=== PATIENT | male | born 1950 | race Caucasian/White ===

== ENCOUNTER → 2019-08-16 09:47 | Outpatient (BNVA) | payer BC, SELFPAY | PROVIDERS: Family Provider Registered Nurse; PCP Registered Nurse; Visit Provider Registered Nurse | DX: E11.9 Type 2 diabetes mellitus without complications (principal); I10 Essential (primary) hypertension | CPT/HCPCS: 83036 ==

== ENCOUNTER → 2019-11-11 09:56 | Outpatient (BNVA) | payer BC, SELFPAY | PROVIDERS: Family Provider Registered Nurse; PCP Registered Nurse | DX: E11.9 Type 2 diabetes mellitus without complications (principal) | CPT/HCPCS: 80053; 80061; 83036; 83721; 85025; G0103 ==

== ENCOUNTER 2019-12-30 08:44 | Emergency (ER) | payer BC, SELFPAY ==
[2019-12-30 08:49] VITALS: BP 138/77; PULSE 67; RESP 18; TEMP 36.7; O2SAT 97; BMI 39.6
--- NOTE | 2019-12-30 09:10 | ED_ITS ---
HPI - General Adult General: Chief complaint: General Medical Stated complaint: body aches Time Seen by Provider: 12/30/19 08:50 History of Present Illness: HPI narrative: Patient is a 69-year-old male who comes to the ED with body aches. Patient says symptoms started last Monday. He states that on Monday night he had body aches and felt like he developed a mild subjective fever. He has not had any fever, chills since Monday. Patient describes his body aches as all over his body and not in any particular area. He says when he sitting down and not moving he does not feel any other body aches. As soon as he gets up to move around he can feel the body aches throughout his body. Patient did say approximately 7-10 days ago he had a tick on his waist that he removed. Denies cough, chills, chest pain, shortness of breath, upper respiratory symptoms, nausea, vomiting, abdominal pain, bladder symptom or bowel symptoms. Associated symptoms: Deny chest pain, dyspnea, headache(s), nausea, rash, palpitations or vomiting Review of Systems Const: Reports: fever(s) and body aches; Denies: chills or fatigue Eyes: Denies: change in vision or eye discomfort ENMT: Denies: throat pain, odynophagia, nasal discharge or nasal congestion Card: Denies: chest pain, palpitations, edema, swelling of feet/ankles, dyspnea on exertion or orthopnea Resp: Denies: dyspnea, productive cough or non-productive cough GI: Denies: abdominal pain, nausea, vomiting, diarrhea, constipation or hematochezia : Denies: flank pain, difficulty urinating, dysuria or hematuria Musc: Denies: neck pain, back pain or extremity swelling Skin/Breast: Reports: other (Tick bite on waist); Denies: rash or new lesions Neuro: Denies: headache(s), numbness in extremities or weakness in extremities PFSH ED PFSH: Medical History Combined hyperlipidemia associated with type 2 diabetes mellitus Essential hypertension Obesity, unspecified Type 2 diabetes mellitus with unspecified complications Surgical History History of coronary angioplasty with insertion of stent History of hernia repair History of left knee replacement History of total right knee replacement Family History Other Diabetes Heart disease Denies family history of Anesthesia complication Bleeding disorder Social History Smoking and tobacco status: never smoked Alcohol intake: never Adopted: No Caregiver/support person: No Lives independently: Yes Marital status: service: No Current occupational status: employed Sexually active: Yes Current gender identity: Male Physical Exam Const: COMMON NORMALS: no acute distress, patient oriented x3 and alert GENERAL APPEARANCE: cooperative and comfortable NUTRITIONAL APPEARANCE: overweight HENMT: COMMON NORMALS: normocephalic and Normal external nose present HEAD & SCALP: normocephalic NOSE: Normal external nose present MOUTH: Normal oral and palatal mucosa present THROAT: posterior oropharynx normal and uvula midline Eye: COMMON NORMALS: Equal, round and reactive pupils present PUPIL: Yes Equal, round and reactive pupils present Neck/C-Spine: COMMON NORMALS: supple GENERAL: Yes normal visual inspection Resp: COMMON NORMALS: normal respiratory effort, No retractions, No use of accessory muscles and clear to auscultation bilaterally EFFORT & INSPECTION: Yes able to speak in complete sentences, No tachypneic and No Actively coughing AUSCULTATION: clear to auscultation bilaterally Cardio: COMMON NORMALS: regular rate, regular rhythm, S1 normal heart sound present, S2 normal heart sound present, No gallops present (Cardio), No clicks present (Cardio), No murmurs present (Cardio) and Peripheral pulses 2+ throughout RATE: regular rate RHYTHM: regular rhythm HEART SOUNDS: S1 normal heart sound present and S2 normal heart sound present PERIPHERAL PULSES: Peripheral pulses 2+ throughout GI: COMMON NORMALS: Normal to inspection, nondistended, normoactive bowel sounds present, Soft to palpation, non-tender and no masses PALPATION: Yes Soft to palpation : COMMON NORMALS: Yes no CVA tenderness BLADDER/KIDNEY EXAM: Yes no CVA tenderness Back/Pelvis: COMMON NORMALS: no CVA tenderness Extremity: COMMON NORMALS: normal to inspection and no pedal edema Neuro: COMMON NORMALS: patient oriented x3 and moves all extremities SENSORIUM/ORIENTATION: Yes alert Skin: GENERAL SKIN EXAM: dry skin OTHER: Patient had a tick bite on left side of waist. Patient removed tick. Now in region where tick was there is approximately a 5 mm in diameter circular erythema. Course Vital Signs: Vital signs: Vital Signs Temperature 98.1 F 12/30/19 08:49 Pulse Rate 58 L 12/30/19 10:41 Respiratory Rate 18 12/30/19 10:41 Blood Pressure 129/81 12/30/19 10:41 Pulse Oximetry 97 12/30/19 10:41 MDM - General Adult MDM Narrative: Medical decision making narrative: Patient is a 69-year-old male who comes into the ED with body aches starting about 5 days ago. Patient also had a tick bite and removed it approximately 7 to 10 days ago. Patient has no other symptoms besides body aches. Physical exam showed a 69-year-old male in no pain or distress. Tick bite on left side of waist had some erythema but no target lesion. White blood cells 3.5 and AST 49 and ALT 73. Influenza negative. A tick panel lab was also performed and is pending. Patient was given a dose of doxycycline while here in the ED. Patient was discharged and given a prescription for doxycycline to treat tick disease prophylactically. He was told to follow-up with his PCP in 5 to 7 days for reevaluation and to redraw labs. Patient understood and agreed with plan. Lab Data: Attestation: I reviewed the patient's lab results. Labs: Lab Results 12/30/19 12/30/19 12/30/19 Range/Units 09:27 09:27 09:46 WBC 3.5 L (4.0-10.0) 10^3/ uL RBC 4.94 (4.1-5.3) 10^6/u L Hgb 14.7 (11.7-16.6) g/dL Hct 45.3 (42.0-52.0) % MCV 91.7 (80-94) fL MCH 29.8 (28.0-34.0) pg MCHC 32.5 (30.0-36.0) g/dL RDW 13.3 (12.1-15.1) % Plt Count 172 (130-400) 10^3/c mm MPV 9.7 (7.4-10.4) fL Neut % (Auto) 59.4 % Lymph % (Auto) 18.3 % [place] % (Auto) 16.3 % Eos % (Auto) 5.4 % Baso % (Auto) 0.3 % Neut # (Auto) 2.1 (1.8-7.7) 10^3/u L Lymph # (Auto) 0.6 L (0.8-4.8) 10^3/u L [place] # (Auto) 0.6 (0.2-0.9) 10^3/u L Eos # (Auto) 0.2 (0.0-0.8) 10^3/u L Baso # (Auto) 0.0 (0.0-0.1) 10^3/u L Nucleated RBC % (a uto) 0 % Nucleated RBCs # 0.0 /100WBC Sodium (136-145) mmol/L Potassium (3.5-5.1) mmol/L Chloride (98-107) mmol/L Carbon Dioxide (22-29) mmol/L Anion Gap (5-19) BUN (8-23) mg/dL Creatinine (0.7-1.2) mg/dL GFR Calculation (90-130) mL/min Glucose (65-115) mg/dL Calculated Osmolal ity (285-295) mOsm/k g Calcium (8.5-10.5) mg/dL Total Bilirubin (0.15-1.2) mg/dL AST (0-40) U/L ALT (0-41) U/L Alkaline Phosphata se (40-130) IU/L Total Protein (6.6-8.7) g/dL Albumin (3.5-5.2) g/dL Globulin (1.3-4.6) g/dL Urine Color Straw (Yellow) Urine Appearance Clear (CLEAR) Urine pH 5 (5-7) Ur Specific Gravit y 1.010 (1.005-1.030) Urine Protein Neg (Negative) Urine Glucose (UA) 4+ H (Normal) Urine Ketones Negative (Negative) Urine Blood Neg (Negative) Urine Nitrate Negative (Negative) Urine Bilirubin Neg (NEGATIVE) Urine Urobilinogen Norm (Negative) mg/dL Ur Leukocyte [place] ase Negative (Negative) Urine RBC 0-4 H (0-2) /hpf Urine WBC None (0-5) /hpf Ur Squamous Epith Cells 0-4 H (0-5) Urine Bacteria Trace (NONE) Influenza Type A A g Negative (Negative) Influenza Type B A g Negative (Negative) 12/30/19 Range/Units 09:46 WBC (4.0-10.0) 10^3/ uL RBC (4.1-5.3) 10^6/u L Hgb (11.7-16.6) g/dL Hct (42.0-52.0) % MCV (80-94) fL MCH (28.0-34.0) pg MCHC (30.0-36.0) g/dL RDW (12.1-15.1) % Plt Count (130-400) 10^3/c mm MPV (7.4-10.4) fL Neut % (Auto) % Lymph % (Auto) % [place] % (Auto) % Eos % (Auto) % Baso % (Auto) % Neut # (Auto) (1.8-7.7) 10^3/u L Lymph # (Auto) (0.8-4.8) 10^3/u L [place] # (Auto) (0.2-0.9) 10^3/u L Eos # (Auto) (0.0-0.8) 10^3/u L Baso # (Auto) (0.0-0.1) 10^3/u L Nucleated RBC % (a uto) % Nucleated RBCs # /100WBC Sodium 134 L (136-145) mmol/L Potassium 4.2 (3.5-5.1) mmol/L Chloride 98 (98-107) mmol/L Carbon Dioxide 21 L (22-29) mmol/L Anion Gap 19.2 H (5-19) BUN 34 H (8-23) mg/dL Creatinine 1.7 H (0.7-1.2) mg/dL GFR Calculation 40.4 L (90-130) mL/min Glucose 310 H (65-115) mg/dL Calculated Osmolal ity 287 (285-295) mOsm/k g Calcium 9.6 (8.5-10.5) mg/dL Total Bilirubin 0.5 (0.15-1.2) mg/dL AST 49 H (0-40) U/L ALT 73 H (0-41) U/L Alkaline Phosphata se 53 (40-130) IU/L Total Protein 8.2 (6.6-8.7) g/dL Albumin 4.2 (3.5-5.2) g/dL Globulin 4.0 (1.3-4.6) g/dL Urine Color (Yellow) Urine Appearance (CLEAR) Urine pH (5-7) Ur Specific Gravit y (1.005-1.030) Urine Protein (Negative) Urine Glucose (UA) (Normal) Urine Ketones (Negative) Urine Blood (Negative) Urine Nitrate (Negative) Urine Bilirubin (NEGATIVE) Urine Urobilinogen (Negative) mg/dL Ur Leukocyte [place] ase (Negative) Urine RBC (0-2) /hpf Urine WBC (0-5) /hpf Ur Squamous Epith Cells (0-5) Urine Bacteria (NONE) Influenza Type A A g (Negative) Influenza Type B A g (Negative) Discharge Plan Discharge Patient Disposition: Home, Self-Care Clinical Impression: Generalized body aches Tick bite Qualifiers: Encounter type: initial encounter Qualified Code(s): W57.XXXA - Bitten or stung by nonvenomous insect and other nonvenomous arthropods, initial encounter Condition: Stable Prescriptions: New doxycycline hyclate 100 mg capsule 100 mg PO BID 14 Days Qty: 28 RF: 0 No Action tadalafil [Cialis] 20 mg tablet 20 mg PO PRN RF: 0 metformin 500 mg tablet 500 mg PO BID 90 Days Qty: 180 RF: 0 losartan 100 mg tablet 100 mg PO BID 90 Days Qty: 180 RF: 0 hydrochlorothiazide 25 mg tablet 25 mg PO BID 90 Days Qty: 180 RF: 0 Jardiance 10 mg tablet 10 mg PO DAILY 90 Days Qty: 90 RF: 0 rosuvastatin 5 mg tablet 5 mg PO DAILY Qty: 90 RF: 0 Mobic 15 mg Tablet 15 mg PO DAILY RF: 0 Aspir-81 81 mg Tablet,Delayed Release (Dr/Ec) 81 mg PO DAILY RF: 0 K2 Plus D3 1,000-100 unit-mcg Tablet 2 tab PO DAILY RF: 0 Fish Oil 2 cap PO DAILY RF: 0 glipizide 10 mg tablet 10 mg PO BID RF: 0 metoprolol succinate 25 mg tablet extended release 24 hr 25 mg PO DAILY RF: 0 Discharge Orders: Discharge Order (Routine); Ordered 12/30/19 Ordered By: Oliverio Wright Referrals: Kingsley,Laurica, SLITTER AND CUTTER OPERATOR [Primary Care Provider] - Discharge Diet: Regular Discharge Activity: Resume usual activity Patient Instructions: Tick Bite (ED) Activity Restrictions/Additional Instructions: Take full course of doxycycline as prescribed. Call your PCP and set up a follow-up appointment within the next 5-7 days. Discharge Date/Time: 12/30/19 10:41 Coding Level of Care Code ED Chemical Reclamation Equipment Operator for Zenaida Fwd Exam Comprehensive
[2019-12-30 09:28] VITALS: BP 140/84; PULSE 64; RESP 18; O2SAT 99
[2019-12-30 10:10] LABS: Basophils % 0.3 %; Eosinophils # 0.2 10^3/uL (0.0-0.8); Eosinophils % 5.4 %; Hematocrit 45.3 % (42.0-52.0); Hemoglobin 14.7 g/dL (11.7-16.6); Lymphocytes # 0.6 10^3/uL (0.8-4.8); Lymphocytes % 18.3 %; Mean Corpuscular HGB Conc 32.5 g/dL (30.0-36.0); Mean Corpuscular Hemoglobin 29.8 pg (28.0-34.0); Mean Corpuscular Volume 91.7 fL (80-94); Mean Platelet Volume 9.7 fL (7.4-10.4); Monocytes # 0.6 10^3/uL (0.2-0.9); Monocytes % 16.3 %; Neutrophils # 2.1 10^3/uL (1.8-7.7); Neutrophils % 59.4 %; Nucleated Red Blood Cells % 0 %; Platelet Count 172 10^3/cmm (130-400); Red Blood Count 4.94 10^6/uL (4.1-5.3); Red Cell Distribution Width 13.3 % (12.1-15.1); White Blood Count 3.5 10^3/uL (4.0-10.0)
[2019-12-30 10:17] LABS: Urine Appearance Clear (CLEAR); Urine Color Straw (Yellow); pH Urine 5 (5-7)
[2019-12-30 10:18] LABS: Bilirubin Urine Neg (NEGATIVE); Blood Urine Neg (Negative); Glucose Urine UA 4+ (Normal); Ketones Urine Negative (Negative); Leukocyte Esterase Urine Negative (Negative); Nitrate Urine Negative (Negative); Protein Urine Neg (Negative); Urobilinogen Urine Norm (Negative)
[2019-12-30 10:20] LABS: RBC Urine 0-4 /hpf (0-2)
[2019-12-30 10:21] LABS: Add Urine Culture? No; Bacteria Urine TRACE; Squamous Epithelial Cell Urine 0-4 (0-5)
[2019-12-30] MEDS: doxycycline 100 mg Tablet PO (10:21)
[2019-12-30 10:22] VITALS: BP 116/74; PULSE 72; RESP 16; O2SAT 94
[2019-12-30 10:27] LABS: Alanine Aminotransferase 73 U/L (0-41); Albumin Level 4.2 g/dL (3.5-5.2); Alkaline Phosphatase 53 IU/L (40-130); Anion Gap 19.2 (5-19); Aspartate Amino Transferase 49 U/L (0-40); Blood Urea Nitrogen 34 mg/dL (8-23); Calcium 9.6 mg/dL (8.5-10.5); Carbon Dioxide 21 mmol/L (22-29); Chloride 98 mmol/L (98-107); Glomerular Filtration Rate 40.4 mL/min (90-130); Glucose 310 mg/dL (65-115); Osmolality Calculated 287 mOsm/kg (285-295); Potassium 4.2 mmol/L (3.5-5.1); Sodium 134 mmol/L (136-145); Total Bilirubin 0.5 mg/dL (0.15-1.2); Total Protein 8.2 g/dL (6.6-8.7)
[2019-12-30 10:35] LABS: Influenza A by IFA Negative (Negative); Influenza B by IFA Negative (Negative)
[2019-12-30 10:41] VITALS: BP 129/81; PULSE 58; RESP 18; O2SAT 97
[2020-01-01 16:31] LABS: Lyme AB Screen <0.90 index
[2020-01-04 22:01] LABS: E. Chaffeensis AB IGG <1:64; E. Chaffeensis AB IGM <1:20
[2020-01-06 22:06] LABS: RMSF IGG NOT DETECTED; RMSF IGM NOT DETECTED
== END 2019-12-30 10:41 | disposition home or self-care (01) ==
PROVIDERS: Emergency Provider Physician Assistant; Family Provider Registered Nurse; PCP Registered Nurse
DX: R52 Pain, unspecified (principal); S30.861A Insect bite (nonvenomous) of abdominal wall, initial encounter; W57.XXXA Bitten or stung by nonvenomous insect and other nonvenomous arthropods, initial encounter; Z79.82 Long term (current) use of aspirin; E78.2 Mixed hyperlipidemia; E11.9 Type 2 diabetes mellitus without complications; I10 Essential (primary) hypertension; Z95.5 Presence of coronary angioplasty implant and graft
CPT/HCPCS: 12345; 36415; 80053; 81001; 85025; 87040; 87804; 99282; 99283; A9270

== ENCOUNTER → 2020-02-14 09:28 | Outpatient (BNVA) | payer BC, SELFPAY | PROVIDERS: Family Provider Registered Nurse; PCP Registered Nurse; Visit Provider Registered Nurse | DX: E11.8 Type 2 diabetes mellitus with unspecified complications (principal) | CPT/HCPCS: 83036 ==

== ENCOUNTER → 2020-06-18 10:23 | Outpatient (BNVA) | payer BC, SELFPAY | PROVIDERS: Family Provider Registered Nurse; PCP Registered Nurse; Visit Provider Registered Nurse | DX: E11.9 Type 2 diabetes mellitus without complications (principal); L20.9 Atopic dermatitis, unspecified | CPT/HCPCS: 80053; 83036 ==

== ENCOUNTER → 2020-10-30 13:14 | Outpatient (BNVA) | payer BC, SELFPAY | PROVIDERS: Family Provider Registered Nurse; PCP Registered Nurse; Visit Provider Registered Nurse | DX: E11.8 Type 2 diabetes mellitus with unspecified complications (principal) | CPT/HCPCS: 81000 ==

== ENCOUNTER 2020-11-16 06:43 | Observation (INO) | payer BC, SELFPAY ==
--- NOTE | 2020-11-16 06:48 | ECG_ITS ---
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 Measurements Intervals [place] Rate: 76 P: 69 [place]: 178 QRS: -15 QRSD: 116 T: 25 QT: 404 QTc: 454 Interpretive Statements SINUS RHYTHM Compared to ECG 07/27/2019 06:49:26 Intraventricular conduction delay no longer present T-wave abnormality no longer present Electronically Signed On 11-16-2020 20:10:58 CDT by Carlos Padilla M.D. [id number]
[2020-11-16 07:04] LABS: Glucose Point of Care 174 mg/dL (70-110)
[2020-11-16 07:06] VITALS: BP 204/112; PULSE 74; RESP 18; TEMP 37.1; O2SAT 95
[2020-11-16 07:13] VITALS: BP 165/99; PULSE 70; RESP 20; TEMP 36.6; O2SAT 94
--- NOTE | 2020-11-16 07:44 | USCV_ITS ---
Elieser Chavez Age: 70 Gender: M : 1950 Exam Date: 11/16/2020 08:52 Ordering Phys: Michele Alan MD Technologist: Werner Diaz Exam Location: [facility] Indication: CHEST PAIN BP: 156 / 86 HR: 80 Rhythm: Sinus Technical Quality: Adequate MEASUREMENTS (Male / Female) Normal Values 2D ECHO LV Diastolic Diameter PLAX 4.3 cm 4.2 - 5.9 / 3.9 - 5.3 cm LV Systolic Diameter PLAX 2.8 cm IVS Diastolic Thickness 1.2 cm 0.6 - 1.0 / 0.6 - 0.9 cm IVS Systolic Thickness 1.7 cm LVPW Diastolic Thickness 1.2 cm 0.6 - 1.0 / 0.6 - 0.9 cm LVPW Systolic Thickness 1.8 cm LVOT Diameter 2.1 cm LV Ejection Fraction 2D Teich 64.9 % LV Ejection Fraction MOD 2C 61.8 % LV Ejection Fraction 2C AL 63.2 % LA Diameter 4.9 cm LA Width 4.5 cm LA Height 6.0 cm RA Width 4.1 cm RA Height 4.9 cm M-MODE LV Diastolic Diameter MM 6.3 cm 4.2 - 5.9 / 3.9 - 5.3 cm LV Systolic Diameter MM 4.3 cm LV Ejection Fraction MM Teich 58.3 % IVS Diastolic Thickness MM 1.2 cm 0.6 - 1.0 / 0.6 - 0.9 cm IVS Systolic Thickness MM 1.7 cm LVPW Diastolic Thickness MM 1.8 cm 0.6 - 1.0 / 0.6 - 0.9 cm LVPW Systolic Thickness MM 2.2 cm RV Diastolic Diameter MM 1.7 cm Aortic Annulus Diameter 4.3 cm LA Ao Ratio MM 1.2 MV E Point Septal Separation 0.6 cm DOPPLER AV Peak Velocity 286.0 cm/s LVOT Peak Velocity 102.0 cm/s AV Area Cont Eq vti 0.9 cm squared AV Area Cont Eq pk 1.2 cm squared MV Area PHT 2.7 cm squared Mitral E to A Ratio 0.9 MV E' Velocity 46.0 cm/s Mitral E to MV E' Ratio 10.7 Mitral E to LV E' Lateral Ratio 9.6 Mitral E to LV E' Septal Ratio 12.3 TR Peak Velocity 159.7 cm/s TR Peak Gradient 10.2 mmHg TV Peak E Velocity 104.0 cm/s Right Atrial Pressure 3.0 mmHg Pulmonary Artery Systolic Pressu 13.2 mmHg PV Peak Velocity 119.0 cm/s FINDINGS Left Ventricle Normal left ventricular size and systolic function, EF 61 %. Mild left ventricular hypertrophy. Grade I/IV diastolic dysfunction (abnormal relaxation filling pattern), normal to mildly elevated filling pressures. Mild hypokinesia of the basal inferior wall segment Right Ventricle The right ventricle is normal in size and function. Right Atrium The right atrium is normal in size. Left Atrium Mildly increased left atrial size. Mitral Valve Thickened mitral valve. Mild mitral annular calcification. Aortic Valve Moderate aortic valve stenosis with a valve area of 1.1 cm squared. Peak velocity of 3.19 m/s with a peak gradient of 41 and a mean gradient of 17mmHg. Tricuspid Valve Trace tricuspid valve regurgitation. Pulmonic Valve Pulmonic valve not well visualized. Pericardium Normal pericardium without effusion. Aorta Normal ascending aorta dimension. CONCLUSIONS Normal left ventricular size and systolic function, EF 61 %. Mild left ventricular hypertrophy. Grade I/IV diastolic dysfunction (abnormal relaxation filling pattern), normal to mildly elevated filling pressures. Mild hypokinesia of the basal inferior wall segment. Thickened mitral valve. Mild mitral annular calcification. Mildly increased left atrial size. Moderate aortic valve stenosis with a valve area of 1.1 cm squared. (Peak velocity of 3.19 m/s with a peak gradient of 41 and a mean gradient of 17mmHg.) Trace tricuspid valve regurgitation. There is no pericardial effusion. There are no intracardiac masses. Compared to the study from 06/10/2015, the aortic valve seems to be getting more stenotic Dr Hesham Stout MD [facility] (Electronically Signed) Final Date: 16 November 2020 18:05 S
--- NOTE | 2020-11-16 07:46 | PM.HP ---
Providers/Chief Complaint Admitting Physician: Tracie Hernandez MD Primary Care Provider: LAZARA Badillo Chief Complaint: CP History of Present Illness Elieser Chavez is a 70 year old male who presented to [facility] [place] secondary to chest discomfort. He reports this occurred last night around 10 PM. It was a feeling of pressure radiating to his jaw lasting less than 10 seconds. 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 He denies any recurrent chest discomfort and is not in any chest discomfort currently. He denies any associated symptoms such as shortness of breath or nausea for me. He reports he has had an episode before about 2 months ago which she attributed to some anxiety. It was not exertional. He denies any recent illness. He does report he has occasional heartburn. He had caffeine around midnight. At the emergency department he received some sublingual nitroglycerin, nitroglycerin ointment, aspirin, and a dose of Lopressor. Review of Systems General: Reports: 10 or more systems reviewed and unremarkable except in HPI and below Const: Denies: fever(s) Eyes: Denies: change in vision ENMT: Denies: throat pain Card: Reports: chest pain; Denies: palpitations, edema or swelling of feet/ankles Resp: Denies: dyspnea GI: Reports: heartburn; Denies: abdominal pain : Denies: flank pain Musc: Denies: neck pain Skin/Breast: Denies: rash Neuro: Denies: headache(s) Psych: Reports: anxiety Endo: Denies: polyuria Cristofer/Lymph: Denies: easy bruising All/Imm: Denies: urticaria Medications/Allergies Home Medications Medication Instructions Recorded Confirmed Last Taken Type aspirin [Aspir-81] 81 mg PO DAILY 12/30/19 10/30/20 12/29/19 History tadalafil 20 mg tablet 20 mg PO PRN #14 tab 02/14/20 10/30/20 Unknown Rx meloxicam 15 mg tablet 15 mg PO DAILY #90 tab 03/18/20 10/30/20 Unknown Rx glipizide 10 mg tablet 10 mg PO BID 90 Days #180 tab 06/18/20 10/30/20 Unknown Rx metformin 500 mg tablet 500 mg PO BID 90 Days #180 tab 06/18/20 10/30/20 Unknown Rx collagen PO 09/11/20 10/30/20 Unknown History losartan 100 mg tablet 150 mg PO DIRECTED #135 tab 09/11/20 10/30/20 Unknown Rx resveratrol 50 mg capsule mg PO 09/11/20 10/30/20 Unknown History nystatin 100,000 unit/gram topical 1 applic TOPICAL BID #30 g 10/30/20 10/30/20 Unknown Rx cream sitagliptin 50 mg tablet 50 mg PO DAILY #90 tab 10/30/20 10/30/20 Unknown Rx metoprolol succinate 25 mg 25 mg PO DAILY #30 tab 11/02/20 Unknown Rx tablet,extended release 24 hr Allergies Allergy/AdvReac Type Severity Reaction Status Date / Time hydrocodone Allergy Hives Verified 10/30/20 13:09 oxycodone Allergy hives Verified 10/30/20 13:09 PFSH Acute PFSH: Medical History (Updated 11/16/20 @ 07:52 by Michele Alan MD) CAD (coronary artery disease) RCA stent times 10/2014, subtotal occlusion of circumflex noted at that time Chronic joint pain Combined hyperlipidemia associated with type 2 diabetes mellitus Essential hypertension Obesity, unspecified Type 2 diabetes mellitus with unspecified complications Surgical History History of coronary angioplasty with insertion of stent History of hernia repair History of left knee replacement History of total right knee replacement Family History Other Diabetes Heart disease Denies family history of Anesthesia complication Bleeding disorder Social History Smoking and tobacco status: never smoked Alcohol intake: never Adopted: No Caregiver/support person: No Lives independently: Yes Marital status: service: No Current occupational status: employed Sexually active: Yes Current gender identity: Male Vitals/I&O/Wt Last Vital Signs Temp 97.8 F 11/16/20 07:13 Pulse 70 11/16/20 07:13 Resp 20 H 11/16/20 07:13 BP 165/99 11/16/20 07:13 Pulse Ox 94 11/16/20 07:13 Physical Exam Narrative: EXAM NARRATIVE: General exam is a white male, in no apparent distress denying any chest discomfort. He wonders if he can go home. HEENT: He was equally round. Oropharynx clear. Neck is supple no lymphadenopathy or thyromegaly Cardiovascular regular rate and rhythm without murmur, no S3 or S4 Lungs clear no wheezing or crackles Abdomen is soft with positive bowel sounds. Obese. No obvious organomegaly was deferred Extremities no cyanosis clubbing or edema, cap refill brisk Skin no rash Data : 11/16/20 07:15 Other data: Laboratory at [facility] demonstrated an EKG with Q waves inferiorly. Normal sinus rhythm, normal axis and no acute changes. Chest x-ray negative CTA demonstrates fatty liver, no pulmonary embolism Sodium 132 potassium 4.0 chloride 97 bicarb 21 BUN 31 creatinine 1.4 glucose 238 LFTs normal. CBC demonstrated a white count of 7.6 hemoglobin 16.4 platelet count of 195,000. Troponin XX 6 with repeat of 13 A&P Assessment and plan (1) Chest pain: He had caffeine today. He is not a candidate for a nuclear stress test. Cardiology accepted him in transfer for evaluation so we will consult cardiology. Check echocardiogram Repeat troponin here pending. Check TSH He had a very short-lived episode of chest discomfort less than 10 seconds, and troponin has negative delta. Will discuss with cardiology if outpatient stress testing is appropriate as patient wants this considered as an option. Status: Acute (2) CAD (coronary artery disease): Continue aspirin. Continue beta-albina No caffeine in case nuclear stress test is done tomorrow I will need to clarify why he is not on a statin. Status: Acute Qualifiers: Coronary Disease-Associated Artery/Lesion type: [place] artery [place] vs. transplanted heart: [place] heart Associated angina: without angina Qualified Code(s): I25.10 - Atherosclerotic heart disease of [place] coronary artery without angina pectoris (3) Type 2 diabetes mellitus with unspecified complications: Sliding scale insulin. Hold home medicines currently. Consistent carb diet. Status: Chronic (4) Essential hypertension: Continue losartan, metoprolol Status: Chronic (5) GERD (gastroesophageal reflux disease): Add Protonix. He is taking Pepcid at home fairly frequently. Status: Acute Additional A&P Information Full code Heparin for DVT prophylaxis Attestations Medical Necessity Statement*: Will need less than 2 midnight stay for evaluation and treatment of chest discomfort. Time Spent in Patient Care: Greater than 35 minutes Coding Level of Care Code Acute Chain Sales Representative for Chg Fwd Diagnoses Chest pain R07.9 CAD (coronary artery disease) I25.10 Coronary Disease-Associated Artery/Lesion type: [place] artery [place] vs. transplanted heart: [place] heart Associated angina: without angina Type 2 diabetes mellitus with unspecified complications E11.8 Essential hypertension I10 GERD (gastroesophageal reflux disease) K21.9
[2020-11-16] MEDS: hyDRALAzine 20 mg/mL INJ 1 mL 10 MG IVP (07:49)
[2020-11-16 07:59] LABS: Blood Urea Nitrogen 23 mg/dL (8-23); Calcium 8.6 mg/dL (8.5-10.5); Carbon Dioxide 22 mmol/L (22-29); Chloride 103 mmol/L (98-107); Glomerular Filtration Rate 83.9 mL/min (90-130); Glucose 171 mg/dL (65-115); Osmolality Calculated 290 mOsm/kg (285-295); Sodium 136 mmol/L (136-145)
[2020-11-16 08:02] LABS: Troponin T (5th) Once 28 ng/L (0-15)
[2020-11-16] MEDS: pantoprazole DR 40 mg Tablet PO (08:07)
[2020-11-16] MEDS: aspirin 81 mg EC Tablet PO (08:07)
[2020-11-16] MEDS: heparin 5,000 unit/mL INJ 1 mL 5000 UNIT SUBCUT ×3 (08:07→22:13)
[2020-11-16] MEDS: metoprolol succinate ER (24 HR) 25 mg Tablet PO (08:07)
[2020-11-16 08:08] VITALS: BP 165/99
[2020-11-16] MEDS: losartan 50 mg Tablet 100 MG PO (08:08)
[2020-11-16 08:15] VITALS: BMI 41.0
[2020-11-16 08:41] LABS: Thyroid Stimulating Hormone 3.48 uIU/mL (0.27-4.20)
--- NOTE | 2020-11-16 08:48 | PM.CONSULT ---
Providers/Reason For Consult Consulting Physican/Specialty*: JATINDER Stout MD/cardiology Reason for Consult*: Patient is a chest pain and previous myocardial infarction, status post PCI, presented with complaints of chest pain Attending Physician: Michele Alan MD Primary Care Provider: LAZARA Badillo History of Present Illness History of Present Illness Elieser Chavez is a 70 year old male with a history of coronary artery disease, high blood pressure, dyslipidemia and type 2 diabetes, is presenting with complaints of chest pain. Cardiology consult is requested for further cardiac evaluation recommendations. This patient, apparently has been in his baseline state of health up until around 10:30 PM yesterday when he received a distressing phone call. According the patient, in order to get cooled off he got into his car and drove for a while. As he came back, he started having pain in the upper substernal region. It was a pressure-like pain which was moderate intensity lasted for 15 seconds or so. He had a 3 episodes of such pains within it. Of 15 minutes. He had some pressure-like feeling in between these episodes. Following the episode, he had some heavy feeling persisting. For this reason, he was seen at the [facility] in [place], [place].. Myocardial infarction was ruled out by serial enzymes. Patient gives a history of some heaviness/tightness in his upper substernal region with activities for the last 1 year or so. He attributes the symptoms to the possible Covid 19 that he could have gotten in the July of 2019. According to the patient, he was in the ER couple of times in July 2019 for flulike symptoms. Since there was no testing for COVID-19 at that time, he was sent home without any definite diagnosis. Ever since this episode, he been experiencing a tight feeling in the upper part of the chest with moderate activities also with episodes of stress. Because of this history and also the ongoing feeling of heaviness in the chest, he was transferred to our facility for further evaluation and management. At the time of my examination, patient is symptom-free. Patient has a history of high blood pressure, type 2 diabetes and dyslipidemia for the last many years. In 2014, he presented with acute myocardial infarction. Subsequently he underwent cardiac catheterization followed by PCI of the right coronary artery. He had 3 stents placed in the RCA. The distal circumflex was subtotally occluded. Because it was a small caliber vessel, it was found to be not amenable for intervention. For this reason, it was left alone. According the patient, he has been doing okay without any chest pain up until July 2019 as mentioned above. He has not had any stress testing or any functional evaluation since the coronary intervention. 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 Denies any smoking abuse or alcohol abuse. No other substance abuse. He has not been taking medication for the cholesterol because of the muscle pains and joint pains. According to the patient, he was tried on 4 different statins and all of them caused the same symptoms. His father started having heart problems in his 50s and of myocardial infarction at age of 68. One of his sisters also may have heart problems. But the details are not available. He had a CTA at the [facility] and is reported as negative for PE. His EKG did not show any definite acute ischemic changes. His chest x-ray also was unremarkable?. Review of Systems Narrative: CONSTITUTIONAL: No fever or chills. EYES: No blurring of vision or other visual disturbances lately. ENT: No hoarseness of voice, auditory disturbances or sore throat. CARDIOVASCULAR: Exertional tightness in the upper substernal region as mentioned above RESPIRATORY: No significant cough. GASTROINTESTINAL: No hematemesis or melena. GENITOURINARY: No dysuria or hematuria. INTEGUMENTARY: No skin rashes or history of skin cancer. NEURO: No transient ischemic attacks or amaurosis. PSYCHIATRIC: No history of psychosis or major depression. HEMATOLOGIC: No bleeding disorders or significant anemia. ENDOCRINE: No history of polyuria or polydipsia. MUSCULOSKELETAL: No recent joint pain or swelling. ALLERGY/IMMUNOLOGY: As mentioned above. Meds/Allergies Home Medications and Allergies Home Medications Medication Instructions Recorded Confirmed Last Taken Type aspirin [Aspir-81] 81 mg PO DAILY 12/30/19 11/16/20 11/15/20 09:00 History tadalafil 20 mg tablet 20 mg PO PRN #14 tab 02/14/20 11/16/20 Unknown Rx meloxicam 15 mg tablet 15 mg PO DAILY #90 tab 03/18/20 11/16/20 11/15/20 09:00 Rx glipizide 10 mg tablet 10 mg PO BID 90 Days #180 tab 06/18/20 11/16/20 11/15/20 20:30 Rx metformin 500 mg tablet 500 mg PO BID 90 Days #180 tab 06/18/20 11/16/20 11/15/20 20:30 Rx losartan 100 mg tablet 150 mg PO DIRECTED #135 tab 09/11/20 11/16/20 11/15/20 09:00 Rx sitagliptin 50 mg tablet 50 mg PO DAILY #90 tab 10/30/20 11/16/20 11/15/20 09:00 Rx metoprolol succinate 25 mg 25 mg PO DAILY #30 tab 11/02/20 11/16/20 11/15/20 09:00 Rx tablet,extended release 24 hr Allergies Allergy/AdvReac Type Severity Reaction Status Date / Time hydrocodone Allergy Hives Verified 10/30/20 13:09 oxycodone Allergy hives Verified 10/30/20 13:09 Current Medications Current Medications Generic Name Dose Route Start Last Admin Trade Name Freq PRN Reason Stop Dose Admin Aspirin 81 mg 11/16/20 09:00 11/16/20 08:07 Aspirin 81 Mg Ec Tablet PO 81 mg DAILY CHANO Administration Heparin Sodium (Beef Lung) 5,000 unit 11/16/20 07:00 11/16/20 08:07 Heparin 5,000 Unit/Ml Inj 1 Ml SUBCUT 5,000 unit Q8H CHANO Administration Insulin Aspart 0 unit 11/16/20 08:00 11/16/20 08:07 Insulin Aspart 100 Unit/1 Ml SUBCUT 2 unit WM&BEDTIME CHANO Administration Protocol Losartan Potassium 100 mg 11/16/20 09:00 11/16/20 08:08 Losartan 50 Mg Tablet PO 100 mg DAILY@0900 CHANO Administration Metoprolol Succinate 25 mg 11/16/20 09:00 11/16/20 08:07 Metoprolol Succinate Er (24 Hr) 25 Mg Tablet PO 25 mg DAILY CHANO Administration Pantoprazole Sodium 40 mg 11/16/20 09:00 11/16/20 08:[address] 40 Mg Tablet PO 40 mg DAILY CHANO Administration PFSH Acute PFSH: Medical History (Updated 11/16/20 @ 09:49 by Hesham Stout MD) CAD (coronary artery disease) RCA stent times 10/2014, subtotal occlusion of circumflex noted at that time Chronic joint pain Combined hyperlipidemia associated with type 2 diabetes mellitus Essential hypertension Obesity, unspecified Type 2 diabetes mellitus with unspecified complications Surgical History History of coronary angioplasty with insertion of stent History of hernia repair History of left knee replacement History of total right knee replacement Family History Other Diabetes Heart disease Denies family history of Anesthesia complication Bleeding disorder Social History Smoking and tobacco status: never smoked Alcohol intake: never Adopted: No Caregiver/support person: No Lives independently: Yes Marital status: service: No Current occupational status: employed Sexually active: Yes Current gender identity: Male Vitals/I&O/Wt Last Vital Signs Temp 97.8 F 11/16/20 07:13 Pulse 70 11/16/20 07:13 Resp 20 H 11/16/20 07:13 BP 165/99 11/16/20 08:08 Pulse Ox 94 11/16/20 07:13 Weight last 48 hrs Weight 294 lb Physical Exam Narrative: EXAM NARRATIVE: GENERAL: The patient is alert and oriented times three. Not in any acute distress. HEENT: No significant pallor, icterus or lymphadenopathy. The pupils are reactant to light. Oral cavity: There are no mucous membrane lesions. Funduscopic examination: Fundus is not visualized NECK: Trachea appears to be central. No masses noted. No JVD or thyromegaly appreciated. No carotid bruit. RESPIRATORY: Chest is symmetrical. No intercostals muscle retraction or any accessory muscle activation. There is no chest wall tenderness. Breath sounds are heard bilaterally. No rales or rhonchi heard. No evidence of any consolidation. BREASTS: Deferred. HEART: The PMI could not be palpated. No palpable precordial events. S1 and S2 are normal. No S3 or S4 heard. No pericardial rub or any click heard. Ejection systolic murmur grade 3/6 in the aortic area. No diastolic murmurs. ABDOMEN: No vessel pulsations or distention. No tenderness. No organomegaly appreciated. No abdominal bruit. Bowel sounds are normally heard. : Deferred. RECTAL: Deferred. LYMPHATIC: No lymphadenopathy noted in the neck or groin. EXTREMITIES: No edema or cyanosis. No clubbing. The pulses are symmetrical bilaterally. The radial, femoral, dorsalis pedis and the posterior tibial pulses are palpated and found to be in good volume and amplitude. MUSCULOSKELETAL: No acute joint deformities or swelling. SKIN: There are no significant scars or skin rash noted. NEUROPSYCHIATRIC: The patient is alert and oriented x3. Appears to be in a good mood. The higher functions are grossly within normal limits. No tremors or rigidity noted. Data Labs: Other Labs: Laboratory Last Values Sodium 136 mmol/L (136-1 45) 11/16/20 07:15 Potassium 4.0 mmol/L (3.5-5 .1) 11/16/20 07:15 Chloride 103 mmol/L (98-10 7) 11/16/20 07:15 Carbon Dioxide 22 mmol/L (22-29) 11/16/20 07:15 Anion Gap 15.0 (5-19) 11/16/20 07:15 BUN 23 mg/dL (8-23) 11/16/20 07:15 Creatinine 0.9 mg/dL (0.7-1. 2) 11/16/20 07:15 GFR Calculation 83.9 mL/min (90-1 30) L 11/16/20 07:15 Glucose 171 mg/dL (65-115 ) H 11/16/20 07:15 POC Glucose 174 mg/dL (70-110 ) H 11/16/20 07:03 Calculated Osmolal ity 290 mOsm/kg (285- 295) 11/16/20 07:15 Calcium 8.6 mg/dL (8.5-10 .5) 11/16/20 07:15 Troponin T Gen 5 n g/L 28 ng/L (0-15) H 11/16/20 07:15 TSH 3.48 uIU/mL (0.27 -4.20) 11/16/20 07:15 EKG^: EKG 1: My Interpretation: Normal sinus rhythm with a heart rate of 76 bpm. Features of old inferior wall myocardial infarction. Some nonspecific IVCD. Some nonspecific T wave changes. A&P Assessment and plan (1) Accelerating angina: His chest pain is suggesting of accelerated angina. His EKG changes are very nonspecific. No evidence of any acute myocardial injury. It may be appropriate to start him on subcu Lovenox, beta-albina, aspirin and other current medications. In view of the patient's history and the current symptoms, for further evaluation of his coronary status, a myocardial perfusion imaging would be appropriate. This was discussed with the patient in detail which he understood well and consented to proceed. Status: Acute (2) Atherosclerotic heart disease of [place] coronary artery with other forms of angina pectoris: Patient with a previous history of ST relation [place] and PCI. He has been having exertional stable angina for the last 1 year. The current symptoms are suggesting an accelerated angina. Status: Acute (3) Accelerated hypertension: Antihypertensive medications need to be optimized. Status: Acute (4) Combined hyperlipidemia associated with type 2 diabetes mellitus: Patient may benefit from Repatha or Praluent, for further management of his condition. This was discussed. His diabetes also need to be optimized. Status: Chronic (5) Aortic valve stenosis: He has a clinical features of aortic valve stenosis, possibly moderate. This needs to be further evaluated. An echocardiogram would be appropriate to further evaluate the LV function and also the heart murmur. Status: Acute Qualifiers: Cardiac valve disease etiology: nonrheumatic Qualified Code(s): I35.0 - Nonrheumatic aortic (valve) stenosis Additional A&P Information Patient on the patient's clinical progress on the results of the above, further recommendations will be made. Thank you for the opportunity to evaluate this patient and make these recommendations. Consult Attestations Medical Necessity Statement: Patient requires at least an overnight stay, for further evaluation management of his condition. Coding Level of Care Code Acute Emergency Medical Services Coordinator for Zenaida Fwd Diagnoses Accelerating angina I20.0 Atherosclerotic heart disease of [place] coronary artery with other forms of angina pectoris I25.118 Accelerated hypertension I10 Combined hyperlipidemia associated with type 2 diabetes mellitus E11.69; E78.2 Aortic valve stenosis I35.0 Cardiac valve disease etiology: nonrheumatic
[2020-11-16 09:27] VITALS: BP 160/90
[2020-11-16 10:38] LABS: Glucose Point of Care 211 mg/dL (70-110)
[2020-11-16 11:26] VITALS: BP 158/90
--- NOTE | 2020-11-16 12:25 | PC.CHAP ---
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 [] Patient/Family/Request visit [] Outpatient visit [x] Follow-up visit [] Physician referral [] Code/Alert [] Routine visit [] Staff referral [] Actively dying [] Patient sleeping [] Family support [] [] Out of room [] Palliative care [] [] Receiving care in room [] Pre-surgical visit [] Trauma [] Long length of stay [] ICU visit [] Other: Relational/Emotional Strength [] Patient feels connected with others/family/visitors/staff [] Distress [] Loneliness/isolation [] Abandonment Spirituality of Patient [] Person of Joy [] Attends Christianity of their Joy [] Believes in Prayer [] Reads Bible or Uatsdin materials [] There are Spiritual issues to be addressed Study Assistant Interventions [] Prayer [] Active listening [] Non-anxious presence [] Spiritual/emotional support [] Crisis/trauma care [] Spiritual counseling [] Bereavement support [] Provided bereavement packet [] Provided Bible/devotional materials [] Provided toy/stuffed animal, coloring book to patient or family member [] Provided Communion [] Anointing/[place] [] Salvation [] Completed spiritual assessment [] Other: Impact on Illness or Injury [] Angry [] Fearful [] Anxious [] Often cries [] Exhaustion [] Unable to work [] Unable to attend presybeterian [] Unable to walk/stand [] Unable to read [] Unable to drive [] Unable to eat/drink [] Unable to sleep [] Unable to be with family [] Patient intubated [] Other: Summary Time spent with patient
--- NOTE | 2020-11-16 12:35 | PC.NUTR ---
NUTRITION WEIGHT ASSESSMENT: Ht.71 inches. Wt. 294 pounds. BMI of 41 kg/m2 indicates Morbid Obesity.
[2020-11-16 12:57] LABS: Estmated Average Glucose 174; Hemoglobin A1C 7.7 % (4.0-6.0)
[2020-11-16 16:50] LABS: Glucose Point of Care 164 mg/dL (70-110)
[2020-11-16 20:50] VITALS: BP 166/98; PULSE 70; RESP 18; TEMP 36.3; O2SAT 94
[2020-11-16] MEDS: acetaminophen 325 mg Tablet PO (20:58)
[2020-11-16 20:59] LABS: Glucose Point of Care 203 mg/dL (70-110)
[2020-11-17] VITALS (7 sets, daily range): BP systolic 154–160; BP diastolic 84–98; PULSE 63–85; RESP 18–20; TEMP 36.2–37.4; O2SAT 93–95
[2020-11-17] MEDS: heparin 5,000 unit/mL INJ 1 mL 5000 UNIT SUBCUT (06:09)
[2020-11-17 06:37] LABS: Glucose Point of Care 227 mg/dL (70-110)
--- NOTE | 2020-11-17 07:18 | NMCV_ITS ---
NM turner perf SPECT r/s* [id number] Elieser Chavez Age: 70 Gender: M : 1950 Exam Date: 11/17/2020 10:39 Ordering Phys: Hesham Stout MD ([email or web address]) Technologist: EMMETT Mcqueen Exam Location: [facility] Indications: CP STRESS TEST Please see separate stress test report in [facility] for full findings IMAGE PROTOCOL Rest/Stress 1 Lexiscan Day Radiopharmaceutical Dose (mCi) Administration Site Administered by Rest: Tc-99m 11.0 IV EMMETT Mcqueen Sestamibi Stress:Tc-99m 32.9 IV EMMETT Mcqueen Sestamiashu Rest: 17-Nov-2020 60 Discovery 630 Stress: 17-Nov-2020 45 Discovery 630 0.4mg Lexiscan. Images obtained in supine and prone position. SPECT RESULTS Technical Quality: Good Raw Data Analysis: Normal Image Corrections: No attenuation or motion correction applied Summed Stress Score: 8 Summed Rest Score: 8 Summed Difference Score: 1 PERFUSION FINDINGS Moderate area of moderate to severely decreases uptake in the basal, mid and apical inferior wall regions with no significant reversibility. A small area of moderately decreased tracer uptake in the apical lateral region, with some reversibility FUNCTIONAL RESULTS (calculated via Gated SPECT) Stress Image LV EF (%): 42 Stress EDV (mL):148 TID: 1.06 Stress ESV (mL):86 FUNCTIONAL FINDINGS: Segmental wall motion analysis revealed moderate hypokinesia of the LV apex. IMPRESSIONS 1. Myocardial perfusion imaging revealing moderate area of persistent decreased tracer uptake in the inferior wall region, suggestive of myocardial scarring in the distribution of the right coronary artery. A very small area of reversibility in the apical lateral region, suggestive of myocardial scarring with ischemia in the distribution of the right coronary artery/circumflex artery. 2. Diminished LV ejection fraction of 42%. 3. Wall motion abnormality as mentioned above. 4. Moderately dilated LV cavity with an end-systolic volume of 86 mL. No similar previous studies are available for comparison Dr Hesham Stout MD FACC (Electronically Signed) Final Date: 17 November 2020 13:41 S
--- NOTE | 2020-11-17 07:18 | ECG_ITS ---
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 Interpretive Statements NAME OF STUDY: LEXISCAN SESTAMIBI STRESS TEST INDICATION: Chest Pain PROCEDURE: At the baseline, the EKG revealed normal sinus rhythm with a possible old inferior wall myocardial infarction. Nonspecific T wave changes. The baseline blood pressure was 152/96 mm Hg with a heart rate of 67 beats/min. Lexiscan was infused over a period of 20 seconds. A total of 0.4 milligrams of Lexiscan was infused. The stress phase was continued for a total of 5 minutes. Heart rate at the end of the stress phase was 82 with a blood pressure 173/94. The EKG at the peak infusion revealed no significant changes. Sestamibi was injected 20 seconds after the Lexiscan infusion. Blood pressure at the end of the recovery phase was 160/93 with a heart rate of 79 per minute. CONCLUSION: 1. No significant EKG changes with the LexiScan infusion 2. No LexiScan induced chest pain or cardiac arrhythmia 3. Normal blood pressure and heart rate response 4. Sestamibi/sestamibi perfusion scan pending; see separate report. Electronically Signed On 11-26-2020 22:03:14 CDT by Hesham Stout M.D. [id number]
[2020-11-17] MEDS: losartan 50 mg Tablet 100 MG PO (08:24)
[2020-11-17] MEDS: metoprolol succinate ER (24 HR) 25 mg Tablet PO (08:25)
[2020-11-17] MEDS: aspirin 81 mg EC Tablet PO (08:25)
[2020-11-17] MEDS: pantoprazole DR 40 mg Tablet PO (08:25)
--- NOTE | 2020-11-17 10:08 | PM.PN ---
Subjective Subjective: Interval history: Patient is scheduled for myocardial perfusion in today. Denies any chest pain at this time. Medications: Reviewed: Yes Medication Review Details: Current Medications Acetaminophen (Acetaminophen 325 Mg Tablet) 325 - 650 mg PO Q4H PRN PRN Reason: MILD PAIN OR INCREASE TEMP Last Admin: 11/16/20 20:58 Dose: 650 mg Documented by: Aminophylline (Aminophylline 25 Mg/Ml Sdv 10 Ml) 25 mg IVP Q2M PRN PRN Reason: see dose instructions Stop: 11/18/20 07:17 Aspirin (Aspirin 81 Mg Ec Tablet) 81 mg PO DAILY [facility] Last Admin: 11/17/20 08:25 Dose: 81 mg Documented by: Dextrose (Dextrose 50% Syringe 50 Ml) 25 ml IVP ONCE PRN; Protocol PRN Reason: hypoglycemia protocol Dextrose (Dextrose 50% Syringe 50 Ml) 50 ml IVP PRN PRN; Protocol PRN Reason: hypoglycemia protocol Glucagon (Glucagon 1 Mg/Ml Inj 1 Ml) 1 mg IM ONCE PRN; Protocol PRN Reason: Adult Acute Hypoglycemia Prot. Heparin Sodium (Beef Lung) (Heparin 5,000 Unit/Ml Inj 1 Ml) 5,000 unit SUBCUT Q8H [facility] Last Admin: 11/17/20 06:09 Dose: 5,000 unit Documented by: Dextrose (D5w) 500 mls @ 100 mls/hr IV ONCE PRN; Protocol PRN Reason: Adult Acute Hypoglycemia Prot Insulin Aspart (Insulin Aspart 100 Unit/1 Ml) 0 unit SUBCUT WM&BEDTIME [facility]; Protocol Last Admin: 11/17/20 08:25 Dose: 6 unit Documented by: Losartan Potassium (Losartan 50 Mg Tablet) 100 mg PO DAILY@0900 [facility] Last Admin: 11/17/20 08:24 Dose: 100 mg Documented by: Metoprolol Succinate (Metoprolol Succinate Er (24 Hr) 25 Mg Tablet) 25 mg PO DAILY [facility] Last Admin: 11/17/20 08:25 Dose: 25 mg Documented by: Nitroglycerin (Nitroglycerin 0.4 Mg Sublingual Tablet) 0.4 mg SUBLINGUAL Q5M PRN PRN Reason: CHEST PAIN Nitroglycerin (Nitroglycerin 0.4 Mg Sublingual Tablet) 0.4 mg SUBLINGUAL Q5M PRN PRN Reason: CHEST PAIN Stop: 11/18/20 07:17 Ondansetron HCl (Ondansetron 2 Mg/Ml Sdv 2 Ml) 4 mg IVP Q2M PRN PRN Reason: NAUSEA Pantoprazole Sodium (Pantoprazole Dr 40 Mg Tablet) 40 mg PO DAILY [facility] Last Admin: 11/17/20 08:25 Dose: 40 mg Documented by: Regadenoson (Regadenoson 0.4 Mg/5 Ml Syringe) 0.4 mg IVP ONCE PRN PRN Reason: Lexiscan Stress Test Vitals/I&O/Wt Last Vital Signs Temp 98.6 F 11/17/20 07:09 Pulse 85 11/17/20 07:09 Resp 20 H 11/17/20 07:09 BP 156/90 11/17/20 08:24 Pulse Ox 95 11/17/20 07:09 11/16/20 11/17/20 11/17/20 22:59 06:59 14:59 Intake Total 740 / 1460 Output Total 600 / 600 650 / 1250 Balance 140 / 860 -650 / 210 Weight last 48 hrs Weight 294 lb Physical Exam Narrative: EXAM NARRATIVE: GENERAL: The patient is alert and oriented times three. Not in any acute distress. HEENT: No significant pallor, icterus or lymphadenopathy. NECK: Trachea appears to be central. No masses noted. No JVD or thyromegaly appreciated. No carotid bruit. RESPIRATORY: Chest is symmetrical. No intercostals muscle retraction or any accessory muscle activation. There is no chest wall tenderness. Breath sounds are heard bilaterally. No rales or rhonchi heard. No evidence of any consolidation. BREASTS: Deferred. HEART: The PMI could not be palpated. No palpable precordial events. S1 and S2 are normal. No S3 or S4 heard. No pericardial rub or any click heard. Ejection systolic murmur grade 3/6 in the aortic area. No diastolic murmurs. ABDOMEN: No vessel pulsations or distention. No tenderness. No organomegaly appreciated. No abdominal bruit. Bowel sounds are normally heard. : Deferred. RECTAL: Deferred. LYMPHATIC: No lymphadenopathy noted in the neck or groin. EXTREMITIES: No edema or signs MUSCULOSKELETAL: No acute joint deformities or swelling. SKIN: There are no significant scars or skin rash noted. NEUROPSYCHIATRIC: The patient is alert and oriented x3. Appears to be in a good mood. The higher functions are grossly within normal limits. No tremors or rigidity noted. Data : 11/16/20 07:15 Other Labs: Myocardial perfusion imaging 1. Myocardial perfusion imaging revealing moderate area of persistent decreased tracer uptake in the inferior wall region, suggestive of myocardial scarring in the distribution of the right coronary artery. A very small area of reversibility in the apical lateral region, suggestive of myocardial scarring with ischemia in the distribution of the right coronary artery/circumflex artery. 2. Diminished LV ejection fraction of 42%. 3. Wall motion abnormality as mentioned above. 4. Moderately dilated LV cavity with an end-systolic volume of 86 mL. Echocardiogram Normal left ventricular size and systolic function, EF 61 %. Mild left ventricular hypertrophy. Grade I/IV diastolic dysfunction (abnormal relaxation filling pattern), normal to mildly elevated filling pressures. Mild hypokinesia of the basal inferior wall segment. Thickened mitral valve. Mild mitral annular calcification. Mildly increased left atrial size. Moderate aortic valve stenosis with a valve area of 1.1 cm squared. (Peak velocity of 3.19 m/s with a peak gradient of 41 and a mean gradient of 17mmHg.) Trace tricuspid valve regurgitation. There is no pericardial effusion. There are no intracardiac masses. A&P Assessment and plan (1) Accelerating angina: The myocardial perfusion imaging revealed evidence of myocardial scarring with possible neida-infarction ischemia in the distribution of the right coronary artery. Since the area of ischemia small and also since the patient's remaining stable, it was thought to be appropriate to discharge him home on medical treatment. Consider repeat cardiac catheterization, if he has recurrence of chest pain. Status: Resolved (2) Atherosclerotic heart disease of [place] coronary artery with other forms of angina pectoris: As mentioned above Status: Acute (3) Accelerated hypertension: Blood pressure is getting under control Status: Resolved (4) Combined hyperlipidemia associated with type 2 diabetes mellitus: Patient may benefit from Repatha or Praluent, for further management of his condition. This was discussed. His diabetes also need to be optimized. Status: Chronic (5) Aortic valve stenosis: The aortic Valve stenosis appears to be moderate. At this point, he may not require any specific intervention. Status: Acute Qualifiers: Cardiac valve disease etiology: nonrheumatic Qualified Code(s): I35.0 - Nonrheumatic aortic (valve) stenosis Additional A&P Information The patient continues remain stable, may be discharged home today. Appointment at the heart care services in 1 week with the nurse practitioner. 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
[2020-11-17 10:35] LABS: Glucose Point of Care 169 mg/dL (70-110)
--- NOTE | 2020-11-17 10:59 | PC.CHAP ---
Pastoral Care Encounter/Spiritual Assessment Type of Contact [] Declined clearance coordinator visit [] Patient/Family/Request visit [] Outpatient visit [] Follow-up visit [] Physician referral [] Code/Alert [x] Routine visit [] Staff referral [] Actively dying [] Patient sleeping [] Family support [] [] Out of room [] Palliative care [] [] Receiving care in room [] Pre-surgical visit [] Trauma [] Long length of stay [] ICU visit [] Other: Relational/Emotional Strength [x] Patient feels connected with others/family/visitors/staff [] Distress [] Loneliness/isolation [] Abandonment Spirituality of Patient [x] Person of Joy [x] Attends [employer] of their Joy [x] Believes in Prayer [x] Reads Bible or Latter Day materials [] There are Spiritual issues to be addressed 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 Interventions [x] Prayer [x] Active listening [x] Non-anxious presence [] Spiritual/emotional support [] Crisis/trauma care [] Spiritual counseling [] Bereavement support [] Provided bereavement packet [] Provided Bible/devotional materials [] Provided toy/stuffed animal, coloring book to patient or family member [] Provided Communion [] Anointing/Parmelee [] Salvation [] Completed spiritual assessment [] Other: Impact on Illness or Injury [] Angry [] Fearful [] Anxious [] Often cries [] Exhaustion [] Unable to work [] Unable to attend episcopal [] Unable to walk/stand [] Unable to read [] Unable to drive [] Unable to eat/drink [] Unable to sleep [] Unable to be with family [] Patient intubated [] Other: Summary Here is a happy man, connected, confident, alert, and informed. He is a classmate of [employer] from 1970. Time spent with patient 40 minutes. Could have spent the whole day with him easily reminiscing.
[2020-11-17] MEDS: regadenoson 0.4 Mg/5 ml Syringe IVP (11:34)
--- NOTE | 2020-11-17 14:08 | P.DS_ITS ---
Discharge Providers Date of Admission: 11/16/20 06:43 Date of Discharge: November 17, 2020 Attending Provider at Admission: Tracie Hernandez MD Attending Provider at Discharge: Michele Alan MD Primary Care Provider: LAZARA Badillo Diagnoses at Discharge Discharge Diagnosis (1) Accelerating angina: Status: Acute (2) Atherosclerotic heart disease of [place] coronary artery with other forms of angina pectoris: Status: Acute (3) Accelerated hypertension: Status: Acute (4) Combined hyperlipidemia associated with type 2 diabetes mellitus: Status: Chronic (5) Aortic valve stenosis: Status: Acute Qualifiers: Cardiac valve disease etiology: nonrheumatic Qualified Code(s): I35.0 - Nonrheumatic aortic (valve) stenosis Reason for Visit Reason for Visit: CP Hospital Course Hospital Course Elieser is a 70-year-old white male with past history of coronary disease who was transferred from [place] emergency department after an episode of chest discomfort. Troponin was found to be slightly elevated but no significant delta was noted. No significant EKG changes were noted. Chest discomfort had been generated during a stressful situation. An echocardiogram was performed demonstrating moderate aortic stenosis and 1/4 diastolic dysfunction and preserved EF. Cardiology was consulted secondary to discomfort and he underwent nuclear stress testing on November 17. A mild amount of reversibility in a small area was noted in the apical lateral area. Cardiology visited with the patient and it was thought that this should be treated medically currently. Therefore, Toprol was increased. Aspirin was increased. Imdur was added. Patient was taken off Cialis, losartan dose was adjusted. Nitroglycerin as needed prescription was given with instructions. He was told to return for any concerning chest discomfort. He will follow-up closely with his primary and cardiology as an outpatient. Because of some GI symptomatology such as burping, stomach upset while in the hospital Protonix was added. No statin was added as he had tried multiple statins in the past with symptomatology. Consideration in cardiology clinic will be given for biological medications. Physical Exam Narrative: EXAM NARRATIVE: General exam no apparent distress Cardiovascular regular rate and rhythm with a 2/6 systolic murmur Lungs clear no wheezing or crackles Extremities no cyanosis clubbing or edema. Discharge Data Data Completed and Pending: Completed Studies During Hospitalization Category Date Time Status Cardiac Stress Te st MIBI [Sestamibi Stress Test Reque st Exams 11/17/20 07:18 Draft ] Routine NM turner perf SPECT r/s* [id number] Routin e Nuc Med 11/17/20 07:18 Completed CV echo complete* [id number] Routine Ultrasound 11/16/20 07:44 Completed Labs from last 24 hours 11/17/20 11/17/20 11/16/20 10:31 06:23 20:46 POC Glucose 169 H 227 H 203 H 11/16/20 16:32 POC Glucose 164 H Vitals: Last Vital Signs Temp 98.6 F 11/17/20 07:09 Pulse 78 11/17/20 11:38 Resp 20 H 11/17/20 07:09 BP 160/93 11/17/20 11:38 Pulse Ox 95 11/17/20 07:09 Discharge Plan Discharge Patient Disposition: Home Condition: Stable Prescriptions: New losartan 50 mg Tablet 100 mg PO DAILY@0900 Qty: 30 RF: 0 metoprolol succinate [Toprol XL] 50 mg tablet extended release 24 hr 50 mg PO DAILY Qty: 30 RF: 0 isosorbide mononitrate 30 mg tablet extended release 24 hr 30 mg PO DAILY Qty: 30 RF: 0 aspirin 81 mg tablet,delayed release (DR/EC) 162 mg PO DAILY Qty: 60 RF: 0 pantoprazole 40 mg Tablet,Delayed Release (Dr/Ec) 40 mg PO DAILY Qty: 30 RF: 0 nitroglycerin 0.4 mg Tablet, Sublingual 0.4 mg sublingual Q5M PRN (Reason: Chest Pain) Qty: 20 RF: 0 Continued metformin 500 mg tablet 500 mg PO BID 90 Days Qty: 180 RF: 1 glipizide 10 mg tablet 10 mg PO BID 90 Days Qty: 180 RF: 1 Januvia 50 mg tablet 50 mg PO DAILY Qty: 90 RF: 0 Discontinued tadalafil [Cialis] 20 mg tablet 20 mg PO PRN Qty: 14 RF: 6 losartan 100 mg tablet 150 mg PO DIRECTED Qty: 135 RF: 3 Mobic 15 mg tablet 15 mg PO DAILY Qty: 90 RF: 1 metoprolol succinate 25 mg tablet extended release 24 hr 25 mg PO DAILY Qty: 30 RF: 6 aspirin [Aspir-81] 81 mg Tablet,Delayed Release (Dr/Ec) 81 mg PO DAILY RF: 0 Discharge Orders: Discharge Order (Routine); Ordered 11/17/20 Ordered By: Michele Alan Referrals: Tracie Shaikh MD [Physician] - 1 month Polo Wynn FNP [Primary Care Provider] - 4-7 days Rebecca Moore FNP [Nurse Practitioner] - 1 week Patient Instructions: Opioid Safety Activity Restrictions/Additional Instructions: Take all medicine as prescribed. Return for any recurrent chest pain. Discharge Attestations Time Spent in Discharge Care*: greater than 30 min Quality Metrics Clinical Quality Measures During this hospital stay, did patient experience: None Coding Level of Care Code Acute [facility] note Diagnoses Accelerating angina I20.0 Atherosclerotic heart disease of [place] coronary artery with other forms of angina pectoris I25.118 Accelerated hypertension I10 Combined hyperlipidemia associated with type 2 diabetes mellitus E11.69; E78.2 Aortic valve stenosis I35.0 Cardiac valve disease etiology: nonrheumatic
--- NOTE | 2020-11-17 16:43 | PC.NURSE ---
Patient being discharged home with brother. IV removed. Applied 2x2 and wrapped with coban. Tip of catheter intact. Patient tolerated well. Patient ambulated out after discharge instruction were discussed with him as well as follow up visits. Patient stated understanding. Prescriptions sent to [facility] in [place].
== END 2020-11-17 16:30 | disposition home or self-care (01) ==
PROVIDERS: Admitting Provider Internal Medicine; Family Provider Registered Nurse; PCP Registered Nurse; Visit Provider Internal Medicine
DX: I25.118 Atherosclerotic heart disease of native coronary artery with other forms of angina pectoris (principal); I11.0 Hypertensive heart disease with heart failure; E11.69 Type 2 diabetes mellitus with other specified complication; E78.2 Mixed hyperlipidemia; I35.0 Nonrheumatic aortic (valve) stenosis; Z79.82 Long term (current) use of aspirin; Z79.4 Long term (current) use of insulin; E66.9 Obesity, unspecified; Z68.41 Body mass index [BMI] 40.0-44.9, adult
CPT/HCPCS: 36415; 36416; 78452; 80048; 82962; 83036; 84443; 84484; 93005; 93017; 93306; 96372; A9500; G0378; G0379; J0360; J1644; J1815; J2785

== ENCOUNTER → 2020-12-07 11:14 | Outpatient (BNVA) | payer BC, MEDICARE, SELFPAY | PROVIDERS: Family Provider Registered Nurse; PCP Registered Nurse; Visit Provider Nurse Practitioner Family | DX: M79.641 Pain in right hand (principal); L03.011 Cellulitis of right finger; M10.9 Gout, unspecified | CPT/HCPCS: 73130 ==

== ENCOUNTER → 2020-12-09 11:00 | Outpatient (BNVA) | payer MEDICARE, BC, SELFPAY | PROVIDERS: Family Provider Registered Nurse; PCP Registered Nurse; Visit Provider Registered Nurse | DX: M19.041 Primary osteoarthritis, right hand (principal); I10 Essential (primary) hypertension | CPT/HCPCS: 84550; 85025; 85651; 86140; 86431 ==

== ENCOUNTER → 2020-12-10 14:22 | Outpatient (BNVA) | payer MEDICARE, BC, SELFPAY | PROVIDERS: Family Provider Registered Nurse; PCP Registered Nurse; Visit Provider Registered Nurse | DX: M19.041 Primary osteoarthritis, right hand (principal); I10 Essential (primary) hypertension | CPT/HCPCS: 86038 ==

== ENCOUNTER 2020-12-28 19:45 | Emergency (ER) | payer MEDICARE, SELFPAY ==
[2020-12-28 19:56] VITALS: BP 171/98; PULSE 79; RESP 18; TEMP 36.6; O2SAT 96; BMI 40.3
--- NOTE | 2020-12-28 20:05 | XRR_ITS ---
PROCEDURE INFORMATION: Exam: XR Chest Exam date and time: 12/28/2020 8:09 PM Age: 70 years old Clinical indication: Shortness of breath; Additional info: Reduced breath sounds TECHNIQUE: Imaging protocol: XR of the chest. Views: 1 view. COMPARISON: CR Chest 1 [place] [id number] 07/26/2019 2:24 PM FINDINGS: Limitations: The study is made with less than full inspiration. Study is made with lordotic positioning. Lungs: Visualized portions of the lungs are clear. Pleural spaces: Unremarkable. No pleural effusion. No pneumothorax. Heart/Mediastinum: Heart is within normal limits of size. Bones/joints: Unremarkable. XR/XR chest 1V portable [id number] IMPRESSION: No acute infiltrate.
--- NOTE | 2020-12-28 20:05 | CTR_ITS ---
PROCEDURE INFORMATION: Exam: CT Angiography Head With Contrast, Arteriography Exam date and time: 12/28/2020 8:43 PM Age: 70 years old Clinical indication: Headache and numbness and speech disturbance; Slurred speech; Additional info: Slurred speech, left sided face numbness, headache x roughly 4 hours. Difficulty finding words; Left face tingling TECHNIQUE: Imaging protocol: Computed tomography angiography of the head with contrast. Exam focused on the arteries. 3D rendering (Not supervised by radiologist): MIP and/or 3D reconstructed images were created by the technologist. Radiation optimization: All CT scans at this facility use at least one of these dose optimization techniques: automated exposure control; mA and/or kV adjustment per patient size (includes targeted exams where dose is matched to clinical indication); or iterative reconstruction. Contrast material: OMNI 350; Contrast volume: 95 ml; Contrast route: INTRAVENOUS (IV); COMPARISON: CTA Head/Neck [id number] 07/27/2019 6:11 AM RADIATION DOSE METRICS: Total DLP (mGy-cm): 2799.35 FINDINGS: ANTERIOR CIRCULATION: Right internal carotid artery: There is mild atherosclerotic calcification in the right internal carotid artery without significant stenosis. Right middle cerebral artery: Unremarkable. No occlusion or significant stenosis. No aneurysm. Right anterior cerebral artery: Unremarkable. No occlusion or significant stenosis. No aneurysm. Left internal carotid artery: There is mild atherosclerotic calcification in the left internal carotid artery without significant stenosis. Left middle cerebral artery: Unremarkable. No occlusion or significant stenosis. No aneurysm. Left anterior cerebral artery: Unremarkable. No occlusion or significant stenosis. No aneurysm. POSTERIOR CIRCULATION: Right vertebral artery: There is mild atherosclerotic calcification in the distal right vertebral artery without significant stenosis. Left vertebral artery: There is mild atherosclerotic calcification in the distal left vertebral artery without significant stenosis. Basilar artery: Unremarkable. No occlusion or significant stenosis. No aneurysm. Right posterior cerebral artery: There is origin of the right posterior cerebral artery. 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 Left posterior cerebral artery: Unremarkable. No occlusion or significant stenosis. No aneurysm. Brain: No definite mass, mass effect, or midline shift. Cerebral ventricles: No ventriculomegaly. Dental: There has been dental extraction 1 of the upper left molars. Bones/joints: Unremarkable. No acute fracture. Soft tissues: Unremarkable. IMPRESSION: No evidence of major vascular occlusion or intracranial aneurysm. No significant change from previous. PROCEDURE INFORMATION: Exam: CT Angiography Neck With Contrast Exam date and time: 12/28/2020 8:43 PM Age: 70 years old Clinical indication: Headache and numbness and speech disturbance; Slurred speech; Additional info: Slurred speech, left sided face numbness, headache x roughly 4 hours. Difficulty finding words; Left face tingling TECHNIQUE: Imaging protocol: Computed tomography angiography of the neck with contrast. 3D rendering (Not supervised by radiologist): MIP and/or 3D reconstructed images were created by the technologist. Radiation optimization: All CT scans at this facility use at least one of these dose optimization techniques: automated exposure control; mA and/or kV adjustment per patient size (includes targeted exams where dose is matched to clinical indication); or iterative reconstruction. Contrast material: OMNI 350; Contrast volume: 95 ml; Contrast route: INTRAVENOUS (IV); COMPARISON: CTA Head/Neck [id number] 07/27/2019 6:11 AM RADIATION DOSE METRICS: Total DLP (mGy-cm): 2799.35 FINDINGS: Right common carotid artery: No stenosis. No dissection or occlusion. Right internal carotid artery: There is some mild calcified atherosclerotic plaque in the right carotid artery bifurcation without stenosis as measured according to the NASCET criteria. Right external carotid artery: No occlusion or stenosis of the origin. Right vertebral artery: No stenosis. No dissection or occlusion. Left common carotid artery: No stenosis. No dissection or occlusion. Left internal carotid artery: There is some atherosclerotic calcification and plaque in the proximal left internal carotid artery without stenosis as measured according to the NASCET criteria. Left external carotid artery: No occlusion or stenosis of the origin. Left vertebral artery: No stenosis. No dissection or occlusion. Bones/joints: No acute fracture. Soft tissues: Normal. No significant soft tissue swelling. Lymph nodes: There are small prevascular and paratracheal lymph nodes. CT/CT angio headneck* [id number] IMPRESSION: There is no evidence of hemodynamically significant stenosis in the common or internal carotid artery on either side of the neck and no significant change from 07/27/2019. REFERENCES: NASCET CRITERIA. The degree of internal carotid artery stenosis is based on NASCET criteria. Normal is no stenosis. Mild is less than 50% stenosis. Moderate is 50-69% stenosis. Severe is 70% to 99% stenosis. Total occlusion is no detectable patent lumen. Radiation Dose CTDIVOL = (mGy): DLP = 2799.35~2799.35 (mGy-cm)
--- NOTE | 2020-12-28 20:06 | ECG_ITS ---
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 Measurements Intervals [place] Rate: 68 P: 9 CO: 168 QRS: -16 QRSD: 130 T: 31 QT: 409 QTc: 437 Interpretive Statements SINUS RHYTHM MODERATE INTRAVENTRICULAR CONDUCTION DELAY [110+ ms QRS DURATION] Compared to ECG 11/16/2020 08:46:05 Intraventricular conduction delay now present Electronically Signed On 12-29-2020 9:25:11 CDT by Carlos Padilla M.D. [id number]
--- NOTE | 2020-12-28 20:06 | CTR_ITS ---
PROCEDURE INFORMATION: Exam: CT Head Without Contrast Exam date and time: 12/28/2020 8:25 PM Age: 70 years old Clinical indication: Speech disturbance and weakness, facial; Slurred speech; Additional info: Symptoms of acute stroke TECHNIQUE: Imaging protocol: Computed tomography of the head without contrast. Radiation optimization: All CT scans at this facility use at least one of these dose optimization techniques: automated exposure control; mA and/or kV adjustment per patient size (includes targeted exams where dose is matched to clinical indication); or iterative reconstruction. Other technique: STROKE PROTOCOL was implemented. COMPARISON: CT head wo con* [id number] 07/26/2019 2:37 PM RADIATION DOSE METRICS: Total DLP (mGy-cm): 1006.94 FINDINGS: Brain: There is mild cortical atrophy. Low-density changes in the white matter are consistent with nonspecific small vessel chronic ischemic change. There is no intracranial mass, hemorrhage or edema. Cerebral ventricles: No ventriculomegaly. Bones/joints: Unremarkable. No acute fracture. Paranasal sinuses: Visualized sinuses are unremarkable. No fluid levels. Mastoid air cells: Visualized mastoid air cells are well aerated. Soft tissues: Unremarkable. CT/CT head wo con* [id number] IMPRESSION: No acute intracranial finding ASSESSMENT: ASPECTS ([place] Stroke Program Early CT Score) is 10. Radiation Dose CTDIVOL = (mGy): DLP = 1006.94 (mGy-cm)
[2020-12-28 20:11] VITALS: PULSE 72; RESP 18; O2SAT 96
[2020-12-28 20:17] LABS: Basophils % 0.5 %; Eosinophils # 0.2 10^3/uL (0.0-0.8); Eosinophils % 3.7 %; Hematocrit 41.7 % (42.0-52.0); Hemoglobin 14.6 g/dL (11.7-16.6); Lymphocytes # 1.5 10^3/uL (0.8-4.8); Lymphocytes % 24.6 %; Mean Corpuscular Hemoglobin 31.1 pg (28.0-34.0); Mean Corpuscular Volume 88.7 fL (80-94); Mean Platelet Volume 9.8 fL (7.4-10.4); Monocytes # 0.8 10^3/uL (0.2-0.9); Monocytes % 13.3 %; Neutrophils # 3.57 10^3/uL (1.8-7.7); Neutrophils % 57.3 %; Nucleated Red Blood Cells % 0 %; Platelet Count 156 10^3/cmm (130-400); Red Cell Distribution Width 12.7 % (12.1-15.1); White Blood Count 6.2 10^3/uL (4.0-10.0)
[2020-12-28 20:32] LABS: INR 0.93 (0.8-1.2)
[2020-12-28 20:35] LABS: Alkaline Phosphatase 90 IU/L (40-130); Blood Urea Nitrogen 25 mg/dL (8-23); Calcium 9.1 mg/dL (8.5-10.5); Carbon Dioxide 19 mmol/L (22-29); Chloride 96 mmol/L (98-107); Globulin 3.1 g/dL (1.3-4.6); Glomerular Filtration Rate 66.6 mL/min (90-130); Glucose 238 mg/dL (65-115); Osmolality Calculated 284 mOsm/kg (285-295); Sodium 131 mmol/L (136-145); Total Bilirubin 0.2 mg/dL (0.15-1.2); Total Protein 7.1 g/dL (6.6-8.7)
[2020-12-28 20:36] VITALS: BP 167/95; PULSE 68; RESP 15; O2SAT 97
[2020-12-28 20:38] LABS: Alanine Aminotransferase 34 U/L (0-41)
[2020-12-28 20:44] LABS: Aspartate Amino Transferase 5 U/L (0-40)
[2020-12-28] MEDS: iohexol 350 mg/mL 100 mL Btl IV (20:53)
[2020-12-28 21:22] VITALS: BP 165/87; PULSE 65; RESP 22; O2SAT 95
[2020-12-28 21:27] LABS: Amphetamines Screen Urine Negative (Negative); Barbiturates Screen Urine Negative (Negative); Benzodiazepines Screen Urine Negative (Negative); Cocaine Screen Urine Negative (Negative); Glucose Urine UA 4+ (Normal); Opiate Screen Urine Negative (Negative); PCP Screen Urine Negative (Negative); Protein Urine 1+ (Negative); THC Screen Urine Negative (Negative); Urine Appearance Clear (CLEAR); Urine Color Yellow (Yellow); pH Urine 5 (5-7)
[2020-12-28 21:28] LABS: Add Urine Microscopic? YES; Bilirubin Urine Neg (Negative); Blood Urine Neg (Negative); Ketones Urine Negative (Negative); Leukocyte Esterase Urine Negative (Negative); Nitrate Urine Negative (Negative); RBC Urine 0-4 /hpf (0-2); Urobilinogen Urine Norm (Negative); WBC Urine 0-4 /hpf (0-5)
[2020-12-28 21:29] LABS: Add Urine Culture? No; Squamous Epithelial Cell Urine 0-4 /hpf (0-5)
--- NOTE | 2020-12-28 22:11 | ED_ITS ---
HPI - Neuro Symptoms/Deficit General: Chief Complaint: Neuro Symptoms/Deficit Stated Complaint: stroke like symptoms/left side facial numbness Time Seen by Provider: 12/28/20 19:55 History of Present Illness: HPI Narrative: The patient is a 70-year-old male with past medical history aortic stenosis, coronary artery disease with stenting, diabetes, occasional migraine headaches who comes to the ER complaining difficulty finding words and numbness to his left face. He has sensation intact but says he feels a tingling sensation there. He also reports mild blurry vision in the right eye and that his left eye seems to have dominant vision when usually it is his right eye that has dominant vision. He is not on a statin because of severe myalgias. He has been told by multiple physicians to be on a statin and refuses to do so. NIH stroke scale on arrival 0. He has had a couple milder episodes of this with a headache which comes with numbness and tingling but they resolve spontaneously so this evening it lasted slightly longer and he decided to come to the ER for evaluation. Onset (ago): hour(s) (4) History of same: Yes Quality: tingling Relieving factors: none Exacerbating factors: none Associated symptoms: Reports no associated symptoms and headache(s); Deny chest pain Review of Systems General: Reports: 10 or more systems reviewed and unremarkable except in HPI and below Const: Denies: fatigue Eyes: Denies: change in vision, blurry vision or eye redness ENMT: Denies: throat pain, swelling of lips/tongue, ear or mastoid pain or nasal congestion Card: Denies: chest pain, palpitations, irregular heart rhythm, edema, dyspnea on exertion or orthopnea Resp: Denies: dyspnea, productive cough or non-productive cough GI: Denies: abdominal pain, diarrhea or GI cramping : Denies: flank pain, urinary frequency or urinary urgency Musc: Denies: neck pain, back pain, extremity pain, joint pain, joint redness, limited range of motion or muscle weakness Skin/Breast: Denies: rash, pruritus, erythema, skin pain or skin tenderness Neuro: Reports: headache(s) and other (face tingling on left); Denies: numbness in extremities, weakness in extremities, sensory changes, difficulty walking, dizziness, confusion or Slurred speech present Psych: Denies: anxiety or depression Endo: Denies: polyuria All/Imm: Denies: urticaria, throat swelling or tongue swelling PFSH ED PFSH: Medical History CAD (coronary artery disease) RCA stent times 10/2014, subtotal occlusion of circumflex noted at that time Chronic joint pain Combined hyperlipidemia associated with type 2 diabetes mellitus Essential hypertension Obesity, unspecified Type 2 diabetes mellitus with unspecified complications Surgical History History of coronary angioplasty with insertion of stent History of hernia repair History of left knee replacement History of total right knee replacement Family History Other Diabetes Heart disease Denies family history of Anesthesia complication Bleeding disorder Social History Smoking and tobacco status: never smoked Alcohol intake: never Adopted: No Caregiver/support person: No Lives independently: Yes Marital status: service: No Current occupational status: employed Sexually active: Yes Current gender identity: Male Physical Exam Const: COMMON NORMALS: no acute distress, average body habitus, patient oriented x3, no limitations, healthy appearing, alert and well nourished GENERAL APPEARANCE: cooperative, comfortable, well kempt and well developed ORIENTATION/CONSCIOUSNESS: Yes awake, Yes oriented to person, Yes oriented to place and Yes oriented to time HENMT: COMMON NORMALS: normocephalic, external ears normal and Normal external nose present HEAD & SCALP: normal to inspection and normocephalic NOSE: Normal external nose present EXTERNAL EAR: Yes external ears normal MOUTH: Normal oral and palatal mucosa present THROAT: posterior oropharynx normal Eye: COMMON NORMALS: Equal, round and reactive pupils present and EOMs intact bilaterally GENERAL EYE: appearance normal, both eyes and all related structures PUPIL: Yes Equal, round and reactive pupils present Neck/C-Spine: COMMON NORMALS: full ROM, no lymphadenopathy, no meningeal signs and no JVD GENERAL: Yes normal visual inspection Lymph: LYMPHATIC: no lymphadenopathy noted Chest: COMMONS NORMALS: normal inspection of the chest and normal palpation of entire chest wall Resp: COMMON NORMALS: normal respiratory effort, No retractions, No use of accessory muscles, clear to auscultation bilaterally and percussion normal EFFORT & INSPECTION: Yes able to speak in complete sentences AUSCULTATION: clear to auscultation bilaterally PERCUSSION: percussion normal Cardio: COMMON NORMALS: no JVD, regular rate, regular rhythm, S1 normal heart sound present, S2 normal heart sound present and Peripheral pulses 2+ throughout RATE: regular rate RHYTHM: regular rhythm HEART SOUNDS: S1 normal heart sound present and S2 normal heart sound present PERIPHERAL PULSES: Peripheral pulses 2+ throughout GI: COMMON NORMALS: Normal to inspection, nondistended, normoactive bowel sounds present, Soft to palpation, non-tender and no masses INSPECTION: Yes normal to inspection PALPATION: Yes Soft to palpation : COMMON NORMALS: Yes no CVA tenderness BLADDER/KIDNEY EXAM: Yes no CVA tenderness Back/Pelvis: COMMON NORMALS: no CVA tenderness, thoracic and lumbar spine normal to inspection, no thoracic nor lumbar tenderness and thoraco-lumbar ROM normal Extremity: COMMON NORMALS: normal to inspection, full ROM, capillary refill normal, no joint enlargement and no pedal edema GENERAL: Yes normal exam except as noted Neuro: COMMON NORMALS: patient oriented x3, CN's II-XII intact bilaterally, moves all extremities, no focal motor deficits, no sensory deficits noted and gait normal SENSORIUM/ORIENTATION: Yes alert, Yes oriented to person, Yes or iented to place and Yes oriented to time MENINGEAL SIGNS: Yes no meningeal signs Psych: COMMON NORMALS: mental status grossly normal, Normal thought process present, cooperative, normal affect and speech normal APPEARANCE: Yes well kempt ATTITUDE: Yes calm SPEECH: Yes normal speech THOUGHT PROCESS: Normal thought process present Skin: COMMON NORMALS: no rashes or lesions noted GENERAL SKIN EXAM: no rashes or lesions noted Course Vital Signs: Vital signs: Vital Signs Temperature 97.9 F 12/28/20 19:56 Pulse Rate 65 12/28/20 21:22 Respiratory Rate 22 H 12/28/20 21:22 Blood Pressure 161/99 12/28/20 22:26 Pulse Oximetry 95 12/28/20 22:26 MDM - Neuro Symptoms/Deficit MDM Narrative: Medical decision making narrative: She came to the ER with po ssible TIA symptoms. Within 20 minutes of arrival he had no symptoms at all. On arrival his NIH was 0 and he was complaining of a migraine and tingling on the left side of his face, blurry vision in the right eye, and difficulty finding words. He says his symptoms had been improving prior to arrival for an hour however this episode lasted longer than the previous episodes and he decided to get it checked out. Discussed with Dr. Crisostomo who recommended Plavix. He is not taking a statin and refuses one here today. He has been told multiple times by multiple doctors to take 1 however he says they cause him leg cramps and he refuses to take them. Recommended he follow-up with primary care physician in a couple days for a checkup. ER with worsening symptoms at any time and follow-up with neurology. I placed a case management consult to help him get an appointment with neuro outpatient. Lab Data: Labs: Lab Results 12/28/20 12/28/20 12/28/20 Range/Units 20:05 20:05 20:05 WBC 6.2 (4.0-10.0) 10^3/ uL RBC 4.70 (4.1-5.3) 10^6/u L Hgb 14.6 (11.7-16.6) g/dL Hct 41.7 L (42.0-52.0) % MCV 88.7 (80-94) fL MCH 31.1 (28.0-34.0) pg MCHC 35.0 (30.0-36.0) g/dL RDW 12.7 (12.1-15.1) % Plt Count 156 (130-400) 10^3/c mm MPV 9.8 (7.4-10.4) fL Neut % (Auto) 57.3 % Lymph % (Auto) 24.6 % Josephine % (Auto) 13.3 % Eos % (Auto) 3.7 % Baso % (Auto) 0.5 % Neut # (Auto) 3.57 (1.8-7.7) 10^3/u L Lymph # (Auto) 1.5 (0.8-4.8) 10^3/u L Josephine # (Auto) 0.8 (0.2-0.9) 10^3/u L Eos # (Auto) 0.2 (0.0-0.8) 10^3/u L Baso # (Auto) 0.0 (0.0-0.1) 10^3/u L Nucleated RBC % (a uto) 0 % Nucleated RBCs # 0.0 /100WBC PT 12.80 (12.1-14.9) SECO NDS INR 0.93 (0.8-1.2) APTT 23.0 L (23.9-36.7) SECO NDS Sodium 131 L (136-145) mmol/L Potassium 4.0 (3.5-5.1) mmol/L Chloride 96 L (98-107) mmol/L Carbon Dioxide 19 L (22-29) mmol/L Anion Gap 20.0 H (5-19) BUN 25 H (8-23) mg/dL Creatinine 1.1 (0.7-1.2) mg/dL GFR Calculation 66.6 L (90-130) mL/min Glucose 238 H (65-115) mg/dL Calculated Osmolal ity 284 L (285-295) mOsm/k g Calcium 9.1 (8.5-10.5) mg/dL Total Bilirubin 0.2 (0.15-1.2) mg/dL AST 5 (0-40) U/L ALT 34 (0-41) U/L Alkaline Phosphata se 90 (40-130) IU/L Total Protein 7.1 (6.6-8.7) g/dL Albumin 4.0 (3.5-5.2) g/dL Globulin 3.1 (1.3-4.6) g/dL Urine Color (Yellow) Urine Appearance (CLEAR) Urine pH (5-7) Ur Specific Gravit y (1.005-1.030) Urine Protein (Negative) Urine Glucose (UA) (Normal) Urine Ketones (Negative) Urine Blood (Negative) Urine Nitrate (Negative) Urine Bilirubin (Negative) Urine Urobilinogen (Negative) mg/dL Ur Leukocyte [place] ase (Negative) Urine RBC (0-2) /hpf Urine WBC (0-5) /hpf Ur Squamous Epith Cells (0-5) /hpf Amorphous Sediment Urine Bacteria (NONE) /hpf Hyaline Casts /lpf Urine Opiates Scre en (Negative) ng/mL Ur Barbiturates Sc reen (Negative) ng/mL Ur Phencyclidine S crn (Negative) ng/mL Ur Amphetamines Sc reen (Negative) ng/mL U Benzodiazepines Scrn (Negative) ng/mL Urine Cocaine Scre en (Negative) ng/mL U Marijuana (THC) Screen (Negative) ng/mL 12/28/20 12/28/20 Range/Units 21:12 21:12 WBC (4.0-10.0) 10^3/ uL RBC (4.1-5.3) 10^6/u L Hgb (11.7-16.6) g/dL Hct (42.0-52.0) % MCV (80-94) fL MCH (28.0-34.0) pg MCHC (30.0-36.0) g/dL RDW (12.1-15.1) % Plt Count (130-400) 10^3/c mm MPV (7.4-10.4) fL Neut % (Auto) % Lymph % (Auto) % Josephine % (Auto) % Eos % (Auto) % Baso % (Auto) % Neut # (Auto) (1.8-7.7) 10^3/u L Lymph # (Auto) (0.8-4.8) 10^3/u L Josephine # (Auto) (0.2-0.9) 10^3/u L Eos # (Auto) (0.0-0.8) 10^3/u L Baso # (Auto) (0.0-0.1) 10^3/u L Nucleated RBC % (a uto) % Nucleated RBCs # /100WBC PT (12.1-14.9) SECO NDS INR (0.8-1.2) APTT (23.9-36.7) SECO NDS Sodium (136-145) mmol/L Potassium (3.5-5.1) mmol/L Chloride (98-107) mmol/L Carbon Dioxide (22-29) mmol/L Anion Gap (5-19) BUN (8-23) mg/dL Creatinine (0.7-1.2) mg/dL GFR Calculation (90-130) mL/min Glucose (65-115) mg/dL Calculated Osmolal ity (285-295) mOsm/k g Calcium (8.5-10.5) mg/dL Total Bilirubin (0.15-1.2) mg/dL AST (0-40) U/L ALT (0-41) U/L Alkaline Phosphata se (40-130) IU/L Total Protein (6.6-8.7) g/dL Albumin (3.5-5.2) g/dL Globulin (1.3-4.6) g/dL Urine Color Yellow (Yellow) Urine Appearance Clear (CLEAR) Urine pH 5 (5-7) Ur Specific Gravit y 1.020 (1.005-1.030) Urine Protein 1+ H (Negative) Urine Glucose (UA) 4+ H (Normal) Urine Ketones Negative (Negative) Urine Blood Neg (Negative) Urine Nitrate Negative (Negative) Urine Bilirubin Neg (Negative) Urine Urobilinogen Norm (Negative) mg/dL Ur Leukocyte [place] ase Negative (Negative) Urine RBC 0-4 H (0-2) /hpf Urine WBC 0-4 H (0-5) /hpf Ur Squamous Epith Cells 0-4 H (0-5) /hpf Amorphous Sediment Not Reportable Urine Bacteria None (NONE) /hpf Hyaline Casts 10-15 H /lpf Urine Opiates Scre en Negative (Negative) ng/mL Ur Barbiturates Sc reen Negative (Negative) ng/mL Ur Phencyclidine S crn Negative (Negative) ng/mL Ur Amphetamines Sc reen Negative (Negative) ng/mL U Benzodiazepines Scrn Negative (Negative) ng/mL Urine Cocaine Scre en Negative (Negative) ng/mL U Marijuana (THC) Screen Negative (Negative) ng/mL Discharge Plan Discharge Patient Disposition: Home Clinical Impression: TIA (transient ischemic attack) Condition: Stable Prescriptions: New Plavix 75 mg tablet 75 mg PO DAILY Qty: 30 RF: 0 No Action glipizide 10 mg tablet 10 mg PO BID RF: 0 nitroglycerin 0.4 mg tablet, sublingual 0.4 mg sublingual Q5M PRN (Reason: Chest Pain) Qty: 25 RF: 3 metformin 500 mg tablet 500 mg PO BID 90 Days Qty: 180 RF: 1 Mobic 15 mg Tablet 15 mg PO QAM RF: 0 isosorbide mononitrate 30 mg tablet extended release 24 hr 30 mg PO QAM RF: 0 Toprol XL 100 mg tablet extended release 24 hr 100 mg PO QAM RF: 0 aspirin 81 mg tablet,delayed release (DR/EC) 81 mg PO QAM RF: 0 losartan 100 mg tablet 100 mg PO QAM RF: 0 Januvia 50 mg tablet 50 mg PO QAM RF: 0 Discharge Orders: Discharge ED (Routine); Ordered 12/28/20 Ordered By: Kennedy Douglas Referrals: Polo Wynn FNP [Primary Care Provider] - Discharge Diet: Advance as tolerated Discharge Activity: Resume usual activity Patient Instructions: Opioid Safety, TIA Activity Restrictions/Additional Instructions: It is possible you have had a transient ischemic attack AKA mini stroke. Your symptoms have improved spontaneously. CT of your head does not show that you have had a stroke and the arteries in your head and neck are not significantly narrowed. Please follow-up with neurology. I have discussed with Dr. Crisostomo who will see you in the clinic. She recommended starting Plavix once a day and discussing with your primary care doctor later this week the recommended care plan. I have placed a case management referral to help you get an appointment with Dr. Crisostomo. They should be calling you tomorrow to help get this appointment. Return to the ER at anytime with worsening symptoms otherwise follow-up with your primary care doctor this week and neurology JEFE. Coding Level of Care Code ED [employer] Program Director for Zenaida Cartagena Exam Comprehensive
[2020-12-28] MEDS: clopidogrel 75 mg Tablet PO (22:21)
[2020-12-28 22:26] VITALS: BP 161/99; O2SAT 95
--- NOTE | 2020-12-29 09:46 | DCPLANNER ---
management accounts manager had message to schedule a follow up appointment for patient with Dr. Crisostomo. management accounts manager emailed patients information to Leah at Dr. Whiting office. Patients information will be printed and reviewed. Clinic will call patient with appointment information.
[2020-12-29 16:10] LABS: Glucose Point of Care 260 mg/dL (70-110)
--- NOTE | 2021-01-07 15:05 | DCPLANNER ---
Patient has a follow up appointment scheduled for Friday, January 22, 2021 at 2:[address] Crissotomo. Clinic will call patient with appointment information.
--- NOTE | 2021-03-02 11:55 | DCPLANNER ---
Patient had a follow up appointment scheduled for 01.22.[address] Crisostomo - appointment was rescheduled.
== END 2020-12-28 22:28 | disposition home or self-care (01) ==
PROVIDERS: Emergency Provider Family Medicine; PCP Registered Nurse
DX: G45.9 Transient cerebral ischemic attack, unspecified (principal); I25.10 Atherosclerotic heart disease of native coronary artery without angina pectoris; E78.5 Hyperlipidemia, unspecified; I10 Essential (primary) hypertension; E66.9 Obesity, unspecified; Z68.41 Body mass index [BMI] 40.0-44.9, adult; E11.9 Type 2 diabetes mellitus without complications; Z79.84 Long term (current) use of oral hypoglycemic drugs; Z79.82 Long term (current) use of aspirin; Z91.14 Patient's other noncompliance with medication regimen
CPT/HCPCS: 36416; 70450; 70496; 70498; 71045; 80053; 80306; 81001; 82962; 85025; 85610; 85730; 93005; 99284; Q9967

== ENCOUNTER → 2021-02-24 10:28 | Outpatient (BNVA) | payer MEDICARE, SELFPAY | PROVIDERS: PCP Registered Nurse; Visit Provider Registered Nurse | DX: I10 Essential (primary) hypertension (principal); E11.9 Type 2 diabetes mellitus without complications | CPT/HCPCS: 80053; 80061; 83036; 83721; 85025 ==

== ENCOUNTER → 2021-04-06 11:09 | Outpatient (BNVA) | payer MEDICARE, MEDICAID, SELFPAY | PROVIDERS: PCP Registered Nurse; Visit Provider Nurse Practitioner | DX: M54.9 Dorsalgia, unspecified (principal) | CPT/HCPCS: 81000 ==

== ENCOUNTER → 2021-07-26 07:19 | Outpatient (BNVA) | payer MEDICARE, MEDICAID, SELFPAY | PROVIDERS: PCP Family Medicine Adult Medicine; Visit Provider Family Medicine Adult Medicine | DX: M10.9 Gout, unspecified (principal); N40.0 Benign prostatic hyperplasia without lower urinary tract symptoms; E66.01 Morbid (severe) obesity due to excess calories; Z68.41 Body mass index [BMI] 40.0-44.9, adult; N18.30 Chronic kidney disease, stage 3 unspecified; E78.2 Mixed hyperlipidemia; E11.69 Type 2 diabetes mellitus with other specified complication; E11.8 Type 2 diabetes mellitus with unspecified complications | CPT/HCPCS: 80053; 80061; 83036; 84443; 85025; G0103 ==

== ENCOUNTER 2021-08-03 08:50 | Outpatient (CLI) | payer MEDICARE, MEDICAID, SELFPAY ==
--- NOTE | 2021-08-03 09:30 | USCV_ITS ---
Elieser Chavez Age: 70 Gender: M : 1950 Exam Date: 08/03/2021 09:04 Ordering Phys: Rebecca Moore Technologist: SUKHJINDER [place] [facility] [place]: [place]/U [place] here 11/16/2020 = . Hx cardiac stenting 2015. BP: / HR: 68 Rhythm: Sinus Technical Quality: Adequate MEASUREMENTS (Male / Female) Normal Values 2D ECHO LV Diastolic Diameter PLAX 4.5 cm 4.2 - 5.9 / 3.9 - 5.3 cm LV Systolic Diameter PLAX 3.2 cm IVS Diastolic Thickness 1.5 cm 0.6 - 1.0 / 0.6 - 0.9 cm IVS Systolic Thickness 2.2 cm LVPW Diastolic Thickness 1.6 cm 0.6 - 1.0 / 0.6 - 0.9 cm LVPW Systolic Thickness 1.6 cm LVOT Diameter 2.6 cm LV Ejection Fraction 2D Teich 52.9 % LV Ejection Fraction MOD 2C 75.1 % LV Ejection Fraction 2C AL 76.6 % LA Diameter 4.7 cm LA Width 4.0 cm LA Height 5.7 cm RA Width 3.3 cm RA Height 4.2 cm Aorta at Sinotubular Diameter 3.7 cm M-MODE Aortic Annulus Diameter 4.3 cm LA Ao Ratio MM 1.2 MV E Point Septal Separation 0.5 cm DOPPLER AV Peak Velocity 231.0 cm/s LVOT Peak Velocity 81.7 cm/s AV Area Cont Eq vti 1.9 cm squared AV Area Cont Eq pk 1.9 cm squared MV Peak Velocity 63.0 cm/s MV Area PHT 3.3 cm squared Mitral E to A Ratio 1.1 MV E' Velocity 42.0 cm/s Mitral E to MV E' Ratio 14.9 Mitral E to LV E' Lateral Ratio 14.4 Mitral E to LV E' Septal Ratio 15.5 TR Peak Velocity 182.0 cm/s TR Peak Gradient 13.2 mmHg TV Peak E Velocity 38.0 cm/s Right Atrial Pressure 5.0 mmHg Pulmonary Artery Systolic Pressu 18.2 mmHg PV Peak Velocity 90.0 cm/s RV Acceleration Time 0.1 s RV Ejection Time 0.3 s RV AcT/ET 0.4 FINDINGS Left Ventricle Normal left ventricular size and systolic function, EF 69 %. No regional wall motion abnormalities. Mild left ventricular hypertrophy. Grade I/IV diastolic dysfunction (abnormal relaxation filling pattern), normal to mildly elevated filling pressures. Right Ventricle The right ventricle is normal in size and function. Right Atrium The right atrium is normal in size. Left Atrium The left atrium is normal in size. Mitral Valve No gross abnormalities noted Aortic Valve Features of aortic valve sclerosis Tricuspid Valve Trace tricuspid valve regurgitation. Pulmonic Valve Pulmonic valve not well visualized. Pericardium Normal pericardium without effusion. Aorta Normal ascending aorta dimension. CONCLUSIONS Normal left ventricular size and systolic function, EF 69 %. No regional wall motion abnormalities. Mild left ventricular hypertrophy. Grade I/IV diastolic dysfunction (abnormal relaxation filling pattern), normal to mildly elevated filling pressures. Aortic valve sclerosis. Trace tricuspid valve regurgitation. There is no pericardial effusion. There are no intracardiac masses. Dr Hesham Stout MD FACC (Electronically Signed) Final Date: 03 August 2021 19:10 S
== END 2021-08-03 08:51 | disposition home or self-care (01) ==
PROVIDERS: PCP Family Medicine Adult Medicine; Visit Provider Nurse Practitioner Family
DX: I08.2 Rheumatic disorders of both aortic and tricuspid valves (principal)
CPT/HCPCS: 93306

== ENCOUNTER → 2021-08-26 09:15 | Outpatient (BNVA) | payer MEDICARE, MEDICAID, SELFPAY | PROVIDERS: PCP Family Medicine Adult Medicine; Visit Provider Urology | DX: R97.20 Elevated prostate specific antigen [PSA] (principal); N18.30 Chronic kidney disease, stage 3 unspecified; I10 Essential (primary) hypertension; E11.8 Type 2 diabetes mellitus with unspecified complications; I35.0 Nonrheumatic aortic (valve) stenosis; E66.01 Morbid (severe) obesity due to excess calories; Z68.41 Body mass index [BMI] 40.0-44.9, adult; I25.10 Atherosclerotic heart disease of native coronary artery without angina pectoris | CPT/HCPCS: 81003; 84153 ==

== ENCOUNTER → 2021-10-19 10:25 | Outpatient (BNVA) | payer MEDICARE, MEDICAID, SELFPAY | PROVIDERS: PCP Family Medicine Adult Medicine; Visit Provider Nurse Practitioner | DX: J11.1 Influenza due to unidentified influenza virus with other respiratory manifestations (principal) | CPT/HCPCS: 87400 ==

== ENCOUNTER → 2022-01-06 10:06 | Outpatient (BNVA) | payer MEDICARE, MEDICAID, SELFPAY | PROVIDERS: PCP Family Medicine Adult Medicine; Referring Provider Family Medicine Adult Medicine; Visit Provider Nurse Practitioner Family | DX: S89.92XA Unspecified injury of left lower leg, initial encounter (principal); W13.3XXA Fall through floor, initial encounter; M25.562 Pain in left knee | CPT/HCPCS: 73560; 73565; 99214 ==

== ENCOUNTER 2022-01-18 09:08 | Outpatient (CLI) | payer MEDICARE, MEDICAID, SELFPAY ==
--- NOTE | 2022-01-18 09:30 | CT_ITS ---
WS: [id number] CT LEFT KNEE, NONCONTRAST. HISTORY: Posterior left knee pain Technique: All CT scans at [facility] use at least one of these dose optimization techniques: automated exposure control; mA and/or kV adjustment per patient size (includes targeted exams where dose is matched to clinical indication); or iterative reconstruction. DLP: 316.01 mGy.cm COMPARISON: Radiographs 01/06/2022 Status post complete LEFT total knee replacement. The hardware does cause artifact through the soft t issue and bone. No acute fractures are identified taking into consideration the amount of artifact. T here is mild lucency between the cement and the tibial plateau involving the medial tibial plateau. T hese findings were noted on the radiograph also. There is a small suprapatellar joint effusion. Scatt ered atherosclerotic plaque within the popliteal artery and the proximal tibial peroneal trunk. CT/CT knee LT wo con* [id number] IMPRESSION: 1. Status post LEFT knee arthroplasty. 2. No acute fracture. 3. Very mild lucency between the cement in the medial tibial plateau may indic ate early loosening. 4. Very small suprapatellar effusion.
== END 2022-01-18 09:09 | disposition home or self-care (01) ==
LOC: RAD 09:11
PROVIDERS: PCP Family Medicine Adult Medicine; Visit Provider Nurse Practitioner Family
DX: M25.562 Pain in left knee (principal); Z96.652 Presence of left artificial knee joint
CPT/HCPCS: 73700

== ENCOUNTER → 2022-01-21 10:10 | Outpatient (BNVA) | payer MEDICARE, MEDICAID, SELFPAY | PROVIDERS: PCP Family Medicine Adult Medicine; Visit Provider Nurse Practitioner Family | DX: S89.92XA Unspecified injury of left lower leg, initial encounter (principal); W13.3XXA Fall through floor, initial encounter | CPT/HCPCS: 99213 ==

== ENCOUNTER → 2022-01-26 11:19 | Outpatient (BNVA) | payer MEDICARE, MEDICAID, SELFPAY | PROVIDERS: PCP Family Medicine Adult Medicine; Visit Provider Family Medicine Adult Medicine | DX: E11.69 Type 2 diabetes mellitus with other specified complication (principal); E78.2 Mixed hyperlipidemia; I10 Essential (primary) hypertension; I25.10 Atherosclerotic heart disease of native coronary artery without angina pectoris; N40.0 Benign prostatic hyperplasia without lower urinary tract symptoms; M25.562 Pain in left knee; K59.00 Constipation, unspecified; E11.8 Type 2 diabetes mellitus with unspecified complications | CPT/HCPCS: 80053; 80061; 83036; 84153 ==

== ENCOUNTER → 2022-02-25 07:53 | Outpatient (BNVA) | payer MEDICARE, MEDICAID, SELFPAY | PROVIDERS: PCP Family Medicine Adult Medicine; Visit Provider Nurse Practitioner Family | DX: S89.92XA Unspecified injury of left lower leg, initial encounter (principal); W13.3XXA Fall through floor, initial encounter | CPT/HCPCS: 99213 ==

== ENCOUNTER → 2022-02-28 15:23 | Outpatient (BNVA) | payer MEDICARE, MEDICAID, SELFPAY | PROVIDERS: PCP Family Medicine Adult Medicine; Visit Provider Specialist | DX: Z96.651 Presence of right artificial knee joint (principal); Z96.652 Presence of left artificial knee joint; E66.9 Obesity, unspecified; M25.562 Pain in left knee | CPT/HCPCS: 99204; 99205 ==

== ENCOUNTER → 2022-03-07 13:40 | Outpatient (BNVA) | payer MEDICARE, MEDICAID, SELFPAY | PROVIDERS: PCP Family Medicine Adult Medicine; Visit Provider Internal Medicine Cardiovascular Disease | DX: I12.9 Hypertensive chronic kidney disease with stage 1 through stage 4 chronic kidney disease, or unspecified chronic kidney disease (principal); E11.22 Type 2 diabetes mellitus with diabetic chronic kidney disease; N18.30 Chronic kidney disease, stage 3 unspecified; N17.9 Acute kidney failure, unspecified; Z79.84 Long term (current) use of oral hypoglycemic drugs; I25.10 Atherosclerotic heart disease of native coronary artery without angina pectoris; N52.9 Male erectile dysfunction, unspecified; E66.9 Obesity, unspecified; Z68.41 Body mass index [BMI] 40.0-44.9, adult | CPT/HCPCS: 99213; 99214 ==

== ENCOUNTER 2022-04-05 09:10 | Outpatient (CLI) | payer MEDICARE, MEDICAID, SELFPAY ==
[2022-04-05 10:01] LABS: Prostate Specific AG Urology 4.72 ng/mL (0-4)
== END 2022-04-05 09:11 | disposition home or self-care (01) ==
PROVIDERS: PCP Family Medicine Adult Medicine; Visit Provider Urology
DX: R97.20 Elevated prostate specific antigen [PSA] (principal)
CPT/HCPCS: 36415; 81003; 84153; 99214

== ENCOUNTER 2022-04-07 08:39 | Outpatient (CLI) | payer MEDICARE, MEDICAID, SELFPAY ==
--- NOTE | 2022-04-07 11:30 | NM_ITS ---
WS: [id number] THREE-PHASE BONE SCAN HISTORY: M25.562 - Pain in left knee COMPARISON: LEFT knee CT 01/18/2022 Patient is is injected with 24.8 mCi Tc99m HDP intravenously. Immediate angiographic phase imaging is performed over the area of concern. Static blood pool imaging also performed. Two-hour whole-body sc intigrams performed in anterior and posterior projections. Additional large field of view imaging sub mitted as necessary. 3 phase bone scan imaging is centered over the knees. LEFT knee pain. Bilateral knee prostheses are noted. On the arterial and blood pool phase imaging there are no focal areas of increased uptake. Photopenic defects are noted in the region of the bilateral knee prosthese s. Also on the two-hour delayed imaging there is no focal area of intense uptake to suggest a fractur e or neoplastic lesion. Very small amount of symmetric increased uptake around the prosthesis which i s within normal limits. Mild AC and SC joint and glenohumeral joint arthritis. 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 Normal soft tissue and renal uptake. NM/NM bone 3 phase [id number] IMPRESSION: 1. No evidence for osteomyelitis or cellulitis involving the knees. 2. Normal radiographic tracer uptake at the bilateral knee prostheses.
== END 2022-04-07 08:40 | disposition home or self-care (01) ==
LOC: RAD 08:41
PROVIDERS: PCP Family Medicine Adult Medicine; Visit Provider Specialist
DX: M25.562 Pain in left knee (principal)
CPT/HCPCS: 78315; A9561

== ENCOUNTER → 2022-04-22 09:29 | Outpatient (BNVA) | payer MEDICARE, MEDICAID, SELFPAY | PROVIDERS: PCP Family Medicine Adult Medicine; Visit Provider Family Medicine Adult Medicine | DX: E11.69 Type 2 diabetes mellitus with other specified complication (principal); E78.2 Mixed hyperlipidemia | CPT/HCPCS: 83036 ==

== ENCOUNTER → 2022-05-04 10:31 | Outpatient (BNVA) | payer MEDICARE, MEDICAID, SELFPAY | PROVIDERS: PCP Family Medicine Adult Medicine; Visit Provider Specialist | DX: M25.562 Pain in left knee (principal); Z96.653 Presence of artificial knee joint, bilateral | CPT/HCPCS: 73560; 73565; 99214 ==

== ENCOUNTER 2022-06-08 01:47 | Observation (INO) | payer MEDICARE, MEDICAID, SELFPAY ==
[2022-06-08] VITALS (12 sets, daily range): BP systolic 142–162; BP diastolic 72–97; PULSE 57–65; RESP 16–20; TEMP 36.4–36.8; O2SAT 94–95; BMI 39.7
--- NOTE | 2022-06-08 05:41 | P.HP_ITS ---
Providers/Chief Complaint Admitting Physician: Carrie Pritchett MD Primary Care Provider: John Moncada MD Chief Complaint: Possible ALINE History of Present Illness Elieser Chavez is a 71 year old male hypertension, aortic stenosis, CAD last stents 2014, he presented initially at an outside hospital [facility] with right-sided arm heaviness which he noticed when he was driving. He stated that around 2 PM he felt his arm become very heavy and then floppy with dropping to the side. Symptoms persisted for about 2 hours. He presented at ER at [facility], but by that time his symptoms had all resolved. He denies weakness in any other extremity. Denies any loss of consciousness. Denies any facial asymmetry or dysarthria at the time of these events. A CT of his head was performed at the outside hospital and was negative for any acute intracranial events. He was referred to us in view of TIA and subsequent work-up. Review of systems negative for any chest pain dyspnea palpitations prior to onset of events. Patient has a past history of coronary artery disease, he currently takes aspirin 81 mg every day. He states that he is intolerant of statins, has previously tried at least simvastatin and atorvastatin but has not tolerated it. He is currently on niacin per his home medication list. Upon arrival here, his symptoms remain resolved. Review of Systems General: Reports: 10 or more systems reviewed and unremarkable except in HPI and below Const: Denies: fever(s), chills or body aches Eyes: Denies: change in vision, blurry vision or photophobia ENMT: Reports: hoarseness; Denies: throat pain, enlarged tonsils, odynophagia or nasal congestion Card: Denies: chest pain, palpitations, irregular heart rhythm, edema, swelling of feet/ankles, lightheadedness, pre-syncope, dyspnea on exertion or orthopnea Resp: Denies: dyspnea, productive cough, non-productive cough, wheezing, stridor, pain on inspiration, change in phlegm color, hemoptysis or chest congestion GI: Denies: abdominal pain, nausea, vomiting, hematemesis, coffee ground emesis, dysphagia, heartburn, diarrhea, constipation, GI cramping, change in stool character, hematochezia or melena : Denies: flank pain, dysuria, urinary frequency, urinary urgency, urinary hesitancy or hematuria Musc: Denies: neck pain, back pain, extremity pain, joint swelling, joint warmth or deformity Neuro: Denies: headache(s), numbness in extremities, weakness in extremities, sensory changes, difficulty walking, frequent falls, dizziness, vertigo, behavioral changes, Slurred speech present or seizure-like activity Psych: Denies: anxiety, depression, suicidal ideation or homicidal ideation Endo: Denies: polyuria, polydipsia, tired all the time, cold intolerance or hot flashes Cristofer/Lymph: Denies: easy bruising or easy bleeding Medications/Allergies Home Medications Medication Instructions Recorded Confirmed Last Taken Type nitroglycerin 0.4 mg sublingual 0.4 mg sublingual Q5M PRN Chest 12/16/20 05/04/22 Unknown Rx tablet Pain #25 tabs aspirin 81 mg tablet,delayed 81 mg PO QAM circulation #90 tabs 04/13/21 05/04/22 Unknown Rx release celecoxib 200 mg capsule See Rx Instructions .Route 07/15/21 05/04/22 Unknown History .COMPLEX PRN pain isosorbide mononitrate 20 mg tablet 20 mg PO DAILY #90 tabs 01/13/22 05/04/22 Unknown Rx metformin 1,000 mg tablet 1,000 mg PO BID 03/07/22 06/08/22 06/07/22 History niacin 1,000 mg tablet,extended 2,000 mg PO BID hyperlipidemia 03/07/22 05/04/22 Unknown History release 24 hr losartan 100 mg tablet See Rx Instructions .Route 04/07/22 05/04/22 Unknown Rx .COMPLEX #90 tabs tadalafil 5 mg tablet See Rx Instructions .Route 04/07/22 05/04/22 Unknown Rx .COMPLEX #90 tabs metoprolol succinate 100 mg 100 mg PO QAM #90 tabs 04/08/22 05/04/22 Unknown Rx tablet,extended release 24 hr empagliflozin 25 mg tablet 25 mg PO QAM #90 tabs 04/22/22 05/04/22 Unknown Rx (Jardiance) sitagliptin 100 mg tablet (Januvia) See Rx Instructions .Route 04/27/22 05/04/22 Unknown Rx .COMPLEX #90 tabs glipizide 10 mg tablet 10 mg PO BID 90 days #180 tabs 05/20/22 Unknown Rx Allergies Allergy/AdvReac Type Severity Reaction Status Date / Time hydrocodone Allergy Hives Verified 05/04/22 09:59 oxycodone Allergy hives Verified 05/04/22 09:59 PFSH Acute PFSH: Medical History BPH (benign prostatic hyperplasia) BRBPR (bright red blood per rectum) CAD (coronary artery disease) RCA stent times 10/2014, subtotal occlusion of circumflex noted at that time Chronic joint pain CKD (chronic kidney disease), stage III Combined hyperlipidemia associated with type 2 diabetes mellitus Constipation Elevated PSA Erectile dysfunction Essential hypertension Gouty arthritis Migraine Onychocryptosis 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 Type 2 diabetes mellitus with unspecified complications Surgical History History of bilateral knee replacement History of coronary angioplasty with insertion of stent History of inguinal hernia repair 1955 Family History Father , at age 67 CAD (coronary artery disease) Heart disease Diabetes Hypertension Mother , at age 81 Dementia Aneurysm Social History Smoking and tobacco status: never smoked Alcohol intake: never Caregiver/support person: No Lives independently: Yes Marital status: Current occupational status: employed History of recent travel: No Vitals/I&O/Wt Last Vital Signs Temp 97.6 F 06/08/22 04:00 Pulse 60 06/08/22 04:00 Resp 18 06/08/22 04:00 BP 142/72 06/08/22 04:00 Pulse Ox 94 06/08/22 04:00 O2 Del Method 06/08/22 04:00 06/07/22 06/07/22 06/08/22 14:59 22:59 06:59 Output Total 100 / 100 Balance -100 / -100 Weight last 48 hrs Weight 129.274 kg Physical Exam Narrative: General: No acute distress, AO x3 HEENT: PERRLA, pupils bilaterally equal and reactive, pallors not present Chest: Normal vesicular breath sounds, no added sounds, equal good air entry bilaterally CVS: S1-S2 regular, no murmurs, no tachycardia, no gallops, no rubs Abdomen: Soft, nontender, no organomegaly, bowel sounds present Neuro: No focal deficits, no facial deformity, AO x3, power 5/5 in all limbs Data Other Labs: Labs from [facility], collected June 07, 2022 at 7:45 PM WBC 5.6, hemoglobin 14.7, platelets 190 Sodium 133, potassium 4.0, bicarb 20, BUN 24, creatinine 1.7, normal LFTs. Baseline troponin 24, 2-hour at 23 CT head without contrast: No signs of intracranial hemorrhage midline shift or mass-effect. Periventricular white matter hypoattenuation noted, nonspecific but likely to represent sequelae of chronic small vessel ischemic disease, mild. Chest x-ray mild central vascular congestion. He received aspirin 324 mg and Plavix 300 mg A&P Assessment and plan (1) TIA (transient ischemic attack): Patient presenting today with transient RUE weakness with resolution of symptoms within [address] head without acute events today He has received ASA 325 and Plavix 300mg Continue Asa 81 mg, add plavix 75 mg po daily Check Echocardiogram, has a past h/o moderate , was supposed to get a repeat echo, but has not happened yet. 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 He was considered for repatha , however it is unclear what happened with this plan For now will continue niacin and consider repatha once discharged check carotid artery doppler serial neuro monitoring Attestations Medical Necessity Statement*: less than 2 midnight admission anticipated for evaluation of TIA Coding Level of Care Code Acute Statistical Machine Servicer for Zenaida Cartagena Diagnoses TIA (transient ischemic attack) G45.9
--- NOTE | 2022-06-08 06:11 | USCV_ITS ---
Elieser Chavez Age: 71 Gender: M : 1950 Exam Date: 06/08/2022 09:00 Ordering Phys: Carrie Pritchett MD Technologist: Wellington Bland Exam Location: [facility] [place] Indication: TIA Risk Factors: Previous Vascular Surgery: Right Brachial BP: / Left Brachial BP: / Right Left Velocity (cm/s) Spectral Plaque Velocity (cm/s) Spectral Plaque Syst/Diast Broadening Syst/Diast Broadening 88.30/ 14.10 Prox CCA 92.00 / 14.60 93.70/ 14.30 Mid CCA 91.50 / 17.60 59.00/ 14.00 Distal CCA 71.00 / 13.80 62.10/ 20.20 Prox ICA 50.50 / 13.20 37.40/ 11.30 Mid ICA 77.70 / 18.60 68.40/ 27.20 Distal ICA 60.60 / 13.20 63.80 ECA 146.60 0.40 ICA/CCA 0.85 Antegrade Vertebral Antegrade 29.10/ 10.30 cm/s 24.80/ 9.00 cm/s Tri Subclavian Tri 83.50 97.40 CONCLUSIONS Right ICA stenosis <50%. Mild atheromatous plaque right carotid bulb/ICA. Left ICA stenosis <50%. Mild atheromatous plaque left carotid bulb/ICA. Normal antegrade Doppler flow noted in the right vertebral artery. Normal antegrade Doppler flow noted in the left vertebral artery. Pradip Escoto MD (Electronically Signed) Final Date: 08 June 2022 16:36 S
--- NOTE | 2022-06-08 06:11 | USCV_ITS ---
Elieser Chavez Age: 71 Gender: M : 1950 Exam Date: 06/08/2022 07:59 Ordering Phys: Carrie Pritchett MD Technologist: Wellington Bland Exam Location: [facility] [place] Indication: TIA, moderate BP: 142 / 72 HR: 59 Rhythm: Sinus Technical Quality: Suboptimal MEASUREMENTS (Male / Female) Normal Values 2D ECHO LV Diastolic Diameter PLAX 5.4 cm 4.2 - 5.9 / 3.9 - 5.3 cm LV Systolic Diameter PLAX 3.5 cm IVS Diastolic Thickness 0.9 cm 0.6 - 1.0 / 0.6 - 0.9 cm IVS Systolic Thickness 1.4 cm LVPW Diastolic Thickness 1.3 cm 0.6 - 1.0 / 0.6 - 0.9 cm LVPW Systolic Thickness 1.7 cm LVOT Diameter 2.0 cm LV Ejection Fraction 2D Teich 65.5 % LV Ejection Fraction MOD 2C 58.6 % LV Ejection Fraction 2C AL 58.4 % LA Diameter 4.2 cm LA Width 3.6 cm LA Height 5.5 cm RA Width 3.5 cm RA Height 3.9 cm Aorta at Sinotubular Diameter 2.3 cm IVC Diameter 1.6 cm M-MODE Aortic Annulus Diameter 3.8 cm LA Ao Ratio MM 1.2 MV E Point Septal Separation 0.7 cm DOPPLER AV Peak Velocity 333.5 cm/s LVOT Peak Velocity 110.0 cm/s AV Area Cont Eq vti 1.2 cm squared AV Area Cont Eq pk 1.1 cm squared MV Peak Velocity 87.0 cm/s MV Area PHT 3.9 cm squared Mitral E to A Ratio 0.6 MV E' Velocity 30.5 cm/s Mitral E to MV E' Ratio 7.0 Mitral E to LV E' Lateral Ratio 6.1 Mitral E to LV E' Septal Ratio 8.4 TR Peak Velocity 130.0 cm/s TR Peak Gradient 6.8 mmHg TR Mean Velocity 84.9 cm/s TR Mean Gradient 3.5 mmHg TR Velocity Time Integral 27.6 cm Right Atrial Pressure 3.0 mmHg Pulmonary Artery Systolic Pressu 9.8 mmHg PV Peak Velocity 93.0 cm/s RV Acceleration Time 0.1 s RV Ejection Time 0.3 s RV AcT/ET 0.4 FINDINGS Left Ventricle Poor quality without ECHO contrast. With contrast, the LVsize and function appear normal. Left ventricular ejection fraction is estimated at 55-60 %. No regional wall motion abnormalities. Grade I/IV diastolic dysfunction (abnormal relaxation filling pattern), normal to mildly elevated filling pressures. Right Ventricle Normal right ventricular size and systolic function. Normal right ventricular systolic pressure. Right Atrium The right atrium is normal in size. Left Atrium The left atrium is normal in size. Mitral Valve Mitral valve not well visualized. Mild mitral valve regurgitation. Aortic Valve Structurally normal trileaflet aortic valve. Moderate aortic valve calcification. Mild to moderate aortic valve stenosis, mean gradient 24.2 mmHg, ANASTACIA 1.2 cm squared. Tricuspid Valve Structurally normal tricuspid valve. Pulmonic Valve Pulmonic valve not well visualized. Pericardium Normal pericardium without effusion. Aorta Normal ascending aorta dimension. IVC Inferior vena cava not visualized. CONCLUSIONS Poor quality without ECHO contrast. With contrast, the LVsize and function appear normal. Left ventricular ejection fraction is estimated at 55-60 %. No regional wall motion abnormalities. Grade I/IV diastolic dysfunction (abnormal relaxation filling pattern), normal to mildly elevated filling pressures. Mitral valve not well visualized. Mild mitral valve regurgitation. Structurally normal trileaflet aortic valve. Moderate aortic valve calcification. Mild to moderate aortic valve stenosis, mean gradient 24.2 mmHg, ANASTACIA 1.2 cm squared. Compared to the ECHO done , aortic stenosis is now present. Dr. Henrry Germain MD (Electronically Signed) Final Date: 08 June 2022 09:46 S
[2022-06-08 06:57] LABS: Glucose Point of Care 130 mg/dL (70-110)
--- NOTE | 2022-06-08 07:35 | PC.NURSE ---
report given to SHANT Renee
[2022-06-08 08:34] LABS: Estmated Average Glucose 163; Hemoglobin A1C 7.3 % (4.0-6.0)
[2022-06-08] MEDS: perflutren protein-a microsphr 0.22 mg/mL SDV 3 mL IV (08:47)
[2022-06-08] MEDS: enoxaparin 40 mg/0.4 mL Syringe SUBCUT (09:18)
[2022-06-08] MEDS: clopidogrel 75 mg Tablet PO (09:19)
[2022-06-08] MEDS: niacin ER (24 hr) 500 mg Capsule 1000 MG PO (09:19)
[2022-06-08] MEDS: pantoprazole DR 40 mg Tablet PO (09:19)
[2022-06-08] MEDS: losartan 50 mg Tablet 100 MG PO (09:21)
--- NOTE | 2022-06-08 10:30 | CT_ITS ---
WS: [id number] CTA HEAD AND NECK TECHNIQUE: Contrast enhanced CTA of the head and neck with coronal and sagittal reformatted images an d maximum intensity projection (MIP) images. NASCET criteria utilized. CLINICAL INFORMATION: tia COMPARISON: CTA 2020 DLP: 1186.[address] scans at [facility] use at least one of these dose optimization techniques: automated e xposure control; mA and/or kV adjustment per patient size (includes targeted exams where dose is matc hed to clinical indication); or iterative reconstruction. FINDINGS: RIGHT: RIGHT common carotid artery is patent. Mild calcified atheromatous plaque RIGHT carotid bulb e xtending into the ICA. No significant RIGHT ICA stenosis. RIGHT ICA is patent to the skull base. LEFT: LEFT common carotid artery is patent. Moderate atheromatous plaque LEFT carotid bulb extending into the ICA. No significant LEFT ICA stenosis. Mild LEFT ECA stenosis. LEFT ICA is patent to the sku ll base. Antegrade flow both vertebral arteries. Vertebral arteries are patent to the basilar junction. INTRACRANIAL CTA: Basilar artery is patent. Mild stenosis in the mid basilar artery which remains patent. Persistent RI GHT SENIOR TECHNOLOGIST. Normal vascularity to the SENIOR TECHNOLOGIST territory bilaterally. Both ICAs are patent at the skull base. Patent anterior communicating artery. Normal vascularity to t he JUAN and MCA territories bilaterally. No evidence of flow-limiting stenosis or aneurysm. Calcificat ion supraclinoid ICAs. Mastoid air cells are well aerated. Nasal sinuses are well aerated. Mild mucosal thickening in the et hmoid air cells. Moderate small vessel changes. Mild to moderate parenchymal volume loss. Lung apices are well aerated. Normal posterior nasopharynx. Normal parapharyngeal fat. No cervical lymphadenopat hy. CT/CT angio headneck* [id number] IMPRESSION: 1. No significant ICA stenosis bilaterally. Both ICAs are patent to the skull base. 2. Mild calcified atheromatous plaque both carotid bulbs extending into the IC A LEFT greater than RIGHT. 3. No evidence of flow-limiting intracranial stenosis. 4. Mild tapered stenosis in the mid basilar artery which remains patent. This is unchanged from previous. 5. Persistent RIGHT SENIOR TECHNOLOGIST. 6. No other remarkable findings.
[2022-06-08] MEDS: iohexol 350 mg/mL 500 mL Btl (per mL) IV (11:11)
[2022-06-08 12:37] LABS: Glucose Point of Care 171 mg/dL (70-110)
[2022-06-08 12:40] LABS: Glucose Point of Care 184 mg/dL (70-110)
--- NOTE | 2022-06-08 13:18 | ECG_ITS ---
[facility] Test Date: 2022-06-08 Pat Name: Elieser Chavez Department: Room: 254 Gender: Male Epic Trainer: : 1950 Requested By: Jude Pryor Order Number: [id number] Didi MD: Aaliyah Roach M.D. Measurements Intervals [place] Rate: 63 P: 69 MN: 180 QRS: -23 QRSD: 116 T: 1 QT: 424 QTc: 436 Interpretive Statements SINUS RHYTHM Compared to ECG 12/28/2020 20:17:08 Intraventricular conduction delay no longer present Electronically Signed On 06-08-2022 16:27:00 CDT by Aaliyah Roach M.D. [email or web address]
--- NOTE | 2022-06-08 14:07 | P.DS_ITS ---
Discharge Providers Date of Admission: 06/08/22 01:47 Date of Discharge: June 08, 2022 Attending Provider at Admission: Carrie Pritchett MD Attending Provider at Discharge: Jude Pryor MD Primary Care Provider: John Moncada MD Diagnoses at Discharge Discharge Diagnosis (1) TIA (transient ischemic attack): Status: Acute Reason for Visit Reason for Visit: Possible ALINE Hospital Course Hospital Course Elieser Chavez is a 71 year old male?hypertension, aortic stenosis, CAD last stents 2014, he presented initially at an outside hospital [facility] with right-sided arm heaviness which he noticed when he was driving.? He stated that around 2 PM he felt his arm become very heavy and then floppy with dropping to the side.? Symptoms persisted for about 2 hours.? He presented at ER at [facility], but by that time his symptoms had all resolved.? He denies weakness in any other extremity.? Denies any loss of consciousness.? Denies any facial asymmetry or dysarthria at the time of these events.? A CT of his head was performed at the outside hospital and was negative for any acute intracranial events.? He was referred to us in view of TIA and subsequent work-up.? Review of systems negative for any chest pain dyspnea palpitations prior to onset of events. Patient has a past history of coronary artery disease, he currently takes aspirin 81 mg every day.? He states that he is intolerant of statins, has previously tried at least simvastatin and atorvastatin but has not tolerated it.? He is currently on niacin per his home medication list. Upon arrival here, his symptoms remain resolved. Patient was admitted for further evaluation and management. During hospitalization he did not have any further complaints. Worked well with physical therapy. Was able to tolerate diet well. Echocardiogram and CTA head and neck were done with results as below. Patient refused to take statins because of nontargets in the past. 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 He has been discharged in medically stable condition advised to follow-up with primary care provider within next 1 week with a blood sugar and a blood pressure diary for further adjustment of medications accordingly. He is also advised to follow-up with neurology within the next 2 weeks. Physical Exam Narrative: General: No acute distress, AO x3 HEENT: PERRLA, pupils bilaterally equal and reactive, pallors not present Chest: Normal vesicular breath sounds, no added sounds, equal good air entry bilaterally CVS: S1-S2 regular, no murmurs, no tachycardia, no gallops, no rubs Abdomen: Soft, nontender, no organomegaly, bowel sounds present Neuro: No focal deficits, no facial deformity, AO x3, power 5/5 in all limbs Discharge Data Studies Completed and Pending Completed Studies During Hospitalization Category Date Time Status CTA head neck [CT angio headneck* [id number]] Routine Cat Scan 06/08/22 10:30 Completed CV. echo wo/w contrast [id number] Routine Ultrasound 06/08/22 06:11 Completed Pending at discharge Category Date Time Status Complete Blood Count w/Auto AM LABS Lab 06/09/22 04:00 Ordered Comprehensive Metabolic Panel AM LABS Lab 06/09/22 04:00 Ordered CV carotid duplex BI* [id number] Routine Ultrasound 06/08/22 06:11 Taken Radiology Impressions Head/Neck CTA 06/08/22 10:30 IMPRESSION: 1. No significant ICA stenosis bilaterally. Both ICAs are patent to the skull base. 2. Mild calcified atheromatous plaque both carotid bulbs extending into the ICA LEFT greater than RIGHT. 3. No evidence of flow-limiting intracranial stenosis. 4. Mild tapered stenosis in the mid basilar artery which remains patent. This is unchanged from previous. 5. Persistent RIGHT PORCELAIN TURNER. 6. No other remarkable findings. Echocardiogram: CONCLUSIONS ?Poor quality without ECHO contrast.? With contrast, the LVsize ?and function appear normal.? Left ventricular ejection fraction ?is estimated at 55-60 %. No regional wall motion abnormalities. ?Grade I/IV diastolic dysfunction (abnormal relaxation filling ?pattern), normal to mildly elevated filling pressures. ?Mitral valve not well visualized. Mild mitral valve ?regurgitation. ?Structurally normal trileaflet aortic valve. Moderate aortic ?valve calcification. Mild to moderate aortic valve stenosis, ?mean gradient 24.2 mmHg, ANASTACIA 1.2 cm squared. ?Compared to the ECHO done , aortic stenosis is now ?present. Laboratory Results POC Glucose 171 mg/dL (70-110) H 06/08/22 12:33 Estimat Average Glucose 163 06/08/22 07:28 Hemoglobin A1c 7.3 % (4.0-6.0) H 06/08/22 07:28 Vitals Last Vital Signs Temp 98.3 F 06/08/22 13:25 Pulse 60 06/08/22 13:25 Resp 20 H 06/08/22 11:16 BP 162/79 06/08/22 13:25 Pulse Ox 94 06/08/22 13:25 O2 Del Method 06/08/22 13:25 Discharge Plan Discharge Patient Disposition: Home Prescriptions: New clopidogrel 75 mg Tablet 75 mg PO DAILY Qty: 30 0RF Continued nitroglycerin 0.4 mg tablet, sublingual 0.4 mg sublingual Q5M PRN (Reason: Chest Pain) Qty: 25 3RF aspirin 81 mg tablet,delayed release (DR/EC) 81 mg PO QAM Qty: 90 3RF Rx Instructions: 340 B medications metformin 1,000 mg tablet 1,000 mg PO BID Rx Instructions: 500 mg orally daily; niacin 1,000 mg tablet extended release 24 hr 2,000 mg PO BID Rx Instructions: 340 B medication celecoxib 200 mg capsule See Rx Instructions .ROUTE .COMPLEX PRN (Reason: pain) Dose Instruction: TAKE 1 CAPSULE BY MOUTH ONCE OR TWICE DAILY NEEDED FOR ARTHRITIS PAIN NOT CONTROLLED BY TYLENOL. Rx Instructions: TAKE 1 CAPSULE BY MOUTH ONCE OR TWICE DAILY NEEDED FOR ARTHRITIS PAIN NOT CONTROLLED BY TYLENOL. PRN; Jardiance 25 mg tablet 25 mg PO QAM Qty: 90 1RF isosorbide mononitrate 20 mg tablet 20 mg PO DAILY Qty: 90 3RF Rx Instructions: give doses 7 hrs apart tadalafil 5 mg tablet See Rx Instructions .ROUTE .COMPLEX Qty: 90 1RF Dose Instruction: TAKE 1 TABLET BY MOUTH DAILY FOR PROSTATE AND ERECTILE FUNCTION Rx Instructions: TAKE 1 TABLET BY MOUTH DAILY FOR PROSTATE AND ERECTILE FUNCTION losartan 100 mg tablet See Rx Instructions .ROUTE .COMPLEX Qty: 90 1RF Dose Instruction: TAKE 1 TABLET BY MOUTH EVERY MORNING FOR BLOOD PRESSURE CONTROL Rx Instructions: TAKE 1 TABLET BY MOUTH EVERY MORNING FOR BLOOD PRESSURE CONTROL metoprolol succinate 100 mg tablet extended release 24 hr 100 mg PO QAM Qty: 90 3RF Januvia 100 mg tablet See Rx Instructions .ROUTE .COMPLEX Qty: 90 0RF Dose Instruction: TAKE 1 TABLET BY MOUTH DAILY FOR DIABETES Rx Instructions: TAKE 1 TABLET BY MOUTH DAILY FOR DIABETES glipizide 10 mg tablet 10 mg PO BID 90 Days Qty: 180 3RF Rx Instructions: 340 B medications Discharge Orders: Discharge Order (Routine); Ordered 06/08/22 Ordered By: Jude Pryor Referrals: Pooja Crisostomo MD [Physician] - 2 weeks Discharge Diet: Regular, Cardiac and Diabetic Discharge Activity: Resume usual activity and Increase activity as tolerated Patient Instructions: Opioid Safety Activity Restrictions/Additional Instructions: Please continue aspirin as before. Plavix has been added to your medication list. Please check your blood pressure and blood sugar daily and maintain a blood pressure diary and follow-up with a primary care provider within next 1 week for further adjustment of antihypertensive and antidiabetic medications. Please follow-up with your primary care provider within next [address] Crisostomo/neurology within next 2 weeks. Discharge Attestations Time Spent in Discharge Care*: greater than 30 min Specific Discharge Activities: educating patient, discussing with pcp/other providers, discussing with home health care case manager/social workers/dc planners, documenting/other paperwork and evaluating patient/reviewing data Status at Discharge: Cognitive status at discharge: cognitively intact , Behavioral status at discharge: cooperative , Functional status at discharge: independent ambulation , Overall status at discharge: patient is back to [facility] Quality Metrics Clinical Quality Measures [ No reported AMI, CVA or VTE this stay] Coding Level of Care Code Acute Chg FW DC note Diagnoses TIA (transient ischemic attack) G45.9
--- NOTE | 2022-06-08 14:07 | PC.NURSE ---
Notified Dr. Bocanegra Glipizide and Jardirut is Not in our pharmacy and patient does not have them here.
--- NOTE | 2022-06-08 16:30 | PC.NURSE ---
Discussed discharge paperwork, follow up appointments and new medications. All questions answered. Verbalized understanding
== END 2022-06-08 16:30 | disposition home or self-care (01) ==
PROVIDERS: Admitting Provider Student in an Organized Health Care Education/Training Program; PCP Family Medicine Adult Medicine; Visit Provider Student in an Organized Health Care Education/Training Program
DX: G45.9 Transient cerebral ischemic attack, unspecified (principal); I25.10 Atherosclerotic heart disease of native coronary artery without angina pectoris; Z95.5 Presence of coronary angioplasty implant and graft; Z79.82 Long term (current) use of aspirin; N40.0 Benign prostatic hyperplasia without lower urinary tract symptoms; E11.22 Type 2 diabetes mellitus with diabetic chronic kidney disease; I12.9 Hypertensive chronic kidney disease with stage 1 through stage 4 chronic kidney disease, or unspecified chronic kidney disease; N18.30 Chronic kidney disease, stage 3 unspecified; Z79.84 Long term (current) use of oral hypoglycemic drugs; Z82.49 Family history of ischemic heart disease and other diseases of the circulatory system; Z83.3 Family history of diabetes mellitus
CPT/HCPCS: 36415; 36416; 70496; 70498; 82962; 83036; 93005; 93880; 96372; C8929; G0378; G0379; J1650; Q9956; Q9967

== ENCOUNTER → 2022-06-10 08:57 | Outpatient (BNVA) | payer MEDICARE, MEDICAID, SELFPAY | PROVIDERS: PCP Family Medicine Adult Medicine; Referring Provider Student in an Organized Health Care Education/Training Program; Visit Provider Nurse Practitioner | DX: I69.851 Hemiplegia and hemiparesis following other cerebrovascular disease affecting right dominant side (principal); I69.898 Other sequelae of other cerebrovascular disease; R26.89 Other abnormalities of gait and mobility | CPT/HCPCS: 99204 ==

== ENCOUNTER → 2022-07-22 09:14 | Outpatient (BNVA) | payer MEDICARE, MEDICAID, SELFPAY | PROVIDERS: PCP Family Medicine Adult Medicine; Visit Provider Family Medicine Adult Medicine | DX: E11.69 Type 2 diabetes mellitus with other specified complication (principal); E78.2 Mixed hyperlipidemia; I10 Essential (primary) hypertension; E11.8 Type 2 diabetes mellitus with unspecified complications | CPT/HCPCS: 80061; 83036 ==

== ENCOUNTER → 2022-08-04 14:13 | Outpatient (BNVA) | payer MEDICARE, MEDICAID, SELFPAY | PROVIDERS: PCP Family Medicine Adult Medicine; Visit Provider Emergency Medicine | DX: J06.9 Acute upper respiratory infection, unspecified (principal); B34.9 Viral infection, unspecified | CPT/HCPCS: 87400; 87426 ==

== ENCOUNTER → 2022-08-19 10:43 | Outpatient (BNVA) | payer MEDICARE, MEDICAID, SELFPAY | PROVIDERS: PCP Family Medicine Adult Medicine; Visit Provider Internal Medicine Cardiovascular Disease | DX: I12.9 Hypertensive chronic kidney disease with stage 1 through stage 4 chronic kidney disease, or unspecified chronic kidney disease (principal); E11.22 Type 2 diabetes mellitus with diabetic chronic kidney disease; N18.30 Chronic kidney disease, stage 3 unspecified; Z79.84 Long term (current) use of oral hypoglycemic drugs; Z86.73 Personal history of transient ischemic attack (TIA), and cerebral infarction without residual deficits; E11.69 Type 2 diabetes mellitus with other specified complication; E78.2 Mixed hyperlipidemia; I25.10 Atherosclerotic heart disease of native coronary artery without angina pectoris; I35.0 Nonrheumatic aortic (valve) stenosis; E66.9 Obesity, unspecified; Z68.35 Body mass index [BMI] 35.0-35.9, adult | CPT/HCPCS: 99214 ==

== ENCOUNTER → 2022-08-22 12:50 | Outpatient (BNVA) | payer MEDICARE, MEDICAID, SELFPAY | PROVIDERS: PCP Family Medicine Adult Medicine; Visit Provider Specialist | DX: M19.011 Primary osteoarthritis, right shoulder (principal) | CPT/HCPCS: 73030 ==

== ENCOUNTER 2022-09-09 11:18 | Outpatient (CLI) | payer MEDICARE, MEDICAID, SELFPAY ==
--- NOTE | 2022-09-09 12:22 | MR_ITS ---
WS: [id number] MRI LUMBAR SPINE NONCONTRAST HISTORY: Low back pain. COMPARISON: None available. TECHNIQUE: Sagittal and axial multisequence imaging is submitted. L5 anterolisthesis by 3.8 mm. No marrow edema or fracture. Mild disc desiccation throughout the lumbar spine. Conus terminates normally at L1-2 disc level. L1-L2: Mild annular disc bulging with mild encroachment in the LEFT subarticular recess. No high-grad e stenosis. L2-L3: Moderate annular disc bulging. Mild subarticular recess and bilateral foraminal stenosis. L3-L4: Moderate annular disc bulging with encroachment into the lateral recesses and foramina. There is also mild osteophytic ridging. Mild ligamentum flavum and facet arthritis. Moderate central with b ilateral subarticular recess encroachment and [id number] bilateral foraminal stenosis. Small fo julia LEFT foraminal disc protrusion contributing to the stenosis. Most significant encroachment upon t he traversing L4 nerve roots. L4-L5: Diffuse annular disc bulging. Moderate ligamentum flavum and facet arthritis. Mild LEFT forami nal stenosis. L5-S1: Diffuse annular disc bulging and osteophytes. Bilateral facet joint arthritis. Asymmetric and greater on the LEFT and ligamentum flavum hypertrophy is greatest on the LEFT. Mild central and bilat eral subarticular recess stenosis. Moderate bilateral foraminal stenosis, LEFT greater than RIGHT. Paravertebral soft tissues negative. MR/MR lumbar spine wo con* [id number] IMPRESSION: 1. Mild subarticular recess and foraminal stenosis at L2-3. 2. Moderate central, bilateral subarticular recess and mild to moderate bilate ral foraminal stenosis at L3-4. Small LEFT foraminal disc protrusion contributi ng to the stenosis. Most significant encroachment upon the traversing L4 nerve roots. 3. Mild LEFT foraminal stenosis at L4-5. 4. Mild central, bilateral subarticular recess and moderate foraminal stenosis at L5-S1, LEFT greater than RIGHT. 5. L5 anterolisthesis 3.8 mm.
== END 2022-09-09 11:19 | disposition home or self-care (01) ==
PROVIDERS: PCP Family Medicine Adult Medicine; Visit Provider Specialist
DX: M48.061 Spinal stenosis, lumbar region without neurogenic claudication; M48.07 Spinal stenosis, lumbosacral region
CPT/HCPCS: 72148; 81000; 99214

== ENCOUNTER 2022-10-04 09:52 | Outpatient (CLI) | payer MEDICARE, MEDICAID, SELFPAY ==
[2022-10-04 11:15] LABS: PSA Screen - Urology 5.02 ng/mL (0-4)
== END 2022-10-04 09:53 | disposition home or self-care (01) ==
LOC: LAB 09:57
PROVIDERS: PCP Family Medicine Adult Medicine; Visit Provider Urology
DX: Z12.5 Encounter for screening for malignant neoplasm of prostate (principal)
CPT/HCPCS: G0103

== ENCOUNTER → 2022-10-06 10:37 | Outpatient (BNVA) | payer MEDICARE, MEDICAID, SELFPAY | PROVIDERS: PCP Family Medicine Adult Medicine; Visit Provider Urology | DX: R97.20 Elevated prostate specific antigen [PSA] (principal); N40.0 Benign prostatic hyperplasia without lower urinary tract symptoms; N52.9 Male erectile dysfunction, unspecified | CPT/HCPCS: 81003; 99213 ==

== ENCOUNTER 2022-10-07 08:36 | Emergency (ER) | payer MEDICARE, MEDICAID, SELFPAY ==
[2022-10-07] VITALS (7 sets, daily range): BP systolic 154–213; BP diastolic 87–114; PULSE 46–60; RESP 7–18; TEMP 36.7; O2SAT 94–97
--- NOTE | 2022-10-07 08:37 | XRR_ITS ---
PROCEDURE INFORMATION: Exam: XR Chest Exam date and time: 10/07/2022 8:56 AM Age: 72 years old Clinical indication: Pain; Patient HX: Prior mi with pci, ckd presenting to the emergency department for chest pressure. He reports onset of symptoms this morning with a fullness or pressure in his chest. Associated with nausea and exertional worsening. He reports that this feels more pressure than previous mi. Intensity symptoms is moderate however becomes severe with exertion. ; Additional info: Cp TECHNIQUE: Imaging protocol: Radiologic exam of the chest. Views: 1 view. COMPARISON: CR XR chest 1V portable [id number] 12/28/2020 8:07 PM FINDINGS: Lungs: Low lung volumes. There is increased interstitial markings and haziness of the lower lungs, which in the setting of cardiomegaly is suggestive of pulmonary congestion. Pneumonia should be excluded clinically. Pleural spaces: Unremarkable. No pleural effusion. No pneumothorax. Heart/Mediastinum: Stable cardiomediastinal silhouette. Bones/joints: Degenerative changes of the spine seen. XR/XR chest 1V portable [id number] IMPRESSION: Imaging findings suggestive of pulmonary congestion. Pneumonia should be excluded clinically.
--- NOTE | 2022-10-07 08:40 | ED_ITS ---
HPI - Chest Pain General: Chief Complaint: Chest Pain Stated Complaint: chest pain Time Seen by Provider: 10/07/22 08:39 History of Present Illness: Mr. Chavez is a 72-year-old gentleman with history of hypertension, hyperlipidemia, diabetes, prior [place] with PCI, CKD presenting to the emergency department for chest pressure. He reports onset of symptoms this morning with a fullness or pressure in his chest. Associated with nausea and exertional worsening. He reports that this feels more pressure than previous [place]. Intensity symptoms is moderate however becomes severe with exertion. He has been taking his medications and blood pressure was noted to be higher with unclear etiology from his baseline. No other specific changes in health, exacerbating, or alleviating factors identified. Onset (ago): hour(s) Timing of current episode: constant Prior episodes: Yes Onset: during rest Pain location: substernal and right chest Pain radiation: right arm Severity: moderate Quality: tightness and heaviness Relieving factors: nothing Exacerbating factors: exertion Associated symptoms: Reports nausea Review of Systems General: Reports: 10 or more systems reviewed and unremarkable except in HPI and below GI: Reports: nausea PFSH ED PFSH: Medical History BPH (benign prostatic hyperplasia) CAD (coronary artery disease) RCA stent times 10/2014, subtotal occlusion of circumflex noted at that time Chronic joint pain Chronic midline low back pain without sciatica CKD (chronic kidney disease), stage III Combined hyperlipidemia associated with type 2 diabetes mellitus Constipation Elevated PSA Erectile dysfunction Essential hypertension Gouty arthritis Lumbar canal stenosis Migraine Moderate aortic stenosis by prior echocardiogram Onychocryptosis 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 Type 2 diabetes mellitus with unspecified complications Surgical History History of bilateral knee replacement History of coronary angioplasty with insertion of stent History of inguinal hernia repair 1955 Family History Father , at age 67 CAD (coronary artery disease) Heart disease Diabetes Hypertension Mother , at age 81 Dementia Aneurysm Social History Smoking and tobacco status: never smoked Alcohol intake: never Desire information about alcohol rehabilitation?: No Desire information about substance/drug rehabilitation?: No Caregiver/support person: No Lives independently: Yes Marital status: Current occupational status: employed Physical Exam Const: COMMON NORMALS: alert GENERAL APPEARANCE: cooperative and well developed HENMT: COMMON NORMALS: normocephalic and atraumatic HEAD & SCALP: normocephalic and atraumatic Eye: COMMON NORMALS: conjunctivae normal CONJUNCTIVA: Yes conjunctivae normal SCLERA: sclerae normal Neck/C-Spine: COMMON NORMALS: supple GENERAL: Yes trachea midline Resp: COMMON NORMALS: clear to auscultation bilaterally EFFORT & INS PECTION: Yes able to speak in complete sentences AUSCULTATION: clear to auscultation bilaterally Cardio: COMMON NORMALS: regular rate and regular rhythm RATE: regular rate RHYTHM: regular rhythm GI: COMMON NORMALS: Soft to palpation PALPATION: Yes Soft to palpation and No Tenderness to palpation present (GI) Extremity: GENERAL: Yes normal exam except as noted and No edema Neuro: COMMON NORMALS: moves all extremities SENSORIUM/ORIENTATION: Yes alert and No Orientation impaired Psych: COMMON NORMALS: mental status grossly normal and Normal thought process present THOUGHT PROCESS: Normal thought process present Course Vital Signs: Vital signs: Vital Signs Temperature 98.1 F 10/07/22 08:43 Pulse Rate 60 10/07/22 12:09 Respiratory Rate 12 10/07/22 12:09 Blood Pressure 154/87 10/07/22 12:09 Pulse Oximetry 96 10/07/22 12:09 Oxygen Delivery Me thod 10/07/22 08:43 MDM - Chest Pain Medical Decision Making 72-year-old gentleman presenting with chest pain in the context of known cardiac history. Exam as above. EKG notable for sinus bradycardia with left axis deviation and nonspecific ST segment abnormalities, no STEMI. Chest pain resolved with nitro. Labs with mild leukocytosis, normal hemoglobin. Metabolic panel with mild evidence of dehydration. Patient has negative range 2-hour delta troponin. Chest x-ray with mild pulmonary vascular congestion. During ED course patient had resolution of pain without recurrence and was treated with aspirin as well as nitroglycerin. I recommended admission which the patient declined. Most likely etiology of patient's symptoms is unspecified chest pain. Strict return precautions discussed. The results of ED evaluation were discussed with the patient including possible disposition options. I discussed risk stratification by heart score and estimated risk of major adverse cardiac events. The patient wishes to proceed with outpatient management. I discussed prescriptions and/or symptomatic cares (if applicable) including appropriate and responsible use, followup plan, and return precautions. The patient verbalized understanding and felt safe for discharge. Medical Records I reviewed the patient's medical records. Lab Data I reviewed the patient's lab results. 10/07/22 09:10 10/07/22 09:10 Radiology Impressions Chest X-Ray 10/07/22 08:37 IMPRESSION: Imaging findings suggestive of pulmonary congestion. Pneumonia should be excluded clinically. Laboratory Results WBC 6.4 10^3/uL (4.0-10.0) 10/07/22 09:10 RBC 5.28 10^6/uL (4.1-5.3) 10/07/22 09:10 Hgb 16.0 g/dL (11.7-16.6) 10/07/22 09:10 Hct 47.4 % (42.0-52.0) 10/07/22 09:10 MCV 89.8 fl (80-94) 10/07/22 09:10 MCH 30.3 pg (28.0-34.0) 10/07/22 09:10 MCHC 33.8 g/dL (30.0-36.0) 10/07/22 09:10 RDW 13.7 % (12.1-15.1) 10/07/22 09:10 Plt Count 194 10^3/cmm (130-400) 10/07/22 09:10 MPV 9.1 fL (7.4-10.4) 10/07/22 09:10 Neut % (Auto) 64.9 % 10/07/22 09:10 Lymph % (Auto) 17.5 % 10/07/22 09:10 [place] % (Auto) 12.6 % 10/07/22 09:10 Eos % (Auto) 3.7 % 10/07/22 09:10 Baso % (Auto) 0.5 % 10/07/22 09:10 Neut # (Auto) 4.18 10^3/uL (1.8-7.7) 10/07/22 09:10 Lymph # (Auto) 1.1 10^3/uL (0.8-4.8) 10/07/22 09:10 [place] # (Auto) 0.8 10^3/uL (0.2-0.9) 10/07/22 09:10 Eos # (Auto) 0.2 10^3/uL (0.0-0.8) 10/07/22 09:10 Baso # (Auto) 0.0 10^3/uL (0.0-0.1) 10/07/22 09:10 Nucleated RBC % (auto) 0 % 10/07/22 09:10 Nucleated RBCs # 0.0 /100WBC 10/07/22 09:10 Sodium 135 mmol/L (136-145) L 10/07/22 09:10 Potassium 3.9 mmol/L (3.5-5.1) 10/07/22 09:10 Chloride 99 mmol/L (98-107) 10/07/22 09:10 Carbon Dioxide 20 mmol/L (22-29) L 10/07/22 09:10 Anion Gap 19.9 (5-19) H 10/07/22 09:10 BUN 13 mg/dL (8-23) 10/07/22 09:10 Creatinine 1.1 mg/dL (0.7-1.2) 10/07/22 09:10 GFR Calculation 66.2 mL/min (90-130) L 10/07/22 09:10 Glucose 168 mg/dL (65-115) H 10/07/22 09:10 Calculated Osmolality 284 mOsm/kg (285-295) L 10/07/22 09:10 Calcium 9.4 mg/dL (8.5-10.5) 10/07/22 09:10 Total Bilirubin 0.5 mg/dL (0.15-1.2) 10/07/22 09:10 AST 18 U/L (0-40) 10/07/22 09:10 ALT 22 U/L (0-41) 10/07/22 09:10 Alkaline Phosphatase 73 U/L (40-130) 10/07/22 09:10 Troponin T Baseline 31 ng/L (0-15) H 10/07/22 09:10 Troponin T 120 Minute 31.35 ng/L (0-15) H 10/07/22 11:05 Delta Troponin T 0.35 ABS# (0-10) 10/07/22 11:05 NT-Pro-B Natriuret Pep 434 pg/mL (0-125) H 10/07/22 09:10 Total Protein 8.1 g/dL (6.6-8.7) 10/07/22 09:10 Albumin 4.1 g/dL (3.5-5.2) 10/07/22 09:10 Globulin 4.0 g/dL (1.3-4.6) 10/07/22 09:10 Discharge Plan Discharge Patient Disposition: Home Clinical Impression: Chest pain Condition: Stable Prescriptions: No Action nitroglycerin 0.4 mg tablet, sublingual 0.4 mg sublingual Q5M PRN (Reason: Chest Pain) Qty: 25 3RF niacin 1,000 mg tablet extended release 24 hr 2,000 mg PO BID Rx Instructions: 340 B medication metformin 1,000 mg tablet 1,000 mg PO DAILY Jardiance 25 mg tablet 25 mg PO QAM Qty: 90 1RF isosorbide mononitrate 20 mg tablet 20 mg PO DAILY Qty: 90 3RF Rx Instructions: give doses 7 hrs apart metoprolol succinate 100 mg tablet extended release 24 hr 100 mg PO QAM Qty: 90 3RF glipizide 10 mg tablet 10 mg PO BID 90 Days Qty: 180 3RF Rx Instructions: 340 B medications atorvastatin 40 mg Tablet 80 mg PO BEDTIME 30 Days Qty: 60 0RF clopidogrel 75 mg Tablet 75 mg PO DAILY 30 Days Qty: 30 0RF nitroglycerin 0.4 mg Tablet, Sublingual 0.4 mg sublingual Q5M PRN (Reason: Chest Pain) 30 Days Qty: 30 0RF Rx Instructions: DONOT USE WITH TADALAFIL aspirin 81 mg tablet,delayed release (DR/EC) 81 mg PO QAM 30 Days Qty: 30 0RF Rx Instructions: 340 B medications losartan 100 mg tablet 100 mg PO DAILY Januvia 100 mg tablet 100 mg PO DAILY Discharge Orders: Discharge ED (Routine); Ordered 10/18/22 Ordered By: Kalpesh Lara Referrals: John oMncada MD [Primary Care Provider] - Discharge Diet: Usual diet Discharge Activity: Resume usual activity Patient Instructions: Chest Pain (ED) Activity Restrictions/Additional Instructions: Thank you for visiting the emergency department. You were seen and evaluated for chest pain. The exact cause your symptoms is unclear. As discussed you are not low risk for adverse cardiac events. I will message case management for follow-up and further outpatient testing. Please continue your medications. Return to the emergency department for worsening symptoms or anything else that you are concerned about and feel needs emergency department evaluation. Coding Level of Care Code ED Certified Financial Planner for Zenaida Cartagena
--- NOTE | 2022-10-07 08:41 | ECG_ITS ---
[facility] Test Date: 2022-10-07 Pat Name: Elieser Chavez Department: Room: Gender: Male Clinical Nurse Reviewer: : 1950 Requested By: Oliverio Wright Order Number: [id number] Didi MD: Hesham Stout M.D. Measurements Intervals [place] Rate: 55 P: 75 FL: 174 QRS: -24 QRSD: 125 T: 85 QT: 437 QTc: 420 Interpretive Statements SINUS BRADYCARDIA BORDERLINE LEFT AXIS DEVIATION [QRS AXIS < -20] MODERATE INTRAVENTRICULAR CONDUCTION DELAY [110+ ms QRS DURATION] NONSPECIFIC ST & T-WAVE ABNORMALITY INTERPRETATION BASED ON A DEFAULT AGE OF 40 YEARS Compared to ECG 06/08/2022 13:18:10 Intraventricular conduction delay now present T-wave abnormality now present Sinus rhythm no longer present Electronically Signed On 10-07-2022 21:43:03 PROMOTIONS FIRM ACCOUNTS MANAGER by Hesham Stout M.D. [email or web address].[employer]/store/[id number] f
[2022-10-07] MEDS: aspirin 81 mg Chew Tablet 324 MG PO (09:15)
[2022-10-07] MEDS: nitroglycerin 0.4 mg sublingual Tablet SUBLINGUAL (09:17)
[2022-10-07 09:34] LABS: Basophils % 0.5 %; Eosinophils # 0.2 10^3/uL (0.0-0.8); Eosinophils % 3.7 %; Hematocrit 47.4 % (42.0-52.0); Lymphocytes # 1.1 10^3/uL (0.8-4.8); Lymphocytes % 17.5 %; Mean Corpuscular HGB Conc 33.8 g/dL (30.0-36.0); Mean Corpuscular Hemoglobin 30.3 pg (28.0-34.0); Mean Corpuscular Volume 89.8 fl (80-94); Mean Platelet Volume 9.1 fL (7.4-10.4); Monocytes # 0.8 10^3/uL (0.2-0.9); Monocytes % 12.6 %; Neutrophils # 4.18 10^3/uL (1.8-7.7); Neutrophils % 64.9 %; Nucleated Red Blood Cells % 0 %; Platelet Count 194 10^3/cmm (130-400); Red Blood Count 5.28 10^6/uL (4.1-5.3); Red Cell Distribution Width 13.7 % (12.1-15.1); White Blood Count 6.4 10^3/uL (4.0-10.0)
[2022-10-07 09:53] LABS: Troponin(5th) Baseline 31 ng/L (0-15)
[2022-10-07 10:02] LABS: Alanine Aminotransferase 22 U/L (0-41); Albumin Level 4.1 g/dL (3.5-5.2); Alkaline Phosphatase 73 U/L (40-130); Anion Gap 19.9 (5-19); Aspartate Amino Transferase 18 U/L (0-40); Blood Urea Nitrogen 13 mg/dL (8-23); Calcium 9.4 mg/dL (8.5-10.5); Carbon Dioxide 20 mmol/L (22-29); Chloride 99 mmol/L (98-107); Glomerular Filtration Rate 66.2 mL/min (90-130); Glucose 168 mg/dL (65-115); NT Pro B Type Natriuretic Pept 434 pg/mL (0-125); Osmolality Calculated 284 mOsm/kg (285-295); Potassium 3.9 mmol/L (3.5-5.1); Sodium 135 mmol/L (136-145); Total Bilirubin 0.5 mg/dL (0.15-1.2); Total Protein 8.1 g/dL (6.6-8.7)
--- NOTE | 2022-10-07 10:38 | ECG_ITS ---
[facility] Test Date: 2022-10-07 Pat Name: Elieser Chavez Department: Room: Gender: Male Airborne Operations: : 1950 Requested By: Oliverio Wright Order Number: [id number] Tolbert MD: Hesham Stout M.D. Measurements Intervals [place] Rate: 56 P: 89 ND: 172 QRS: -17 QRSD: 136 T: 89 QT: 447 QTc: 433 Interpretive Statements SINUS BRADYCARDIA WITH SINUS ARRHYTHMIA INTRAVENTRICULAR CONDUCTION DELAY [130+ ms QRS DURATION] Compared to ECG 10/07/2022 08:41:16 T-wave abnormality no longer present Electronically Signed On 10-07-2022 21:55:39 FOOD SERVICE by Hesham Stout M.D. [email or web address].[employer]/store/[id number]
[2022-10-07 11:29] LABS: Troponin 5 2HR 31.35 ng/L (0-15)
[2022-10-07 11:31] LABS: Troponin 5 2HR Delta 0.35 ABS# (0-10)
--- NOTE | 2022-10-12 07:26 | DCPLANNER ---
Addendum entered by Lori Ham 10/25/22 10:06: Patient had a follow up appointment scheduled with [facility] - patient did attend appointment lean manager received notification from centralized scheduling that patient does not believe that he needs to stress test at this time. Addendum entered by Lori Ham 10/12/22 07:26: Patient has a follow up appointment scheduled for Monday, October 24, 2022 at 8:30 with SHAJI Moore at [facility]. Clinic will call patient with appointment information. Original Note: lean manager had message to schedule an outpatient stress test and echo cardiogram for patient. Patient came back to the ER to be seen, was admitted to hospital. Patient had an echo cardiogram completed when he was admitted to hospital. lean manager faxed signed order for a stress test to centralized scheduling, who will call patient with appointment information. case finisher also had message to schedule a followup appointment for patient with cardiology. lean manager sent patients information to the front office staff at [facility]. Patients information will be printed and reviewed. Clinic will call patient with appointment information.
== END 2022-10-07 12:11 | disposition home or self-care (01) ==
PROVIDERS: Physician Assistant; Emergency Provider Emergency Medicine; PCP Family Medicine Adult Medicine
DX: R07.9 Chest pain, unspecified (principal); Z79.84 Long term (current) use of oral hypoglycemic drugs; Z79.02 Long term (current) use of antithrombotics/antiplatelets; Z79.82 Long term (current) use of aspirin; I25.10 Atherosclerotic heart disease of native coronary artery without angina pectoris; E78.5 Hyperlipidemia, unspecified; E11.22 Type 2 diabetes mellitus with diabetic chronic kidney disease; I12.9 Hypertensive chronic kidney disease with stage 1 through stage 4 chronic kidney disease, or unspecified chronic kidney disease; N18.30 Chronic kidney disease, stage 3 unspecified; Z95.5 Presence of coronary angioplasty implant and graft
CPT/HCPCS: 71045; 80053; 83880; 84484; 85025; 93005; 99285

== ENCOUNTER 2022-10-07 18:00 | Inpatient (IN) | payer MEDICARE, MEDICAID, SELFPAY ==
[2022-10-07] VITALS (28 sets, daily range): BP systolic 123–205; BP diastolic 68–105; PULSE 56–72; RESP 9–24; TEMP 36.8; O2SAT 90–97
--- NOTE | 2022-10-07 18:12 | ECG_ITS ---
[facility] Test Date: 2022-10-07 Pat Name: Elieser Chavez Department: Room: Gender: Male Sole Rounding Machine Operator: : 1950 Requested By: Kalpesh Lara Order Number: [id number] Tolbert MD: Hesham Stout M.D. Measurements Intervals [place] Rate: 57 P: 1 GA: 161 QRS: -37 QRSD: 134 T: -20 QT: 457 QTc: 446 Interpretive Statements SINUS BRADYCARDIA LEFT AXIS DEVIATION [QRS AXIS < -30] INTRAVENTRICULAR CONDUCTION DELAY [130+ ms QRS DURATION] Compared to ECG 10/07/2022 11:35:28 Left-axis deviation now present Sinus arrhythmia no longer present Electronically Signed On 10-07-2022 21:47:25 PRE PLANNING ADVISOR by Hesham Stout M.D. [email or web address] [email or web address].[employer]/store/[id number]
--- NOTE | 2022-10-07 19:27 | ED_ITS ---
HPI - Chest Pain General: Chief Complaint: Chest Pain Stated Complaint: Chest Pain Time Seen by Provider: 10/07/22 19:14 Source: patient Mode of arrival: ambulatory History of Present Illness: 72-year-old male with a history of hypertension, diabetes, hyperlipidemia, coronary artery disease who presents with recurrent chest pain. The patient was seen here earlier today with chest pain. Pain was relieved with nitro. His EKGs and serial troponins were negative this morning. He went home and around 3 PM, his pain came back. Describes it as a full sensation in his mid chest area, now radiating into the epigastric area and into his right arm. He does have associated shortness of breath, nausea and diaphoresis. He states the pain is currently 4 out of 10. He does have a family history of cardiac disease as well. He has had stents in the past. Last stress test was 2 years ago. When the patient was seen earlier today, he was hypertensive. Risk Factors: Coronary artery disease risk factors: diabetes, hyperlipidemia, hypertension and family history of CAD before age 50 Review of Systems Narrative: See HPI PFSH ED PFSH: Medical History BPH (benign prostatic hyperplasia) CAD (coronary artery disease) RCA stent times 10/2014, subtotal occlusion of circumflex noted at that time Chronic joint pain Chronic midline low back pain without sciatica CKD (chronic kidney disease), stage III Combined hyperlipidemia associated with type 2 diabetes mellitus Constipation Elevated PSA Erectile dysfunction Essential hypertension Gouty arthritis Lumbar canal stenosis Migraine Onychocryptosis 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 Type 2 diabetes mellitus with unspecified complications Surgical History History of bilateral knee replacement History of coronary angioplasty with insertion of stent History of inguinal hernia repair 1955 Family History Father , at age 67 CAD (coronary artery disease) Heart disease Diabetes Hypertension Mother , at age 81 Dementia Aneurysm Social History Smoking and tobacco status: never smoked Alcohol intake: never Desire information about alcohol rehabilitation?: No Desire information about substance/drug rehabilitation?: No Caregiver/support person: No Lives independently: Yes Marital status: Current occupational status: employed Physical Exam Const: COMMON NORMALS: alert GENERAL APPEARANCE: cooperative and well developed HENMT: COMMON NORMALS: normocephalic and atraumatic HEAD & SCALP: normocephalic and atraumatic Eye: COMMON NORMALS: conjunctivae normal CONJUNCTIVA: Yes conjunctivae normal SCLERA: sclerae normal Neck/C-Spine: COMMON NORMALS: supple GENERAL: Yes trachea midline Resp: COMMON NORMALS: clear to auscultation bilaterally EFFORT & INSPECTION: Yes able to speak in complete sentences AUSCULTATION: clear to auscultation bilaterally Cardio: COMMON NORMALS: regular rate and regular rhythm RATE: regular rate RHYTHM: regular rhythm GI: COMMON NORMALS: Soft to palpation PALPATION: Yes Soft to palpation and No Tenderness to palpation present (GI) Extremity: GENERAL: Yes normal exam except as noted and No edema Neuro: COMMON NORMALS: moves all extremities SENSORIUM/ORIENTATION: Yes alert and No Orientation impaired Psych: COMMON NORMALS: mental status grossly normal and Normal thought process present THOUGHT PROCESS: Normal thought process present Course ED course: Patient's been evaluated in the emergency department. He presents with recurrent chest pain after being seen this morning. Earlier today, he did have troponins ranging in the 30s but no significant change with his delta's. The patient opted to go home. He returns because he had recurrent chest pain starting around 3 PM. Upon arrival here, he is hypertensive. He was given aspirin earlier today. He was given 1 sublingual nitroglycerin and 20 mg of labetalol IV. His pain is not completely resolved. On EKG, he has no ST segment elevation or ischemic changes. He has had Nitropaste applied to his ch est 1 and half inches. He has been bolused with heparin and has been started on a heparin drip. The patient's troponin this evening is 112. We will plan for admission as an non-ST segment elevation NV. Reevaluation(s): Reevaluation #1: Blood pressure is much improved, now 155/85. Pain is completely resolved. Time: 20:50 Consultations: Consultation #1: Discussed with the hospitalist, Dr. Espitia, who is in agreement with admission. Time: 20:50 Consultation #2: Discussed with Dr. Alonso, cardiology, who recommends the NSTEMI protocol for admission, keep the patient n.p.o. for anticipated cath in the morning. Time: 20:51 Vital Signs: Vital signs: Vital Signs Temperature 98.2 F 10/07/22 18:04 Pulse Rate 56 L 10/07/22 18:04 Respiratory Rate 16 10/07/22 18:04 Blood Pressure 205/105 10/07/22 18:04 Pulse Oximetry 96 10/07/22 18:04 Oxygen Delivery Me thod 10/07/22 18:04 MDM - Chest Pain Medical Decision Making 72-year-old male who presents with recurrent chest pain and epigastric pain with associated nausea, diaphoresis and shortness of breath. He does have multiple cardiac risk factors including hypertension, hyperlipidemia and diabetes. He is hypertensive here, blood pressure 205/105. He took aspirin this morning when he was seen in the ER. We will give him sublingual nitroglycerin to see if that helps with his pain. We will repeat his serial troponins. EKG shows no acute ischemic changes. We will get a right upper quadrant ultrasound to evaluate the gallbladder as well as lipase to rule out pancreatitis. Lab Data 10/07/22 19:05 10/07/22 19:05 Laboratory Results WBC 11.2 10^3/uL (4.0-10.0) H 10/07/22 19:05 RBC 5.38 10^6/uL (4.1-5.3) H 10/07/22 19:05 Hgb 16.5 g/dL (11.7-16.6) 10/07/22 19:05 Hct 49.3 % (42.0-52.0) 10/07/22 19:05 MCV 91.6 fl (80-94) 10/07/22 19:05 MCH 30.7 pg (28.0-34.0) 10/07/22 19:05 MCHC 33.5 g/dL (30.0-36.0) 10/07/22 19:05 RDW 13.8 % (12.1-15.1) 10/07/22 19:05 Plt Count 212 10^3/cmm (130-400) 10/07/22 19:05 MPV 9.3 fL (7.4-10.4) 10/07/22 19:05 Neut % (Auto) 78.7 % 10/07/22 19:05 Lymph % (Auto) 9.5 % 10/07/22 19:05 [place] % (Auto) 9.5 % 10/07/22 19:05 Eos % (Auto) 1.5 % 10/07/22 19:05 Baso % (Auto) 0.3 % 10/07/22 19:05 Neut # (Auto) 8.79 10^3/uL (1.8-7.7) H 10/07/22 19:05 Lymph # (Auto) 1.1 10^3/uL (0.8-4.8) 10/07/22 19:05 [place] # (Auto) 1.1 10^3/uL (0.2-0.9) H 10/07/22 19:05 Eos # (Auto) 0.2 10^3/uL (0.0-0.8) 10/07/22 19:05 Baso # (Auto) 0.0 10^3/uL (0.0-0.1) 10/07/22 19:05 Nucleated RBC % (auto) 0 % 10/07/22 19:05 Nucleated RBCs # 0.0 /100WBC 10/07/22 19:05 Sodium 132 mmol/L (136-145) L 10/07/22 19:05 Potassium 4.1 mmol/L (3.5-5.1) 10/07/22 19:05 Chloride 95 mmol/L (98-107) L 10/07/22 19:05 Carbon Dioxide 22 mmol/L (22-29) 10/07/22 19:05 Anion Gap 19.1 (5-19) H 10/07/22 19:05 BUN 20 mg/dL (8-23) 10/07/22 19:05 Creatinine 1.2 mg/dL (0.7-1.2) 10/07/22 19:05 GFR Calculation 59.9 mL/min (90-130) L 10/07/22 19:05 Glucose 173 mg/dL (65-115) H 10/07/22 19:05 Calculated Osmolality 281 mOsm/kg (285-295) L 10/07/22 19:05 Calcium 9.7 mg/dL (8.5-10.5) 10/07/22 19:05 Total Bilirubin 0.4 mg/dL (0.15-1.2) 10/07/22 19:05 AST 36 U/L (0-40) 10/07/22 19:05 ALT 20 U/L (0-41) 10/07/22 19:05 Alkaline Phosphatase 75 U/L (40-130) 10/07/22 19:05 Troponin T Baseline 112 ng/L (0-15) H* 10/07/22 19:05 NT-Pro-B Natriuret Pep 900 pg/mL (0-125) H 10/07/22 19:05 Total Protein 8.0 g/dL (6.6-8.7) 10/07/22 19:05 Albumin 4.6 g/dL (3.5-5.2) 10/07/22 19:05 Globulin 3.4 g/dL (1.3-4.6) 10/07/22 19:05 Lipase 23 U/L (13-60) 10/07/22 19:05 Discharge Plan Discharge Patient Disposition: Admitted As Inpatient Clinical Impression: Non-ST elevated myocardial infarction (non-STEMI), Hypertension, uncontrolled Prescriptions: No Action nitroglycerin 0.4 mg tablet, sublingual 0.4 mg sublingual Q5M PRN (Reason: Chest Pain) Qty: 25 3RF aspirin 81 mg tablet,delayed release (DR/EC) 81 mg PO QAM Qty: 90 3RF Rx Instructions: 340 B medications niacin 1,000 mg tablet extended release 24 hr 2,000 mg PO BID Rx Instructions: 340 B medication metformin 1,000 mg tablet 1,000 mg PO DAILY Jardiance 25 mg tablet 25 mg PO QAM Qty: 90 1RF isosorbide mononitrate 20 mg tablet 20 mg PO DAILY Qty: 90 3RF Rx Instructions: give doses 7 hrs apart tadalafil 5 mg tablet See Rx Instructions .ROUTE .COMPLEX Qty: 90 1RF Dose Instruction: TAKE 1 TABLET BY MOUTH DAILY FOR PROSTATE AND ERECTILE FUNCTION Rx Instructions: TAKE 1 TABLET BY MOUTH DAILY FOR PROSTATE AND ERECTILE FUNCTION metoprolol succinate 100 mg tablet extended release 24 hr 100 mg PO QAM Qty: 90 3RF glipizide 10 mg tablet 10 mg PO BID 90 Days Qty: 180 3RF Rx Instructions: 340 B medications losartan 100 mg tablet 100 mg PO DAILY Januvia 100 mg tablet 100 mg PO DAILY Referrals: John Moncada MD [Primary Care Provider] - Coding Level of Care Code ED Registration Representative for Zenaida Cartagena
[2022-10-07 19:33] LABS: Basophils % 0.3 %; Eosinophils # 0.2 10^3/uL (0.0-0.8); Eosinophils % 1.5 %; Hematocrit 49.3 % (42.0-52.0); Hemoglobin 16.5 g/dL (11.7-16.6); Lymphocytes # 1.1 10^3/uL (0.8-4.8); Lymphocytes % 9.5 %; Mean Corpuscular HGB Conc 33.5 g/dL (30.0-36.0); Mean Corpuscular Hemoglobin 30.7 pg (28.0-34.0); Mean Corpuscular Volume 91.6 fl (80-94); Mean Platelet Volume 9.3 fL (7.4-10.4); Monocytes # 1.1 10^3/uL (0.2-0.9); Monocytes % 9.5 %; Neutrophils # 8.79 10^3/uL (1.8-7.7); Neutrophils % 78.7 %; Nucleated Red Blood Cells % 0 %; Platelet Count 212 10^3/cmm (130-400); Red Blood Count 5.38 10^6/uL (4.1-5.3); Red Cell Distribution Width 13.8 % (12.1-15.1); White Blood Count 11.2 10^3/uL (4.0-10.0)
[2022-10-07] MEDS: labetalol 5 mg/mL SDV 20mL 20 MG IVP (19:53)
[2022-10-07 19:58] LABS: Troponin(5th) Baseline 112 ng/L (0-15)
[2022-10-07 20:04] LABS: Alanine Aminotransferase 20 U/L (0-41); Albumin Level 4.6 g/dL (3.5-5.2); Alkaline Phosphatase 75 U/L (40-130); Anion Gap 19.1 (5-19); Aspartate Amino Transferase 36 U/L (0-40); Blood Urea Nitrogen 20 mg/dL (8-23); Calcium 9.7 mg/dL (8.5-10.5); Carbon Dioxide 22 mmol/L (22-29); Chloride 95 mmol/L (98-107); Globulin 3.4 g/dL (1.3-4.6); Glomerular Filtration Rate 59.9 mL/min (90-130); Glucose 173 mg/dL (65-115); Lipase 23 U/L (13-60); NT Pro B Type Natriuretic Pept 900 pg/mL (0-125); Osmolality Calculated 281 mOsm/kg (285-295); Potassium 4.1 mmol/L (3.5-5.1); Sodium 132 mmol/L (136-145); Total Bilirubin 0.4 mg/dL (0.15-1.2)
--- NOTE | 2022-10-07 20:13 | ECG_ITS ---
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 Measurements Intervals [place] Rate: 58 P: 79 GA: 169 QRS: -30 QRSD: 148 T: 59 QT: 463 QTc: 457 Interpretive Statements SINUS BRADYCARDIA WITH OCCASIONAL SUPRAVENTRICULAR PREMATURE COMPLEXES INTRAVENTRICULAR CONDUCTION DELAY [130+ ms QRS DURATION] Compared to ECG 10/07/2022 18:12:50 Left-axis deviation no longer present Electronically Signed On 10-07-2022 22:01:33 EDUCATIONAL TECHNOLOGY SPECIALIST by Hesham Stout M.D. [id number]
[2022-10-07] MEDS: heparin 5,000 unit/mL INJ 1 mL IV (20:41)
[2022-10-07] MEDS: heparin drip 25,000 UNIT/500 ML PREMIX 35 UNIT IV (20:52)
--- NOTE | 2022-10-07 20:54 | P.HP_ITS ---
Providers/Chief Complaint Primary Care Provider: John Moncada MD Chief Complaint: Chest Pain History of Present Illness Elieser Chavez is a 72 year old male with past medical history of CAD, post PCI to RCA with subtotal occlusion circumflex, hyperlipidemia, type 2 diabetes mellitus, hypertension, CKD, morbid obesity with recent history of TIA who presented to the ER 2 times today with complaints of chest pain that started today morning at around 7:30 AM. On his first visit chest pain was more left- sided radiating to left shoulder which was relieved by pain medications and nitrates. Patient was advised to get admitted but he decided against it and was discharged. On that visit his troponin cycled was 31 with a delta of 0.3. He presented again in the afternoon complaining of epigastric pain getting exacerbated with exertion and was found to be hypotensive but this time his baseline troponin was found to be 112 with delta of 32 in 2 hours. On examination patient lying comfortably in bed without any active chest pain. Denying any nausea or vomiting. At baseline patient does complain of occasional episodes of chest heaviness and pain on exertion for last few months but never as persistent as today. In the ER patient was found to be hypertensive and hence was given labetalol 1 dose. Review of Systems General: Reports: 10 or more systems reviewed and unremarkable except in HPI and below Const: Denies: fever(s), chills, body aches, change in appetite, change in weight, malaise, night sweats, diaphoresis, change in sleep pattern, daytime sleepiness or snoring Eyes: Denies: change in vision, blurry vision, photophobia, eye discomfort or eye discharge ENMT: Denies: throat pain, enlarged tonsils, hoarseness, mouth pain, oral sores, dry mouth, tinnitus, nasal congestion or post nasal drip Card: Denies: chest pain, palpitations, irregular heart rhythm, edema, swelling of feet/ankles, lightheadedness, syncope, pre-syncope, dyspnea on exertion, orthopnea, leg pain with exertion or acrocyanosis Resp: Denies: dyspnea, productive cough, non-productive cough, wheezing, stridor, pain on inspiration, change in phlegm color, hemoptysis or chest congestion GI: Denies: abdominal pain, nausea, vomiting, hematemesis, coffee ground emesis, dysphagia, heartburn, diarrhea, constipation, bloating, GI cramping, change in bowel habits, pain on defecation, hematochezia or melena : Denies: flank pain, difficulty urinating, dysuria, urinary frequency, urinary urgency, urinary hesitancy, urinary dribbling, difficulty starting [place], change in urine stream, nocturia or hematuria Musc: Denies: neck pain, back pain, extremity pain, joint pain, joint swelling, joint redness, joint stiffness or limited range of motion Neuro: Denies: headache(s), numbness in extremities, weakness in extremities, sensory changes, lack of coordination, difficulty walking, frequent falls, dizziness, vertigo, confusion, Slurred speech present, difficulty communicating thoughts or seizure-like activity Psych: Denies: anxiety, depression, mood swings, panic attacks, hopelessness or irritability Endo: Denies: polyuria, polydipsia, tired all the time, cold intolerance, excessive sweating, flushing or heat intolerance Cristofer/Lymph: Denies: easy bruising or easy bleeding All/Imm: Denies: tongue swelling, facial swelling or acute wheezing Medications/Allergies Home Medications Medication Instructions Recorded Confirmed Last Taken Type nitroglycerin 0.4 mg sublingual 0.4 mg sublingual Q5M PRN Chest 12/16/20 10/07/22 Unknown Rx tablet Pain #25 tabs aspirin 81 mg tablet,delayed 81 mg PO QAM circulation #90 tabs 04/13/21 10/07/22 10/07/22 Rx release isosorbide mononitrate 20 mg tablet 20 mg PO DAILY #90 tabs 01/13/22 10/07/22 10/07/22 Rx niacin 1,000 mg tablet,extended 2,000 mg PO BID hyperlipidemia 03/07/22 10/07/22 10/07/22 History release 24 hr tadalafil 5 mg tablet See Rx Instructions .Route 04/07/22 10/07/22 06/07/22 Rx .COMPLEX #90 tabs metoprolol succinate 100 mg 100 mg PO QAM #90 tabs 04/08/22 10/07/22 10/07/22 Rx tablet,extended release 24 hr empagliflozin 25 mg tablet 25 mg PO QAM #90 tabs 04/22/22 10/07/22 10/07/22 Rx (Jardiance) glipizide 10 mg tablet 10 mg PO BID 90 days #180 tabs 10/14/22 03/03/23 03/03/23 Rx metformin 1,000 mg tablet 1,000 mg PO DAILY 06/16/22 10/07/22 10/07/22 History losartan 100 mg tablet 100 mg PO DAILY 10/07/22 10/07/22 10/07/22 History sitagliptin phosphate 100 mg 100 mg PO DAILY 10/07/22 10/07/22 10/07/22 History tablet (Januvia) Allergies Allergy/AdvReac Type Severity Reaction Status Date / Time hydrocodone Allergy Hives Verified 10/06/22 10:47 oxycodone Allergy hives Verified 10/06/22 10:47 PFSH Acute PFSH: Medical History (Updated 10/08/22 @ 00:04 by Jude Pryor MD) BPH (benign prostatic hyperplasia) CAD (coronary artery disease) RCA stent times 10/2014, subtotal occlusion of circumflex noted at that time Chronic joint pain Chronic midline low back pain without sciatica CKD (chronic kidney disease), stage III Combined hyperlipidemia associated with type 2 diabetes mellitus Constipation Elevated PSA Erectile dysfunction Essential hypertension Gouty arthritis Lumbar canal stenosis Migraine Moderate aortic stenosis by prior echocardiogram Onychocryptosis 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 Type 2 diabetes mellitus with unspecified complications Surgical History History of bilateral knee replacement History of coronary angioplasty with insertion of stent History of inguinal hernia repair 1955 Family History Father , at age 67 CAD (coronary artery disease) Heart disease Diabetes Hypertension Mother , at age 81 Dementia Aneurysm Social History Smoking and tobacco status: never smoked Alcohol intake: never Desire information about alcohol rehabilitation?: No Desire information about substance/drug rehabilitation?: No Caregiver/support person: No Lives independently: Yes Marital status: Current occupational status: employed Vitals/I&O/Wt Last Vital Signs Temp 98.2 F 10/07/22 18:04 Pulse 56 L 10/07/22 18:04 Resp 16 10/07/22 18:04 BP 205/105 10/07/22 18:04 Pulse Ox 96 10/07/22 18:04 O2 Del Method 10/07/22 18:04 Weight last 48 hrs Weight 124.738 kg Physical Exam Narrative: General: No acute distress, AO x3 HEENT: PERRLA, pupils bilaterally equal and reactive Chest: Normal vesicular breath sounds, no added sounds, equal good air entry bilaterally CVS: S1-S2 regular, soft ejection systolic murmur at aortic region radiating to carotids, no tachycardia, no gallops, no rubs Abdomen: Soft, nontender, no organomegaly, bowel sounds present Neuro: No focal deficits, no facial deformity, AO x3, power 5/5 in all limbs Data 10/07/22 19:05 10/07/22 19:05 A&P Assessment and plan (1) Chest pain: (2) Non-ST elevated myocardial infarction (non-STEMI): (3) Hypertension, uncontrolled: (4) Type 2 diabetes mellitus with unspecified complications: (5) Combined hyperlipidemia associated with type 2 diabetes mellitus: (6) CAD (coronary artery disease): Qualifiers: Coronary Disease-Associated Artery/Lesion type: [place] artery [place] vs. transplanted heart: [place] heart Associated angina: without angina Qualified Code(s): I25.10 - Atherosclerotic heart disease of [place] coronary artery without angina pectoris (7) Moderate aortic stenosis by prior echocardiogram: (8) Positive cardiac stress test: Plan 72-year-old gentleman with past medical for CAD, post PCI to RCA with total occlusion of circumflex, diabetic, moderate aortic stenosis, uncontrolled hypertensive admitted for chest pain and found to have non-ST elevation MO. Check limited echocardiogram for regional wall motion abnormality and EF. Aspirin 325 mg one-time, 81 mg daily, continue home dose of niacin, atorvastatin 40 mg daily. Continue home dose of metoprolol and Imdur. Full dose Lovenox 1 mg/kg body weight every 12 hourly. Appreciate recently checked A1c and lipid panel. Lexiscan done and November 2020 showed a small area of reversibility in the apical lateral region suggestive of myocardial scarring with ischemia in distribution of RCA/circumflex. Cardiology already consulted from the ER. We will await their recommendation for further evaluation with possibility of cardiac angiogram. N.p.o. after midnight. Goal blood pressure 140/90 mmHg. For now continue with home dose of Imdur, losartan, metoprolol. Will uptitrate as per blood pressure goal. Insulin sliding scale at moderate dose protocol every 6 hourly given n.p.o. status post midnight. CKD: Baseline creatinine of 1-1.2. Currently creatinine at baseline. Monitor BMP daily. Full code. Cardiac carb consistent diet, n.p.o. after midnight. Full dose Lovenox will suffice as DVT prophylaxis. Protonix for PUD prophylaxis Attestations Medical Necessity Statement*: Admission for more than 2 midnights for management of non-ST elevation MO in a patient with history of CAD, post PCI and a positive cardiac stress test and Moderate Time (Discussion on possible cardiac angiogram, positive stress test in the past and further etiology of chest pain) for a total of 65 minutes, includes reviewing past or interval history, examining/interviewing patient, placing orders, counseling patient/family/other support, updating patient/family/other support, discussing plan of care with staff, communicating with other healthcare providers, documenting encounter and coordinating care Diagnoses Chest pain R07.9 Non-ST elevated myocardial infarction (non-STEMI) I21.4 Hypertension, uncontrolled I10 Type 2 diabetes mellitus with unspecified complications E11.8 Combined hyperlipidemia associated with type 2 diabetes mellitus E11.69; E78.2 CAD (coronary artery disease) I25.10 Coronary Disease-Associated Artery/Lesion type: [place] artery [place] vs. transplanted heart: [place] heart Associated angina: without angina Moderate aortic stenosis by prior echocardiogram I35.0 Positive cardiac stress test R94.39
[2022-10-07] MEDS: nitroglycerin 1 gm/inch oint Pkt 1.5 INCH TOPICAL (20:57)
[2022-10-07 21:49] LABS: Troponin 5 2HR 144.4 ng/L (0-15); Troponin 5 2HR Delta 32.4 ABS# (0-10)
[2022-10-07 22:41] LABS: Iron 55 ug/dL (59-158); Percent Saturation 18.1 % (20-50); Total Iron Binding Capacity 303 mcg/dl; Unsaturated Iron Binding 248 ug/dL (112-347)
[2022-10-07 22:48] LABS: Procalcitonin 0.05 ng/mL (0-0.5)
[2022-10-07 22:59] LABS: D Dimer 0.48 ug/mIFEU (0-0.59)
[2022-10-07 23:24] LABS: Vitamin B12 655 pg/mL (232-1245)
[2022-10-07 23:25] LABS: Folate Level 9.5 ng/mL (4.5-32.2)
[2022-10-07] MEDS: enoxaparin 120 mg/0.8 mL Syringe SUBCUT (23:30)
[2022-10-07] MEDS: atorvastatin 40 mg Tablet 80 MG PO (23:30)
[2022-10-08] VITALS (206 sets, daily range): BP systolic 83–166; BP diastolic 41–102; PULSE 45–89; RESP 0–24; TEMP 36.1–37.1; O2SAT 88–99
--- NOTE | 2022-10-08 00:13 | ECG_ITS ---
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 Measurements Intervals [place] Rate: 57 P: 10 NV: 173 QRS: -42 QRSD: 118 T: -53 QT: 456 QTc: 446 Interpretive Statements SINUS BRADYCARDIA MINIMAL VOLTAGE CRITERIA FOR LVH, CONSIDER NORMAL VARIANT [MEETS CRITERIA IN ONE OF: R(aVL), S(V1), R(V5), R(V5/V6)+S(V1)] Compared to ECG 10/07/2022 20:17:53 Intraventricular conduction delay no longer present Electronically Signed On 10-08-2022 16:09:52 DEBT COLLECTOR by Carlos Padilla M.D. [id number]
[2022-10-08 00:17] LABS: Thyroid Stimulating Hormone 2.03 uIU/mL (0.27-4.20)
[2022-10-08 01:50] LABS: Troponin 5 6HR 217.7 ng/L (0-15); Troponin 5 6HR Delta 105.7 ng/L (0-12)
[2022-10-08] MEDS: aspirin 81 mg EC Tablet PO (05:20)
[2022-10-08] MEDS: metoprolol succinate ER (24 HR) 100 mg Tablet PO (05:20)
[2022-10-08 05:23] LABS: Basophils % 0.2 %; Eosinophils # 0.1 10^3/uL (0.0-0.8); Eosinophils % 1.5 %; Hemoglobin 15.7 g/dL (11.7-16.6); Lymphocytes # 1.1 10^3/uL (0.8-4.8); Lymphocytes % 11.3 %; Mean Corpuscular HGB Conc 33.4 g/dL (30.0-36.0); Mean Corpuscular Hemoglobin 30.3 pg (28.0-34.0); Mean Corpuscular Volume 90.7 fl (80-94); Mean Platelet Volume 9.2 fL (7.4-10.4); Monocytes % 10.3 %; Neutrophils # 7.31 10^3/uL (1.8-7.7); Neutrophils % 76.1 %; Nucleated Red Blood Cells % 0 %; Platelet Count 190 10^3/cmm (130-400); Red Blood Count 5.18 10^6/uL (4.1-5.3); Red Cell Distribution Width 13.6 % (12.1-15.1); White Blood Count 9.6 10^3/uL (4.0-10.0)
[2022-10-08 05:46] LABS: Alanine Aminotransferase 19 U/L (0-41); Alkaline Phosphatase 67 U/L (40-130); Anion Gap 20.8 (5-19); Aspartate Amino Transferase 59 U/L (0-40); Blood Urea Nitrogen 16 mg/dL (8-23); Calcium 9.4 mg/dL (8.5-10.5); Carbon Dioxide 18 mmol/L (22-29); Chloride 100 mmol/L (98-107); Globulin 3.7 g/dL (1.3-4.6); Glomerular Filtration Rate 83.4 mL/min (90-130); Glucose 166 mg/dL (65-115); Osmolality Calculated 285 mOsm/kg (285-295); Potassium 3.8 mmol/L (3.5-5.1); Sodium 135 mmol/L (136-145); Total Bilirubin 0.4 mg/dL (0.15-1.2); Total Protein 7.7 g/dL (6.6-8.7)
--- NOTE | 2022-10-08 06:31 | PM.CONSULT ---
Providers/Reason For Consult Consulting Physician/Specialty*: Carlos Padilla MD/ Cardiology Reason for Consult*: NSTEMI Requesting Physician: Dr Davila Attending Physician: Jude Pryor MD Primary Care Provider: John Moncada MD History of Present Illness History of Present Illness Elieser Chavez is a 72 year old male with past medical history of CAD, prior RCA stents, hyperlipidemia, diabetes, hypertension, CKD and recent TIA who presented to ER yesterday in the morning with chest pain. It was typical. He was recommended to be admitted to the hospital however he left. He came back last night with chest pain again and her troponin had significantly increased. EKG shows sinus bradycardia with nonspecific ST-T wave changes. Patient has been having on and off chest pain symptoms for the last several months. However it got worse yesterday. It was substernal with radiation to the left side. Review of Systems General: Reports: 10 or more systems reviewed and unremarkable except in HPI and below Const: Denies: fever(s), chills, body aches, change in appetite, change in weight, malaise, night sweats, diaphoresis, change in sleep pattern, daytime sleepiness or snoring Eyes: Denies: change in vision, blurry vision, photophobia, eye discomfort or eye discharge ENMT: Denies: throat pain, enlarged tonsils, hoarseness, mouth pain, oral sores, dry mouth, tinnitus, nasal congestion or post nasal drip Card: Reports: chest pain; Denies: palpitations, irregular heart rhythm, edema, swelling of feet/ankles, lightheadedness, syncope, pre-syncope, dyspnea on exertion, orthopnea, leg pain with exertion or acrocyanosis Resp: Denies: dyspnea, productive cough, non-productive cough, wheezing, stridor, pain on inspiration, change in phlegm color, hemoptysis or chest congestion GI: Denies: abdominal pain, nausea, vomiting, hematemesis, coffee ground emesis, dysphagia, heartburn, diarrhea, constipation, bloating, GI cramping, change in bowel habits, pain on defecation, hematochezia or melena : Denies: flank pain, difficulty urinating, dysuria, urinary frequency, urinary urgency, urinary hesitancy, urinary dribbling, difficulty starting urination, change in urine stream, nocturia or hematuria Musc: Denies: neck pain, back pain, extremity pain, joint pain, joint swelling, joint redness, joint stiffness or limited range of motion Neuro: Denies: headache(s), numbness in extremities, weakness in extremities, sensory changes, lack of coordination, difficulty walking, frequent falls, dizziness, vertigo, confusion, Slurred speech present, difficulty communicating thoughts or seizure-like activity Psych: Denies: anxiety, depression, mood swings, panic attacks, hopelessness or irritability Endo: Denies: polyuria, polydipsia, tired all the time, cold intolerance, excessive sweating, flushing or heat intolerance Cristofer/Lymph: Denies: easy bruising or easy bleeding All/Imm: Denies: tongue swelling, facial swelling or acute wheezing Medications/Allergies Home Medications Medication Instructions Recorded Confirmed Last Taken Type nitroglycerin 0.4 mg sublingual 0.4 mg sublingual Q5M PRN Chest 12/16/20 10/08/22 Unknown Rx tablet Pain #25 tabs aspirin 81 mg tablet,delayed 81 mg PO QAM circulation #90 tabs 04/13/21 10/08/22 10/07/22 Rx release isosorbide mononitrate 20 mg tablet 20 mg PO DAILY #90 tabs 01/13/22 10/08/22 10/07/22 Rx niacin 1,000 mg tablet,extended 2,000 mg PO BID hyperlipidemia 03/07/22 10/08/22 10/07/22 History release 24 hr tadalafil 5 mg tablet See Rx Instructions .Route 04/07/22 10/08/22 06/07/22 Rx .COMPLEX #90 tabs metoprolol succinate 100 mg 100 mg PO QAM #90 tabs 04/08/22 10/08/22 10/07/22 Rx tablet,extended release 24 hr empagliflozin 25 mg tablet 25 mg PO QAM #90 tabs 04/22/22 10/08/22 10/07/22 Rx (Jardiance) glipizide 10 mg tablet 10 mg PO BID 90 days #180 tabs 05/20/22 10/08/22 10/07/22 Rx metformin 1,000 mg tablet 1,000 mg PO DAILY 06/16/22 10/08/22 10/07/22 History losartan 100 mg tablet 100 mg PO DAILY 10/07/22 10/08/22 10/07/22 History sitagliptin phosphate 100 mg 100 mg PO DAILY 10/07/22 10/08/22 10/07/22 History tablet (Januvia) Allergies Allergy/AdvReac Type Severity Reaction Status Date / Time hydrocodone Allergy Hives Verified 10/06/22 10:47 oxycodone Allergy hives Verified 10/06/22 10:47 Current Medications Generic Name Dose Route Start Last Admin Trade Name Freq PRN Reason Stop Dose Admin Aspirin 81 mg 10/08/22 06:00 10/08/22 05:20 Aspirin 81 Mg Ec Tablet PO 81 mg QAM CHANO Administration Atorvastatin Calcium 80 mg 10/07/22 22:35 10/07/22 23:30 Atorvastatin 40 Mg Tablet PO 80 mg BEDTIME CHANO Administration Enoxaparin Sodium 120 mg 10/07/22 22:45 10/07/22 23:30 Enoxaparin 120 Mg/0.8 Ml Syringe SUBCUT 120 mg Q12H CHANO Administration Metoprolol Succinate 100 mg 10/08/22 06:00 10/08/22 05:20 Metoprolol Succinate Er (24 Hr) 100 Mg Tablet PO 100 mg QAM CHANO Administration PFSH Acute PFSH: Medical History BPH (benign prostatic hyperplasia) CAD (coronary artery disease) RCA stent times 10/2014, subtotal occlusion of circumflex noted at that time Chronic joint pain Chronic midline low back pain without sciatica CKD (chronic kidney disease), stage III Combined hyperlipidemia associated with type 2 diabetes mellitus Constipation Elevated PSA Erectile dysfunction Essential hypertension Gouty arthritis Lumbar canal stenosis Migraine Moderate aortic stenosis by prior echocardiogram Onychocryptosis 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 Type 2 diabetes mellitus with unspecified complications Surgical History History of bilateral knee replacement History of coronary angioplasty with insertion of stent History of inguinal hernia repair 1955 Family History Father , at age 67 CAD (coronary artery disease) Heart disease Diabetes Hypertension Mother , at age 81 Dementia Aneurysm Social History Smoking and tobacco status: never smoked Alcohol intake: never Desire information about alcohol rehabilitation?: No Desire information about substance/drug rehabilitation?: No Caregiver/support person: No Lives independently: Yes Marital status: Current occupational status: employed Vitals/I&O/Wt Last Vital Signs Temp 98.3 F 10/07/22 22:20 Pulse 59 L 10/08/22 05:34 Resp 20 H 10/08/22 04:25 BP 155/88 10/08/22 04:25 Pulse Ox 95 10/08/22 04:25 O2 Del Method 10/07/22 22:19 10/07/22 10/07/22 10/08/22 14:59 22:59 06:59 Intake Total 74.667 / 74.667 Output Total 1100 / 1100 Balance -1025.333 / -1025.333 Weight last 48 hrs Weight 275 lb Physical Exam Narrative: GENERAL: Patient is alert, awake and oriented x3. [] NECK: No jugular vein distension. [] HEENT: No cyanosis. No icterus. No pallor. [] HEART: Regular S1 and S2. No murmur, rub or gallop. [] LUNGS: Clear to auscultate bilaterally. [] CENTRAL NERVOUS SYSTEM: Grossly nonfocal. [] EXTREMITIES: Lower extremities with 1+ edema bilaterally. Pulses palpable in the lower extremities, both dorsalis pedis and posterior tibial. [] Data 10/08/22 04:45 10/08/22 04:45 A&P Assessment and plan (1) NSTEMI (non-ST elevated myocardial infarction): (2) Moderate aortic stenosis by prior echocardiogram: (3) Essential hypertension: (4) CAD (coronary artery disease): Qualifiers: Coronary Disease-Associated Artery/Lesion type: [place] artery [place] vs. transplanted heart: [place] heart Associated angina: without angina Qualified Code(s): I25.10 - Atherosclerotic heart disease of [place] coronary artery without angina pectoris Plan Patient has presented with typical chest pain symptoms and significant troponin elevation. We will perform coronary angiogram with possible percutaneous coronary intervention. NPO Continue aspirin. We will load plavix 600mg Daily ECHO ordered Thank you for involving us with care of this patient. We will continue to follow. Please call with questions. Consult Attestations Medical Necessity Statement: Care expected to cross 2 midnights. Coding Level of Care Code Acute Code for Chg Fwd Diagnoses NSTEMI (non-ST elevated myocardial infarction) I21.4 Moderate aortic stenosis by prior echocardiogram I35.0 Essential hypertension I10 CAD (coronary artery disease) I25.10 Coronary Disease-Associated Artery/Lesion type: [place] artery [place] vs. transplanted heart: [place] heart Associated angina: without angina
--- NOTE | 2022-10-08 08:44 | W.PM.OPSUD ---
Surgery/Procedure H&P Update DATE OF PROCEDURE: October 08, 2022 DATE H&P PERFORMED: 10/08/22 H&P UPDATE INFORMATION: I have reviewed H&P completed within last 30 days, I have examined patient prior to procedure and No changes to prior documentation PREOP DIAGNOSIS: NSTEMI PRIMARY INDICATION FOR PROCEDURE: NSTEMI PLANNED PROCEDURE: Left heart cath with possible percutaneous coronary intervention PATIENT REASSESSED PRIOR TO SEDATION, WITH NO CHANGE NOTED: Yes PHYSICAL EXAM: alert, oriented x 3, clear to auscultation bilaterally and regular rate & rhythm AIRWAY EVAL/ANESTHESIA PLAN: normal airway, ASA III, Local Anesthesia, Risks, benefits & alternatives of sedation and/or procedure discussed and Patient agrees to continue as planned ADDITIONAL INFORMATION: Moderate sedation
[2022-10-08 08:50] LABS: Glucose Point of Care 173 mg/dL (70-110)
--- NOTE | 2022-10-08 09:00 | XACV_ITS ---
Exam Room: 2 Ht: 180 cm Wt: 125 kg BSA: 2.55 m2 Gender: Male : 1950 Any Known Allergies: Other Exam Priority: Routine Procedure(s): Procedure Description: Diagnostic procedure Procedure Description: PCI procedure Procedure Description: Left Heart Catheterization Procedure Description: Drug Eluting Coronary Stent Procedure Description: PTCA Procedure Description: Miscellaneous Procedure Description: ACT Procedure Description: Coronary Angiography Diagnostic Cath Status: Urgent Diagnostic Findings * INDICATION: NSTEMI. * Mid to Distal Left Anterior Descending: severe diffuse 90% stenosis. No revascularization target. * Left Main has mild 20-30% stenosis. * Mid Right Coronary Artery to Distal Right Coronary Artery: total occlusion of prior stents, BRITTNEY: 0 flow. * Distal Circumflex: severe 90% stenosis, BRITTNEY: 3 flow. OM 2 is subtotally occluded. * Proximal Circumflex: significant 80% stenosis, BRITTNEY: 3 flow. * Mid Circumflex: significant 80% stenosis, BRITTNEY: 3 flow. * Coronary angiography shows right dominance. PCI Status: Urgent PCI Indication: NSTE - ACS Interventional Findings * Procedure Detail: We engaged left main artery with XB 3.5 guide catheter. IV heparin was administered to maintain ACT above 250 S. 0.014 run-through guidewire was used to cross into left circumflex artery and was put in distal vessel. We predilated with a proximal and mid circumflex artery stenosis with 3.0 x 15 mm semicompliant balloon. This was followed by placement of 3.0 x 38 mm resolute [place] drug-eluting stent and mid circumflex artery with the help of guide liner for support. This was followed by predilation of proximal circumflex artery stenosis with 3.5 x 20 mm NC balloon. We then placed a 3.5 x 22 mm resolute Gideon drug-eluting stent in proximal circumflex artery. This was postdilated with a 4.0 x 8 mm NC balloon. Distal circumflex artery stenosis was dilated with 2.0 x 15 mm balloon. At this time final angiogram was performed that showed excellent stent expansion, there was residual disease in the distal circumflex artery however it was diffuse. Guidewire and guide catheter were removed. Patient left the Marker Machine Attendant in a stable condition.. * Proximal Circumflex: 80% stenosis treated with a AB TREK 3.00X15 RX BALLOON, MDT NC EUPHORA RX [id number] BALLOON, MDT R GIDEON 3.5X22 JOY, AB MINI TREK 2.00X15 RX BALLOON, and MDT NC EUPHORA RX [id number] BALLOON. 0% residual stenosis, BRITTNEY: 3 flow. * Mid Circumflex: 80% stenosis treated with a AB TREK 3.00X15 RX BALLOON, and MDT R GIDEON 3.0X38 JOY. 0% residual stenosis, BRITTNEY: 3 flow. Conclusions 1. Severe multivessel 2. coronary artery disease 3. . 4. 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 LAD has mid to apical severe diffuse disease with no targets of revascularization. Not a candidate for CABG given no surgical targets either. Left circumflex artery has severe proximal, mid and distal stenosis. S/p successful revascularization of proximal and mid stenosis with JOY x2. Distal circumflex artery underwent balloon angioplasty given small size of the vessel.. 5. Proximal Circumflex was treated with a Balloon, Balloon, Drug Eluting Stent, Balloon, and Balloon. 6. Mid Circumflex was treated with a Balloon, and Drug Eluting Stent. Recommendations * Aspirin and Plavix for atleast 1 year. * High intensity statin therapy. * Outpatient cardiology follow up in 4 weeks. Pressures Phase:Rest AO : 129 / 86 ( 107 ) @ 9:06:00 AM 124 / 91 ( 108 ) @ 9:11:00 AM 148 / 75 ( 102 ) @ 9:21:00 AM 149 / 74 ( 105 ) @ 9:21:00 AM 117 / 72 ( 97 ) @ 9:27:00 AM 127 / 78 ( 94 ) @ 9:31:00 AM 119 / 87 ( 103 ) @ 9:46:00 AM 176 / 109 ( 139 ) @ 9:52:00 AM 186 / 121 ( 150 ) @ 10:06:00 AM 162 / 105 ( 131 ) @ 10:15:00 AM LV : 145 / 0 / 16 @ 9:21:00 AM 189 / -3 / 13 @ 9:21:00 AM Valves Phase:DefaultPhase AV : 15.0 @ 10:25:55 AM 15.0 @ 10:25:55 AM AV Mean Gradient: 12.0 @ 10:25:55 AM Clinical Evaluation EBL: 5mL-10mL Procedural Details Pre-Procedure Time Out. Identified patient by full name and date of as verbalized by the patient/guarantor. Does the consent match the physician's order: Yes. Accurate & Complete Informed Consent: Yes. Inpatient/Outpatient History & Physical on Chart: Yes. If H&P is completed, is and addenduem needed: No; If yes, is the addendum complete: N/A. Visualize and Verify Site with Patient/Guarantor: N/A. Relevant Radiology Images available: Yes. Pre-op teaching completed and patient verbalized understanding. Pre-op teaching completed and patient verbalized understanding. The risks, benefits, and alternatives of sedation and/or procedure were discussed by physician. The patient agrees to continue. Procedure started. [facility] Clinical Fraility Score: 3: Managing Well. Marker Machine Attendant Indications: ACS > 24 hours. Chest Pain Symptom Assessment: Typical Angina Symptoms. Cardiovascular Instability: No, if yes, Cardiogenic Shock. Correct patient, site and procedure confirmed by cath team. Current diagnosis: NSTEMI. PERRLA. Strong, equal hand sales consultant residential manager bilaterally. Lungs clear x 5 lobes. IV Site on Arrival: 20 gauge in the right anticubital. IV Site on Arrival: 20 gauge in the right forearm. IV Fluids: 0.9% NaCl at KVO. 0 mL infused prior to microbiology lab technician. Pre Procedural Pulses: bilateral radial was 3+. Oxygen started at 2liters/min via nasal canula. right groin was prepped with chloroprep then draped in the usual sterile fashion. right radial was prepped with chloroprep then draped in the usual sterile fashion. Physician notified. Baseline sample Acquired. HR: 57 BPM. Patient's family unavailable. Equipment: 6F - Radial. Cardiac Cath Pack. ACIST Manifold Kit Model BT 2000. Heparinized Saline (2 units/mL), 1000 mL bag. Physician arrived. Physician scrubbed in. Immediate Pre-Procedure Time Out. Correct Patient: Yes; Correct Procedure: Yes; Correct Site: Yes; Correct Patient Position: Yes; Correct Supplies: Yes; Dried Flammable Prep: Yes; Blood Products Available: N/A. Lidocaine 1% infiltrated to the right radial. Arterial access obtained with micropuncture set. Unable to advance the micropuncture needle. Needle and wire out. Manual pressure held by Dr. Padilla. Arterial access obtained with micropuncture set. A 5 mosotho TIG catheter in over the exchange J wire. Current Diagnosis : NSTEMI. Multiple views taken of left coronary artery. Catheter removed over the exchange J wire. A 5 mosotho JR4 catheter in over the exchange J wire & unable to cannulate, removed over the exchange J wire. A 5 mosotho AL1 catheter in over wire the exhange J wire & unable to cannulate, removed over the exchange J wire. A 5 mosotho JR5 catheter in over the exchange J wire. Cineography of the right coronary artery. EDP Sample taken: LV 145/-1,16; HR: 59 BPM; SpO2: 95%. Pullback taken: LV 189/-4,13; AO 148/75(102); Mean: 12mmHg, Peak to Peak: 15mmHg, SEP: 6sec/min; HR: 57 BPM; SpO2: 94%. Catheter removed over the exchange J wire. ACT drawn. Results 159 seconds. Therapeutic limits - pre-heparin administration 90-150 seconds and monitoring heparin during a vascular procedure >250 seconds. 6 mosotho XB 3.5 guide catheter was inserted over the wire. Add inventory: endoflator, co-highway patrol pilot. Runthrough guidewire was advanced through the guide catheter to lesion in the Circ. Unable to advance the Runthrough wire down the CX due to poor guide support. Will move to Femoral access. Runthrough wire and guide catheter out. A TR Band was successful obtaining hemostatsis at the Right Radial artery insertion site. Lidocaine 1% infiltrated to the right groin. Arterial access obtained with micropuncture set. 6 mosotho XB 3.5 guide catheter was inserted over the exchange J wire. Runthrough guidewire was advanced through the guide catheter to lesion in the Circ. Inflation number : 1 A AB TREK 3.00X15 RX BALLOON was prepped and advanced across the Mid CX , then inflated to 8 LALY for 0:17 seconds. Inflation number: 2 The AB TREK 3.00X15 RX BALLOON was reinflated across the Mid CX, to 8 LALY for 0:20 seconds. Inflation number: 1 The AB TREK 3.00X15 RX BALLOON was reinflated across the Prox CX, to 8 LALY for 0:12 seconds. Inflation number: 2 The AB TREK 3.00X15 RX BALLOON was reinflated across the Prox CX, to 10 LALY for 0:14 seconds. Balloon out. Results checked. Inflation number: 3 The AB TREK 3.00X15 RX BALLOON was reinflated across the Mid CX, to 0 LALY for 0:00 seconds. Balloon out. Gideon 3.0 x 38 JOY in, unable to cross, removed intact. Inflation number : 3 A MDT NC EUPHORA RX 3.56P75LP BALLOON was prepped and advanced across the Prox CX , then inflated to 12 LALY for 0:16 seconds. Balloon out. Gideon 3.5 x 22 JOY in, unable to cross, removed intact. Guideliner in over the Runthrough guidwwire. Inflation Number : 4 A MDT R GIDEON 3.0X38 JOY -Lot Number# [id number] prepped and advanced across the Mid CX. The stent was deployed at 12 LALY for 0:18 seconds. Exp.2024-12-13. Stent balloon out over wire. Inflation Number : 4 A MDT R GIDEON 3.5X22 JOY -Lot Number# [id number] prepped and advanced across the Prox CX. The stent was deployed at 12 LALY for 0:19 seconds. Exp 2024-11-25. Stent balloon out over wire. Results checked. Guideliner out. ACT drawn. Results 323 seconds. Therapeutic limits - pre-heparin administration 90-150 seconds and monitoring heparin during a vascular procedure >250 seconds. Inflation number : 5 A AB MINI TREK 2.00X15 RX BALLOON was prepped and advanced across the Prox CX , then inflated to 8 LALY for 0:16 seconds. Inflation number: 6 The AB MINI TREK 2.00X15 RX BALLOON was reinflated across the Prox CX, to 8 LALY for 0:10 seconds. Balloon out. Results checked. Inflation number : 7 A MDT NC EUPHORA RX 4.26C75BD BALLOON was prepped and advanced across the Prox CX , then inflated to 12 LALY for 0:19 seconds. Balloon out. Results checked. Wire out. Results checked. ACT drawn. Results 298 seconds. Therapeutic limits - pre-heparin administration 90-150 seconds and monitoring heparin during a vascular procedure >250 seconds. Guide catheter out over the exchange J wire. Physician scrubbed out. A Suture was successful obtaining hemostatsis at the Right Femoral artery insertion site. Sheath(s) sutured into position with 2-0 silk and sterile 4x4's and Op-site applied over the site. No oozing or signs and symptoms of hematoma noted. Arterial sheath flushed and connected to tranducer and pressure bag with heparinized saline. Post Procedure: Pulses reassessed and unchanged. No VTE prophylaxis required. PCI Indication: NSTE. Post-op diagnosis: MANUFACTURING QUALITY TECHNICIAN of the RCA/Diffuse distal LAD disese/PCI of the Mid & Prox C. Complications: none. Estimated blood loss: 5mL-10mL. Responsiveness - Normal response to verbal stimuli; alert and oriented, PERRLA. Airway - Unaffected, no intervention required; spontaneous ventilation. Circulation: W/N/L, pulses unchanged. Nausea/Vomiting: No. PERRLA. Strong, equal hand sales consultant residential manager bilaterally. Post Procedure: right radial pulse 3+. Post Procedure: bilateral dorsalis pedis pulse 2+. Post Procedure: bilateral posterior tibial pulse 2+. Medication's Wasted: Heparin = 1000 units. Medication's Wasted: Other = Hydralizine 10 mg. Medication's Wasted: Nitro = 49.5 mg. Total IV fluids: 124 mL. Procedure completed. Patient transferred by bed to ICU. Vital chart was stopped. Access Site Site: Right Radial artery Sheath Size: 5 Fr Hemostasis Method: TR Band Hemostasis Success: Successful Site: Right Femoral artery Sheath Size: 6 Fr Hemostasis Method: Suture Hemostasis Success: Successful Procedure Medications Start: 8:56 AM Stop: 8:56 AM Medication: Versed Amount: 1 mg Route: I.V. Start: 8:56 AM Stop: 8:56 AM Medication: Fentanyl Amount: 50 mcg Route: I.V. Start: 8:58 AM Stop: 8:58 AM Medication: Nitrogylcerin Amount: 200 mcg Route: I.A. Start: 9:03 AM Stop: 9:03 AM Medication: Nitrogylcerin Amount: 200 mcg Route: I.A. Start: 9:07 AM Stop: 9:07 AM Medication: Heparin Amount: 5000 units Route: I.V. Start: 9:19 AM Stop: 9:19 AM Medication: Versed Amount: 1 mg Route: I.V. Start: 9:26 AM Stop: 9:26 AM Medication: Heparin Amount: 5000 units Route: I.V. Start: 9:41 AM Stop: 9:41 AM Medication: Heparin Amount: 2000 units Route: I.V. Start: 9:48 AM Stop: 9:48 AM Medication: Versed Amount: 1 mg Route: I.V. Start: 9:48 AM Stop: 9:48 AM Medication: Fentanyl Amount: 25 mcg Route: I.V. Start: 9:53 AM Stop: 9:53 AM Medication: Fentanyl Amount: 25 mcg Route: I.V. Start: 9:56 AM Stop: 9:56 AM Medication: Heparin Amount: 1000 units Route: I.V. Start: 9:59 AM Stop: 9:59 AM Medication: Versed Amount: 1 mg Route: I.V. Start: 10:08 AM Stop: 10:08 AM Medication: Nitrogylcerin Amount: 200 mcg Route: I.C. Start: 10:08 AM Stop: 10:08 AM Medication: Hydralazine Amount: 10 mg Route: I.V. Start: 10:13 AM Stop: 10:13 AM Medication: Nitrogylcerin Amount: 200 mcg Route: I.C. Start: 10:18 AM Stop: 10:18 AM Medication: Aggrastat 12.5 mg/250 mL Amount: 62.5 ml Route: I.V. bolus Start: 10:18 AM Stop: 10:18 AM Medication: Aggrastat 12.5 mg/250 mL Amount: 22.5 ml/hr Route: I.V. drip Start: 10:18 AM Stop: 10:18 AM Medication: Plavix Amount: 600 mg Route: P.O. I, the attending physician, have reviewed and verified all procedure medications. Yes, all medications given per verbal order History/Risk Factors Hypertension: Yes Dyslipidemia: Yes Peripheral Arterial Disease (PAD): No Myocardial Infarction (NV): No Obesity: Yes Renal Disease: No Tobacco Use: Never Prior Interventions PCI: Yes CABG: No Valve Surgery: No Date of PCI: 06/19/2015 Report Signatures Finalized by Carlos Padilla MD on 10/10/2022 02:22 PM
[2022-10-08] MEDS: morphine 4 mg/mL SDV 1 mL 2 MG IVP (10:46)
--- NOTE | 2022-10-08 10:46 | ECG_ITS ---
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 Measurements Intervals [place] Rate: 66 P: 40 NV: 199 QRS: -11 QRSD: 139 T: 6 QT: 451 QTc: 475 Interpretive Statements SINUS RHYTHM WITH OCCASIONAL SUPRAVENTRICULAR PREMATURE COMPLEXES INTRAVENTRICULAR CONDUCTION DELAY [130+ ms QRS DURATION] ACUTE NC Compared to ECG 10/08/2022 00:07:23 Intraventricular conduction delay now present Sinus bradycardia no longer present Electronically Signed On 10-08-2022 16:07:57 RECRUITMENT AND OUTREACH ASSISTANT by Carlos Padilla M.D. [email or web address] [email or web address] [email or web address] [facility]ist[facility].[email or web address]/[id number] f
[2022-10-08] MEDS: nitroglycerin 0.4 mg sublingual Tablet SUBLINGUAL (10:55)
[2022-10-08] MEDS: acetaminophen 325 mg Tablet 650 MG PO (10:57)
[2022-10-08] MEDS: losartan 50 mg Tablet 100 MG PO (10:57)
[2022-10-08] MEDS: famotidine 20 mg Tablet PO ×2 (11:00→17:21)
[2022-10-08] MEDS: enoxaparin 120 mg/0.8 mL Syringe SUBCUT ×2 (11:00→23:32)
[2022-10-08] MEDS: ferrous gluconate 324 mg Tablet PO ×2 (11:00→17:21)
[2022-10-08] MEDS: docusate sodium 100 mg Capsule PO ×2 (11:00→17:21)
[2022-10-08] MEDS: ondansetron 2 mg/ML SDV 2 mL 4 MG IVP (11:06)
[2022-10-08] MEDS: nitroglycerin drip 50 MG/250 ML PREMIX IV (11:10)
--- NOTE | 2022-10-08 11:23 | PC.NURSE ---
ICU nurse received patient bck form slab polisher staff at 1046. Patient was hooked up to the bedside telemetry and it shows ST elevation. THis was not present before going to slab polisher. Patient also reports chest pain to the right chest radiating to the right arm. Nurse attempted to call Dr fisher with no answer, Nurse then gave sublingual nitro and morphine for chest pain. Obtained EKG. Dr fisher called back, received additional orders for a nitro drip. About 5 minutes after administering the nitro and giving morphone, patient reports no pain to chest. Nurse will continue to monitor. Leaving Sheath in place in the right groin in case catheterization is needed again. Will wait on Dr fisher orders for sheath removal.
[2022-10-08 11:38] LABS: Glucose Point of Care 187 mg/dL (70-110)
[2022-10-08] MEDS: insulin lispro 100 unit/1 mL SUBCUT ×3 (11:46→21:01)
[2022-10-08] MEDS: isosorbide mononitrate 20 mg Tablet PO (12:14)
[2022-10-08] MEDS: niacin ER (24 hr) 500 mg Capsule 2000 MG PO ×2 (12:15→17:21)
[2022-10-08 13:14] LABS: Partial Thromboplastin Time 120.8 SECONDS (23.9-36.7)
--- NOTE | 2022-10-08 13:37 | PM.PN ---
Subjective Subjective: This morning he reports he is doing all right. Feels better than yesterday. No chest pain at the time. Awaiting angiogram. Vitals/I&O/Wt Last Vital Signs Temp 97.0 F L 10/08/22 12:55 Pulse 64 10/08/22 12:55 Resp 17 10/08/22 12:55 BP 133/77 10/08/22 12:55 Pulse Ox 98 10/08/22 12:55 O2 Del Method 10/08/22 12:55 O2 Flow Rate 3 10/08/22 12:55 10/07/22 10/08/22 10/08/22 22:59 06:59 14:59 Intake Total 74.667 / 74.667 1.9 / 1.9 Output Total 1100 / 1100 1050 / 1050 Balance -1025.333 / -1025.333 -1048.1 / -1048.1 Weight last 48 hrs Weight 124.738 kg Physical Exam Const: COMMON NORMALS: patient oriented x3 and alert GENERAL APPEARANCE: cooperative NUTRITIONAL APPEARANCE: overweight ORIENTATION/CONSCIOUSNESS: Yes awake HENMT: COMMON NORMALS: oropharynx normal Neck/C-Spine: COMMON NORMALS: no JVD Resp: COMMON NORMALS: normal respiratory effort and clear to auscultation bilaterally AUSCULTATION: clear to auscultation bilaterally Cardio: COMMON NORMALS: no JVD, regular rhythm, S1 normal heart sound present, S2 normal heart sound present and No murmurs present (Cardio) RHYTHM: regular rhythm HEART SOUNDS: S1 normal heart sound present and S2 normal heart sound present GI: COMMON NORMALS: Normal to inspection, nondistended, normoactive bowel sounds present, Soft to palpation and non-tender PALPATION: Yes Soft to palpation Extremity: COMMON NORMALS: no joint enlargement and no pedal edema Neuro: COMMON NORMALS: patient oriented x3 and moves all extremities SENSORIUM/ORIENTATION: Yes alert Skin: COMMON NORMALS: no rashes or lesions noted GENERAL SKIN EXAM: no rashes or lesions noted Data 10/08/22 04:45 10/08/22 04:45 A&P Assessment and plan (1) Chest pain: (2) Non-ST elevated myocardial infarction (non-STEMI): (3) Hypertension, uncontrolled: (4) Type 2 diabetes mellitus with unspecified complications: (5) Combined hyperlipidemia associated with type 2 diabetes mellitus: (6) CAD (coronary artery disease): Qualifiers: Coronary Disease-Associated Artery/Lesion type: hughes artery [place] vs. transplanted heart: hughes heart Associated angina: without angina Qualified Code(s): I25.10 - Atherosclerotic heart disease of hughes coronary artery without angina pectoris (7) Moderate aortic stenosis by prior echocardiogram: (8) Positive cardiac stress test: Plan 72-year-old gentleman with past medical for CAD, post PCI to RCA with total occlusion of circumflex, diabetic, moderate aortic stenosis, uncontrolled hypertensive admitted for chest pain and found to have non-ST elevation SD. NSTEMI: Noted requiring IV morphine, but pain-free during my visit. Continue for now. Noted EKG and troponin series with severe elevation. Noted NT proBNP 900. Noted renal function, creatinine 0.9, 16. Reviewed CBC. Underwent coronary angiography. Discussed with cardiology. Noted extensive CAD, occlusion of prior stents. 2 stents in left circumflex artery. TTE ordered. Subsequently additionally managed by cardiology for acute EKG changes, started nitroglycerin drip. Continue anticoagulation. Continue other cardiac medications. For now continue with home dose of Imdur, losartan, metoprolol. Insulin sliding scale at moderate dose protocol every 6 hourly. Change diet to cardiac consistent carbohydrate. CKD: Baseline creatinine of 1-1.2. Currently creatinine at baseline. Monitor BMP daily. Full code. Cardiac carb consistent diet, n.p.o. after midnight. Full dose Lovenox will suffice as DVT prophylaxis. Protonix for PUD prophylaxis Attestations Medical Necessity Statement*: Continue admission for assessment management of NSTEMI. Diagnoses Chest pain R07.9 Non-ST elevated myocardial infarction (non-STEMI) I21.4 Hypertension, uncontrolled I10 Type 2 diabetes mellitus with unspecified complications E11.8 Combined hyperlipidemia associated with type 2 diabetes mellitus E11.69; E78.2 CAD (coronary artery disease) I25.10 Coronary Disease-Associated Artery/Lesion type: hughes artery [place] vs. transplanted heart: hughes heart Associated angina: without angina Moderate aortic stenosis by prior echocardiogram I35.0 Positive cardiac stress test R94.39
--- NOTE | 2022-10-08 14:45 | PC.NURSE ---
Patient is on 40 MCG of nitro and reports no chest pain, ST elevation continues. Nurse alerted Dr fisher. No new orders received at this time. No additional interventions planned, can remove sheath when indicated by PTT under 45/per protocol.
[2022-10-08 17:13] LABS: Partial Thromboplastin Time 36.2 SECONDS (23.9-36.7)
[2022-10-08 17:30] LABS: Glucose Point of Care 247 mg/dL (70-110)
--- NOTE | 2022-10-08 19:46 | PC.NURSE ---
PTT came back less than 45. Nurse removed sheath. Pressure held for 20 minutes. Dressed with transparent dressing and gauze. No hematoma formation. External blood loss estimated to be less than 20 mL. Patient educated to report swelling to the groin, bleeding, urge to urinate not relived by voiding, and flank pain.
--- NOTE | 2022-10-08 19:48 | PC.NURSE ---
SHift summary: uneventful shift. patient has rested in bed throughout shift, required to lay flat due to sheath. Patient will have sheath out for 6 hours as of midnight tonight. No hematoma formation with sheath removal. Patient has had ST elevation since getting back form [address] and initially had chest pain which was relived with morphine and nitroglycerin.. Dr fisher is aware, nitro drip was started, keep on overnight, will reassess in the morning.
[2022-10-08] MEDS: atorvastatin 40 mg Tablet 80 MG PO (20:55)
[2022-10-08 21:01] LABS: Glucose Point of Care 227 mg/dL (70-110)
--- NOTE | 2022-10-08 22:36 | USCV_ITS ---
Elieser Chavez Age: 72 Gender: M : 1950 Exam Date: 10/08/2022 12:15 Ordering Phys: Jude Pryor MD Technologist: PUSHPA [place] [facility] [place]: [place]stemi BP: / HR: 60 Rhythm: Sinus Technical Quality: Adequate MEASUREMENTS (Male / Female) Normal Values 2D ECHO LV Ejection Fraction MOD 2C 23.0 % LV Ejection Fraction 2C AL 18.9 % FINDINGS Left Ventricle Right Ventricle Right Atrium Left Atrium Mitral Valve Aortic Valve Tricuspid Valve Pulmonic Valve Pericardium Aorta IVC CONCLUSIONS This is a limited echocardiogram performed to assess LV systolic function. Technically limited quality echocardiogram because of poor ultrasonic windows. LV systolic function is mildly reduced with EF of 45-50%. Mild global hypokinesis. Mitral valve is grossly normal. Aortic valve is thickened and calcified. Compared to prior echocardiogram from 06/2022, LV systolic has decreased slightly. Carlos Padilla MD (Electronically Signed) Final Date: 08 October 2022 15:28 S
[2022-10-09] VITALS (15 sets, daily range): BP systolic 95–132; BP diastolic 48–80; PULSE 59–84; RESP 12–22; TEMP 36.4–37.9; O2SAT 88–96
[2022-10-09 05:02] LABS: Basophils % 0.2 %; Eosinophils # 0.1 10^3/uL (0.0-0.8); Eosinophils % 0.8 %; Hematocrit 46.1 % (42.0-52.0); Hemoglobin 15.2 g/dL (11.7-16.6); Lymphocytes # 1.1 10^3/uL (0.8-4.8); Mean Corpuscular Hemoglobin 30.5 pg (28.0-34.0); Mean Corpuscular Volume 92.4 fl (80-94); Mean Platelet Volume 9.2 fL (7.4-10.4); Monocytes # 1.4 10^3/uL (0.2-0.9); Monocytes % 11.6 %; Neutrophils # 9.31 10^3/uL (1.8-7.7); Neutrophils % 77.9 %; Nucleated Red Blood Cells % 0 %; Platelet Count 194 10^3/cmm (130-400); Red Blood Count 4.99 10^6/uL (4.1-5.3); Red Cell Distribution Width 14.2 % (12.1-15.1)
[2022-10-09 05:33] LABS: Anion Gap 21.9 (5-19); Blood Urea Nitrogen 16 mg/dL (8-23); Calcium 9.3 mg/dL (8.5-10.5); Carbon Dioxide 18 mmol/L (22-29); Chloride 100 mmol/L (98-107); Glomerular Filtration Rate 54.6 mL/min (90-130); Glucose 177 mg/dL (65-115); Osmolality Calculated 288 mOsm/kg (285-295); Potassium 3.9 mmol/L (3.5-5.1); Sodium 136 mmol/L (136-145)
[2022-10-09] MEDS: aspirin 81 mg EC Tablet PO (06:04)
[2022-10-09] MEDS: metoprolol succinate ER (24 HR) 100 mg Tablet PO (06:05)
[2022-10-09 07:42] LABS: Glucose Point of Care 156 mg/dL (70-110)
[2022-10-09] MEDS: isosorbide mononitrate 20 mg Tablet PO (08:24)
[2022-10-09] MEDS: losartan 50 mg Tablet 100 MG PO (08:24)
[2022-10-09] MEDS: niacin ER (24 hr) 500 mg Capsule 2000 MG PO ×2 (08:24→17:27)
[2022-10-09] MEDS: docusate sodium 100 mg Capsule PO ×2 (08:24→17:27)
[2022-10-09] MEDS: clopidogrel 75 mg Tablet PO (08:25)
[2022-10-09] MEDS: famotidine 20 mg Tablet PO ×2 (08:25→17:27)
[2022-10-09] MEDS: ferrous gluconate 324 mg Tablet PO ×2 (08:25→17:26)
[2022-10-09] MEDS: insulin lispro 100 unit/1 mL SUBCUT ×4 (08:28→21:27)
[2022-10-09] MEDS: enoxaparin 120 mg/0.8 mL Syringe SUBCUT ×2 (10:37→22:40)
[2022-10-09 10:57] LABS: Glucose Point of Care 288 mg/dL (70-110)
--- NOTE | 2022-10-09 12:04 | PM.PN ---
Subjective Subjective: Patient is doing well. Denies chest pain. Patient had coronary angiogram yesterday that showed severe multivessel CAD however has diffuse disease. RCA is [employer]PER with occluded stents and collateral blood flow from LCx. LCx has severe serial lesions, underwent successful revascularization with DESX 2. LAD has severe diffuse disease from mid to apical vessel. During the procedure he developed chest pain and transient ST elevations, however flow in the vessels was normal. He was put on nitro gtt that resolved chest pain. Vitals/I&O/Wt Last Vital Signs Temp 97.5 F L 10/09/22 08:00 Pulse 75 10/09/22 10:20 Resp 17 10/09/22 06:00 BP 114/67 10/09/22 08:24 Pulse Ox 94 10/09/22 10:20 O2 Del Method 10/09/22 10:20 O2 Flow Rate 2 10/08/22 18:00 10/08/22 10/09/22 10/09/22 22:59 06:59 14:59 Intake Total 750.5 / 755.85 354 / 354 Output Total 400 / 1450 850 / 2300 500 / 500 Balance 350.5 / -694.15 -850 / -1544.15 -146 / -146 Weight last 48 hrs Weight 275 lb Physical Exam Narrative: GENERAL: Patient is alert, awake and oriented x3. [] NECK: No jugular vein distension. [] HEENT: No cyanosis. No icterus. No pallor. [] HEART: Regular S1 and S2. No murmur, rub or gallop. [] LUNGS: Clear to auscultate bilaterally. [] CENTRAL NERVOUS SYSTEM: Grossly nonfocal. [] EXTREMITIES: Lower extremities with 1+ edema bilaterally. Pulses palpable in the lower extremities, both dorsalis pedis and posterior tibial. [] Data 10/09/22 04:30 10/09/22 04:30 A&P Assessment and plan (1) NSTEMI (non-ST elevated myocardial infarction): (2) Moderate aortic stenosis by prior echocardiogram: (3) Essential hypertension: (4) CAD (coronary artery disease): Qualifiers: Coronary Disease-Associated Artery/Lesion type: [place] artery [place] vs. transplanted heart: [place] heart Associated angina: without angina Qualified Code(s): I25.10 - Atherosclerotic heart disease of [place] coronary artery without angina pectoris Plan Patient has severe, diffuse multivessel CAD. No targets for cabg. We have treated LCx with DESX2. He will need aggressive risk factor modification and medication compliance. Continue aspirin and plavix for atleast 1 year ECHO showed mildly reduced LV systolic function Patient had NICK today. Gentle IV fluids. Thank you for involving us with care of this patient. We will continue to follow. Please call with questions. Attestations Medical Necessity Statement*: Care expected to cross 2 midnights. Coding Level of Care Code Acute Code for [facility] Fwd Diagnoses NSTEMI (non-ST elevated myocardial infarction) I21.4 Moderate aortic stenosis by prior echocardiogram I35.0 Essential hypertension I10 CAD (coronary artery disease) I25.10 Coronary Disease-Associated Artery/Lesion type: [place] artery [place] vs. transplanted heart: [place] heart Associated angina: without angina
[2022-10-09 16:50] LABS: Glucose Point of Care 255 mg/dL (70-110)
--- NOTE | 2022-10-09 18:07 | P.PN_ITS ---
Subjective Subjective: He reports he is doing well currently. Denies chest pain. He has discussed findings of angiogram with cardiology. States understands was told not to overexert himself when cautiously returning to work. States his work is not demanding. They also discussed regarding NICK and he is agreeable to stay for further management and reassessment. He has been having back pain, previously had NICK when he was taking Mobic which was discontinued due to this reason. Discussed with him to avoid NSAIDs. He is working with his primary provider with regards to back pain and they are considering referral to orthopedics after recent MRI. He denies any trouble urinating. Vitals/I&O/Wt Last Vital Signs Temp 98.5 F 10/09/22 14:00 Pulse 73 10/09/22 16:00 Resp 16 10/09/22 16:00 BP 127/65 10/09/22 16:00 Pulse Ox 94 10/09/22 16:00 O2 Del Method 10/09/22 16:00 O2 Flow Rate 2 10/08/22 18:00 10/09/22 10/09/22 10/09/22 06:59 14:59 22:59 Intake Total 354 / 354 236 / 590 Output Total 850 / 2300 915 / 915 415 / 1330 Balance -850 / -1544.15 -561 / -561 -179 / -740 Physical Exam Const: COMMON NORMALS: patient oriented x3 and alert GENERAL APPEARANCE: cooperative NUTRITIONAL APPEARANCE: overweight ORIENTATION/CONSCIOUSNESS: Yes awake HENMT: COMMON NORMALS: oropharynx normal Neck/C-Spine: COMMON NORMALS: no JVD Resp: COMMON NORMALS: normal respiratory effort and clear to auscultation bilaterally AUSCULTATION: clear to auscultation bilaterally Cardio: COMMON NORMALS: no JVD, regular rhythm, S1 normal heart sound present, S2 normal heart sound present and No murmurs present (Cardio) RHYTHM: regular rhythm HEART SOUNDS: S1 normal heart sound present and S2 normal heart sound present GI: COMMON NORMALS: Normal to inspection, nondistended, normoactive bowel sounds present, Soft to palpation and non-tender PALPATION: Yes Soft to palpation Extremity: COMMON NORMALS: no joint enlargement and no pedal edema Neuro: COMMON NORMALS: patient oriented x3 and moves all extremities SENSORIUM/ORIENTATION: Yes alert Skin: COMMON NORMALS: no rashes or lesions noted GENERAL SKIN EXAM: no rashes or lesions noted Data 10/09/22 04:30 10/09/22 04:30 A&P Assessment and plan (1) Chest pain: (2) Non-ST elevated myocardial infarction (non-STEMI): (3) Hypertension, uncontrolled: (4) Type 2 diabetes mellitus with unspecified complications: (5) Combined hyperlipidemia associated with type 2 diabetes mellitus: (6) CAD (coronary artery disease): Qualifiers: Coronary Disease-Associated Artery/Lesion type: [place] artery [place] vs. transplanted heart: [place] heart Associated angina: without angina Qualified Code(s): I25.10 - Atherosclerotic heart disease of [place] coronary ar [place] without angina pectoris (7) Moderate aortic stenosis by prior echocardiogram: (8) Positive cardiac stress test: (9) NICK (acute kidney injury): Plan 72-year-old gentleman with past medical for CAD, post PCI to RCA with total occlusion of circumflex, diabetic, moderate aortic stenosis, uncontrolled hypertensive admitted for chest pain and found to have non-ST elevation RI. NICK: Creatinine noted 1.3. Gentle IV fluid challenge started by cardiology. R eassessment chemistry requested. NSTEMI: Discussed with cardiology, chest pain has resolved. Severe CAD. No target for CABG. Not a transplant candidate. Echo reviewed, EF 45-50%. Per discussion with cardiology currently no indication of ICD. 2 stents in left circumflex artery. Full anticoagulation for now. Continue cardiac medications. Stop nitro drip. He is overflow from [employer]. For now continue with home dose of Imdur, losartan, metoprolol. Insulin sliding scale at moderate dose protocol every 6 hourly. Cardiac consistent carbohydrate diet. CKD: Baseline creatinine of 1-1.2. Monitor BMP daily. Full code. Cardiac carb consistent diet, n.p.o. after midnight. Full dose Lovenox will suffice as DVT prophylaxis. Protonix for PUD prophylaxis Attestations Medical Necessity Statement*: Continue admission for assessment management following NSTEMI with advanced CAD, NICK Diagnoses Chest pain R07.9 Non-ST elevated myocardial infarction (non-STEMI) I21.4 Hypertension, uncontrolled I10 Type 2 diabetes mellitus with unspecified complications E11.8 Combined hyperlipidemia associated with type 2 diabetes mellitus E11.69; E78.2 CAD (coronary artery disease) I25.10 Coronary Disease-Associated Artery/Lesion type: [place] artery [place] vs. transplanted heart: [place] heart Associated angina: without angina Moderate aortic stenosis by prior echocardiogram I35.0 Positive cardiac stress test R94.39 NICK (acute kidney injury) N17.9
--- NOTE | 2022-10-09 18:35 | PC.NURSE ---
report given to Gulshan RN and pt transferred to [facility] via wheelchair.
[2022-10-09 21:05] LABS: Glucose Point of Care 295 mg/dL (70-110)
[2022-10-09] MEDS: atorvastatin 40 mg Tablet 80 MG PO (21:14)
[2022-10-10] VITALS (7 sets, daily range): BP systolic 123–127; BP diastolic 64–70; PULSE 62–72; RESP 12–21; TEMP 36.6–37.6; O2SAT 91–96
[2022-10-10 05:12] LABS: Basophils % 0.3 %; Eosinophils # 0.2 10^3/uL (0.0-0.8); Eosinophils % 2.6 %; Hematocrit 44.3 % (42.0-52.0); Hemoglobin 14.5 g/dL (11.7-16.6); Lymphocytes # 1.2 10^3/uL (0.8-4.8); Lymphocytes % 13.9 %; Mean Corpuscular HGB Conc 32.7 g/dL (30.0-36.0); Mean Corpuscular Hemoglobin 30.3 pg (28.0-34.0); Mean Corpuscular Volume 92.7 fl (80-94); Mean Platelet Volume 9.2 fL (7.4-10.4); Monocytes # 1.3 10^3/uL (0.2-0.9); Monocytes % 15.1 %; Neutrophils # 5.93 10^3/uL (1.8-7.7); Neutrophils % 67.6 %; Nucleated Red Blood Cells % 0 %; Platelet Count 174 10^3/cmm (130-400); Red Blood Count 4.78 10^6/uL (4.1-5.3); Red Cell Distribution Width 13.9 % (12.1-15.1); White Blood Count 8.8 10^3/uL (4.0-10.0)
[2022-10-10 05:28] LABS: Anion Gap 17.6 (5-19); Blood Urea Nitrogen 19 mg/dL (8-23); Carbon Dioxide 20 mmol/L (22-29); Chloride 100 mmol/L (98-107); Glomerular Filtration Rate 59.9 mL/min (90-130); Glucose 183 mg/dL (65-115); Osmolality Calculated 285 mOsm/kg (285-295); Potassium 3.6 mmol/L (3.5-5.1); Sodium 134 mmol/L (136-145)
[2022-10-10] MEDS: aspirin 81 mg EC Tablet PO (05:44)
[2022-10-10] MEDS: metoprolol succinate ER (24 HR) 100 mg Tablet PO (05:44)
[2022-10-10 06:05] LABS: Glucose Point of Care 183 mg/dL (70-110)
--- NOTE | 2022-10-10 07:29 | PM.PN ---
Subjective Subjective: Patient is chest pain free asking for work release. Vitals/I&O/Wt Last Vital Signs Temp 99.6 F 10/10/22 04:00 Pulse 62 10/10/22 04:38 Resp 18 10/10/22 04:00 BP 127/69 10/10/22 04:00 Pulse Ox 95 10/10/22 04:00 O2 Del Method 10/10/22 06:00 O2 Flow Rate 2 10/08/22 18:00 10/09/22 10/10/22 10/10/22 22:59 06:59 14:59 Intake Total 636 / 990 1000 / 1989 Output Total 815 / 1730 550 / 2280 Balance -179 / -740 450 / -290 Weight last 48 hrs Weight 268 lb 12.8 oz Physical Exam Narrative: GENERAL: Patient is alert, awake and oriented x3. [] NECK: No jugular vein distension. [] HEENT: No cyanosis. No icterus. No pallor. [] HEART: Regular S1 and S2. No murmur, rub or gallop. [] LUNGS: Clear to auscultate bilaterally. [] CENTRAL NERVOUS SYSTEM: Grossly nonfocal. [] EXTREMITIES: Lower extremities with 1+ edema bilaterally. Pulses palpable in the lower extremities, both dorsalis pedis and posterior tibial. [] Data 10/10/22 04:34 10/10/22 04:34 A&P Assessment and plan (1) NSTEMI (non-ST elevated myocardial infarction): (2) Moderate aortic stenosis by prior echocardiogram: (3) Essential hypertension: (4) CAD (coronary artery disease): Qualifiers: Coronary Disease-Associated Artery/Lesion type: [place] artery [place] vs. transplanted heart: [place] heart Associated angina: without angina Qualified Code(s): I25.10 - Atherosclerotic heart disease of [place] coronary artery without angina pectoris Plan Patient has severe, diffuse multivessel CAD. No targets for cabg. We have treated LCx with DESX2. Patient is stable and can be discharged home today. Patient asking for work release. 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 He is mainly dependent on blood flow from LCx artery as rest of the vessels have severe multivessel diffuse disease and Left circumflex artery was also diseased requiring stents and balloon angioplasty in the distal segment. Patient is upset because of it. However I have discussed the rationale of decision in detail. Continue aspirin and plavix for atleast 1 year ECHO showed mildly reduced LV systolic function Renal function is stable Thank you for involving us with care of this patient. Please call with questions. Attestations Medical Necessity Statement*: Care expected to cross 2 midnights. Coding Level of Care Code Acute Code for [facility] Fwd Diagnoses NSTEMI (non-ST elevated myocardial infarction) I21.4 Moderate aortic stenosis by prior echocardiogram I35.0 Essential hypertension I10 CAD (coronary artery disease) I25.10 Coronary Disease-Associated Artery/Lesion type: [place] artery [place] vs. transplanted heart: [place] heart Associated angina: without angina
--- NOTE | 2022-10-10 07:44 | PC.SOCIAL ---
IMM Update Pg. 2 of IMM updated and reviewed with patient, who verbalized understanding. Copy provided.
[2022-10-10] MEDS: docusate sodium 100 mg Capsule PO (08:31)
[2022-10-10] MEDS: losartan 50 mg Tablet 100 MG PO (08:31)
[2022-10-10] MEDS: ferrous gluconate 324 mg Tablet PO (08:31)
[2022-10-10] MEDS: clopidogrel 75 mg Tablet PO (08:32)
[2022-10-10] MEDS: isosorbide mononitrate 20 mg Tablet PO (08:32)
[2022-10-10] MEDS: famotidine 20 mg Tablet PO (08:32)
[2022-10-10] MEDS: enoxaparin 120 mg/0.8 mL Syringe SUBCUT (08:32)
[2022-10-10] MEDS: insulin lispro 100 unit/1 mL SUBCUT (08:32)
--- NOTE | 2022-10-10 10:24 | DCPLANNER ---
field service manager had message to schedule an outpatient stress test and echo cardiogram for patient. Patient came back to the ER to be seen, was admitted to hospital. Patient had an echo cardiogram completed when he was admitted to hospital. field service manager faxed signed order for a stress test to centralized scheduling, who will call patient with appointment information. family independence case manager also had message to schedule a followup appointment for patient with cardiology. field service manager sent patients information to the front office staff at [facility]. Patients information will be printed and reviewed. Clinic will call patient with appointment information.
--- NOTE | 2022-10-10 11:37 | P.DS_ITS ---
Discharge Providers Date of Admission: 10/07/22 20:42 Date of Discharge: October 10, 2022 Attending Provider at Admission: Jude Pryor MD Attending Provider at Discharge: Darron Ontiveros MD Primary Care Provider: John Moncada MD Diagnoses at Discharge Discharge Diagnosis (1) Chest pain: Status: Acute (2) Non-ST elevated myocardial infarction (non-STEMI): Status: Acute (3) Hypertension, uncontrolled: Status: Acute (4) Type 2 diabetes mellitus with unspecified complications: Status: Chronic (5) Combined hyperlipidemia associated with type 2 diabetes mellitus: Status: Chronic (6) CAD (coronary artery disease): Status: Acute Qualifiers: Coronary Disease-Associated Artery/Lesion type: [place] artery [place] vs. transplanted heart: [place] heart Associated angina: without angina Qualified Code(s): I25.10 - Atherosclerotic heart disease of [place] coronary artery without angina pectoris Permanent problem details: RCA stent times 10/2014, subtotal occlusion of circumflex noted at that time (7) Moderate aortic stenosis by prior echocardiogram: Status: Acute (8) Positive cardiac stress test: Status: Acute (9) NICK (acute kidney injury): Status: Acute Reason for Visit Reason for Visit: Chest Pain Hospital Course Hospital Course Elieser Chavez is a 72 year old male with past medical history of CAD, post PCI to RCA with subtotal occlusion circumflex, hyperlipidemia, type 2 diabetes mellitus, hypertension, CKD, morbid obesity with recent history of TIA who presented to the ER 2 times today with complaints of chest pain that started today morning at around 7:30 AM.? On his first visit chest pain was more left- sided radiating to left shoulder which was relieved by pain medications and nitrates.? Patient was advised to get admitted but he decided against it and was discharged.? On that visit his troponin cycled was 31 with a delta of 0.3. He presented again in the afternoon complaining of epigastric pain getting exacerbated with exertion and was found to be hypotensive but this time his baseline troponin was found to be 112 with delta of 32 in 2 hours. On examination patient lying comfortably in bed without any active chest pain.? Denying any nausea or vomiting.? At baseline patient does complain of occasional episodes of chest heaviness and pain on exertion for last few months but never as persistent as today. Patient was admitted to [facility] for NSTEMI, underwent coronary angiography. Severe diffuse multivessel CAD, left circumflex was treated with drug-eluting eluding stent x2, monitored as inpatient, advised of medication compliance, risk factor modification, aspirin and Plavix for at least a year, echocardiogram showed a EF of 45 to 50%. 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 Physical Exam Const: COMMON NORMALS: no acute distress and patient oriented x3 Resp: COMMON NORMALS: normal respiratory effort, No retractions, No use of accessory muscles and clear to auscultation bilaterally AUSCULTATION: clear to auscultation bilaterally Cardio: COMMON NORMALS: regular rate, regular rhythm, S1 normal heart sound present and S2 normal heart sound present RATE: regular rate RHYTHM: regular rhythm HEART SOUNDS: S1 normal heart sound present and S2 normal heart sound present GI: COMMON NORMALS: Normal to inspection, nondistended, normoactive bowel sounds present and non-tender Extremity: COMMON NORMALS: no pedal edema Neuro: COMMON NORMALS: patient oriented x3 Psych: COMMON NORMALS: mental status grossly normal Discharge Data Studies Completed and Pending Completed Studies During Hospitalization Category Date Time Status CV. echo limited [id number] Routine Ultrasound 10/08/22 22:36 Completed Pending at discharge Category Date Time Status SASH FINISHER request for service Routine Exams 10/08/22 09:00 Taken Basic Metabolic Panel AM LABS Lab 10/11/22 04:00 Ordered Complete Blood Count w/Auto AM LABS Lab 10/11/22 04:00 Ordered Laboratory Results WBC 8.8 10^3/uL (4.0-10.0) 10/10/22 04:34 RBC 4.78 10^6/uL (4.1-5.3) 10/10/22 04:34 Hgb 14.5 g/dL (11.7-16.6) 10/10/22 04:34 Hct 44.3 % (42.0-52.0) 10/10/22 04:34 MCV 92.7 fl (80-94) 10/10/22 04:34 MCH 30.3 pg (28.0-34.0) 10/10/22 04:34 MCHC 32.7 g/dL (30.0-36.0) 10/10/22 04:34 RDW 13.9 % (12.1-15.1) 10/10/22 04:34 Plt Count 174 10^3/cmm (130-400) 10/10/22 04:34 MPV 9.2 fL (7.4-10.4) 10/10/22 04:34 Neut % (Auto) 67.6 % 10/10/22 04:34 Lymph % (Auto) 13.9 % 10/10/22 04:34 [place] % (Auto) 15.1 % 10/10/22 04:34 Eos % (Auto) 2.6 % 10/10/22 04:34 Baso % (Auto) 0.3 % 10/10/22 04:34 Neut # (Auto) 5.93 10^3/uL (1.8-7.7) 10/10/22 04:34 Lymph # (Auto) 1.2 10^3/uL (0.8-4.8) 10/10/22 04:34 [place] # (Auto) 1.3 10^3/uL (0.2-0.9) H 10/10/22 04:34 Eos # (Auto) 0.2 10^3/uL (0.0-0.8) 10/10/22 04:34 Baso # (Auto) 0.0 10^3/uL (0.0-0.1) 10/10/22 04:34 Nucleated RBC % (auto) 0 % 10/10/22 04:34 Nucleated RBCs # 0.0 /100WBC 10/10/22 04:34 APTT 36.2 SECONDS (23.9-36.7) D 10/08/22 16:33 D-Dimer 0.48 ug/mIFEU (0-0.59) 10/07/22 20:59 Sodium 134 mmol/L (136-145) L 10/10/22 04:34 Potassium 3.6 mmol/L (3.5-5.1) 10/10/22 04:34 Chloride 100 mmol/L (98-107) 10/10/22 04:34 Carbon Dioxide 20 mmol/L (22-29) L 10/10/22 04:34 Anion Gap 17.6 (5-19) 10/10/22 04:34 BUN 19 mg/dL (8-23) 10/10/22 04:34 Creatinine 1.2 mg/dL (0.7-1.2) 10/10/22 04:34 GFR Calculation 59.9 mL/min (90-130) L 10/10/22 04:34 Glucose 183 mg/dL (65-115) H 10/10/22 04:34 POC Glucose 183 mg/dL (70-110) H 10/10/22 05:59 Calculated Osmolality 285 mOsm/kg (285-295) 10/10/22 04:34 Calcium 9.0 mg/dL (8.5-10.5) 10/10/22 04:34 Iron 55 ug/dL (59-158) L 10/07/22 20:59 TIBC 303 mcg/dl 10/07/22 20:59 % Saturation 18.1 % (20-50) L 10/07/22 20:59 Unsat Iron Binding 248 ug/dL (112-347) 10/07/22 20:59 Total Bilirubin 0.4 mg/dL (0.15-1.2) 10/08/22 04:45 AST 59 U/L (0-40) H 10/08/22 04:45 ALT 19 U/L (0-41) 10/08/22 04:45 Alkaline Phosphatase 67 U/L (40-130) 10/08/22 04:45 Troponin T Baseline 112 ng/L (0-15) H* 10/07/22 19:05 Troponin T 120 Minute 144.4 ng/L (0-15) H 10/07/22 20:59 Delta Troponin T 32.4 ABS# (0-10) H* 10/07/22 20:59 Troponin T Hi Sens 6Hr 217.7 ng/L (0-15) H 10/08/22 00:55 Troponin T Hi Sens 6Hr Delta 105.7 ng/L (0-12) H* 10/08/22 00:55 NT-Pro-B Natriuret Pep 900 pg/mL (0-125) H 10/07/22 19:05 Total Protein 7.7 g/dL (6.6-8.7) 10/08/22 04:45 Albumin 4.0 g/dL (3.5-5.2) 10/08/22 04:45 Globulin 3.7 g/dL (1.3-4.6) 10/08/22 04:45 Lipase 23 U/L (13-60) 10/07/22 19:05 Vitamin B12 655 pg/mL (232-1245) 10/07/22 20:59 Folate 9.5 ng/mL (4.5-32.2) 10/07/22 19:05 Procalcitonin 0.05 ng/mL (0-0.5) 10/07/22 20:59 TSH 2.03 uIU/mL (0.27-4.20) 10/07/22 19:05 Vitals Last Vital Signs Temp 97.8 F 10/10/22 07:41 Pulse 64 10/10/22 10:00 Resp 12 10/10/22 10:00 BP 123/70 10/10/22 10:00 Pulse Ox 94 10/10/22 10:00 O2 Del Method 10/10/22 10:00 O2 Flow Rate 2 10/10/22 10:00 Discharge Plan Discharge Patient Disposition: Home Condition: Stable Prescriptions: New atorvastatin 40 mg Tablet 80 mg PO BEDTIME 30 Days Qty: 60 0RF clopidogrel 75 mg Tablet 75 mg PO DAILY 30 Days Qty: 30 0RF nitroglycerin 0.4 mg Tablet, Sublingual 0.4 mg sublingual Q5M PRN (Reason: Chest Pain) 30 Days Qty: 30 0RF Rx Instructions: DONOT USE WITH TADALAFIL Continued nitroglycerin 0.4 mg tablet, sublingual 0.4 mg sublingual Q5M PRN (Reason: Chest Pain) Qty: 25 3RF niacin 1,000 mg tablet extended release 24 hr 2,000 mg PO BID Rx Instructions: 340 B medication metformin 1,000 mg tablet 1,000 mg PO DAILY Jardiance 25 mg tablet 25 mg PO QAM Qty: 90 1RF isosorbide mononitrate 20 mg tablet 20 mg PO DAILY Qty: 90 3RF Rx Instructions: give doses 7 hrs apart metoprolol succinate 100 mg tablet extended release 24 hr 100 mg PO QAM Qty: 90 3RF glipizide 10 mg tablet 10 mg PO BID 90 Days Qty: 180 3RF Rx Instructions: 340 B medications aspirin 81 mg tablet,delayed release (DR/EC) 81 mg PO QAM 30 Days Qty: 30 0RF Rx Instructions: 340 B medications losartan 100 mg tablet 100 mg PO DAILY Januvia 100 mg tablet 100 mg PO DAILY Discontinued tadalafil 5 mg tablet See Rx Instructions .ROUTE .COMPLEX Qty: 90 1RF Dose Instruction: TAKE 1 TABLET BY MOUTH DAILY FOR PROSTATE AND ERECTILE FUNCTION Rx Instructions: TAKE 1 TABLET BY MOUTH DAILY FOR PROSTATE AND ERECTILE FUNCTION Discharge Orders: Discharge Order (Routine); Ordered 10/10/22 Ordered By: Darron Ontiveros Referrals: John Moncada MD [Primary Care Provider] - 1-3 days Carlos Padilla M.D [Physician] - 10/24/22 8:15 am (Your follow up appointment will be with Rebecca Moore. ) Discharge Diet: Diabetic Discharge Activity: Resume usual activity Patient Instructions: Nitroglycerin (By mouth) (Nitro-Time), Atorvastatin (By mouth) (Lipitor), Clopidogrel (By mouth) (Plavix), Opioid Safety Discharge Attestations Time Spent in Discharge Care*: greater than 30 min Status at Discharge: Cognitive status at discharge: cognitively intact , Behavioral status at discharge: cooperative , Quality Metrics Clinical Quality Measures [ Acute Myocardial Infaction { Clinical Trial Participant: No; Contraindication to aspirin: None; Aspirin prescribed; Contraindication to statin: None; Statin prescribed; Contraindication to PCI: None; PCI performed;}] Coding Level of Care Code 23811 Total time (in minutes) for Discharge: 40 Diagnoses Chest pain R07.9 Non-ST elevated myocardial infarction (non-STEMI) I21.4 Hypertension, uncontrolled I10 Type 2 diabetes mellitus with unspecified complications E11.8 Combined hyperlipidemia associated with type 2 diabetes mellitus E11.69; E78.2 CAD (coronary artery disease) I25.10 Coronary Disease-Associated Artery/Lesion type: [place] artery [place] vs. transplanted heart: [place] heart Associated angina: without angina Moderate aortic stenosis by prior echocardiogram I35.0 Positive cardiac stress test R94.39 NICK (acute kidney injury) N17.9
--- NOTE | 2022-10-10 11:48 | PC.NURSE ---
Discharged home with son. Belongings in hand. Voiced understanding of d/c instructions.
== END 2022-10-10 10:30 | disposition home or self-care (01) | DRG 247 ==
LOC: ER 20:51 → ICU 10-08 01:23 → CSU 10-09 18:34
PROVIDERS: Internal Medicine; Nurse Practitioner Family; Admitting Provider Student in an Organized Health Care Education/Training Program; Emergency Provider Emergency Medicine; PCP Family Medicine Adult Medicine; Visit Provider Family Medicine
PROC: 027035Z Dilation of Coronary Artery, One Artery with Two Drug-eluting Intraluminal Devices, Percutaneous Approach (ICD-10-PCS; principal; 2022-10-08 08:30)
PROC: 027035Z Dilation of Coronary Artery, One Artery with Two Drug-eluting Intraluminal Devices, Percutaneous Approach (ICD-10-PCS; 2022-10-08 08:30)
DX: I21.4 Non-ST elevation (NSTEMI) myocardial infarction (principal); N17.9 Acute kidney failure, unspecified; I25.10 Atherosclerotic heart disease of native coronary artery without angina pectoris; Z95.5 Presence of coronary angioplasty implant and graft; E78.5 Hyperlipidemia, unspecified; E11.22 Type 2 diabetes mellitus with diabetic chronic kidney disease; I12.9 Hypertensive chronic kidney disease with stage 1 through stage 4 chronic kidney disease, or unspecified chronic kidney disease; N18.30 Chronic kidney disease, stage 3 unspecified; E66.01 Morbid (severe) obesity due to excess calories; Z68.37 Body mass index [BMI] 37.0-37.9, adult; Z86.73 Personal history of transient ischemic attack (TIA), and cerebral infarction without residual deficits; Z79.84 Long term (current) use of oral hypoglycemic drugs; Z79.82 Long term (current) use of aspirin; N40.0 Benign prostatic hyperplasia without lower urinary tract symptoms; G89.29 Other chronic pain; M54.50 Low back pain, unspecified; Z96.653 Presence of artificial knee joint, bilateral; I35.0 Nonrheumatic aortic (valve) stenosis; M10.9 Gout, unspecified
CPT/HCPCS: 36415; 36416; 71045; 80048; 80053; 81003; 82607; 82746; 82962; 83540; 83550; 83690; 83880; 84145; 84443; 84484; 85025; 85347; 85378; 85730; 93005; 93308; 93458; 96365; 96367; 96372; 96375; 99152; 99153; 99213; 99285; C1725; C1769; C1874; C1887; C1894; C9600; G0103; J0360; J1200; J1644; J1650; J1815; J2250; J2270; J2405; J3010; J3490; J7030; Q9967

== ENCOUNTER → 2022-10-24 08:16 | Outpatient (BNVA) | payer MEDICARE, MEDICAID, SELFPAY | PROVIDERS: PCP Family Medicine Adult Medicine; Visit Provider Nurse Practitioner Family | DX: I25.10 Atherosclerotic heart disease of native coronary artery without angina pectoris (principal); I12.9 Hypertensive chronic kidney disease with stage 1 through stage 4 chronic kidney disease, or unspecified chronic kidney disease; E11.22 Type 2 diabetes mellitus with diabetic chronic kidney disease; N18.30 Chronic kidney disease, stage 3 unspecified; Z79.84 Long term (current) use of oral hypoglycemic drugs; Z79.82 Long term (current) use of aspirin | CPT/HCPCS: 36415; 80048; 99214 ==

== ENCOUNTER → 2022-11-08 09:42 | Outpatient (BNVA) | payer MEDICARE, MEDICAID, SELFPAY | PROVIDERS: PCP Family Medicine Adult Medicine; Visit Provider Physician Assistant | DX: G89.29 Other chronic pain (principal); M54.50 Low back pain, unspecified | CPT/HCPCS: 72110; 99203 ==

== ENCOUNTER → 2022-12-16 10:31 | Outpatient (BNVA) | payer MEDICARE, MEDICAID, SELFPAY | PROVIDERS: PCP Family Medicine Adult Medicine; Visit Provider Internal Medicine Cardiovascular Disease | DX: I35.0 Nonrheumatic aortic (valve) stenosis (principal); E11.69 Type 2 diabetes mellitus with other specified complication; E78.2 Mixed hyperlipidemia; I12.9 Hypertensive chronic kidney disease with stage 1 through stage 4 chronic kidney disease, or unspecified chronic kidney disease; E11.22 Type 2 diabetes mellitus with diabetic chronic kidney disease; N18.30 Chronic kidney disease, stage 3 unspecified; I25.10 Atherosclerotic heart disease of native coronary artery without angina pectoris; K21.9 Gastro-esophageal reflux disease without esophagitis; E66.9 Obesity, unspecified; Z68.38 Body mass index [BMI] 38.0-38.9, adult; Z79.84 Long term (current) use of oral hypoglycemic drugs | CPT/HCPCS: 99214 ==

== ENCOUNTER 2023-01-01 13:12 | Emergency (ER) | payer MEDICARE, MEDICAID, SELFPAY ==
--- NOTE | 2023-01-01 13:17 | XRR_ITS ---
PROCEDURE INFORMATION: Exam: XR Chest Exam date and time: 01/01/2023 2:00 PM Age: 72 years old Clinical indication: Pain; Chest pressure; Additional info: Cp TECHNIQUE: Imaging protocol: Radiologic exam of the chest. Views: 1 view. COMPARISON: CR XR chest 1V portable [id number] 10/07/2022 8:56 AM FINDINGS: Tubes, catheters and devices: Overlying monitor leads. Lungs: No focal infiltrate or consolidation. No significant pulmonary vascular congestion. Pleural spaces: Unremarkable. No pleural effusion. No pneumothorax. Heart/Mediastinum: Cardiac silhouette is mildly prominent. Diaphragm: Mild chronic scalloping of the right hemidiaphragm. Bones/joints: Visualized osseous structures show no acute abnormality. XR/XR chest 1V portable [id number] IMPRESSION: Mild cardiac prominence and without acute findings.
[2023-01-01 13:23] VITALS: BP 145/83; PULSE 64; RESP 16; TEMP 36.4; O2SAT 98; BMI 37.6
--- NOTE | 2023-01-01 13:38 | ECG_ITS ---
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 Measurements Intervals [place] Rate: 64 P: -15 AR: 168 QRS: -35 QRSD: 129 T: -34 QT: 426 QTc: 441 Interpretive Statements SINUS RHYTHM WITH OCCASIONAL SUPRAVENTRICULAR PREMATURE COMPLEXES Compared to ECG 10/08/2022 10:48:58 Intraventricular conduction delay no longer present Electronically Signed On 01-02-2023 23:33:08 CDT by Carlos Padilla M.D. [email or web address].Att[email or web address]/store/[id number]
[2023-01-01 14:01] LABS: Basophils % 0.6 %; Eosinophils # 0.2 10^3/uL (0.0-0.8); Eosinophils % 3.2 %; Hematocrit 48.8 % (42.0-52.0); Lymphocytes # 1.1 10^3/uL (0.8-4.8); Lymphocytes % 16.9 %; Mean Corpuscular HGB Conc 32.8 g/dL (30.0-36.0); Mean Corpuscular Hemoglobin 30.4 pg (28.0-34.0); Mean Corpuscular Volume 92.6 fl (80-94); Mean Platelet Volume 9.1 fL (7.4-10.4); Monocytes # 0.8 10^3/uL (0.2-0.9); Monocytes % 12.3 %; Neutrophils # 4.36 10^3/uL (1.8-7.7); Neutrophils % 66.5 %; Nucleated Red Blood Cells % 0 %; Platelet Count 187 10^3/cmm (130-400); Red Blood Count 5.27 10^6/uL (4.1-5.3); Red Cell Distribution Width 14.2 % (12.1-15.1); White Blood Count 6.6 10^3/uL (4.0-10.0)
[2023-01-01 14:13] LABS: INR 1.01 (0.8-1.2)
--- NOTE | 2023-01-01 14:16 | W.ED.ARRPALP ---
HPI - Arrhythmia/Palpitations General: Chief Complaint: Arrhythmia/Palpitations Stated Complaint: irregular hr Time Seen by Provider: 01/01/23 13:58 History of Present Illness: Elieser Chavez is a 72-year-old male that presents to the emergency department today with complaints of tachycardia and palpitations. Patient reports he has had these episodes for approximately 2-year; however, in the last 2 weeks the episodes have been more frequent. He reports that when they come on they last approximately a minute or 2. The episodes resolve on their own but he feels that he is drained the following day. Patient reports he had an episode last time and this morning he is felt very weak and tired. Patient denies any actual chest pain, shortness of breath, dizziness or near syncope, cough or congestion, fever or chills, or numbness and tingling. Patient has a history of recent angioplasty with 2 stents placed back in October. He has been taking his prescribed medication that includes Plavix aspirin metoprolol, losartan, and antidiabetic medications Associated symptoms: Deny diaphoresis, nausea or vomiting Review of Systems General: Reports: 10 or more systems reviewed and unremarkable except in HPI and below Const: Reports: fatigue and malaise; Denies: fever(s), chills, change in appetite, change in weight or diaphoresis Eyes: Denies: change in vision, eye discomfort, eye discharge or eye redness ENMT: Denies: throat pain, enlarged tonsils, odynophagia, hoarseness, ear or mastoid pain, ear discharge, change in hearing, tinnitus, nasal discharge, nasal congestion, post nasal drip or sinus pain Card: Reports: palpitations; Denies: chest pain, irregular heart rhythm, edema, dyspnea on exertion, orthopnea or leg pain with exertion Resp: Denies: dyspnea, productive cough, non-productive cough, wheezing, stridor or chest congestion GI: Denies: abdominal pain, nausea, vomiting, dysphagia, diarrhea, constipation, bloating, GI cramping or hematochezia : Denies: flank pain, dysuria, urinary frequency, urinary urgency, urinary hesitancy, oliguria or hematuria Musc: Denies: neck pain, back pain, extremity pain, joint pain, joint swelling, joint redness, joint warmth or muscle weakness Skin/Breast: Denies: rash, pruritus, erythema, photosensitivity or new lesions Neuro: Denies: headache(s), numbness in extremities, weakness in extremities, sensory changes, lack of coordination, difficulty walking, frequent falls, dizziness, confusion, Slurred speech present, difficulty communicating thoughts, seizure-like activity or involuntary movements Endo: Denies: polyuria, polydipsia or tired all the time Cristofer/Lymph: Denies: easy bruising or easy bleeding PFSH ED PFSH: Medical History BPH (benign prostatic hyperplasia) CAD (coronary artery disease) Stent 10/2014, stent x2 10/08/2022 Chronic joint pain Chronic midline low back pain without sciatica CKD (chronic kidney disease), stage III Combined hyperlipidemia associated with type 2 diabetes mellitus Constipation Elevated PSA Erectile dysfunction Essential hypertension Gouty arthritis Lumbar canal stenosis Migraine Moderate aortic stenosis by prior echocardiogram Onychocryptosis 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 Type 2 diabetes mellitus with unspecified complications Surgical History History of bilateral knee replacement History of coronary angioplasty with insertion of stent History of inguinal hernia repair 1955 Family History Father , at age 67 CAD (coronary artery disease) Heart disease Diabetes Hypertension Mother , at age 81 Dementia Aneurysm Social History Smoking and tobacco status: never smoked Alcohol intake: never Desire information about alcohol rehabilitation?: No Substance/Drug Use: never Desire information about substance/drug rehabilitation?: No Caregiver/support person: No Lives independently: Yes Marital status: Current occupational status: employed Do you think of yourself as: Straight/Heterosexual Physical Exam Const: COMMON NORMALS: no acute distress, patient oriented x3 and alert GENERAL APPEARANCE: cooperative ORIENTATION/CONSCIOUSNESS: Yes awake, Yes oriented to person, Yes oriented to place and Yes oriented to time HENMT: COMMON NORMALS: normocephalic and atraumatic HEAD & SCALP: normocephalic and atraumatic FACE & SINUS: normal facial exam MOUTH: Normal oral and palatal mucosa present THROAT: posterior oropharynx normal Eye: COMMON NORMALS: Equal, round and reactive pupils present, EOMs intact bilaterally, conjunctivae normal and no scleral icterus GENERAL EYE: appearance normal, both eyes and all related structures ALIGNMENT: Yes alignment normal PERIORBITAL: periorbital findings normal CONJUNCTIVA: Yes conjunctivae normal PUPIL: Yes Equal, round and reactive pupils present Neck/C-Spine: COMMON NORMALS: full ROM GENERAL: Yes normal visual inspection Lymph: LYMPHATIC: no lymphadenopathy noted Chest: COMMONS NORMALS: normal inspection of the chest Breast/axilla inspection: Yes no chest deformity, asymmetry, normal contours, no nodules, masses, tenderness Resp: COMMON NORMALS: normal respiratory effort, No retractions, No use of accessory muscles and clear to auscultation bilaterally EFFORT & INSPECTION: Yes able to speak in complete sentences and Yes symmetric chest movement AUSCULTATION: clear to auscultation bilaterally Cardio: COMMON NORMALS: regular rate, regular rhythm, S1 normal heart sound present, S2 normal heart sound present and Peripheral pulses 2+ throughout RATE: regular rate RHYTHM: regular rhythm HEART SOUNDS: S1 normal heart sound present, S2 normal heart sound present and Murmur heart sound present continuous PERIPHERAL PULSES: Peripheral pulses 2+ throughout GI: COMMON NORMALS: Normal to inspection, nondistended, normoactive bowel sounds present, Soft to palpation, non-tender and No hepatosplenomegaly present INSPECTION: Yes normal to inspection AUSCULTATION: Yes normoactive bowel sounds PALPATION: Yes Soft to palpation and Yes No hepatosplenomegaly present RECTAL EXAM: Yes deferred Extremity: COMMON NORMALS: normal to inspection GENERAL: Yes normal exam except as noted Neuro: COMMON NORMALS: patient oriented x3 SENSORIUM/ORIENTATION: Yes alert, Yes oriented to person, Yes oriented to place and Yes oriented to time CRANIAL NERVES: Yes CN normal except as noted Psych: COMMON NORMALS: mental status grossly normal, Normal thought process present, cooperative, activity/motor behavior normal, denies homicidal ideation and denies suicidal ideation THOUGHT PROCESS: Normal thought process present Skin: COMMON NORMALS: no rashes or lesions noted, no wounds and turgor normal GENERAL SKIN EXAM: no rashes or lesions noted and turgor normal Course Vital Signs: Vital signs: Vital Signs Temperature 97.5 F L 01/01/23 13:23 Pulse Rate 60 01/01/23 15:11 Respiratory Rate 16 01/01/23 15:11 Blood Pressure 139/76 01/01/23 15:11 Pulse Oximetry 99 01/01/23 15:11 Oxygen Delivery Me thod Room Air 01/01/23 15:11 MDM - Arrhythmia/Palpitations Medical Decision Making Patient presents to the emergency department with fatigue, malaise, episodes of tachycardia. Patient reports he has been having these episodes for the last 2 weeks. He was last seen by his recruitment advertising manager 2 weeks ago but discussion about these episodes did not occur. Patient is quite vague at his symptoms In recent months patient has had angioplasty and an echo. Echo shows a 40 to 45% EF EKG completed today at 1338 reveals sinus rhythm with PVCs. There is slight ST depression in lead V5. His initial troponin was 100. I did speak with the recruitment advertising manager as well as the hospitalist. Delay on his EKG there was a question of ST depression in lead V5 but on repeat exam this has resolved.His creatinine is 1.4 which is worse than baseline as is his GFR. His 2-hour troponin was 150. I did meet Dr. Ontiveros the patient's bedside. Due to the likely tachyarrhythmia and diagnostic findings hospitalist will be admitting to [facility]SU and starting him on a heparin drip. Patient verbalizes understanding Lab Data 01/01/23 13:52 01/01/23 13:52 Radiology Impressions Chest X-Ray 01/01/23 13:17 IMPRESSION: Mild cardiac prominence and without acute findings. Laboratory Results WBC 6.6 10^3/uL (4.0-10.0) 01/01/23 13:52 RBC 5.27 10^6/uL (4.1-5.3) 01/01/23 13:52 Hgb 16.0 g/dL (11.7-16.6) 01/01/23 13:52 Hct 48.8 % (42.0-52.0) 01/01/23 13:52 MCV 92.6 fl (80-94) 01/01/23 13:52 MCH 30.4 pg (28.0-34.0) 01/01/23 13:52 MCHC 32.8 g/dL (30.0-36.0) 01/01/23 13:52 RDW 14.2 % (12.1-15.1) 01/01/23 13:52 Plt Count 187 10^3/cmm (130-400) 01/01/23 13:52 MPV 9.1 fL (7.4-10.4) 01/01/23 13:52 Neut % (Auto) 66.5 % 01/01/23 13:52 Lymph % (Auto) 16.9 % 01/01/23 13:52 Cam[place] % (Auto) 12.3 % 01/01/23 13:52 Eos % (Auto) 3.2 % 01/01/23 13:52 Baso % (Auto) 0.6 % 01/01/23 13:52 Neut # (Auto) 4.36 10^3/uL (1.8-7.7) 01/01/23 13:52 Lymph # (Auto) 1.1 10^3/uL (0.8-4.8) 01/01/23 13:52 [place] # (Auto) 0.8 10^3/uL (0.2-0.9) 01/01/23 13:52 Eos # (Auto) 0.2 10^3/uL (0.0-0.8) 01/01/23 13:52 Baso # (Auto) 0.0 10^3/uL (0.0-0.1) 01/01/23 13:52 Nucleated RBC % (auto) 0 % 01/01/23 13:52 Nucleated RBCs # 0.0 /100WBC 01/01/23 13:52 PT 13.60 SECONDS (12.1-14.9) 01/01/23 13:52 INR 1.01 (0.8-1.2) 01/01/23 13:52 Sodium 133 mmol/L (136-145) L 01/01/23 13:52 Potassium 4.0 mmol/L (3.5-5.1) 01/01/23 13:52 Chloride 100 mmol/L (98-107) 01/01/23 13:52 Carbon Dioxide 22 mmol/L (22-29) 01/01/23 13:52 Anion Gap 15.0 (5-19) 01/01/23 13:52 BUN 25 mg/dL (8-23) H 01/01/23 13:52 Creatinine 1.4 mg/dL (0.7-1.2) H 01/01/23 13:52 GFR Calculation 50.1 mL/min (90-130) L 01/01/23 13:52 Glucose 218 mg/dL (65-115) H 01/01/23 13:52 Calculated Osmolality 287 mOsm/kg (285-295) 01/01/23 13:52 Calcium 9.5 mg/dL (8.5-10.5) 01/01/23 13:52 Total Bilirubin 0.4 mg/dL (0.15-1.2) 01/01/23 13:52 AST 25 U/L (0-40) 01/01/23 13:52 ALT 23 U/L (0-41) 01/01/23 13:52 Alkaline Phosphatase 77 U/L (40-130) 01/01/23 13:52 Troponin T Baseline 100 ng/L (0-15) H 01/01/23 13:52 Troponin T 120 Minute 150.0 ng/L (0-15) H 01/01/23 16:00 Delta Troponin T 50.0 ABS# (0-10) H* 01/01/23 16:00 Total Protein 7.6 g/dL (6.6-8.7) 01/01/23 13:52 Albumin 4.1 g/dL (3.5-5.2) 01/01/23 13:52 Globulin 3.5 g/dL (1.3-4.6) 01/01/23 13:52 Discharge Plan Discharge Patient Disposition: Admitted As Inpatient Clinical Impression: CAD (coronary artery disease), CKD (chronic kidney disease), stage III, Elevated troponin Condition: Stable Prescriptions: No Action clopidogrel [Plavix] 75 mg tablet 75 mg PO DAILY Qty: 90 3RF Jardiance 25 mg tablet 25 mg PO QAM Qty: 90 1RF losartan 100 mg tablet 100 mg PO DAILY Qty: 90 3RF niacin 1,000 mg tablet extended release 24 hr 2,000 mg PO BID Qty: 180 3RF Rx Instructions: 340 B medication glipizide 10 mg tablet 10 mg PO BID 90 Days Qty: 180 3RF Rx Instructions: 340 B medications isosorbide mononitrate 20 mg tablet 20 mg PO DAILY Qty: 90 3RF Rx Instructions: give doses 7 hrs apart metformin 1,000 mg tablet 1,000 mg PO DAILY Qty: 90 3RF metoprolol succinate 100 mg tablet extended release 24 hr 100 mg PO QAM Qty: 90 3RF nitroglycerin 0.4 mg tablet, sublingual 0.4 mg sublingual Q5M PRN (Reason: Chest Pain) Qty: 25 3RF Januvia 100 mg tablet 100 mg PO DAILY Qty: 90 3RF aspirin 81 mg tablet,delayed release (DR/EC) 81 mg PO QAM 30 Days Qty: 30 0RF Rx Instructions: 340 B medications Referrals: John Moncada MD [Primary Care Provider] - Coding Level of Care Code ED Industrial Controller for Zenaida Cartagena
[2023-01-01 14:17] LABS: Troponin(5th) Baseline 100 ng/L (0-15)
[2023-01-01 14:37] LABS: Alanine Aminotransferase 23 U/L (0-41); Albumin Level 4.1 g/dL (3.5-5.2); Alkaline Phosphatase 77 U/L (40-130); Aspartate Amino Transferase 25 U/L (0-40); Blood Urea Nitrogen 25 mg/dL (8-23); Calcium 9.5 mg/dL (8.5-10.5); Carbon Dioxide 22 mmol/L (22-29); Chloride 100 mmol/L (98-107); Globulin 3.5 g/dL (1.3-4.6); Glomerular Filtration Rate 50.1 mL/min (90-130); Glucose 218 mg/dL (65-115); Osmolality Calculated 287 mOsm/kg (285-295); Sodium 133 mmol/L (136-145); Total Bilirubin 0.4 mg/dL (0.15-1.2); Total Protein 7.6 g/dL (6.6-8.7)
[2023-01-01 15:11] VITALS: BP 139/76; PULSE 60; RESP 16; O2SAT 99
--- NOTE | 2023-01-01 15:17 | ECG_ITS ---
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 Measurements Intervals [place] Rate: 59 P: 71 CA: 174 QRS: -42 QRSD: 133 T: -72 QT: 444 QTc: 441 Interpretive Statements SINUS BRADYCARDIA WITH SINUS ARRHYTHMIA INTRAVENTRICULAR CONDUCTION DELAY [130+ ms QRS DURATION] Compared to ECG 01/01/2023 13:38:13 Intraventricular conduction delay now present Sinus rhythm no longer present Electronically Signed On 01-03-2023 8:34:52 CDT by Carlos Padilla M.D. [id number]
--- NOTE | 2023-01-01 16:40 | USCV_ITS ---
Elieser Chavez Age: 72 Gender: M : 1950 Exam Date: 01/01/2023 17:06 Ordering Phys: Darron Ontiveros MD Technologist: Werner Diaz Exam Location: [facility] [place] Indication: NSTEMI BP: 123 / 85 HR: 60 Rhythm: Sinus Technical Quality: Adequate MEASUREMENTS (Male / Female) Normal Values 2D ECHO LV Diastolic Diameter PLAX 5.1 cm 4.2 - 5.9 / 3.9 - 5.3 cm LV Systolic Diameter PLAX 3.6 cm IVS Diastolic Thickness 1.2 cm 0.6 - 1.0 / 0.6 - 0.9 cm IVS Systolic Thickness 1.6 cm LVPW Diastolic Thickness 1.3 cm 0.6 - 1.0 / 0.6 - 0.9 cm LVPW Systolic Thickness 1.8 cm LVOT Diameter 2.1 cm LV Ejection Fraction 2D Teich 55.1 % LA Diameter 4.9 cm M-MODE Aortic Annulus Diameter 4.3 cm LA Ao Ratio MM 1.4 MV E Point Septal Separation 1.7 cm FINDINGS Left Ventricle Normal left ventricular size, systolic function and wall thickness, with no regional wall motion abnormalities. Normal left ventricular wall thickness. Normal diastolic filling pattern. EF 50% Right Ventricle The right ventricle is normal in size and function. Right Atrium The right atrium is normal in size. Left Atrium The left atrium is normal in size. Mitral Valve Structurally normal mitral valve without significant stenosis or prolapse. There is no mitral regurgitation. Aortic Valve Structurally normal aortic valve without significant sclerosis or stenosis. There is no aortic regurgitation. Tricuspid Valve Structurally normal tricuspid valve without significant stenosis or regurgitation. Pulmonary artery systolic pressure is normal. Pulmonic Valve Structurally normal pulmonic valve without significant stenosis. There is no pulmonic regurgitation. Pericardium Normal pericardium without effusion. Aorta Normal ascending aorta dimension. IVC The inferior vena cava appears normal. CONCLUSIONS Normal left ventricular size, systolic function and wall thickness, with no regional wall motion abnormalities. Normal left ventricular wall thickness. Normal diastolic filling pattern. EF 50% . Wall motion abnormalitie are noted , apical. No significant chamber abnormalities. No significant valve abnormalities. Ángela Shaikh MD (Electronically Signed) Final Date: 01 Jan 2023 21:45 Amended: 01 Jan 2023 21:49 C
--- NOTE | 2023-01-01 16:42 | PM.HP ---
Providers/Chief Complaint Primary Care Provider: John Moncada MD Chief Complaint: irregular hr History of Present Illness Elieser Chavez is a 72 year old male with a past medical CAD, recent history of stent placement, history of chronic kidney disease, noninsulin-dependent type 2 diabetes mellitus, obesity, dyslipidemia aortic stenosis hypertension, ischemic cardiomyopathy currently on aspirin, Plavix who presents to [facility] due to episodes of chest palpitations, associate with fatigue, malaise, shortness of breath. Patient tells me for the last week, has been having these episodes of chest palpitations, they are very intense he tells me lasting a few seconds to a few minutes, followed by significant fatigue, malaise and he also feels short of breath. Denies any presyncopal episodes, no nausea, vomiting, no diaphoresis. Denies any chest pain per se, no recent illness, no fevers, chills no history of atrial fibrillation, he is taking all his medications as prescribed Review of Systems Const: Denies: fever(s) Eyes: Denies: change in vision Card: Reports: palpitations Resp: Reports: dyspnea GI: Denies: abdominal pain : Denies: flank pain or difficulty urinating Musc: Denies: back pain Neuro: Denies: headache(s) or weakness in extremities Medications/Allergies Home Medications Medication Instructions Recorded Confirmed Last Taken Type aspirin 81 mg tablet,delayed 81 mg PO QAM circulation 30 days 10/10/22 01/01/23 01/01/23 Rx release #30 tabs empagliflozin 25 mg tablet 25 mg PO QAM #90 tabs 10/25/22 01/01/23 01/01/23 Rx (Jardiance) glipizide 10 mg tablet 10 mg PO BID 90 days #180 tabs 11/21/22 01/01/23 01/01/23 Rx isosorbide mononitrate 20 mg tablet 20 mg PO DAILY #90 tabs 11/21/22 01/01/23 01/01/23 Rx losartan 100 mg tablet 100 mg PO DAILY blood pressure #90 11/21/22 01/01/23 01/01/23 Rx tabs metformin 1,000 mg tablet 1,000 mg PO DAILY #90 tabs 11/21/22 01/01/23 01/01/23 Rx metoprolol succinate 100 mg 100 mg PO QAM #90 tabs 11/21/22 01/01/23 01/01/23 Rx tablet,extended release 24 hr niacin 1,000 mg tablet,extended 2,000 mg PO BID hyperlipidemia 11/21/22 01/01/23 01/01/23 Rx release 24 hr #180 tabs nitroglycerin 0.4 mg sublingual 0.4 mg sublingual Q5M PRN Chest 11/21/22 01/01/23 Unknown Rx tablet Pain #25 tabs sitagliptin phosphate 100 mg 100 mg PO DAILY #90 tabs 11/21/22 01/01/23 01/01/23 Rx tablet (Januvia) clopidogrel 75 mg tablet (Plavix) 75 mg PO DAILY circulation #90 tabs 12/16/22 01/01/23 01/01/23 Rx Allergies Allergy/AdvReac Type Severity Reaction Status Date / Time hydrocodone Allergy Hives Verified 01/01/23 13:23 oxycodone Allergy hives Verified 01/01/23 13:23 PFSH Acute PFSH: Medical History BPH (benign prostatic hyperplasia) CAD (coronary artery disease) Stent 10/2014, stent x2 10/08/2022 Chronic joint pain Chronic midline low back pain without sciatica CKD (chronic kidney disease), stage III Combined hyperlipidemia associated with type 2 diabetes mellitus Constipation Elevated PSA Erectile dysfunction Essential hypertension Gouty arthritis Lumbar canal stenosis Migraine Moderate aortic stenosis by prior echocardiogram Onychocryptosis 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 Type 2 diabetes mellitus with unspecified complications Surgical History History of bilateral knee replacement History of coronary angioplasty with insertion of stent History of inguinal hernia repair 1955 Family History Father , at age 67 CAD (coronary artery disease) Heart disease Diabetes Hypertension Mother , at age 81 Dementia Aneurysm Social History Smoking and tobacco status: never smoked Alcohol intake: never Desire information about alcohol rehabilitation?: No Substance/Drug Use: never Desire information about substance/drug rehabilitation?: No Caregiver/support person: No Lives independently: Yes Marital status: Current occupational status: employed Do you think of yourself as: Straight/Heterosexual Vitals/I&O/Wt Last Vital Signs Temp 97.5 F L 01/01/23 13:23 Pulse 60 01/01/23 15:11 Resp 16 01/01/23 15:11 BP 139/76 01/01/23 15:11 Pulse Ox 99 01/01/23 15:11 O2 Del Method Room Air 01/01/23 15:11 Weight last 48 hrs Weight 122.47 kg Physical Exam Const: COMMON NORMALS: no acute distress and patient oriented x3 GENERAL APPEARANCE: cooperative, well kempt and well developed HENMT: COMMON NORMALS: normocephalic, Normal external nose present and oropharynx normal HEAD & SCALP: normocephalic NOSE: Normal external nose present THROAT: posterior oropharynx normal Eye: COMMON NORMALS: Equal, round and reactive pupils present, EOMs intact bilaterally, conjunctivae normal and no scleral icterus CONJUNCTIVA: Yes conjunctivae normal PUPIL: Yes Equal, round and reactive pupils present Neck/C-Spine: COMMON NORMALS: full ROM, no lymphadenopathy, no JVD and Thyroid normal Lymph: LYMPHATIC: no lymphadenopathy noted Chest: COMMONS NORMALS: normal inspection of the chest Resp: COMMON NORMALS: normal respiratory effort, No retractions, No use of accessory muscles and clear to auscultation bilaterally AUSCULTATION: clear to auscultation bilaterally Cardio: COMMON NORMALS: regular rate, regular rhythm, S1 normal heart sound present, S2 normal heart sound present, No murmurs present (Cardio) and Peripheral pulses 2+ throughout RATE: regular rate RHYTHM: regular rhythm HEART SOUNDS: S1 normal heart sound present and S2 normal heart sound present PERIPHERAL PULSES: Peripheral pulses 2+ throughout GI: COMMON NORMALS: Normal to inspection, nondistended, normoactive bowel sounds present, Soft to palpation, non-tender and No hepatosplenomegaly present PALPATION: Yes Soft to palpation and Yes No hepatosplenomegaly present : COMMON NORMALS: Yes no CVA tenderness Back/Pelvis: COMMON NORMALS: no CVA tenderness Extremity: COMMON NORMALS: full ROM and no pedal edema Neuro: COMMON NORMALS: patient oriented x3, CN's II-XII intact bilaterally, moves all extremities, no focal motor deficits and no sensory deficits noted MENINGEAL SIGNS: Yes no meningeal signs Psych: COMMON NORMALS: mental status grossly normal, Normal thought process present, cooperative and speech normal APPEARANCE: Yes well kempt SPEECH: Yes normal speech THOUGHT PROCESS: Normal thought process present Skin: COMMON NORMALS: turgor normal and no jaundice GENERAL SKIN EXAM: turgor normal Data 01/01/23 13:52 01/01/23 13:52 CXR: My impression: Mild pulmonary vascular congestion EKG 1: My Interpretation: Sinus rhythm, no acute ST-T wave changes A&P Assessment and plan (1) NSTEMI (non-ST elevated myocardial infarction): (2) Palpitations: (3) Obesity, unspecified: Qualifiers: Obesity type: due to excess calories Obesity classification: adult class 3 (BMI >= 40) Serious obesity comorbidity presence: with serious comorbidity Body mass index: BMI 40.0-44.9 Qualified Code(s): E66.01 - Morbid (severe) obesity due to excess calories; Z68.41 - Body mass index (BMI) 40.0-44.9, adult (4) NICK (acute kidney injury): (5) Morbid obesity with BMI of 40.0-44.9, adult: (6) Combined hyperlipidemia associated with type 2 diabetes mellitus: (7) Type 2 diabetes mellitus with unspecified complications: (8) Essential hypertension: (9) CAD (coronary artery disease): (10) BPH (benign prostatic hyperplasia): (11) CKD (chronic kidney disease), stage III: (12) Goals of care, counseling/discussion: Plan NSTEMI, with chest palpitations -Based on his history it sounds a lot like arrhythmia events that he is experiencing either atrial fibrillation or ventricular arrhythmia On his last coronary angiogram 10/2022 -1. Severe multivessel ? 2. coronary artery disease ? 4. PLUMBER PIPE FITTING of RCA.? LAD has mid to apical severe diffuse disease with no targets of revascularization. Not a candidate for CABG given no surgical targets either.? Left circumflex artery has severe proximal, mid and distal stenosis. S/p successful revascularization of proximal and mid stenosis with JOY x2. Distal circumflex artery underwent balloon angioplasty given small size of the vessel.. ? 5. Proximal Circumflex was treated with a Balloon, Balloon, Drug Eluting Stent, Balloon, and Balloon. ? 6. Mid Circumflex was treated with a Balloon, and Drug Eluting Stent. -First troponin 100, second troponin 150, with a delta of 50, first EKG no acute ST-T wave changes -But he does have significant shortness of breath, fatigue, malaise after these palpitation events Plan -Admit to cardiac stepdown unit -Check magnesium, TSH levels -Continue aspirin, Plavix, beta-albina -Start heparin drip -Serial EKGs, serial troponins, telemetry monitoring -Monitor for arrhythmia events -Cardiology has been consulted by ER provider -Stat cardiac echo -We will keep n.p.o. just in case they need to have an angiogram in the morning or a procedure -Type 2 diabetes mellitus low-dose sliding scale -Obesity -Hypertension resume home medications -Had extensive goals of care discussion, patient wants to be a full code, however does not want to be kept on life-sustaining measures, if if the likelihood of him having immediate recovery is not likely he wants everything to be stopped Spoke to patient, spoke to family member bedside, spoke to ER provider, Attestations Medical Necessity Statement*: Patient requires hospitalization, outpatient with observation, for chest palpitations, NSTEMI Diagnoses NSTEMI (non-ST elevated myocardial infarction) I21.4 Palpitations R00.2 Obesity, unspecified E66.01; Z68.41 Obesity type: due to excess calories Obesity classification: adult class 3 (BMI >= 40) Serious obesity comorbidity presence: with serious comorbidity Body mass index: BMI 40.0-44.9 NICK (acute kidney injury) N17.9 Morbid obesity with BMI of 40.0-44.9, adult E66.01; Z68.41 Combined hyperlipidemia associated with type 2 diabetes mellitus E11.69; E78.2 Type 2 diabetes mellitus with unspecified complications E11.8 Essential hypertension I10 CAD (coronary artery disease) I25.10 BPH (benign prostatic hyperplasia) N40.0 CKD (chronic kidney disease), stage III N18.30 Goals of care, counseling/discussion Z71.89
[2023-01-01 17:03] VITALS: BP 123/86; PULSE 67; RESP 14; O2SAT 95
[2023-01-01 17:14] LABS: Magnesium 2.1 mg/dL (1.7-2.3); Thyroid Stimulating Hormone 1.97 uIU/mL (0.27-4.20)
== END 2023-01-01 18:48 | disposition left against medical advice (07) ==
PROVIDERS: Emergency Medicine; Family Medicine; Emergency Provider Nurse Practitioner; PCP Family Medicine Adult Medicine
DX: I25.10 Atherosclerotic heart disease of native coronary artery without angina pectoris (principal); R77.8 Other specified abnormalities of plasma proteins; E11.22 Type 2 diabetes mellitus with diabetic chronic kidney disease; I12.9 Hypertensive chronic kidney disease with stage 1 through stage 4 chronic kidney disease, or unspecified chronic kidney disease; N18.30 Chronic kidney disease, stage 3 unspecified; Z79.82 Long term (current) use of aspirin; Z79.02 Long term (current) use of antithrombotics/antiplatelets; Z79.84 Long term (current) use of oral hypoglycemic drugs; Z95.5 Presence of coronary angioplasty implant and graft
CPT/HCPCS: 36415; 71045; 80053; 83735; 84443; 84484; 85025; 85610; 93005; 93308; 99285

== ENCOUNTER → 2023-01-13 08:34 | Outpatient (BNVA) | payer MEDICARE, MEDICAID, SELFPAY | PROVIDERS: PCP Family Medicine Adult Medicine; Visit Provider Nurse Practitioner Family | DX: I25.10 Atherosclerotic heart disease of native coronary artery without angina pectoris (principal); I12.9 Hypertensive chronic kidney disease with stage 1 through stage 4 chronic kidney disease, or unspecified chronic kidney disease; E11.22 Type 2 diabetes mellitus with diabetic chronic kidney disease; N18.30 Chronic kidney disease, stage 3 unspecified; Z79.84 Long term (current) use of oral hypoglycemic drugs | CPT/HCPCS: 99213 ==

== ENCOUNTER → 2023-01-17 09:18 | Outpatient (BNVA) | payer MEDICARE, MEDICAID, SELFPAY | PROVIDERS: PCP Family Medicine Adult Medicine; Visit Provider Family Medicine Adult Medicine | DX: I35.0 Nonrheumatic aortic (valve) stenosis (principal); G45.9 Transient cerebral ischemic attack, unspecified; I25.10 Atherosclerotic heart disease of native coronary artery without angina pectoris; E11.8 Type 2 diabetes mellitus with unspecified complications; N18.30 Chronic kidney disease, stage 3 unspecified; E11.69 Type 2 diabetes mellitus with other specified complication; E78.2 Mixed hyperlipidemia; R00.2 Palpitations; I10 Essential (primary) hypertension | CPT/HCPCS: 80048; 83036 ==

== ENCOUNTER → 2023-03-14 11:41 | Outpatient (BNVA) | payer MEDICARE, MEDICAID, SELFPAY | PROVIDERS: PCP Family Medicine Adult Medicine; Visit Provider Internal Medicine Cardiovascular Disease | DX: F41.8 Other specified anxiety disorders (principal); R00.2 Palpitations; I35.0 Nonrheumatic aortic (valve) stenosis; E11.69 Type 2 diabetes mellitus with other specified complication; E78.2 Mixed hyperlipidemia; I25.10 Atherosclerotic heart disease of native coronary artery without angina pectoris; E66.9 Obesity, unspecified; Z68.38 Body mass index [BMI] 38.0-38.9, adult; I12.9 Hypertensive chronic kidney disease with stage 1 through stage 4 chronic kidney disease, or unspecified chronic kidney disease; E11.22 Type 2 diabetes mellitus with diabetic chronic kidney disease; N18.30 Chronic kidney disease, stage 3 unspecified; Z79.84 Long term (current) use of oral hypoglycemic drugs | CPT/HCPCS: 93270; 99214 ==

== ENCOUNTER → 2023-06-15 09:40 | Outpatient (BNVA) | payer MEDICARE, MEDICAID, SELFPAY | PROVIDERS: PCP Family Medicine Adult Medicine; Visit Provider Family Medicine Adult Medicine | DX: E11.69 Type 2 diabetes mellitus with other specified complication (principal); E78.2 Mixed hyperlipidemia; I10 Essential (primary) hypertension; N18.30 Chronic kidney disease, stage 3 unspecified; N40.0 Benign prostatic hyperplasia without lower urinary tract symptoms; I25.10 Atherosclerotic heart disease of native coronary artery without angina pectoris; K64.8 Other hemorrhoids; M65.30 Trigger finger, unspecified finger | CPT/HCPCS: 80053; 80061; 83036; 84443; 85025 ==

== ENCOUNTER → 2023-06-27 09:19 | Outpatient (BNVA) | payer MEDICARE, MEDICAID, SELFPAY | PROVIDERS: PCP Family Medicine Adult Medicine; Referring Provider Family Medicine Adult Medicine; Visit Provider Surgery | DX: K62.89 Other specified diseases of anus and rectum (principal); K59.09 Other constipation; K21.9 Gastro-esophageal reflux disease without esophagitis | CPT/HCPCS: 99204; 99214 ==

== ENCOUNTER → 2023-07-13 10:17 | Outpatient (BNVA) | payer MEDICARE, MEDICAID, SELFPAY | PROVIDERS: PCP Family Medicine Adult Medicine; Visit Provider Internal Medicine Cardiovascular Disease | DX: F41.8 Other specified anxiety disorders (principal); R00.2 Palpitations; I12.9 Hypertensive chronic kidney disease with stage 1 through stage 4 chronic kidney disease, or unspecified chronic kidney disease; E11.22 Type 2 diabetes mellitus with diabetic chronic kidney disease; N18.31 Chronic kidney disease, stage 3a; I35.0 Nonrheumatic aortic (valve) stenosis; E78.2 Mixed hyperlipidemia; I25.10 Atherosclerotic heart disease of native coronary artery without angina pectoris; E66.9 Obesity, unspecified; Z68.38 Body mass index [BMI] 38.0-38.9, adult; Z79.84 Long term (current) use of oral hypoglycemic drugs | CPT/HCPCS: 99214 ==

== ENCOUNTER 2023-07-26 09:30 | Outpatient (CLI) | payer MEDICARE, MEDICAID, SELFPAY ==
--- NOTE | 2023-07-26 10:00 | USCV_ITS ---
Elieser Chavez Age: 72 Gender: M : 1950 Exam Date: 07/26/2023 09:54 Ordering Phys: Henrry Germain MD ([email or web address]) Technologist: [place] [facility] [place]: as BP: 128 / 78 HR: 74 Rhythm: Sinus Technical Quality: Adequate MEASUREMENTS (Male / Female) Normal Values 2D ECHO LV Diastolic Diameter PLAX 3.8 cm 4.2 - 5.9 / 3.9 - 5.3 cm LV Systolic Diameter PLAX 2.5 cm IVS Diastolic Thickness 1.1 cm 0.6 - 1.0 / 0.6 - 0.9 cm IVS Systolic Thickness 1.6 cm LVPW Diastolic Thickness 1.3 cm 0.6 - 1.0 / 0.6 - 0.9 cm LVPW Systolic Thickness 1.6 cm LVOT Diameter 2.0 cm LV Ejection Fraction 2D Teich 63.2 % LV Ejection Fraction MOD 2C 53.1 % LV Ejection Fraction 2C AL 52.9 % LA Diameter 5.1 cm LA Width 4.2 cm M-MODE Aortic Annulus Diameter 3.9 cm LA Ao Ratio MM 1.4 MV E Point Septal Separation 1.1 cm DOPPLER AV Peak Velocity 332.0 cm/s LVOT Peak Velocity 108.0 cm/s AV Area Cont Eq vti 0.9 cm squared AV Area Cont Eq pk 1.1 cm squared MV Area PHT 3.3 cm squared Mitral E to A Ratio 0.7 MV E' Velocity 31.0 cm/s Mitral E to MV E' Ratio 9.6 Mitral E to LV E' Lateral Ratio 7.9 Mitral E to LV E' Septal Ratio 12.4 TR Peak Velocity 167.0 cm/s TR Peak Gradient 11.2 mmHg TV Peak E Velocity 69.0 cm/s Right Atrial Pressure 3.0 mmHg Pulmonary Artery Systolic Pressu 14.2 mmHg RV Acceleration Time 0.1 s FINDINGS Left Ventricle Normal LV siz with a diminished ejection fraction of 40 to 45%. Moderate hypokinesia of the mid and apical the posterolateral wall segment but somewhat dyskinetic basal inferior wall segment.mild left ventricular hypertrophy. Grade I/IV diastolic dysfunction (abnormal relaxation filling pattern), normal to mildly elevated filling pressures. Right Ventricle The right ventricle is normal in size and function. Right Atrium The right atrium is normal in size. Left Atrium Mildly increased left atrial size. Mitral Valve Mild mitral annular calcification. Aortic Valve Severe low gradient aortic valve stenosis, mean [id number] mmHg, ANASTACIA 0.9cm squared. Peak velocity of 3.32 m/s with a peak gradient of 44 mmHg Tricuspid Valve Trace tricuspid valve regurgitation. Pulmonic Valve Pulmonic valve not well visualized. Pericardium Normal pericardium without effusion. Aorta Normal ascending aorta dimension. IVC The inferior vena cava appears normal. CONCLUSIONS Normal LV siz with a diminished ejection fraction of 40 to 45%. Moderate hypokinesia of the mid and apical the posterolateral wall segment but somewhat dyskinetic basal inferior wall segment.mild left ventricular hypertrophy. Grade I/IV diastolic dysfunction (abnormal relaxation filling pattern), normal to mildly elevated filling pressures. Severe low gradient aortic valve stenosis, mean gradient 24 mmHg, ANASTACIA 0.9cm squared. Peak velocity of 3.32 m/s with a peak gradient of 44 mmHg. Mild mitral annular calcification. Mildly increased left atrial size. There is no pericardial effusion. There are no intracardiac masses. Compared to the study from 10/08/2022, there may not be a significant change in the 2D findings. But because of the differences in the technical quality, exact comparison is difficult Dr Hesham Stout MD [facility] (Electronically Signed) Final Date: 30 July 2023 22:54 S
== END 2023-07-26 09:31 | disposition home or self-care (01) ==
LOC: RAD 09:30
PROVIDERS: PCP Family Medicine Adult Medicine; Visit Provider Internal Medicine Cardiovascular Disease
DX: I35.0 Nonrheumatic aortic (valve) stenosis (principal); I51.7 Cardiomegaly
CPT/HCPCS: 93306

== ENCOUNTER → 2023-07-27 15:04 | Outpatient (BNVA) | payer MEDICARE, MEDICAID, SELFPAY | PROVIDERS: PCP Family Medicine Adult Medicine; Visit Provider Nurse Practitioner Family | DX: I35.0 Nonrheumatic aortic (valve) stenosis (principal); R05.9 Cough, unspecified; U07.1 COVID-19 | CPT/HCPCS: 87400; 87426 ==

== ENCOUNTER 2023-08-01 12:09 | Emergency (ER) | payer MEDICARE, MEDICAID, SELFPAY ==
--- NOTE | 2023-08-01 12:12 | XRR_ITS ---
PROCEDURE INFORMATION: Exam: XR Chest Exam date and time: 08/01/2023 12:22 PM Age: 72 years old Clinical indication: Cough TECHNIQUE: Imaging protocol: Radiologic exam of the chest. Views: 1 view. COMPARISON: CR XR chest 1V portable [id number] 01/01/2023 2:00 PM FINDINGS: Lungs: Lungs are clear. Pleural spaces: There is no pleural effusion or pneumothorax. Heart/Mediastinum: Cardiomediastinal contours are unremarkable. Bones/joints: Bones are unremarkable. XR/XR chest 1V portable [id number] IMPRESSION: No acute findings.
[2023-08-01 12:51] VITALS: BP 141/78; PULSE 61; RESP 16; TEMP 36.9; O2SAT 97; BMI 37.6
[2023-08-01] MEDS: albuterol 8 gm MDI 2 PUFF INHALATION (13:30)
[2023-08-01] MEDS: dexamethasone 10 mg/mL INJ IM (13:30)
[2023-08-01 13:31] VITALS: PULSE 61; RESP 16; O2SAT 97
--- NOTE | 2023-08-01 13:32 | ED_ITS ---
HPI - URI/Sore Throat General: Chief Complaint: Upper Respiratory Infection Stated Complaint: Covid+,cough Time Seen by Provider: 08/01/23 13:15 Source: patient Mode of arrival: ambulatory Limitations: no limitations History of Present Illness: 72-year-old male states that he has had a cough for 8 to 9 days. He states he tested positive for COVID 5 days ago and states that he is had a consistent co ugh that is been productive in nature he denies any severe shortness of breath he is in no distress here denies any fever he states that he needs his cough to improve. Associated symptoms: Deny abdominal pain, chills, chest pain, diarrhea, fever(s), headache(s), nausea or vomiting Review of Systems Const: Denies: fever(s), chills, body aches or change in appetite ENMT: Denies: throat pain or dental pain Card: Denies: chest pain Resp: Reports: productive cough; Denies: dyspnea GI: Denies: abdominal pain, nausea, vomiting or diarrhea Musc: Denies: neck pain or back pain Skin/Breast: Denies: rash Neuro: Denies: headache(s) PFSH ED PFSH: Medical History Elevated PSA Trigger finger of left hand Hemorrhoids, internal Anxiety about health Moderate aortic stenosis by prior echocardiogram Lumbar canal stenosis Chronic midline low back pain without sciatica Constipation Migraine Gouty arthritis Erectile dysfunction BPH (benign prostatic hyperplasia) CKD (chronic kidney disease), stage III 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 Chronic joint pain CAD (coronary artery disease) Stent 10/2014, stent x2 10/08/2022 Onychocryptosis Essential hypertension Type 2 diabetes mellitus with unspecified complications Combined hyperlipidemia associated with type 2 diabetes mellitus Surgical History History of bilateral knee replacement History of inguinal hernia repair 1955 History of coronary angioplasty with insertion of stent Family History Father , at age 67 CAD (coronary artery disease) Heart disease Diabetes Hypertension Mother , at age 81 Dementia Aneurysm Social History Smoking and tobacco/nicotine status: never used tobacco/nicotine Alcohol intake: never Substance/Drug Use: never Caregiver/support person: No Lives independently: Yes Marital status: Current occupational status: employed Do you think of yourself as: Straight/Heterosexual Physical Exam Const: COMMON NORMALS: no acute distress, patient oriented x3 and healthy appearing HENMT: COMMON NORMALS: normocephalic and atraumatic HEAD & SCALP: normocephalic and atraumatic Eye: COMMON NORMALS: Equal, round and reactive pupils present and EOMs intact bilaterally PUPIL: Yes Equal, round and reactive pupils present Neck/C-Spine: COMMON NORMALS: full ROM and supple Chest: COMMONS NORMALS: normal inspection of the chest Resp: COMMON NORMALS: normal respiratory effort, No retractions, No use of accessory muscles and clear to auscultation bilaterally AUSCULTATION: clear to auscultation bilaterally Cardio: COMMON NORMALS: regular rate, regular rhythm and No murmurs present (Cardio) RATE: regular rate RHYTHM: regular rhythm Extremity: COMMON NORMALS: normal to inspection and full ROM Neuro: COMMON NORMALS: patient oriented x3, moves all extremities and no focal motor deficits Psych: COMMON NORMALS: mental status grossly normal, Normal thought process present and cooperative THOUGHT PROCESS: Normal thought process present Skin: COMMON NORMALS: no rashes or lesions noted and no wounds GENERAL SKIN EXAM: no rashes or lesions noted Course Vital Signs: Vital signs: Vital Signs Temperature 98.4 F 08/01/23 12:51 Pulse Rate 61 08/01/23 12:51 Respiratory Rate 16 08/01/23 12:51 Blood Pressure 141/78 08/01/23 12:51 Pulse Oximetry 97 08/01/23 12:51 Oxygen Delivery Me thod Room Air 08/01/23 12:51 MDM - URI/Sore Throat Medical Decision Making Patient presents with cough likely from COVID x-ray shows no pneumonia he is in no distress here we will give him Decadron here we will prescribe him Tessalon Perles we will send him home with albuterol inhaler as well he is follow-up with PCP and return if worsening he understands agrees to plan. Medical Records I reviewed the patient's medical records. Lab Data Radiology Impressions Chest X-Ray 08/01/23 12:12 IMPRESSION: No acute findings. All radiology interpretation(s) finalized by discharge Discharge Plan Discharge Patient Disposition: Home Clinical Impression: COVID-19, Cough Condition: Stable Prescriptions: New benzonatate 100 mg capsule 100 mg PO TID PRN (Reason: cough) Qty: 14 0RF No Action clopidogrel [Plavix] 75 mg tablet 75 mg PO DAILY Qty: 90 3RF glipizide 10 mg tablet 10 mg PO DAILY Rx Instructions: 340 B medications niacin 1,000 mg tablet extended release 24 hr 2,000 mg PO DAILY Rx Instructions: 340 B medication losartan 100 mg tablet 100 mg PO DAILY Qty: 90 3RF isosorbide mononitrate 20 mg tablet 20 mg PO DAILY Qty: 90 3RF Rx Instructions: give doses 7 hrs apart metformin 1,000 mg tablet 1,000 mg PO DAILY Qty: 90 3RF metoprolol succinate 100 mg tablet extended release 24 hr 100 mg PO QAM Qty: 90 3RF nitroglycerin 0.4 mg tablet, sublingual 0.4 mg sublingual Q5M PRN (Reason: Chest Pain) Qty: 25 3RF Januvia 100 mg tablet 100 mg PO DAILY Qty: 90 3RF Jardiance 25 mg tablet 25 mg PO QAM Qty: 90 1RF aspirin 81 mg tablet,delayed release (DR/EC) 81 mg PO QAM 30 Days Qty: 30 0RF Rx Instructions: 340 B medications Discharge Orders: Discharge ED (Routine); Ordered 08/01/23 Ordered By: Jerad Olivera Referrals: John Moncada MD [Primary Care Provider] - 1-3 days Discharge Diet: Advance as tolerated Discharge Activity: Resume usual activity Patient Instructions: COVID-19 (Coronavirus Disease 2019) (ED) Coding Level of Care Code 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
[2023-08-01 13:41] VITALS: BP 131/82; PULSE 65; O2SAT 95
== END 2023-08-01 13:42 | disposition home or self-care (01) ==
PROVIDERS: Emergency Provider Emergency Medicine; PCP Family Medicine Adult Medicine
DX: U07.1 COVID-19 (principal); Z79.02 Long term (current) use of antithrombotics/antiplatelets; Z79.82 Long term (current) use of aspirin; Z79.84 Long term (current) use of oral hypoglycemic drugs; E11.22 Type 2 diabetes mellitus with diabetic chronic kidney disease; I12.9 Hypertensive chronic kidney disease with stage 1 through stage 4 chronic kidney disease, or unspecified chronic kidney disease; N18.30 Chronic kidney disease, stage 3 unspecified; I25.10 Atherosclerotic heart disease of native coronary artery without angina pectoris; E78.2 Mixed hyperlipidemia; Z95.5 Presence of coronary angioplasty implant and graft
CPT/HCPCS: 71045; 94640; 96372; 99284; J1100; J3535

== ENCOUNTER → 2023-09-06 10:01 | Outpatient (BNVA) | payer MEDICARE, MEDICAID, SELFPAY | PROVIDERS: PCP Family Medicine Adult Medicine; Visit Provider Nurse Practitioner | DX: M65.342 Trigger finger, left ring finger | CPT/HCPCS: 73130; 99214 ==

== ENCOUNTER → 2023-10-09 09:11 | Outpatient (BNVA) | payer MEDICARE, MEDICAID, SELFPAY | PROVIDERS: PCP Family Medicine Adult Medicine; Visit Provider Nurse Practitioner | DX: M65.342 Trigger finger, left ring finger (principal) | CPT/HCPCS: 99213 ==

== ENCOUNTER 2023-10-19 05:36 | Day surgery (SDC) | payer MEDICARE, MEDICAID, SELFPAY ==
[2023-10-19] VITALS (13 sets, daily range): BP systolic 115–181; BP diastolic 67–109; PULSE 59–90; RESP 17–20; TEMP 36.1–36.5; O2SAT 90–96; BMI 38.5
--- NOTE | 2023-10-19 06:37 | ANES.PREANE2 ---
Pre-Anesthetic Assessment Height/Weight: Height 1.8 m Weight 125.191 kg Temp Pulse Resp BP Pulse Ox O2 Del Method 97.7 F 61 18 181/97 96 Room Air 10/19/23 06:03 10/19/23 06:03 10/19/23 06:03 10/19/23 06:03 10/19/23 06:03 10/19/23 06:13 Operation Date: 10/19/23 07:00 Proposed Procedures p Trigger Finger Release(Left) - Tena Zaragoza MD Familial anesthetic complications: None Was Beta Danny taken within 24 hours: Yes Was Clonidine taken within 24 hours: N/A Last intake: Intake Last Liquid Date 10/18/23 Last Liquid Time 19:00 Last Solid Date 10/18/23 Last Solid Time 17:30 Social No alcohol and No tobacco Exam alert, oriented x 3, clear to auscultation bilaterally and regular rate & rhythm Airway Mallampati: Class IV Dentition: other (multiple missing, poor dentition) CV/HEM Coronary Artery Disease (JOY X 2 in october 2022) and Hypertension Severe Aortic stenosis CONCLUSIONS Normal LV siz with a diminished ejection fraction of 40 to 45%. Moderate hypokinesia of the mid and apical the posterolateral wall segment but somewhat dyskinetic basal inferior wall segment.mild left ventricular hypertrophy. Grade I/IV diastolic dysfunction (abnormal relaxation filling pattern), normal to mildly elevated filling pressures. Severe low gradient aortic valve stenosis, mean gradient 24 mmHg, ANASTACIA 0.9cm squared. Peak velocity of 3.32 m/s with a peak gradient of 44 mmHg. Mild mitral annular calcification. Mildly increased left atrial size. There is no pericardial effusion. There are no intracardiac masses. Compared to the study from 10/08/2022, there may not be a significant change in the 2D findings. But because of the differences in the technical quality, exact comparison is difficult Chronic Renal Insufficiency GI Gastroesophageal Reflux Disease Metabolic Diabetes Mellitus and Morbid Obesity Neuropsych TIA Anesthetic Plan ASA status: 4 Anesthesia: General Risk of > 500 ml blood loss (7ml/kg in children): No Medications/Allergies Home Medications Medication Instructions Recorded Confirmed Last Taken Type aspirin 81 mg tablet,delayed 81 mg PO QAM circulation 30 days 10/10/22 10/18/23 01/01/23 Rx release #30 tabs isosorbide mononitrate 20 mg tablet 20 mg PO DAILY #90 tabs 11/21/22 10/18/23 10/18/23 Rx losartan 100 mg tablet 100 mg PO DAILY blood pressure #90 11/21/22 10/18/23 10/18/23 Rx tabs metformin 1,000 mg tablet 1,000 mg PO DAILY #90 tabs 11/21/22 10/18/23 10/18/23 Rx metoprolol succinate 100 mg 100 mg PO QAM #90 tabs 11/21/22 10/18/23 10/18/23 Rx tablet,extended release 24 hr nitroglycerin 0.4 mg sublingual 0.4 mg sublingual Q5M PRN Chest 11/21/22 10/18/23 Unknown Rx tablet Pain #25 tabs sitagliptin phosphate 100 mg 100 mg PO DAILY #90 tabs 11/21/22 10/18/23 10/18/23 Rx tablet (Januvia) clopidogrel 75 mg tablet (Plavix) 75 mg PO DAILY circulation #90 tabs 12/16/22 10/18/23 10/15/23 Rx glipizide 10 mg tablet 10 mg PO DAILY 07/13/23 10/18/23 10/18/23 History niacin 1,000 mg tablet,extended 1,000 mg PO DAILY hyperlipidemia 07/13/23 10/18/23 10/18/23 History release 24 hr calcium polycarbophil 625 mg 1,250 mg (2 x 625 mg) PO BID 09/21/23 10/09/23 Unknown Rx tablet (FiberCon) fiber/constipation #60 tabs empagliflozin 25 mg tablet 25 mg PO QAM #90 tabs 10/06/23 10/18/23 10/18/23 Rx (Jardiance) Allergies Allergy/AdvReac Type Severity Reaction Status Date / Time hydrocodone Allergy Hives Verified 10/09/23 09:17 oxycodone Allergy hives Verified 10/09/23 09:17 [facility] Anesthesia Medical History Elevated PSA Trigger finger of left hand Hemorrhoids, internal Anxiety about health Moderate aortic stenosis by prior echocardiogram Lumbar canal stenosis Chronic midline low back pain without sciatica Migraine Gouty arthritis Erectile dysfunction BPH (benign prostatic hyperplasia) CKD (chronic kidney disease), stage III 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 Chronic joint pain CAD (coronary artery disease) Stent 10/2014, stent x2 10/08/2022 Onychocryptosis Essential hypertension Type 2 diabetes mellitus with unspecified complications Combined hyperlipidemia associated with type 2 diabetes mellitus Surgical History History of bilateral knee replacement History of inguinal hernia repair 1955 History of coronary angioplasty with insertion of stent Family History Father , at age 67 CAD (coronary artery disease) Heart disease Diabetes Hypertension Mother , at age 81 Dementia Aneurysm Social History Smoking and tobacco/nicotine status: never used tobacco/nicotine Alcohol intake: never Substance/Drug Use: never Caregiver/support person: No Lives independently: Yes Marital status: Current occupational status: employed Do you think of yourself as: Straight/Heterosexual Data Anesthesia Cardiac Studies: Echocardiogram 07/26/23 Echocardiogram Limited Views 01/01/23 Echocardiogram Ultrasound 11/16/20 Sestamibi Stress Test (Cardiology) 11/17/20 Cardiac Event Monitor 03/14/23
[2023-10-19] MEDS: sodium chloride 0.9% 1,000 ML 30 ML IV (06:50)
[2023-10-19] MEDS: gabapentin 300 mg Capsule PO (06:51)
[2023-10-19] MEDS: CELEcoxib 200 mg Capsule 400 MG PO (06:51)
[2023-10-19] MEDS: acetaminophen 1,000 MG/100 ML PIGGYBACK 400 MG IV (06:51)
[2023-10-19] MEDS: insulin regular-human 100 units/1 mL 10 UNIT IVP (06:59)
--- NOTE | 2023-10-19 06:59 | P.HPUD_ITS ---
Surgery/Procedure H&P Update DATE OF PROCEDURE: October 19, 2023 DATE H&P PERFORMED: 10/09/23 H&P UPDATE INFORMATION: I have reviewed H&P completed within last 30 days, I have examined patient prior to procedure, No changes to prior documentation and H&P is in [facility] EMR on date indicated PLANNED PROCEDURE: Operation Date: 10/19/23 07:00 Proposed Procedures p Trigger Finger Release(Left) - Tena Zaragoza MD Related Problem List Diagnoses (1) Trigger finger of left hand: Qualifiers: Trigger finger location: ring finger Qualified Code(s): M65.342 - Trigger finger, left ring finger
[2023-10-19] MEDS: ceFAZolin 3,000 MG in sodium chloride 0.9% (100 ml) 100 ML 200 MG IV (07:05)
[2023-10-19 07:26] LABS: Glucose Point of Care 213 mg/dL (70-110)
[2023-10-19] MEDS: BUPivacaine 0.5% INJ 30 mL INJECTION (07:47)
--- NOTE | 2023-10-19 08:26 | P.OP_ITS ---
Operative Report Date of procedure: October 19, 2023 Pre-op diagnosis: Triggering left ring finger Post-op diagnosis: Triggering left ring finger Post-op findings: Significant inflammation about the flexor tendons of the ring finger on the left hand Procedure done: Release left ring trigger finger Implants: None Pathology: None Surgeon: Tena Zaragoza MD Master Planner: None Anesthesia: General (Intubated, ASA 4, following emesis at the time of induction with no apparent aspiration) Estimated blood loss (mL): 1 Tourniquet time (min): 22 (At 250 mmHg) IV fluids (mL): 500 Urine output (mL): 0 (No Godinez) Complications: None Findings: Significant inflammation around the flexor tendons of the left ring finger Condition: stable Disposition: PACU (Then return to same-day surgery for observation prior to discharge to home) Brief History: This 73-year-old gentleman presents today for release of left ring finger triggering. The patient describe locking of the finger when he tried to make a fist, and his pain was 4 of 10. After discussion in the office, the patient wished to proceed with operative intervention in the form of trigger finger release. Consents were signed and questions were answered. Procedure: Patient was brought to the operating theater. He was placed on the operating room table. General anesthesia was administered, and upon induction, the heather ent did have emesis consisting primarily of bowel. There was no evidence of aspiration. The patient was subsequently intubated. Patient was administered 3 g of Ancef. A tourniquet was placed high on the arm and was elevated to 250 mmHg following exsanguination. Tourniquet time was 22 minutes. Surgical pause was performed prior to commencement of the surgical procedure. At the time of the surgical pause we identified the site and side of surgery. We also identified the patient's identity and appropriate administration of IV antibiotics. Following the surgical pause, an incision was made along the distal palmar crease at the base of the ring finger. Dissection continued through the skin to the subcutaneous tissues using a scalpel. Blunt dissection was then utilized to spread soft tissues and allow access to the A1 rebecca. It was then incised longitudinally and sharply using a knife. This was accomplished without difficulty and atraumatically. Once the A1 rebecca was released, tendon/tendons were brought up out of the wound and evaluated. There were no gross masses on the tendon, but there was noted to be a band more proximally over the tendons and this was released as well. Tendons were returned to normal position. We then irrigated the wound and subsequently closed it with 3-0 nylon with an interrupted mattress type suture. Following closure of the wound, the wound was injected with bupivacaine into the subcutaneous tissues as a local anesthetic. Sterile dressing was then placed consisting of Dermabond, OpSite, fluffed fluffs, and an Stanton wrap. The patient was returned to recovery in satisfactory condition. He will be discharged home to follow-up with me in the office. There were no specimens. The patient will be observed for 2 hours and same-day surgery to assure there is no complication following the emesis. Related Problem List Diagnoses (1) Acquired trigger finger of left ring finger:
--- NOTE | 2023-10-19 11:30 | ANE.PACU2 ---
Inpatient post-anesthesia follow up: Airway intact: Yes Vital signs: Temperature 97.3 F Pulse Rate 63 Respiratory Rate 18 Blood Pressure 148/82 Pulse Oximetry 93 Oxygen Delivery Me thod Room Air Oxygen Flow Rate 2 Fraction of Inspir ed Oxygen Hydration adequate: Yes Nausea and vomiting: No Pain level: 1 Mental status: Baseline Additional Comments: Patient vomited intraoperatively. Stable, no respiratory distress, clear to auscultation, but Spo2 93% on room air. Patient states he thinks he's normally only 95% or 96%. Prescription for augmentin 875 mg BID for 5 days to 10 days for aspriaton pneumonia propylaxis
[2023-10-19 11:59] LABS: Glucose Point of Care 127 mg/dL (70-110)
== END 2023-10-19 11:30 | disposition home or self-care (01) ==
PROVIDERS: PCP Family Medicine Adult Medicine; Visit Provider Specialist
PROC: (CPT 26055; principal; 2023-10-19 07:00)
DX: M65.342 Trigger finger, left ring finger (principal); I25.10 Atherosclerotic heart disease of native coronary artery without angina pectoris; K21.9 Gastro-esophageal reflux disease without esophagitis; E66.01 Morbid (severe) obesity due to excess calories; Z68.38 Body mass index [BMI] 38.0-38.9, adult; Z86.73 Personal history of transient ischemic attack (TIA), and cerebral infarction without residual deficits; Z79.82 Long term (current) use of aspirin; Z79.84 Long term (current) use of oral hypoglycemic drugs; E11.22 Type 2 diabetes mellitus with diabetic chronic kidney disease; I12.9 Hypertensive chronic kidney disease with stage 1 through stage 4 chronic kidney disease, or unspecified chronic kidney disease; N18.30 Chronic kidney disease, stage 3 unspecified
CPT/HCPCS: 26055; 36416; 82962; J0131; J0690; J1100; J1815; J2250; J2371; J2405; J2704; J3490; J7030

== ENCOUNTER → 2023-11-01 10:27 | Outpatient (BNVA) | payer MEDICARE, MEDICAID, SELFPAY | PROVIDERS: PCP Family Medicine Adult Medicine; Visit Provider Nurse Practitioner | DX: Z98.890 Other specified postprocedural states (principal); M65.342 Trigger finger, left ring finger | CPT/HCPCS: 99024 ==

== ENCOUNTER → 2024-01-11 11:21 | Outpatient (BNVA) | payer MEDICARE, MEDICAID, SELFPAY | PROVIDERS: PCP Family Medicine Adult Medicine; Visit Provider Internal Medicine Cardiovascular Disease | DX: E11.69 Type 2 diabetes mellitus with other specified complication (principal); I12.9 Hypertensive chronic kidney disease with stage 1 through stage 4 chronic kidney disease, or unspecified chronic kidney disease; E11.22 Type 2 diabetes mellitus with diabetic chronic kidney disease; N18.31 Chronic kidney disease, stage 3a; I35.0 Nonrheumatic aortic (valve) stenosis; I25.10 Atherosclerotic heart disease of native coronary artery without angina pectoris; E78.2 Mixed hyperlipidemia; R00.2 Palpitations; E66.9 Obesity, unspecified; Z79.84 Long term (current) use of oral hypoglycemic drugs; Z68.39 Body mass index [BMI] 39.0-39.9, adult | CPT/HCPCS: 99214 ==

== ENCOUNTER 2024-02-14 12:01 | Outpatient (CLI) | payer MEDICARE, MEDICAID, SELFPAY | END 2024-02-14 12:02 | disposition home or self-care (01) | PROVIDERS: PCP Family Medicine Adult Medicine; Visit Provider Nurse Practitioner Family | DX: R97.20 Elevated prostate specific antigen [PSA] (principal) | CPT/HCPCS: 36415; 84153 ==

== ENCOUNTER 2024-03-04 09:41 | Outpatient (CLI) | payer MEDICARE, MEDICAID, SELFPAY | END 2024-03-04 09:42 | disposition home or self-care (01) | LOC: LAB 09:44 | PROVIDERS: PCP Family Medicine Adult Medicine; Visit Provider Nurse Practitioner Family | DX: N41.1 Chronic prostatitis (principal); R97.20 Elevated prostate specific antigen [PSA] | CPT/HCPCS: 36415; 84153 ==

== ENCOUNTER 2024-04-22 06:00 | Outpatient (CLI) | payer MEDICARE, MEDICAID, SELFPAY | END 2024-04-22 06:01 | disposition home or self-care (01) | LOC: RAD 05-10 11:34 | PROVIDERS: PCP Family Medicine Adult Medicine | DX: E11.8 Type 2 diabetes mellitus with unspecified complications (principal) | CPT/HCPCS: 80053; 83036; 85025 ==

== ENCOUNTER → 2024-05-10 08:38 | Outpatient (BNVA) | payer MEDICARE, MEDICAID, SELFPAY | PROVIDERS: PCP Family Medicine Adult Medicine; Visit Provider Internal Medicine | DX: E11.8 Type 2 diabetes mellitus with unspecified complications; I25.10 Atherosclerotic heart disease of native coronary artery without angina pectoris; Z79.84 Long term (current) use of oral hypoglycemic drugs | CPT/HCPCS: 99204 ==

== ENCOUNTER 2024-05-29 09:14 | Outpatient (CLI) | payer MEDICARE, MEDICAID, SELFPAY ==
--- NOTE | 2024-05-29 09:30 | US_ITS ---
WS: [id number] INDICATION: Enlarged RIGHT inguinal lymph node TECHNIQUE: Ultrasound. Concern RIGHT inguinal region FINDINGS: Enlarged RIGHT inguinal lymph node in the area of concern measuring 3.4 x 1.2 x 2.6 cm wit h persistent fatty hilum and no significant cortical thickening. Enlarged lymph node may be infectiou s or inflammatory but technically indeterminant and neoplasm not excluded. This could be further eval uated with ultrasound-guided biopsy if continued concern or persistent. Recommend correlation with clinical history. No abnormalities LEFT groin. US/US soft tissue/extremity [address]22 IMPRESSION: See discussion above
== END 2024-05-29 09:15 | disposition home or self-care (01) ==
LOC: RAD 09:15
PROVIDERS: PCP Family Medicine Adult Medicine
DX: R59.1 Generalized enlarged lymph nodes (principal)
CPT/HCPCS: 76882

== ENCOUNTER → 2024-06-21 10:26 | Outpatient (BNVA) | payer MEDICARE, MEDICAID, SELFPAY | PROVIDERS: PCP Family Medicine Adult Medicine; Visit Provider Surgery | DX: R59.0 Localized enlarged lymph nodes (principal); K21.01 Gastro-esophageal reflux disease with esophagitis, with bleeding | CPT/HCPCS: 99214 ==

== ENCOUNTER → 2024-07-18 10:43 | Outpatient (BNVA) | payer MEDICARE, MEDICAID, SELFPAY | PROVIDERS: PCP Family Medicine Adult Medicine | DX: E11.69 Type 2 diabetes mellitus with other specified complication (principal); E11.9 Type 2 diabetes mellitus without complications; I25.10 Atherosclerotic heart disease of native coronary artery without angina pectoris; I10 Essential (primary) hypertension | CPT/HCPCS: 80053; 83036; 83880; 85025 ==

== ENCOUNTER 2024-07-30 05:37 | Day surgery (SDC) | payer MEDICARE, MEDICAID, SELFPAY ==
[2024-07-30] VITALS (11 sets, daily range): BP systolic 119–172; BP diastolic 67–107; PULSE 57–66; RESP 11–20; TEMP 36.1–36.8; O2SAT 88–96; BMI 41.3
[2024-07-30 06:29] LABS: Glucose Point of Care 183 mg/dL (70-110)
--- NOTE | 2024-07-30 06:29 | P.ANESASSM_ITS ---
Pre-Anesthetic Assessment Height/Weight: Height 5 ft 11 in Weight 296 lb Temp Pulse Resp BP Pulse Ox O2 Del Method 97.6 F 58 L 18 172/107 96 Room Air 07/30/24 06:11 07/30/24 06:11 07/30/24 06:11 07/30/24 06:11 07/30/24 06:11 07/30/24 06:16 Preop Diagnosis: Inguinal lymphadenopathy Operation Date: 07/30/24 07:00 Proposed Procedures p excision of right inguinal lymph node [address]802, R59.0(Right) - Ayush Buenrostro, DO Was Beta Danny taken within 24 hours: N/A Was Clonidine taken within 24 hours: N/A Last intake: Intake Last Liquid Date 07/29/24 Last Liquid Time 20:00 Last Solid Date 07/29/24 Last Solid Time 17:00 Social No alcohol and No tobacco Exam alert, oriented x 3, clear to auscultation bilaterally and regular rate & rhythm Airway Submandibular: within normal limits Cervical ROM: within normal limits Mallampati: Class II Dentition: full Comments: Comments: Enlarged cheek tissue Anesthetic Plan ASA status: 4 Anesthesia: MAC Other: History of hypertension on losartan, preop BP 172/107 CKD stage III GERD on omeprazole CAD with prior stents 2 years ago Prior TIA Type 2 diabetes on metformin and glipizide, BS 183 Labs 07/18/2024 reviewed acceptable for procedure Prior echo showing EF 40 to 45%, mild hypokinesis of the mid and apical posterior lateral rivera. Severe aortic stenosis noted, valve area 0.9 cm with a peak gradient of 44. Patient does admit to SOB with exertion. Patient follows with Dr. Bailey, repeat echo scheduled for August Explained risks to the patient of anesthesia given his significant cardiac history. He understands these and wishes to proceed Plan for MAC anesthetic Medications/Allergies Home Medications Medication Instructions Recorded Confirmed Last Taken Type aspirin 81 mg tablet,delayed 81 mg PO QAM circulation 30 days 10/10/22 07/29/24 07/27/24 Rx release #30 tabs clopidogrel 75 mg tablet (Plavix) 75 mg PO DAILY circulation #90 tabs 01/11/24 07/29/24 07/27/24 Rx nitroglycerin 0.4 mg sublingual 0.4 mg sublingual Q5M PRN Chest 04/12/24 07/29/24 Unknown Rx tablet Pain #25 tabs empagliflozin 25 mg tablet 25 mg PO QAM #90 tabs 07/18/24 07/29/24 07/29/24 Rx (Jardiance) isosorbide mononitrate 20 mg tablet 20 mg PO DAILY 07/18/24 07/29/24 07/29/24 History metformin 1,000 mg tablet 1,000 mg PO DAILY 07/18/24 07/29/24 Unknown History omeprazole 40 mg capsule,delayed 40 mg PO BID PRN Acid Reflux 07/18/24 07/29/24 07/30/24 History release sitagliptin phosphate 100 mg 100 mg PO DAILY #90 tabs 07/18/24 07/29/24 07/29/24 Rx tablet (Januvia) glipizide 10 mg tablet 10 mg PO DAILY #90 tabs 07/22/24 07/29/24 Unknown Rx losartan 100 mg tablet 100 mg PO DAILY 07/29/24 07/29/24 07/29/24 History metoprolol succinate 100 mg 100 mg PO DAILY 07/29/24 07/29/24 07/30/24 History tablet,extended release 24 hr Allergies Allergy/AdvReac Type Severity Reaction Status Date / Time hydrocodone Allergy Hives Verified 07/18/24 12:45 oxycodone Allergy hives Verified 07/18/24 12:45 [facility] Anesthesia Medical History Lymphadenopathy Esophageal dysmotility due to systemic disease Colon cancer screening Anesthesia complication Reflux large amount of bile on induction requiring emergent intubation. Recommend RSI for future anesthetics. 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 Surgeon: Dr. Tena Zaragoza MD. History of bilateral knee replacement History of inguinal hernia repair 1955 History of coronary angioplasty with insertion of stent Family History Father , at age 67 CAD (coronary artery disease) Heart disease Diabetes Hypertension Mother , at age 81 Dementia Aneurysm Social History Smoking and tobacco/nicotine status: never used tobacco/nicotine Alcohol intake: never Substance/Drug Use: never Caregiver/support person: No Lives independently: Yes Marital status: Current occupational status: employed Do you think of yourself as: Straight/Heterosexual Data Anesthesia Cardiac Studies: Echocardiogram 07/26/23 Echocardiogram Limited Views 01/01/23 Echocardiogram Ultrasound 11/16/20 Sestamibi Stress Test (Cardiology) 11/17 Cardiac Event Monitor 03/14/23
[2024-07-30] MEDS: sodium chloride 0.9% 1,000 ML 30 ML IV (06:33)
--- NOTE | 2024-07-30 07:02 | PM.HP ---
Providers/Chief Complaint Primary Care Provider: Aleksandra Velasquez NP History of Present Illness Elieser Chavez is a 73 year old male Review of Systems General: Reports: 10 or more systems reviewed and unremarkable except in HPI and below Medications/Allergies Home Medications Medication Instructions Recorded Confirmed Last Taken Type aspirin 81 mg tablet,delayed 81 mg PO QAM circulation 30 days 10/10/22 07/29/24 07/27/24 Rx release #30 tabs clopidogrel 75 mg tablet (Plavix) 75 mg PO DAILY circulation #90 tabs 01/11/24 07/29/24 07/27/24 Rx nitroglycerin 0.4 mg sublingual 0.4 mg sublingual Q5M PRN Chest 04/12/24 07/29/24 Unknown Rx tablet Pain #25 tabs empagliflozin 25 mg tablet 25 mg PO QAM #90 tabs 07/18/24 07/29/24 07/29/24 Rx (Jardiance) isosorbide mononitrate 20 mg tablet 20 mg PO DAILY 07/18/24 07/29/24 07/29/24 History metformin 1,000 mg tablet 1,000 mg PO DAILY 07/18/24 07/29/24 Unknown History omeprazole 40 mg capsule,delayed 40 mg PO BID PRN Acid Reflux 07/18/24 07/29/24 07/30/24 History release sitagliptin phosphate 100 mg 100 mg PO DAILY #90 tabs 07/18/24 07/29/24 07/29/24 Rx tablet (Januvia) glipizide 10 mg tablet 10 mg PO DAILY #90 tabs 07/22/24 07/29/24 Unknown Rx losartan 100 mg tablet 100 mg PO DAILY 07/29/24 07/29/24 07/29/24 History metoprolol succinate 100 mg 100 mg PO DAILY 07/29/24 07/29/24 07/30/24 History tablet,extended release 24 hr Allergies Allergy/AdvReac Type Severity Reaction Status Date / Time hydrocodone Allergy Hives Verified 07/18/24 12:45 oxycodone Allergy hives Verified 07/18/24 12:45 PFSH Acute PFSH: Medical History Lymphadenopathy Esophageal dysmotility due to systemic disease Colon cancer screening Anesthesia complication Reflux large amount of bile on induction requiring emergent intubation. Recommend RSI for future anesthetics. 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 Surgeon: Dr. Tena Zaragoza MD. History of bilateral knee replacement History of inguinal hernia repair 1955 History of coronary angioplasty with insertion of stent Family History Father , at age 67 CAD (coronary artery disease) Heart disease Diabetes Hypertension Mother , at age 81 Dementia Aneurysm Social History Smoking and tobacco/nicotine status: never used tobacco/nicotine Alcohol intake: never Substance/Drug Use: never Caregiver/support person: No Lives independently: Yes Marital status: Current occupational status: employed Do you think of yourself as: Straight/Heterosexual Vitals/I&O/Wt Last Vital Signs Temp 97.6 F 07/30/24 06:11 Pulse 58 L 07/30/24 06:11 Resp 18 07/30/24 06:11 BP 172/107 07/30/24 06:11 Pulse Ox 96 07/30/24 06:11 O2 Del Method Room Air 07/30/24 06:16 Weight last 48 hrs Weight 296 lb A&P Assessment and plan (1) Inguinal lymphadenopathy: Plan Excision of right inguinal lymph node The risks and benefits of the procedure, including but not limited to, bleeding, infection, recurrence, scar, numbness, pain, damage to surrounding structures, seroma, lymphatic leak, were explained to the patient. They are understanding of the risks and wish to proceed. Attestations Medical Necessity Statement*: HOME Coding Level of Care Code Acute Code for Chg Fwd Diagnoses Inguinal lymphadenopathy R59.0
[2024-07-30] MEDS: ceFAZolin 3,000 mg SDV 3000 MG IVP (07:05)
[2024-07-30] MEDS: lidocaine-epi 2% PF 1:200,000 20 mL SDV XX (07:34)
--- NOTE | 2024-07-30 08:08 | P.OP_ITS ---
Operative Report Date of procedure: July 30, 2024 Pre-op diagnosis: Right inguinal lymphadenopathy Post-op diagnosis: same Procedure done: Excision of deep right inguinal lymph node (23054) Specimens removed/disposition: Lymph node were lymphoma protocol Surgeon: Ayush Buenrostro DO Anesthesia: General and Local Estimated blood loss (mL): 5 Complications: None apparent Brief History: This is a very pleasant 73-year-old gentleman whose had right inguinal lymphadenopathy for the past 10 years. Lymph node excision was indicated. The risks and benefits were explained and documented. Procedure: Patient was wheeled operative room placed on the OR table in the supine position. Patient began as a MAC. The right groin was inspected prepped and draped in usual sterile fashion. A timeout was performed. All present were in agreement. 2% lidocaine with epinephrine was used to anesthetize the area over the lymphadenopathy. Prior to my incision, the patient had emesis and was intubated by the department of anesthesia and converted to a general anesthesia. A 15 blade scalpel was used to make an oblique incision over the area of most significant lymphadenopathy. Electrocautery was used dissect down through the dermis and subcutaneous tissue down to the deep groin. A lymph node was palpated and grasped with Allis clamp. Meticulous dissection was performed around this large lymph node using electrocautery and blunt dissection. All blood and lymphatic vessels were clipped with medium clipped or tied off with 3- 0 silk. Lymph node was successfully from the surrounding tissue and sent to pathology lymphoma protocol. The area was irrigated and suctioned. There was minimal bleeding. Dermis was approximated with 3-0 Vicryl. Skin was closed with Dermabond. Patient tolerated procedure well.
[2024-07-30] MEDS: ipratropium-albuterol 3 mL Neb INHALATION (08:27)
--- NOTE | 2024-07-30 09:45 | ANE.PACU2 ---
Inpatient post-anesthesia follow up: Airway intact: Yes Vital signs: Temperature 98.0 F Pulse Rate 59 Respiratory Rate 16 Blood Pressure 128/67 Pulse Oximetry 95 Oxygen Delivery Me thod Room Air Oxygen Flow Rate 10 Fraction of Inspir ed Oxygen Hydration adequate: Yes Nausea and vomiting: No Pain level: 1 Mental status: Baseline
[2024-08-01 13:46] LABS: Lymphoma Profile (BBPL) See Report
== END 2024-07-30 09:45 | disposition home or self-care (01) ==
PROVIDERS: Visit Provider Surgery
PROC: (CPT 38525; principal; 2024-07-30 07:00)
DX: R59.1 Generalized enlarged lymph nodes (principal); E11.22 Type 2 diabetes mellitus with diabetic chronic kidney disease; I12.9 Hypertensive chronic kidney disease with stage 1 through stage 4 chronic kidney disease, or unspecified chronic kidney disease; N18.30 Chronic kidney disease, stage 3 unspecified; K21.9 Gastro-esophageal reflux disease without esophagitis; I25.10 Atherosclerotic heart disease of native coronary artery without angina pectoris; Z95.5 Presence of coronary angioplasty implant and graft; Z86.73 Personal history of transient ischemic attack (TIA), and cerebral infarction without residual deficits; Z79.82 Long term (current) use of aspirin; N40.0 Benign prostatic hyperplasia without lower urinary tract symptoms; E11.69 Type 2 diabetes mellitus with other specified complication; E78.5 Hyperlipidemia, unspecified; Z79.84 Long term (current) use of oral hypoglycemic drugs
CPT/HCPCS: 38525; 36416; 82962; 87015; 87070; 87102; 87116; 87176; 87205; 87206; 87801; 88184; 88185; 88307; A7003; J0690; J2250; J2704; J3010; J7030

== ENCOUNTER → 2024-08-19 07:59 | Outpatient (BNVA) | payer MEDICARE, MEDICAID, SELFPAY | PROVIDERS: Visit Provider Surgery | DX: R59.0 Localized enlarged lymph nodes (principal) | CPT/HCPCS: 99214 ==

== ENCOUNTER 2024-08-21 08:38 | Outpatient (CLI) | payer MEDICARE, MEDICAID, SELFPAY ==
--- NOTE | 2024-08-21 09:15 | USCV_ITS ---
KathyElieser Age: 73 Gender: M : 1950 Exam Date: 08/21/2024 08:51 Ordering Phys: Tracie Shaikh MD ([email or web address]) Technologist: Exam Location: [facility] [place] Indication: as BP: 135 / 74 HR: 85 Rhythm: Sinus Technical Quality: Adequate MEASUREMENTS (Male / Female) Normal Values 2D ECHO LV Diastolic Diameter PLAX 5.6 cm 4.2 - 5.9 / 3.9 - 5.3 cm IVS Diastolic Thickness 1.4 cm 0.6 - 1.0 / 0.6 - 0.9 cm IVS Systolic Thickness 1.8 cm LVPW Diastolic Thickness 1.5 cm 0.6 - 1.0 / 0.6 - 0.9 cm LVPW Systolic Thickness 1.7 cm LVOT Diameter 2.1 cm LV Ejection Fraction 2D Teich 60.1 % LV Ejection Fraction MOD 4C 47.3 % LV Ejection Fraction MOD 2C 52.1 % LV Ejection Fraction 2C AL 52.7 % LA Diameter 4.6 cm RA Systolic Volume 4C AL 61.2 ml RA Systolic Volume 4C MOD 56.3 ml LA Sys Volume AL 102.2 cm cubed LA Sys Volume Index AL 40.1 cm cubed/m squared Aorta at Sinotubular Diameter 3.6 cm IVC Diameter 2.4 cm M-MODE LA Ao Ratio MM 1.1 AV Cusp Separation MM 1.2 cm DOPPLER AV Peak Velocity 284.8 cm/s LVOT Peak Velocity 81.0 cm/s AV Area Cont Eq vti 1.1 cm squared AV Area Cont Eq pk 0.9 cm squared MV Area PHT 3.6 cm squared Mitral E to A Ratio 1.3 TR Peak Velocity 227.0 cm/s TR Peak Gradient 20.6 mmHg TV Peak E Velocity 101.0 cm/s PV Peak Velocity 104.0 cm/s FINDINGS Left Ventricle Normal left ventricular size, systolic function and wall thickness, with no regional wall motion abnormalities. Left ventricular ejection fraction is estimated at 60%. Grade II/IV diastolic dysfunction, moderately elevated filling pressures. Right Ventricle The right ventricle is normal in size and function. Right Atrium The right atrium is normal in size. Left Atrium Moderately increased left atrial size. Mitral Valve Severely thickened mitral valve. Moderate mitral annular calcification. No mitral valve stenosis. Trace mitral valve regurgitation. Aortic Valve Severe aortic valve calcification. Moderate aortic valve stenosis, mean gradient 13.7 mmHg, ANASTACIA 1.1 cm squared. Trace aortic valve regurgitation. Tricuspid Valve Structurally normal tricuspid valve without significant stenosis or regurgitation. Pulmonary artery systolic pressure is normal. Pulmonic Valve Structurally normal pulmonic valve without significant stenosis. There is no pulmonic regurgitation. Pericardium Normal pericardium without effusion. Aorta Normal ascending aorta dimension. IVC The inferior vena cava appears normal. CONCLUSIONS Normal left ventricular size, systolic function and wall thickness, with no regional wall motion abnormalities. Left ventricular ejection fraction is estimated at 60%. Grade II/IV diastolic dysfunction, moderately elevated filling pressures. Moderately increased left atrial size. Severely thickened mitral valve. Moderate mitral annular calcification. No mitral valve stenosis. Trace mitral valve regurgitation. Severe aortic valve calcification. Moderate aortic valve stenosis, mean gradient 13.7 mmHg, ANASTACIA 1.1 cm squared. Trace aortic valve regurgitation. There is no pericardial effusion. Right atrial pressure is around 5 mm of mercury. Tracie Shaikh MD (Electronically Signed) Final Date: 03 September 2024 03:41 S
== END 2024-08-21 08:39 | disposition home or self-care (01) ==
LOC: RAD 08:38
PROVIDERS: Visit Provider Internal Medicine Cardiovascular Disease
DX: R06.02 Shortness of breath (principal); R93.1 Abnormal findings on diagnostic imaging of heart and coronary circulation; I51.7 Cardiomegaly; I34.81 Nonrheumatic mitral (valve) annulus calcification; I70.0 Atherosclerosis of aorta; I35.0 Nonrheumatic aortic (valve) stenosis
CPT/HCPCS: 93306

== ENCOUNTER 2024-11-29 05:06 | Outpatient (CLI) | payer MEDICARE, MEDICAID, SELFPAY ==
--- NOTE | 2024-11-28 12:08 | PC.NURSE ---
Dr. Shaikh added a C to tomorrows [facility]. Dx: non-rheumatic aortic stenosis.
[2024-11-29] VITALS (22 sets, daily range): BP systolic 109–204; BP diastolic 71–118; PULSE 51–61; RESP 12–20; TEMP 36.7; O2SAT 90–99; BMI 41.1
[2024-11-29] MEDS: diphenhydrAMINE 50 mg Capsule PO (05:28)
[2024-11-29 05:37] LABS: Basophils % 0.5 %; Eosinophils # 0.3 10^3/uL (0.0-0.8); Eosinophils % 5.2 %; Hematocrit 50.2 % (37-53); Lymphocytes # 0.9 10^3/uL (0.8-4.8); Lymphocytes % 15.9 %; Mean Corpuscular HGB Conc 33.5 g/dL (30-55); Mean Corpuscular Hemoglobin 30.9 pg (27-33); Mean Corpuscular Volume 92.4 fl (82-101); Mean Platelet Volume 9.6 fL (7.4-10.4); Monocytes # 0.9 10^3/uL (0.2-0.9); Monocytes % 14.8 %; Neutrophils # 3.64 10^3/uL (1.8-7.7); Neutrophils % 62.7 %; Nucleated Red Blood Cells % 0 %; Platelet Count 177 10^3/cmm (157-399); Red Blood Count 5.43 10^6/uL (3.85-5.65); Red Cell Distribution Width 13.6 % (12.1-15.1)
[2024-11-29 05:55] LABS: Anion Gap 15.2 (5-19); Blood Urea Nitrogen 25 mg/dL (8-23); Calcium 9.4 mg/dL (8.5-10.5); Carbon Dioxide 22 mmol/L (22-29); Chloride 103 mmol/L (98-107); Glucose 197 mg/dL (65-115); Osmolality Calculated 292 mOsm/kg (285-295); Potassium 4.2 mmol/L (3.5-5.1); Sodium 136 mmol/L (136-145)
--- NOTE | 2024-11-29 06:00 | XACV_ITS ---
Exam Room: 2 Ht: 180 cm Wt: 134 kg BSA: 2.65 m2 Gender: Male : 1950 Any Known Allergies: Other Exam Priority: Routine Procedure(s): Procedure Description: Diagnostic procedure Procedure Description: Left Heart Catheterization Procedure Description: Right Heart Catheterization Procedure Description: O2 saturation Procedure Description: Miscellaneous Procedure Description: Angio-Seal Procedure Description: Coronary Angiography Neel JALLOH; Diagnostic Cath Status: Elective Diagnostic Findings * Left Main has no disease. * Proximal Left Anterior Descending: obstructive 60% stenosis, BRITTNEY: 3 flow. * Mid Left Anterior Descending to Distal Left Anterior Descending: severe 90% stenosis, BRITTNEY: 3 flow. * Mid Right Coronary Artery to Distal Right Coronary Artery: total occlusion, BRITTNEY: 0 flow. * Proximal Circumflex: mild 40% stenosis, BRITTNEY: 3 flow. * 1st Diagonal: moderate 50% stenosis, BRITTNEY: 3 flow. * First Obtuse Marginal Branch Segment: severe 90% stenosis, BRITTNEY: 3 flow. * BloodVessel1: severe 90% stenosis, BRITTNEY: 3 flow. * Coronary angiography shows right dominance. Conclusions 1. There is total occlusion coronary artery disease with three vessel disease. 2. Three-vessel disease as above. 3. We were able to cross the aortic valve area with somewhat difficultyPeak to peak gradient was noted to be around 25 mm Hg Aortic valve area 0.9 cm2 Aortic valve area index 0.36. Recommendations * 1-Return to CSU for close monitoring and routine PCI care 2-Statin with LDL goal of 70 mg/dl, aspirin 81 mg p.o. daily for life long 3-Consider CABG with aortic valve replacement versus PCI of LAD and obtuse marginal With combination of TAVR, will refer patient to CT surgery 4-Follow up with Dr. Shaikh in four weeks and establish care with primary care physician. Diagnostic RX Recommendation: other cardiac therapy w/o CABG/PCI Pressures Phase:Rest AO : 261 / 110 ( 128 ) @ 8:12:00 AM 141 / 93 ( 110 ) @ 8:13:00 AM 130 / 82 ( 105 ) @ 8:17:00 AM 113 / 72 ( 80 ) @ 8:20:00 AM 160 / 82 ( 113 ) @ 8:37:00 AM LV : 185 / 13 / 22 @ 8:37:00 AM 185 / 14 / 20 @ 8:38:00 AM RV : 66 / 12 / 21 @ 7:58:00 AM PA : 63 / 32 ( 40 ) @ 7:57:00 AM RA : a wave = 21 v wave = 20 mean = 18 @ 7:59:00 AM PCW : a wave = 30 v wave = 29 mean = 28 @ 7:57:00 AM a wave = 27 v wave = 29 mean = 23 @ 7:58:00 AM O2 Content Phase:Rest PA : O2 Content O2: 67.5 @ 8:17:00 AM Saturations Phase:Rest AO : 96 @ 8:13:00 AM RA : 75 @ 8:12:00 AM RV : 68 @ 8:20:00 AM PA : 68 @ 8:17:00 AM Cardiac Output Phase:Rest Mark : 4 @ 7:48:34 AM Mark Cardiac Index: 2 @ 7:48:34 AM Flow Phase:Rest Qp : 4 @ 7:48:34 AM Qs : 6 @ 7:48:34 AM Valves Phase:DefaultPhase AV : 25.0 @ 7:48:34 AM 25.0 @ 7:48:34 AM AV Mean Gradient: 37.0 @ 7:48:34 AM 37.0 @ 7:48:34 AM AV Flow: 239 @ 7:48:34 AM AV Area: 0.9 @ 7:48:34 AM AV Area Index: 0.36 @ 7:48:34 AM Clinical Evaluation EBL: 5mL-10mL Procedural Details Pre-Procedure Time Out. Identified patient by full name and date of as verbalized by the patient/guarantor. Does the consent match the physician's order: Yes. Accurate & Complete Informed Consent: Yes. Inpatient/Outpatient History & Physical on Chart: Yes. If H&P is completed, is and addenduem needed: No; If yes, is the addendum complete: N/A. Visualize and Verify Site with Patient/Guarantor: N/A. Relevant Radiology Images available: Yes. Pre-op teaching completed and patient verbalized understanding. The risks, benefits, and alternatives of sedation and/or procedure were discussed by physician. The patient agrees to continue. Procedure started. Physician arrived. [facility] Clinical Fraility Score: 3: Managing Well. Customs Collector Indications: Valvular Disease. Chest Pain Symptom Assessment: Non-anginal Chest Pain. Correct patient, site and procedure confirmed by cath team. PERRLA. Strong, equal hand drying machine operator bilaterally. Lungs clear x 5 lobes. IV Site on Arrival: 20 gauge in the right anticubital. IV Site on Arrival: 20 gauge in the left anticubital. IV Fluids: 0.9% NaCl at KVO. 0 mL infused prior to labor expediter. Pre Procedural Pulses: bilateral dorsalis pedis was Doppled. Pre Procedural Pulses: bilateral posterior tibial was Doppled. Pre Procedural Pulses: bilateral radial was 2+. Oxygen started at 2liters/min via nasal canula. bilateral groins was prepped with chloroprep then draped in the usual sterile fashion. right radial was prepped with chloroprep then draped in the usual sterile fashion. right brachial was prepped with chloroprep then draped in the usual sterile fashion. Baseline sample Acquired. HR: 65 BPM. Physician scrubbed in. Immediate Pre-Procedure Time Out. Correct Patient: Yes; Correct Procedure: Yes; Correct Site: Yes; Correct Patient Position: Yes; Correct Supplies: Yes; Dried Flammable Prep: Yes; Blood Products Available: N/A;. Lidocaine 1% infiltrated to the right brachial. Sheath wire inserted through the brachial IV catheter. IV catheter out OTW. Or[place]-Feliberto MON catheter inserted. Oximetry samples were obtained. Normal venous range: 60-85%. Normal arterial range: 95-100%. Pressure measurements obtained. [place]-Feliberto out. Lidocaine 1% infiltrated to the right groin. Arterial access obtained with micropuncture set. A 5 omani JL4 catheter in over wire. Physician review of cine films. Catheter removed over the standard wire. A 5 omani JR4 catheter in over wire. Multiple views taken of right coronary artery. Multiple views taken of left coronary artery. Catheter removed over the standard wire. A 5 omani Angled Pig catheter in over wire. Catheter removed over the exchange wire. A 5 omani MPA1 catheter in over wire. Wire out. Glidewire inserterd. Catheter removed over the glide wire. A 5 omani Saud catheter in over wire. Wire out. Exchange wire inserted. Catheter removed over the exchange wire. [place] wire inserted OTW. Gradient taken: AO 160/82(113); LV 185/13,22; Mean: 37mmHg, Peak to Peak: 25mmHg, SEP: 18sec/min; HR: 66 BPM; SpO2: 98%. EDP Sample taken: LV 185/14,20; HR: 63 BPM; SpO2: 98%. Catheter removed over the exchange wire. A Angio-Seal VIP ([place]) was successful obtaining hemostatsis at the Right Femoral artery insertion site. A Manual Compression was successful obtaining hemostatsis at the Right Brachial Vein insertion site. Vital chart was stopped. Angioseal placed without complications. No signs or symptoms of hematoma noted. Sterile dressing applied per usual sterile fashion. Post Procedure: Pulses reassessed and unchanged. PERRLA. Strong, equal hand drying machine operator bilaterally. No VTE prophylaxis required. Medication's Wasted: Heparin = 4000 units. Medication's Wasted: Other = Fentanyl 50 mcg. Medication's Wasted: Other = Hydralazine 10 mg. Total IV fluids: 75 mL. Post-op diagnosis: Aortic Valve Stenosis. Complications: None. Estimated blood loss: 5mL-10mL. Responsiveness - Normal response to verbal stimuli; alert and oriented, PERRLA. Airway - Unaffected, no intervention required; spontaneous ventilation. Circulation: W/N/L, pulses unchanged. Nausea/Vomiting: No. Procedure completed. Patient transferred by stretcher to CPRU. Access Site Site: Right Brachial Vein Sheath Size: 6 Fr Hemostasis Method: Manual Compression Hemostasis Success: Successful Site: Right Femoral artery Sheath Size: 6 Fr Hemostasis Method: Angio-Seal VIP (St. Rodriguez) Hemostasis Success: Successful Procedure Medications Start: 6:47 AM Stop: 6:47 AM Medication: Versed 1 mg and Fentanyl 25 mcg Amount: 1 Route: I.V. Start: 7:11 AM Stop: 7:11 AM Medication: Versed Amount: 1 mg Route: I.V. Start: 7:40 AM Stop: 7:40 AM Medication: Fentanyl Amount: 25 mcg Route: I.V. Start: 7:41 AM Stop: 7:41 AM Medication: Hydralazine Amount: 10 mg Route: I.V. I, the attending physician, have reviewed and verified all procedure medications. Yes, all medications given per verbal order History/Risk Factors Hypertension: No Dyslipidemia: Yes Peripheral Arterial Disease (PAD): No Myocardial Infarction (WI): No Obesity: Yes Renal Disease: No Tobacco Use: Former Prior Interventions PCI: Yes CABG: No Valve Surgery: No Date of PCI: 10/08/2022 Report Signatures Finalized by Tracie Shaikh MD on 12/15/2024 09:30 PM
--- NOTE | 2024-11-29 06:43 | W.PM.OPSFHP ---
Same Day Surgery H&P Indication for Procedure/HPI DATE OF PROCEDURE: November 29, 2024 CHIEF COMPLAINT/INDICATIONFOR SURGICAL PROCEDURE: Severe aortic valve stenosis Angina Coronary artery disease Preaortic valve surgery assessment 74-year-old male past medical history significant for hypertension hyperlipidemia coronary artery disease prior multiple PCI's with worsening of shortness of breath anginal-like symptoms and severe aortic valve stenosis he is here for left heart catheterization before possible TAVR versus SAVR. Patient is here for right and left heart catheterization. Patient has been explained all risk-benefit and alternative for the procedure. He understand risk of stroke major bleed which is 2%. He understand risk for contrast-induced nephropathy urgent emergent bypass surgery hematoma pseudoaneurysm which is 6%. Patient would like to proceed with that. PREOP DIAGNOSIS: Severe aortic valve stenosis, Preop valve, angina PLANNED PROCEDURE: Operation Date: 11/29/24 06:00 Proposed Procedures p Cardiac Catheterization - [facility] w/w/o LV COROS(Left) - Tracie Shaikh MD As above ROS As above Medications/Allergies* Home Medications ?Medication ?Instructions ?Recorded ?Confirmed ?Type omeprazole 40 mg capsule,delayed 40 mg PO DAILY Acid Reflux 10/21/24 11/29/24 History release Allergies/Adverse Reactions Allergy/AdvReac Type Severity Reaction Status Date / Time No Known Allergies Allergy Unverified 10/21/24 13:12 Current Medications: Generic Name Dose Route Start Last Admin Trade Name Freq PRN Reason Stop Dose Admin Sodium Chloride 1,000 mls @ 50 mls/hr 11/29/24 05:00 11/29/24 05:08 Sodium Chloride 0.9% IV 11/30/24 00:59 Not Given .Q20H ONE Pertinent History/Comorbid Conditions* Medical History (Updated 08/19/24 @ 23:50 by Tracie Shaikh MD) Lymphadenopathy Esophageal dysmotility due to systemic disease Colon cancer screening Anesthesia complication Reflux large amount of bile on induction requiring emergent intubation. Recommend RSI for future anesthetics. 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 Surgeon: Dr. Tena Zaragoza MD. History of bilateral knee replacement History of inguinal hernia repair 1955 History of coronary angioplasty with insertion of stent Family History (Updated 04/05/22 @ 11:03 by Pancho Perez) Father, at age 67 Mother, at age 81 Diabetes Father CAD (coronary artery disease) Father Aneurysm Mother Dementia Mother Heart disease Father Hypertension Father Social History Smoking and tobacco/nicotine status: former use of tobacco/nicotine Alcohol intake: never Substance/Drug Use: never Caregiver/support person: No Lives independently: Yes Marital status: Current occupational status: employed Do you think of yourself as: Straight/Heterosexual Pertinent Exam Findings alert, oriented x 3, clear to auscultation bilaterally, regular rate & rhythm and operative site marked Conscious Sedation Assessment PATIENT ASSESSED PRIOR TO SEDATION, WITH NO CHANGE NOTED: Yes AIRWAY EVAL/ANESTHESIA PLAN: ASA II, Risks, benefits & alternatives of sedation and/or procedure discussed and Patient agrees to continue as planned Recommendations Risks and benefits of procedure reviewed and Patient/family agree to proceed Surgery/Procedure today Coding Level of Care Code Acute Code for Summerg Fwd
[2024-11-29 07:22] LABS: Arterial Blood Gas Hematocrit 49.1 % (42-52); Arterial Blood Gas Hematocrit 49.2 % (42-52); Blood Gas Operator Identificat CAK; Blood Gas Operator Identificat WALCI; Blood Gas Sample Site CATH LAB; Blood Gas Sample Type Arterial; Blood Gas Sample Type Venous; Carboxyhemoglobin 0.4 %THgb (0.4-20.1); Carboxyhemoglobin 1.2 %THgb (0.4-20.1); HGB O2 Sat 65.9 % (95-100); HGB O2 Sat 95.2 % (95-100); Methemoglobin 0.1 % (0.4-1.5); Methemoglobin 1.1 % (0.4-1.5); Oxygen Device ROOM AIR; Total Hemoglobin 16.1 g/dL (14-18)
[2024-11-29 07:24] LABS: Alveolar-Arterial Oxygen Gradi 7.2 mmHg (5-10); Arterial Blood Gas Hematocrit 46.5 % (42-52); Arterial Blood Gas Hematocrit 48.7 % (42-52); Blood Gas Operator Identificat WALCI; Blood Gas Sample Site CATHLAB; Blood Gas Sample Type Arterial; Blood Gas Sample Type Not specified; Carboxyhemoglobin 1.2 %THgb (0.4-20.1); Carboxyhemoglobin 1.3 %THgb (0.4-20.1); HGB O2 Sat 66.7 % (95-100); HGB O2 Sat 73.8 % (95-100); Methemoglobin 0.2 % (0.4-1.5); Methemoglobin 1.1 % (0.4-1.5); Oxygen Device ROOM AIR; Total Hemoglobin 15.2 g/dL (14-18); Total Hemoglobin 15.9 g/dL (14-18)
[2024-11-29 07:25] LABS: Blood Gas Operator Identificat CAK
[2024-11-29 07:41] LABS: Blood Gas Sample Site CATHLAB
[2024-11-29 07:42] LABS: Blood Gas Sample Site CATHLAB
--- NOTE | 2024-11-29 12:11 | PC.NURSE ---
1200 - patient right femoral access site checked prior to ambulation. Site clean, dry with no hematoma noted. Patient ambulated without assistance. Site checked post ambulation and no hematoma noted.
== END 2024-11-29 13:01 | disposition home or self-care (01) ==
PROVIDERS: Visit Provider Internal Medicine Cardiovascular Disease
DX: I25.10 Atherosclerotic heart disease of native coronary artery without angina pectoris (principal); I25.82 Chronic total occlusion of coronary artery; E78.5 Hyperlipidemia, unspecified; E66.9 Obesity, unspecified; Z68.41 Body mass index [BMI] 40.0-44.9, adult; Z87.891 Personal history of nicotine dependence; K21.9 Gastro-esophageal reflux disease without esophagitis; Z95.5 Presence of coronary angioplasty implant and graft; I12.9 Hypertensive chronic kidney disease with stage 1 through stage 4 chronic kidney disease, or unspecified chronic kidney disease; E11.22 Type 2 diabetes mellitus with diabetic chronic kidney disease; N18.30 Chronic kidney disease, stage 3 unspecified; Z82.49 Family history of ischemic heart disease and other diseases of the circulatory system; Z83.3 Family history of diabetes mellitus
CPT/HCPCS: 36415; 80048; 82810; 85025; 93460; 96374; 99152; 99153; C1751; C1760; C1769; C1887; C1894; G0269; J0360; J1644; J2250; J3010; J7030; J9999; Q0163; Q9967

== ENCOUNTER → 2024-12-16 12:21 | Outpatient (BNVA) | payer MEDICARE, MEDICAID, SELFPAY | PROVIDERS: Visit Provider Nurse Practitioner Family | DX: I35.0 Nonrheumatic aortic (valve) stenosis (principal); I25.10 Atherosclerotic heart disease of native coronary artery without angina pectoris; Z09 Encounter for follow-up examination after completed treatment for conditions other than malignant neoplasm; K21.01 Gastro-esophageal reflux disease with esophagitis, with bleeding; Z79.01 Long term (current) use of anticoagulants; Z79.82 Long term (current) use of aspirin; Z95.5 Presence of coronary angioplasty implant and graft; Z87.891 Personal history of nicotine dependence; R00.2 Palpitations | CPT/HCPCS: 80048; 99214 ==

== ENCOUNTER → 2024-12-23 12:11 | Outpatient (BNVA) | payer MEDICARE, MEDICAID, SELFPAY | DX: E11.8 Type 2 diabetes mellitus with unspecified complications (principal) | CPT/HCPCS: 80053; 83036; 85025 ==

== ENCOUNTER → 2025-01-14 11:34 | Outpatient (BNVA) | payer MEDICARE, MEDICAID, SELFPAY | DX: R39.9 Unspecified symptoms and signs involving the genitourinary system (principal) | CPT/HCPCS: 81000; 87086 ==

== ENCOUNTER → 2025-01-28 11:15 | Outpatient (BNVA) | payer MEDICARE, MEDICAID, SELFPAY | DX: N40.0 Benign prostatic hyperplasia without lower urinary tract symptoms (principal); Z12.5 Encounter for screening for malignant neoplasm of prostate; N52.9 Male erectile dysfunction, unspecified | CPT/HCPCS: 81000; 82043; 87086; 87491; 87591; 87661; G0103 ==

== ENCOUNTER → 2025-03-24 09:10 | Outpatient (BNVA) | payer MEDICARE, MEDICAID, SELFPAY | DX: E11.8 Type 2 diabetes mellitus with unspecified complications (principal) | CPT/HCPCS: 80053; 80061; 83036 ==

== ENCOUNTER → 2025-06-23 08:57 | Outpatient (BNVA) | payer MEDICARE, MEDICAID, SELFPAY | DX: E11.69 Type 2 diabetes mellitus with other specified complication (principal) | CPT/HCPCS: 80053; 83036 ==

== ENCOUNTER 2025-07-19 19:13 | Emergency (ER) | payer MEDICARE, MEDICAID, SELFPAY ==
--- OUTSIDE RECORDS SUMMARY | 2024-02-19 07:00 | XMS_ITS ---
Author Organization [employer] Address [address] [place] [address] Care Team Providers Care Instant Potato Processor Name Role Phone John Moncada MD Primary Care Provider Unavailab YANCY Glover Unavailable [phone] REASON FOR VISIT w/Beltran - IC inj consult Encounters Encounter Location Date Provider Diagnosis [place], [facility] [address] [place] [address] 02/19/2024 YANCY YI Plan Of Treatment No Information Progress Notes * Elieser CHAVEZ HDOB: 3 (74 yo M)Acc No.[id number]:02/19/2024 Progress Note Patient: Elieser MCNALLY Provider: LUIZ Aguirre :1950 A ge:73 Y S ex:Male Date:02/19/2024 Address:[address] Pcp:John Moncada MD Subjective: * Chief Complaints: * 1 . w/Beltran - IC inj consult. * Medical History: Objective: * Vitals: Assessment: Plan: * Treatment: * Billing Information: * Visit Code: * Procedure Codes: * Electronic signature of YANCY YI APRN on 07/19/2025 at 07:24 PM POWER STATION OPERATOR Sign off status: Pending * Provider: LUIZ Aguirre Date: 0 02/19/2024 Generated for Printi ng/Faxing/eTransmitting on: 1 09/19/2024 07:24 PM POWER STATION OPERATOR
[2025-07-19] VITALS (7 sets, daily range): BP systolic 115–222; BP diastolic 76–122; PULSE 90–93; RESP 15–20; TEMP 36.6; O2SAT 90–94; BMI 39.3
--- OUTSIDE RECORDS SUMMARY | 2025-07-19 19:24 | XMS_ITS | Encounter Summary ---
Author Organization [facility] Address [address] [place] [address] Care Team Providers Care Field Contact Person Name Role Phone LAZARA Calabrese Sr., Adonis Pan Primary Care Pro vider Encounter Details Date Type Department Care Team (Latest Contact Info) Description 11/08/2005 Outpatient Historical [facility] [address] [place] [address] Mateo Greer MD [address] [place] [phone] Other and Unspecified Derangement of Medial Meniscus (Primary Dx) Social History Tobacco Use Types Packs/Day Years Used Date Smoking Tobacco: Never Assessed Sex and Gender Information Value Date Recorded Sex Assigned at Not on file 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
--- OUTSIDE RECORDS SUMMARY | 2025-07-19 19:24 | XMS_ITS | Encounter Summary ---
Author Organization [facility] Address [address] [place] [address] Care Team Providers Care Cyber Forensics Analyst Name Role Phone LAZARA Calabrese Sr., Adonis Pan Primary Care Pro vider Encounter Details Date Type Department Care Team (Latest Contact Info) Description 11/21/2005 Outpatient Historical [facility] Orthopedics- 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
--- OUTSIDE RECORDS SUMMARY | 2025-07-19 19:24 | XMS_ITS | Encounter Summary ---
Author Organization [facility] Address [address] [place] [address] Care Team Providers Care Customs Brokerage Agent Name Role Phone LAZARA Calabrese Sr., Adonis Pan Primary Care Pro vider Encounter Details Date Type Department Care Team (Latest Contact Info) Description 11/03/2005 Outpatient Historical [facility] Orthopedics- 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
--- OUTSIDE RECORDS SUMMARY | 2025-07-19 19:24 | XMS_ITS | Encounter Summary ---
Author Organization [facility] Address [address] [place] [address] Care Team Providers Care Fudger Name Role Phone Bharati Farley, LAZARA, Adonis Pan Primary Care Pro vider Reason for Visit * Reason Onset Date Comments Follow Up 06/24/2025 Appt needed Encounter Details Date Type Department Care Team (Late st Contact Info) Description 06/24/2025 Telephone [facility] [address] [facility] [address] [place] [phone] Mina Del Rio MD [address] [facility] [address] [place] [phone] Follow Up (Appt needed) Social History Tobacco Use Types Packs/Day Years Used Date Smoking Tobacco: Never Smokeless Tobacco: Never Alcohol Use Standard Drinks/Week Comments No 0 (1 standard drink = 0.6 oz pur e alcohol) Feeling Safe Answer Date Recorded Are you in a relationship wi th someone who hurts you emotionally and/or physically? No 04/11/2025 Sex and Gender Information Value Date Recorded Sex Assigned at Not on file Legal Sex Male 8:49 AM HR INTERN Gender Identity Not on file Sexual Orientation Not on file documented as of this encounter Miscellaneous Notes * Telephone Encounter - Svetlana Nava RN - 06/27/2025 4:23 PM CST I called and spoke to Elieser he is unable to make appointment on Monday with Dr. Del Rio Routed message to see how to follow up. INTERN * Telephone Encounter - Svetlana Nava, RN - 06/27/2025 4:21 PM CST Images from the original note were not included. (Newest Message First) View All Conversations on this Encounter Gloria Banegas FNP to Me (Selected Message) 06/27/25 4:05 PM He's got significant CAD, 3 months post cath. Looks like [facility] was going to review for revascularization options. Ok to make appt with him in Dec if he has availability, otherwise we can get his recs on who he wants pt to follow with. Thanks Me to Gloria Banegas FNP Brockman, Pepper JP 06/24/25 11:10 AM Recommendation? 06/24/25 10:32 AM Alina Treadwell routed this conversation to [facility] Nurses Invasive 4 INTERN * Telephone Encounter - Alina Treadwell - 06/24/2025 10:29 AM CST Provider: Eliane , call pt MESSAGE [facility] and [facility] on 04/11/25 Pt inquires when he can expect a f/u appt. He also inquires when he is needing to schedule his next echo. Alina Treadwell, [facility] INTERN documented in this encounter Plan of Treatment Not on file documented as of this encounter Visit Diagnoses Not on filedocumented in this encounter Care Teams Fudger Relationship Specialty Start Date End Date Bharati Farley, LAZARA Velasquez [address] [place] [address] PCP - General 11/16/20 documented as of this encounter
--- OUTSIDE RECORDS SUMMARY | 2025-07-19 19:24 | XMS_ITS | Encounter Summary ---
Author Organization [facility] Address [address] [place] [address] Care Team Providers Care Surgical Physician Assistant Name Role Phone LAZARA Calabrese Sr., Michael Dave Primary Care Pro vider Encounter Details Date Type Department Care Team (Latest Contact Info) Description 02/19/2002 Outpatient Historical [facility] Medicine [place] [address] [facility] [address] [place] [phone] Guanakito Bland DO NO ADDRESS ON FILE LOCAL SKIN INFECTION NOS (Primary Dx) Social History Tobacco Use Types Packs/Day Years Used Date Smoking Tobacco: Never Assessed Sex and Gender Information Value Date Recorded Sex Assigned at Not on file 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
--- OUTSIDE RECORDS SUMMARY | 2025-07-19 19:24 | XMS_ITS | Encounter Summary ---
Author Organization [facility] Address [address] [place] [address] Care Team Providers Care Poultryman Name Role Phone LAZARA Calabrese Sr., Adonis Pan Primary Care Pro vider Encounter Details Date Type Department Care Team (Latest Contact Info) Description 12/19/2005 Outpatient Historical [facility] Orthopedics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
--- OUTSIDE RECORDS SUMMARY | 2025-07-19 19:24 | XMS_ITS | Encounter Summary ---
Author Organization [facility] Address [address] [place] [address] Care Team Providers Care Occupational Work Experience Teacher Name Role Phone LAZARA Calabrese Sr., Michael Dave Primary Care Pro vider Encounter Details Date Type Department Care Team (Latest Contact Info) Description 10/20/2004 Outpatient Historical [facility] Medicine [place] [address] [facility] [address] [place] [phone] Kay Lucio MD NO ADDRESS ON FILE IMPOTENCE, ORGANIC ORIGN (Primary Dx); HYPERTENSION NOS Social History Tobacco Use Types Packs/Day Years Used Date Smoking Tobacco: Never Assessed Sex and Gender Information Value Date Recorded Sex Assigned at Not on file 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
--- OUTSIDE RECORDS SUMMARY | 2025-07-19 19:25 | XMS_ITS | Encounter Summary ---
Author Organization [facility] Address [address] [place] [address] Care Team Providers Care Refuse Collector Name Role Phone Bharati Farley, LAZARA, Adonis Pan Primary Care Pro vider Encounter Details Date Type Department Care Team (Late st Contact Info) Description 10/13/2014 Lab Requisition [facility] Laboratory Services [place] [address] [place] [address] Guanakito Bland, NO ADDRESS ON FILE Sick Social History Tobacco Use Types Packs/Day Years Used Date Smoking Tobacco: Never Assessed Sex and Gender Information Value Date Recorded Sex Assigned at Not on file 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 Gender Identity Not on file Sexual Orientation Not on file documented as of this encounter Plan of Treatment Not on file documented as of this encounter Procedures Procedure Name Priority Date/Time Associated Diagnosis Comments ALT Routine 10/13/2014 9:17 PM CDT Sick [ICD-9-CM] LDL CHOLESTEROL, DIRECT Routine 10/13/2014 9:17 PM CDT Sick [ICD-9-CM] CK Routine 10/13/2014 9:17 PM CDT Sick [ICD-9-CM] documented in this encounter Results * LDL CHOLESTEROL, DIRECT (10/13/2014 9:17 PM CDT) LDL CHOLESTEROL, DIRECT 145 mg/dL 10/13/2014 9:44 PM CDT [facility] LABORATORY SERVICES [facility] Blood Collection / Unknown 10/13/2014 9:17 PM CDT 10/13/2014 9:17 PM CDT Narrative [facility] LABORATORY [facility] - 10/13/2014 9:44 PM CDT LDL CHOLESTEROL mg/dL Optimal <100 Low risk 100-129 Borderline high 130-159 High 160-189 Very high >=190 Based on AHA/NCEP Guidelines. Guanakito Bland DO CHEMISTRY ORDERABLES Final Resu lt Performing Organization Address City/[facility]/ZIP Co de Phone Number [facility] [employer] [facility] CLIA # [id number] [address] [place] [phone] * CK (10/13/2014 9:17 PM CDT) CK 196 26 - 308 U/L 10/13/2014 9:44 PM CDT [facility] [employer] [facility] Blood Collection / Unknown 10/13/2014 9:17 PM CDT 10/13/2014 9:17 PM CDT Guanakito Bland DO CHEMISTRY ORDERABLES Final Resu lt Performing Organization Address [facility] Co de Phone Number [facility] [employer] [facility] CLIA # [id number] [address] [place] [id number] * ALT (10/13/2014 9:17 PM CDT) ALT 46 30 - 65 U/L 10/13/2014 9:44 PM CDT [facility] [employer] [facility] Blood Collection / Unknown 10/13/2014 9:17 PM CDT 10/13/2014 9:17 PM CDT us Guanakito Bland DO CHEMISTRY ORDERABLES Final Resu lt Performing Organization Address [facility] Co de Phone Number [facility] [employer] [facility] CLIA # [id number] [address] [place] [phone] documented in this encounter Visit Diagnoses Diagnosis Sick Other unknown and unspecified cause of morbidity or mortality documented in this encounter Care Teams Refuse Collector Relationship Specialty Start Date End Date Bharati Farley, LAZARA Velasquez [address] [place] [address] PCP - General NURSE PRACTITIONER 05/13/15 documented as of this encounter
--- OUTSIDE RECORDS SUMMARY | 2025-07-19 19:25 | XMS_ITS | Encounter Summary ---
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 Gender Identity Not on file Sexual Orientation Not on file documented as of this encounter Plan of Treatment Not on file documented as of this encounter Procedures Procedure Name Priority Date/Time Associated Diagnosis Comments CBC WITH DIFFERENTIAL Routine 12/24/2012 9:01 PM CDT SEDIMENTATION RATE Routine 12/24/2012 9: 01 PM CDT TSH Routine 12/24/2012 9:01 PM CDT CK Routine 12/24/2012 9:01 PM CDT COMPREHENSIVE METABOLIC PANEL Routine 12/24/2012 9:01 PM CDT documented in this encounter Results * TSH (12/24/2012 9:01 PM CDT) TSH 2.26 0.30 - 4.80 uIU/mL 12/24/2012 10:45 PM CDT [facility] LABORATORY SERVICES - [place] Blood specimen (specimen) 12/24/2012 9:01 PM CDT 12/24/2012 10:01 PM CDT Nela Mata [facility] CHEMISTRY ORDERABLES Final Result Performing Organization Address [facility] Co de Phone Number [facility] LABORATORY SERVICES - [place] CLIA # [id number] [address] [place] [address] * SEDIMENTATION RATE (12/24/2012 9:01 PM CDT) ESR (SEDIMENTATION RATE) 9 0 - 20 mm/Hr 12/24/2012 10:22 PM CDT [facility] LABORATORY [facility] [place] Blood specimen (specimen) 12/24/2012 9:01 PM CDT 12/24/2012 10:01 PM CDT Nela Mata [facility] HEMATOLOGY ORDERABLES Final Result Performing Organization Address City/[facility] Co de Phone Number [facility] LABORATORY SERVICES - [place] CLIA # [id number] [address] [place] [address] * (ABNORMAL) COMPREHENSIVE METABOLIC PANEL (12/24/2012 9:01 PM CDT) SODIUM 139 136 - 145 mmol/L 12/24/2012 10:45 PM CDT [facility] LABORATORY SERVICES - [place] POTASSIUM 3.8 3.5 - 5.1 mmol/L 12/24/2012 10:45 PM CDT [facility] LABORATORY SERVICES - [place] CHLORIDE 103 98 - 107 mmol/L 12/24/2012 10:45 PM CDT [facility] - [place] CO2 26 21 - 32 mmol/L 12/24/2012 10:45 PM CDT [facility] - [place] CALCIUM 9.0 8.5 - 10.1 mg/dL 12/24/2012 10:45 PM CDT [facility] LABORATORY SERVICES - [place] BUN 20(H) 7 - 18 mg/dL 12/24/2012 10:45 PM CDT [facility] LABORATORY SERVICES - [place] CREATININE 1.10 0.60 - 1.30 mg/dL 12/24/2012 10:45 PM CDT [facility] LABORATORY [facility] [place] GLUCOSE 104 74 - 106 mg/dL 12/24/2012 10:45 PM CDT [facility] TOTAL PROTEIN 8.5(H) 6.4 - 8.2 g/dL 12/24/2012 10:45 PM CDT [facility] ALBUMIN 4.1 3.4 - 5.0 g/dL 12/24/2012 10:45 PM CDT [facility] BILIRUBIN TOTAL 0.3 0.2 - 1.0 mg/dL 12/24/2012 10:45 PM CDT [facility] ALKALINE PHOSPHATASE 113 50 - 136 U/L 12/24/2012 10:45 PM CDT [facility] AST 23 15 - 37 U/L 12/24/2012 10:45 PM CDT [facility] ALT 46 30 - 65 U/L 12/24/2012 10:45 PM CDT [facility] GFR 68 >=60 mL/min/1.7 3 sq meter 12/24/2012 10:45 PM CDT [facility] GFR, 83 >=60 mL/min/1.7 3 sq meter 12/24/2012 10:45 PM T [facility] Blood specimen (specimen) 12/24/2012 9:01 PM CDT 12/24/2012 10:01 PM CDT Narrative [facility] - 12/24/2012 10:45 PM CDT eGFR has not been validated for use in the elderly (> 70 years of age), women, patients with serious co-morbid conditions, or persons with extremes of body size or muscle mass and should also be interpreted with caution in patients with acute kidney failure, dialysis dependant patients, patients reporting exceptional dietary intake (e.g. vegetarian diet, high protein diets, creatine supplementation), and patients with severe liver disease. Based on National Kidney Disease Education Program Nela Mata RESTAURANT HOURLY MANAGER CHEMISTRY ORDERABLES Final Result [facility] [employer] [facility] CLIA # [id number] [address] [facility] [address] [place] [address] * CK (12/24/2012 9:01 PM CDT) CK 222 26 - 308 U/L 12/24/2012 10:45 PM CDT [facility] LABORATORY SERVICES - [place] Blood specimen (specimen) 12/24/2012 9:01 PM CDT 12/24/2012 10:01 PM CDT Nela Mata RESTAURANT HOURLY MANAGER CHEMISTRY ORDERABLES Final Result [facility] LABORATORY SERVICES - [place] CLIA # [id number] 100 [facility] [address] [place] [address] * (ABNORMAL) CBC WITH DIFFERENTIAL (12/24/2012 9:01 PM CDT) Pathologist [facility] WBC 8.1 4.2 - 9.1 K/uL 12/24/2012 10:16 PM CDT [facility] LABORATORY [facility] [place] RBC 4.96 4.63 - 6.08 M/uL 12/24/2012 10:16 PM CDT [facility] LABORATORY SERVICES - [place] HEMOGLOBIN 14.9 13.7 - 17.5 g/dL 12/24/2012 10:16 PM CDT [facility] LABORATORY SERVICES - [place] HEMATOCRIT 42.9 40.1 - 51.0 % 12/24/2012 10:16 PM CDT [facility] LABORATORY SERVICES - [place] MCV 86.5 79.0 - 92.2 fL 12/24/2012 10:16 PM CDT [facility] LABORATORY SERVICES - [place] MCH 30.0 25.7 - 32.2 pg 12/24/2012 10:16 PM CDT [facility] LABORATORY SERVICES - [place] MCHC 34.7 32.3 - 36.5 g/dL 12/24/2012 10:16 PM CDT [facility] LABORATORY SERVICES - [place] RDW 14.2 11.0 - 14.5 % 12/24/2012 10:16 PM CDT [facility] LABORATORY SERVICES - [place] RDW-STDEV 43.9 37.0 - 54.0 fL 12/24/2012 10:16 PM CDT [facility] LABORATORY SERVICES - [place] PLATELETS 234 130 - 400 K/uL 12/24/2012 10:16 PM CDT [facility] LABORATORY SERVICES - [place] MPV 9.6(L) 10.0 - 14.8 fL 12/24/2012 10:16 PM CDT [facility] - [place] NEUTROPHILS 66 34 - 68 % 12/24/2012 10:16 PM CDT [facility] [place] LYMPHOCYTES 22 22 - 53 % 12/24/2012 10:16 PM CDT [facility] [place] MONOCYTES 10 5 - 12 % 12/24/2012 10:16 PM CDT [facility] [place] EOSINOPHILS 3 1 - 7 % 12/24/2012 10:16 PM CDT [facility] [place] BASOPHILS 0 0 - 1 % 12/24/2012 10:16 PM CDT [facility] [place] NEUTROPHIL ABSOLUTE 5.28 1.78 - 5.38 K/uL 12/24/2012 10:16 PM CDT [facility] [place] LYMPHOCYTE ABSOLUTE 1.73 1.20 - 3.40 K/uL 12/24/2012 10:16 PM CDT [facility] [place] MONOCYTE ABSOLUTE 0.77 0.30 - 0.82 K/uL 12/24/2012 10:16 PM CDT [facility] - [place] EOSINOPHIL ABSOLUTE 0.26 0.04 - 0.54 K/uL 12/24/2012 10:16 PM CDT [facility] [place] BASOPHILS ABSOLUTE 0.02 0.01 - 0.08 K/uL 12/24/2012 10:16 PM CDT [facility] LABORATORY SERVICES - [place] Blood specimen (specimen) 12/24/2012 9:01 PM CDT 12/24/2012 10:01 PM CDT Nela Mata RESTAURANT HOURLY MANAGER HEMATOLOGY ORDERABLES Final Result [facility] LABORATORY SERVICES - [place] CLIA # [id number] [address] [facility] [address] [place] [address] documented in this encounter Visit Diagnoses Not on filedocumented in this encounter Care Teams Skein Washer Relationship Specialty Start Date End Date Bharati Farley, LAZARA Velasquez [address] [place] [address] PCP - General NURSE PRACTITIONER 05/13/15 documented as of this encounter
--- OUTSIDE RECORDS SUMMARY | 2025-07-19 19:25 | XMS_ITS | Encounter Summary ---
Author Organization [facility] Address [address] [place] [address] Care Team Providers Care Joint Sealer Name Role Phone Bharati Farley, LAZARA, Adonis Pan Primary Care Pro vider Encounter Details Date Type Department Care Team (Late st Contact Info) Description 01/12/2015 Lab Requisition [facility] General Laboratory Services [place] [address] [place] [address] Guanakito Bland, NO ADDRESS ON FILE Sick Social History Tobacco Use Types Packs/Day Years Used Date Smoking Tobacco: Never Assessed Sex and Gender Information Value Date Recorded Sex Assigned at Not on file 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 Gender Identity Not on file Sexual Orientation Not on file documented as of this encounter Plan of Treatment Not on file documented as of this encounter Procedures Procedure Name Priority Date/Time Associated Diagnosis Comments PSA Routine 01/12/2015 10:24 PM CDT Sick [ICD-9-CM] CK Routine 01/12/2015 10:24 PM CDT Sick [ICD-9-CM] LIPID PANEL Routine 01/12/2015 10:24 PM CDT Sick [ICD-9-CM] COMPREHENSIVE METABOLIC PANEL Routine 01/12/2015 10:24 PM CDT Sick [ICD-9-CM] documented in this encounter Results * PSA (01/12/2015 10:24 PM CDT) PSA 1.7 0.0 - 4.0 ng/mL 01/12/2015 11:54 PM CDT [facility] Blood 01/12/2015 10:2 4 PM CDT 01/12/2015 10:24 PM CDT Guanakito Bland DO CHEMISTRY ORDERABLES Final Resu lt Performing Organization Address City/[facility]/ZIP Co de Phone Number [facility] [employer] [facility] CLIA # [id number] [address] [place] [phone] * (ABNORMAL) LIPID PANEL (01/12/2015 10:24 PM CDT) Pathologist [facility] CHOLESTEROL 182 130 - 200 mg/dL 01/12/2015 11:54 PM CDT [facility] TRIGLYCERIDE 244(H) 30 - 200 mg/dL 01/12/2015 11:54 PM CDT [facility] HDL 31(L) 35 - 80 mg/dL 01/12/2015 11:54 PM CDT [facility] LDL CALCULATED 102(H) 0 - 100 mg/dL 01/12/2015 11:54 PM CDT [facility] NON-HDL CHOLESTEROL 151 mg/dL 01/12/2015 11:54 PM CDT [facility] Blood 01/12/2015 10:2 4 PM CDT 01/12/2015 10:24 PM CDT Narrative [facility] - [facility] - 01/12/2015 11:54 PM CDT TOTAL CHOLESTEROL mg/dL Desirable <200 Borderline high 200-239 High >=240 TRIGLYCERIDES mg/dL Normal <150 Borderline high 150-199 High 200-499 Very high >=500 HDL CHOLESTEROL mg/dL Low <40 Normal 40-60 Desirable >60 LDL CHOLESTEROL mg/dL Optimal <100 Low risk 100-129 Borderline high 130-159 High 160-189 Very high >=190 NON HDL CHOLESTEROL mg/dL Desirable <130 Borderline high 130-159 High 160-189 Very high >=190 Based on AHA/NCEP Guidelines Guanakito Bland DO CHEMISTRY ORDERABLES Final Resu lt [facility] CLIA # [id number] [address] [address] * CK (01/12/2015 10:24 PM CDT) Pathologist [facility] CK 184 26 - 308 U/L 01/12/2015 11:54 PM CDT [facility] Blood 01/12/2015 10:2 4 PM CDT 01/12/2015 10:24 PM CDT Guanakito Bland DO CHEMISTRY ORDERABLES Final Resu lt [facility] CLIA # [id number] [address] [place] [address] * (ABNORMAL) COMPREHENSIVE METABOLIC PANEL (01/12/2015 10:24 PM CDT) Pathologist [facility] SODIUM 135(L) 136 - 145 mmol/L 01/12/2015 11:54 PM CDT [facility] POTASSIUM 3.8 3.5 - 5.1 mmol/L 01/12/2015 11:54 PM T [facility] CHLORIDE 99 98 - 107 mmol/L 01/12/2015 11:54 PM T [facility] CO2 28 21 - 32 mmol/L 01/12/2015 11:54 PM T [facility] CALCIUM 8.8 8.5 - 10.1 mg/dL 01/12/2015 11:54 PM CDT [facility] BUN 22(H) 7 - 18 mg/dL 01/12/2015 11:54 PM CDT [facility] CREATININE 1.08 0.60 - 1.30 mg/dL 01/12/2015 11:54 PM T [facility] GLUCOSE 130(H) 74 - 106 mg/dL 01/12/2015 11:54 PM T [facility] TOTAL PROTEIN 8.5(H) 6.4 - 8.2 g/dL 01/12/2015 11:54 PM T [facility] ALBUMIN 4.0 3.4 - 5.0 g/dL 01/12/2015 11:54 PM CDT [facility] BILIRUBIN TOTAL 0.5 0.2 - 1.0 mg/dL 01/12/2015 11:54 PM T [facility] ALKALINE PHOSPHATASE 82 46 - 116 U/L 01/12/2015 11:54 PM CDT [facility] AST 20 15 - 37 U/L 01/12/2015 11:54 PM T [facility] ALT 43 30 - 65 U/L 01/12/2015 11:54 PM CDT [facility] GFR >60 >=60 mL/min/1.7 3 sq meter 01/12/2015 11:54 PM [facility] Comment: eGFR has not been validated for use in the elderly (> 70 years of age), women, patients with serious co-morbid conditions, or persons with extremes of body size or muscle mass and should also be interpreted with caution in patients with acute kidney failure, dialysis dependent patients, patients reporting exceptional dietary intake (e.g. vegetarian diet, high protein diets, creatine supplementation), and patients with severe liver disease. Based on National Kidney Disease Education Program If patient is , please refer to the GFR result. GFR, >60 >=60 mL/min/1.7 3 sq meter 01/12/2015 11:54 PM T [facility] ANION GAP 8(L) 12 - 20 mmol/L 01/12/2015 11:54 PM [facility] Blood 01/12/2015 10:2 4 PM CDT 01/12/2015 10:24 PM CDT Narrative [facility] - 01/12/2015 11:54 PM CDT Effective 04/10/2014, the Alkaline Phosphatase test method and reference range have changed. Please take this into consideration when interpreting results prior to or after this date. us Guanakito Bland DO CHEMISTRY ORDERABLES Final Resu lt [facility] CLIA # [id number] [address] [facility] [address] [place], [place] [id number] documented in this encounter Visit Diagnoses Diagnosis Sick Other unknown and unspecified cause of morbidity or mortality documented in this encounter Care Teams Joint Sealer Relationship Specialty Start Date End Date Bharati Farley, LAZARA Velasquez [address] [place], [place] [address] PCP - General NURSE PRACTITIONER 05/13/15 documented as of this encounter
--- OUTSIDE RECORDS SUMMARY | 2025-07-19 19:25 | XMS_ITS | Encounter Summary ---
Author Organization [facility] Address [address] [place] [address] Care Team Providers Care Plastic Dolls Mold Filler Name Role Phone Bharati Farley, LAZARA, Adonis Pan Primary Care Pro vider Encounter Details Date Type Department Care Team (Late st Contact Info) Description 11/21/2011 Ancillary Orders [facility] Laboratory Services [place] [address] [place] [address] Hyperlipidemia Social History Tobacco Use Types Packs/Day Years Used Date Smoking Tobacco: Never Assessed Sex and Gender Information Value Date Recorded Sex Assigned at Not on file 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 Gender Identity Not on file Sexual Orientation Not on file documented as of this encounter Plan of Treatment Not on file documented as of this encounter Procedures Procedure Name Priority Date/Time Associated Diagnosis Comments ALT Stat 11/21/2011 8:45 PM CDT HYPERLIPIDEMIA [ICD-9-CM] LIPID PANEL Stat 11/21/2011 8:45 PM CDT HYPERLIPIDEMIA [ICD-9-CM] documented in this encounter Results * (ABNORMAL) LIPID PANEL (11/21/2011 8:45 PM CDT) CHOLESTEROL 202(H) 130 - 200 mg/dL 11/21/2011 11:37 PM CDT [facility]ORATORY SERVICES - [place] TRIGLYCERIDE 131 30 - 200 mg/dL 11/21/2011 11:37 PM CDT [facility] [place] HDL 34(L) 35 - 80 mg/dL 11/21/2011 11:37 PM CDT [facility] - [place] LDL CALCULATED 142(H) 0 - 100 mg/dL 11/21/2011 11:37 PM CDT [facility] [employer] [facility] Blood specimen (specimen) 11/21/2011 8:45 PM CDT 11/21/2011 10:44 PM CDT Narrative [facility] LABORATORY [facility] - 11/21/2011 11:37 PM CDT TOTAL CHOLESTEROL mg/dL Desirable <200 [...] ORDERABLES Final Resu lt Performing Organization Address [facility]/ZIP Co de Phone Number [facility] [employer] [facility] CLIA # [id number] [address] [place] [address] * ALT (11/21/2011 8:45 PM CDT) ALT 51 30 - 65 U/L 11/21/2011 11:37 PM CDT [facility] [employer] [facility] Blood specimen (specimen) 11/21/2011 8:45 PM CDT 11/21/2011 10:44 PM CDT Guanakito Bland DO CHEMISTRY ORDERABLES Final Resu lt Performing Organization Address City/[facility]/ZIP Co de Phone Number [facility] [employer] [facility] CLIA # [id number] [address] [place] [address] documented in this encounter Visit Diagnoses Diagnosis Hyperlipidemia Other and unspecified hyperlipidemia documented in this encounter Care Teams Plastic Dolls Mold Filler Relationship Specialty Start Date End Date Bharati Farley, LAZARA Velasquez [address] [place] [address] PCP - General NURSE PRACTITIONER 05/13/15 documented as of this encounter
--- OUTSIDE RECORDS SUMMARY | 2025-07-19 19:25 | XMS_ITS | Encounter Summary ---
Author Organization [facility] Address [address] [place] [address] Care Team Providers Care Psychiatric Social Worker Name Role Phone LAZARA Calabrese Sr., Michael Dave Primary Care Pro vider Encounter Details Date Type Department Care Team (Latest Contact Info) Description 06/12/2001 Outpatient Historical [facility] Medicine [place] [address] [facility] [address] [place] [phone] Guanakito Bland DO NO ADDRESS ON FILE JOINT PAIN-L/LEG (Primary Dx); Pain in limb Social History Tobacco Use Types Packs/Day Years Used Date Smoking Tobacco: Never Assessed Sex and Gender Information Value Date Recorded Sex Assigned at Not on file 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
--- OUTSIDE RECORDS SUMMARY | 2025-07-19 19:25 | XMS_ITS | Patient Health Record ---
Author Organization [facility] Address [address] [place] [address] Care Team Providers Care Auto Repair Technician Name Role Phone John Moncada MD Primary Care Provider Unavailab YANCY Glover Unavailable [phone] Allergies No Known Allergies Reason For Referral No Information Medications Medication SIG (Take, Route, Frequency, Duration) Notes Start Date End Date Status Tamsulosin HCl 0.4 MG 1 capsule Orally O nce a day in the evening; Duration: 90 days Active Niacin Active glipiZIDE 10 MG 1 tablet 30 minutes before breakfast Orally Once a day Active Losartan Potassium 100 MG 1 tablet Orall y Once a day Active Isosorbide Dinitrate 20 MG 1 tablet Oral ly Twice a day Active Januvia 100 MG 1 tablet Orally Once a day Active Aspirin Active Clopidogrel Bisulfate 75 MG 1 tablet Ora lly Once a day Active Jardiance 25 MG 1 tablet Orally Once a day Active Metoprolol Succinate 100 MG 1 capsule Or ally Once a day Active Social History Tobacco Use: Social History Observation Description Date Details (start date - stop date) Never Smoker NA - NA Tobacco Control (Standard) Question Answer Notes Tobacco use: Nonsmoker AUDIT-C (Standard) Question Answer Notes Did you have a drink containing alcohol in the p ast year? No Points 0 Interpretation Negative Problems Problem Type SNOMED Code ICD Code Onset Dates Problem Status W/U Status Risk Notes Problem Chronic prostatitis (19997593) Chronic prostatitis (N41.1) Active confirmed Plan Of Treatment Pending Test Test Name Order Date PSA, TOTAL (5363) 02/14/2024 Future Test Test Name Order Date PSA, TOTAL (5363) 03/04/2024 Insurance Providers Payer Name Payer Address Payer Phone Subscriber Number Group Number Insured Name Patient Relationship to Insured Coverage Start Date Coverage End Date [place] Replacement [address] ANYA BENITEZ [id number] Elieser Chavez Self - patient is the insured [place] Medicaid [address] [place], [place] [id number] Elieser Chavez Self - patient is the insured Medical (General) History Medical History History ICD Code Diabetes Hypertension Osteoarthritis CAD Hyperlipidemia Hematuria Prostatitis UTIs Testicular pain Weak stream Erectile dysfunction Elevated PSA Surgical History Surgery Date(Month/Year) Bilateral knee replacements Hernia repair Hospitalization History Reason Date(Month/Year) see prior sx hx
--- OUTSIDE RECORDS SUMMARY | 2025-07-19 19:25 | XMS_ITS | Encounter Summary ---
Author Organization [facility] Address [address] [place] [address] Care Team Providers Care Sap Security Architect Name Role Phone Bharati Farley, LAZARA, Adonis Pan Primary Care Pro vider Encounter Details Date Type Department Care Team (Late st Contact Info) Description 06/18/2012 Ancillary Orders [facility] Laboratory Services [place] [address] [place] [address] Sick Social History Tobacco Use Types Packs/Day Years Used Date Smoking Tobacco: Never Assessed Sex and Gender Information Value Date Recorded Sex Assigned at Not on file Legal Sex Male 4:34 AM HYDROGEN PLANT OPERATOR Gender Identity Not on file Sexual Orientation Not on file documented as of this encounter Plan of Treatment Not on file documented as of this encounter Procedures Procedure Name Priority Date/Time Associated Diagnosis Comments LIPID PANEL Routine 06/18/2012 8:44 PM HYDROGEN PLANT OPERATOR Sick [ICD-9-CM] BASIC METABOLIC PANEL Routine 06/18/2012 8:44 PM HYDROGEN PLANT OPERATOR Sick [ICD-9-CM] documented in this encounter Results * (ABNORMAL) LIPID PANEL (06/18/2012 8:44 PM HYDROGEN PLANT OPERATOR) CHOLESTEROL 210(H) 130 - 200 mg/dL 06/18/2012 9:45 PM HYDROGEN PLANT OPERATOR [facility]ATORY SERVICES - [place] TRIGLYCERIDE 279(H) 30 - 200 mg/dL 06/18/2012 9:45 PM HYDROGEN PLANT OPERATOR [facility] [place] HDL 31(L) 35 - 80 mg/dL 06/18/2012 9:45 PM HYDROGEN PLANT OPERATOR [facility] LABORATORY [facility] [place] LDL CALCULATED 123(H) 0 - 100 mg/dL 06/18/2012 9:45 PM [facility] [employer] [facility] [place] Blood specimen (specimen) 06/18/2012 8:44 PM HYDROGEN PLANT OPERATOR 06/18/2012 9:16 PM HYDROGEN PLANT OPERATOR [facility] [employer] LABORATORY SERVICES - [place] - 06/18/2012 9:45 PM HYDROGEN PLANT OPERATOR TOTAL CHOLESTEROL mg/dL Desirable <200 Borderline high 200-239 High >=240 TRIGLYCERIDES mg/dL Normal <150 Borderline high 150-199 High 200-499 Very high >=500 HDL CHOLESTEROL mg/dL Low <40 Normal 40-60 Desirable >60 LDL CHOLESTEROL mg/dL Optimal <100 Low risk 100-129 Borderline high 130-159 High 160-189 Very high >=190 Based on AHA/NCEP Guidelines Nela Mata LOMBARDI DEVELOPER CHEMISTRY ORDERABLES Final Result [facility] [employer] [facility] CLIA # [id number] [address] [facility] [address] [place] [address] * BASIC METABOLIC PANEL (06/18/2012 8:44 PM HYDROGEN PLANT OPERATOR) SODIUM 137 136 - 145 mmol/L 06/18/2012 9:45 PM [facility] [place] POTASSIUM 3.8 3.5 - 5.1 mmol/L 06/18/2012 9:[address] [facility] [place] CHLORIDE 100 98 - 107 mmol/L 06/18/2012 9:45 PM [facility] CO2 25 21 - 32 mmol/L 06/18/2012 9:[address] [facility] [place] CALCIUM 9.0 8.5 - 10.1 mg/dL 06/18/2012 9:45 PM [facility] [employer] [facility] [place] BUN 16 7 - 18 mg/dL 06/18/2012 9:45 PM [facility] [employer] [facility] [place] CREATININE 1.00 0.60 - 1.30 mg/dL 06/18/2012 9:[address] [facility] GLUCOSE 106 74 - 106 mg/dL 06/18/2012 9:45 PM [facility] [employer] [facility] GFR 76 >=60 mL/min/1.7 3 sq meter 06/18/2012 9:45 PM [facility] [employer] [facility] GFR, 93 >=60 mL/min/1.7 3 sq meter 06/18/2012 9:45 PM [facility] [employer] [facility] Blood specimen (specimen) 06/18/2012 8:44 PM HYDROGEN PLANT OPERATOR 06/18/2012 9:16 PM HYDROGEN PLANT OPERATOR Narrative [facility] [employer] [facility] - 06/18/2012 9:45 PM HYDROGEN PLANT OPERATOR eGFR has not been validated for use [...] on National Kidney Disease Education Program Nela HAILE CHEMISTRY ORDERABLES Final Result [facility] [employer] [facility] CLIA # [id number] [address] [place] [address] [address] [place] [address] documented in this encounter Visit Diagnoses Diagnosis Sick Other unknown and unspecified cause of morbidity or mortality documented in this encounter Care Teams Sap Security Architect Relationship Specialty Start Date End Date Bharati Farley, LAZARA Velasquez [address] [place] [address] PCP - General NURSE PRACTITIONER 05/13/15 documented as of this encounter
--- OUTSIDE RECORDS SUMMARY | 2025-07-19 19:25 | XMS_ITS | Encounter Summary ---
Author Organization [facility] Address [address] [place] [address] Care Team Providers Care Staff Nurse Midwife Name Role Phone LAZARA Calabrese Sr., Michael Dave Primary Care Pro vider Encounter Details Date Type Department Care Team (Latest Contact Info) Description 01/29/2002 Outpatient Historical [facility] Medicine [place] [address] [facility] [address] [place] [phone] Guanakito Bland DO NO ADDRESS ON FILE LOCAL SKIN INFECTION NOS (Primary Dx) Social History Tobacco Use Types Packs/Day Years Used Date Smoking Tobacco: Never Assessed Sex and Gender Information Value Date Recorded Sex Assigned at Not on file Legal Sex Male 4:34 AM ORE FEEDER Gender Identity Not on file Sexual Orientation Not on file documented as of this encounter Plan of Treatment Not on file documented as of this encounter Visit Diagnoses Diagnosis Unspecified local infection of skin and subcutaneous tissue- Primary documented in this encounter Care Teams Staff Nurse Midwife Relationship Specialty Start Date End Date Adonis Calabrese Sr., FNP [address] [place] [address] PCP - General NURSE PRACTITIONER 05/13/15 documented as of this encounter
--- OUTSIDE RECORDS SUMMARY | 2025-07-19 19:25 | XMS_ITS | Clinical Summary ---
Author Organization [facility] Address [address] [place] [address] Phone Care Team Providers Care Gas Compressor Operator Name Role Phone Bharati Farley, LAZARA, Adonis Pan Primary Care Pro vider Allergies Active Allergy Reactions Criticality Noted Date Comments Hydrocodone Hives High 11/16/2020 Medications lisinopril (PRINIVIL) 20 mg Oral tablet TAKE ONE TABLET BY MOUTH EVERY DAY 90 Tab 0 02/23/2012 Active meloxicam (MOBIC) 15 mg tablet Take 15 mg by mouth daily. Active amLODIPine (NORVASC) 10 mg tablet Take 10 mg by mouth daily. 04/21/2016 Active aspirin (ECOTRIN EC) 325 mg Tablet, Delayed Release (E.C.) Take 325 mg by mouth daily. 04/06/2016 Active ONETOUCH ULTRA TEST Strip 04/21/2016 Active ONETOUCH ULTRA2 Kit 04/21/2016 Active ONE TOUCH DELICA 33 gauge 04/21/2016 Active metFORMIN (GLUCOPHAGE) 1,000 mg tablet Take 1,000 mg by mouth 2 times daily. 04/21/2016 Active glipiZIDE (GLUCOTROL) 5 mg tablet Take 5 mg by mouth 2 times daily. 04/29/2016 Active metoprolol tartrate (LOPRESSOR) 25 mg tablet Take 25 mg by mouth daily. Active losartan (COZAAR) 50 mg tablet Take 50 mg by mouth daily. Active Active Problems Problem Noted Date Diagnosed Date Type 2 diabetes mellitus without complication Social History Tobacco Use Types Packs/Day Years Used Date Smoking Tobacco: Never Smokeless Tobacco: Never Alcohol Use Standard Drinks/Week Comments No 0 (1 standard drink = 0.6 oz pur e alcohol) Sex and Gender Information Value Date Recorded Sex Assigned at Not on file Legal Sex Male 4:34 AM HAND STEMMER Gender Identity Not on file Sexual Orientation Not on file Last Filed Vital Signs Vital Sign Reading Time Taken Comments Blood Pressure 151/84 11/16/2020 5:40 AM CDT Pulse 71 05/03/2016 1:52 PM CDT Temperature 36.6 C (97.8 F) 11/16/2020 12:28 AM CDT Respiratory Rate 20 11/16/2020 5:40 AM CDT Oxygen Saturation 94% 11/16/2020 5:40 AM CDT Inhaled Oxygen Concentration - - Weight 135.2 kg (298 lb) 11/16/2020 1:12 AM CDT Height 180.3 cm (5' 11 ) 11/16/2020 12:28 AM CDT Body Mass Index 41.56 11/16/2020 12:28 AM CDT Plan of Treatment Health Maintenance Due Date Last Done Comments DIABETES ANNUAL FOOT EXAM 1970 DIABETES ANNUAL RETINAL EXAM 1970 DIABETES HBA1C Q 6 MONTHS 1970 DIABETES MICROALBUMIN ANNUAL SCREEN 1970 DTAP/TDAP/TD VACCINES (1 - Tdap) 1971 PNEUMOCOCCAL VACCINE 50+ YEA RS (1 of 2 - PCV) 1971 COLORECTAL SCREENING 1997 Colorectal Cancer Screening 1997 FIT-DNA Q 3 years 1997 FIT/FOBT Q 1 year 1997 Flex Sig/CT Colonography Q 5 years 1997 ZOSTER VACCINE (1 of 2) 2002 LDL CHOLESTEROL ANNUAL 01/13/2016 5, 10/13/2014, 08/04/2014, Additional history exists INFLUENZA VACCINE (#1) 2025 RSV VACCINE (60+ or ) (1 - 1-dose 75+ series) 2027 Procedures Procedure Name Priority Date/Time Associated Diagnosis Comments LIPID PANEL Routine 01/12/2015 10:24 PM CDT Sick [ICD-9-CM] from Last 3 Months or Most Recently Relevant to Health Maintenance Results * (ABNORMAL) LIPID PANEL (01/12/2015 10:24 PM CDT) CHOLESTEROL 182 130 - 200 mg/dL 01/12/2015 11:54 PM T [facility] LABORAT[facility] TRIGLYCERIDE 244(H) 30 - 200 mg/dL 01/12/2015 11:54 PM CDT [facility] HDL 31(L) 35 - 80 mg/dL 01/12/2015 11:54 PM T [facility] LDL CALCULATED 102(H) 0 - 100 mg/dL 01/12/2015 11:54 PM T [facility] [employer] [facility] NON-HDL CHOLESTEROL 151 mg/dL 01/12/2015 11:54 PM T [facility] Blood 01/12/2015 10:2 4 PM CDT 01/12/2015 10:24 PM CDT [facility] [employer] [facility] - 01/12/2015 11:54 PM CDT TOTAL CHOLESTEROL [...] Bland DO CHEMISTRY ORDERABLES Final Resu lt [facility] [employer] [facility] CLIA # [id number] [address] [place] [address] [address] [place] [address] from Last 3 Months or Most Recently Relevant to Health Maintenance Insurance MEDICARE PART A HOSPITAL ONLY BS Care Teams Gas Compressor Operator Relationship Specialty Start Date End Date Bharati Farley, LAZARA Velasquez [address] [place] [address] PCP - General NURSE PRACTITIONER 05/13/15
--- OUTSIDE RECORDS SUMMARY | 2025-07-19 19:25 | XMS_ITS | Encounter Summary ---
Author Organization [facility] Address [address] [place] [address] Care Team Providers Care Indirect Fire Infantryman Name Role Phone LAZARA Calabrese Sr., Adonis Pan Primary Care Pro vider Encounter Details Date Type Department Care Team (Latest Contact Info) Description 06/19/2001 Outpatient Historical [facility] Mateo Greer MD [address] [place] [address] JOINT PAIN-L/LEG (Primary Dx); JOINT PAIN-ANKLE Social History Tobacco Use Types Packs/Day Years Used Date Smoking Tobacco: Never Assessed Sex and Gender Information Value Date Recorded Sex Assigned at Not on file Legal Sex Male 4:34 AM STACK YIELD ENGINEER Gender Identity Not on file Sexual Orientation Not on file documented as of this encounter Plan of Treatment Not on file documented as of this encounter Visit Diagnoses Diagnosis Pain in joint, lower leg- Primary Pain in joint, ankle and foot documented in this encounter Care Teams Indirect Fire Infantryman Relationship Specialty Start Date End Date Adonis Calabrese Sr., FNP [address] [place] [address] PCP - General NURSE PRACTITIONER 05/13/15 documented as of this encounter
--- OUTSIDE RECORDS SUMMARY | 2025-07-19 19:25 | XMS_ITS | Encounter Summary ---
Author Organization [facility] Address [address] [place] [address] Care Team Providers Care Hooker Up Name Role Phone Bharati Farley, LAZARA, Adonis Pan Primary Care Pro vider Encounter Details Date Type Department Care Team (Late st Contact Info) Description 08/19/[address] [facility] Laboratory Services [place] [address] [place] [address] Sick Social History Tobacco Use Types Packs/Day Years Used Date Smoking Tobacco: Never Assessed Sex and Gender Information Value Date Recorded Sex Assigned at Not on file Legal Sex Male 4:34 AM CLINICAL ASSISTANT PROFESSOR Gender Identity Not on file Sexual Orientation Not on file documented as of this encounter Plan of Treatment Not on file documented as of this encounter Procedures Procedure Name Priority Date/Time Associated Diagnosis Comments CBC WITH DIFFERENTIAL Routine 08/19/2013 10:46 PM CLINICAL ASSISTANT PROFESSOR Sick [ICD-9-CM] PSA Routine 08/19/2013 10:46 PM CLINICAL ASSISTANT PROFESSOR Sick [ICD-9-CM] LIPID PANEL Routine 08/19/2013 10:46 PM CLINICAL ASSISTANT PROFESSOR Sick [ICD-9-CM] COMPREHENSIVE METABOLIC PANEL Routine 08/19/2013 10:46 PM CLINICAL ASSISTANT PROFESSOR Sick [ICD-9-CM] documented in this encounter Results * PSA (08/19/2013 10:46 PM CLINICAL ASSISTANT PROFESSOR) PSA 1.5 0.0 - 4.0 ng/mL 08/20/2013 12:24 AM CLINICAL ASSISTANT PROFESSOR [facility] LABORATORY SERVICES [facility] Blood specimen (specimen) 08/19/2013 10:46 PM CLINICAL ASSISTANT PROFESSOR 08/19/2013 10:46 PM CLINICAL ASSISTANT PROFESSOR us Tova Barone ACTIVITIES THERAPIST CHEMISTRY ORDERABLES Final R esult [facility] CLIA # [id number] [address] [place] [address] * (ABNORMAL) LIPID PANEL (08/19/2013 10:46 PM CLINICAL ASSISTANT PROFESSOR) CHOLESTEROL 179 130 - 200 mg/dL 08/20/2013 12:24 AM CLINICAL ASSISTANT PROFESSOR [facility] TRIGLYCERIDE 165 30 - 200 mg/dL 08/20/2013 12:24 AM CLINICAL ASSISTANT PROFESSOR [facility] HDL 26(L) 35 - 80 mg/dL 08/20/2013 12:24 AM CLINICAL ASSISTANT PROFESSOR [facility] LDL CALCULATED 120(H) 0 - 100 mg/dL 08/20/2013 12:24 AM CLINICAL ASSISTANT PROFESSOR [facility] Blood specimen (specimen) 08/19/2013 10:46 PM CLINICAL ASSISTANT PROFESSOR 08/19/2013 10:46 PM CLINICAL ASSISTANT PROFESSOR Narrative [employer] [facility] - 08/20/2013 12:24 AM CLINICAL ASSISTANT PROFESSOR TOTAL CHOLESTEROL mg/dL Desirable <200 Borderline high 200-239 High >=240 TRIGLYCERIDES mg/dL Normal <150 Borderline high 150-199 High 200-499 Very high >=500 HDL CHOLESTEROL mg/dL Low <40 Normal 40-60 Desirable >60 LDL CHOLESTEROL mg/dL Optimal <100 Low risk 100-129 Borderline high 130-159 High 160-189 Very high >=190 Based on AHA/NCEP Guidelines us Tova Barone ACTIVITIES THERAPIST CHEMISTRY ORDERABLES Final R esult [facility] CLIA # [id number] [address] [place] [address] * (ABNORMAL) COMPREHENSIVE METABOLIC PANEL (08/19/2013 10:46 PM CLINICAL ASSISTANT PROFESSOR) SODIUM 139 136 - 145 mmol/L 08/20/2013 12:24 AM CLINICAL ASSISTANT PROFESSOR [employer] [facility] [place] POTASSIUM 3.9 3.5 - 5.1 mmol/L 08/20/2013 12:24 AM [facility] [employer] [facility] [place] CHLORIDE 103 98 - 107 mmol/L 08/20/2013 12:24 AM [facility] [employer] [facility] CO2 25 21 - 32 mmol/L 08/20/2013 12:24 AM [facility] CALCIUM 8.6 8.5 - 10.1 mg/dL 08/20/2013 12:24 AM [facility] BUN 21(H) 7 - 18 mg/dL 08/20/2013 12:24 AM [facility] [employer] [facility] CREATININE 1.00 0.60 - 1.30 mg/dL 08/20/2013 12:24 AM [facility] GLUCOSE 99 74 - 106 mg/dL 08/20/2013 12:24 AM [facility] TOTAL PROTEIN 7.9 6.4 - 8.2 g/dL 08/20/2013 12:24 AM [facility] ALBUMIN 3.8 3.4 - 5.0 g/dL 08/20/2013 12:24 AM [facility] BILIRUBIN TOTAL 0.2 0.2 - 1.0 mg/dL 08/20/2013 12:24 AM [facility] ALKALINE PHOSPHATASE 98 50 - 136 U/L 08/20/2013 12:24 AM [facility] AST 29 15 - 37 U/L 08/20/2013 12:24 AM [facility] [employer] [facility] ALT 65 30 - 65 U/L 08/20/2013 12:24 AM [facility] [employer] [facility] GFR 76 >=60 mL/min/1.7 3 sq meter 08/20/2013 12:24 AM [facility] Comment: eGFR has not been validated [...] Based on National Kidney Disease Education Program GFR, 92 >=60 mL/min/1.7 3 sq meter 08/20/2013 12:24 AM [facility] [employer] [facility] Comment: eGFR has not been validated [...] Based on National Kidney Disease Education Program Blood specimen (specimen) 08/19/2013 10:46 PM CLINICAL ASSISTANT PROFESSOR 08/19/2013 10:46 PM CLINICAL ASSISTANT PROFESSOR us Tova Barone NP CHEMISTRY ORDERABLES Final R esult [facility] [employer] [facility] CLIA # [id number] [address] [place] [address] * (ABNORMAL) CBC WITH DIFFERENTIAL (08/19/2013 10:46 PM CLINICAL ASSISTANT PROFESSOR) WBC 8.0 4.2 - 9.1 K/uL 08/19/2013 11:35 PM [facility] [employer] [facility] RBC 4.52(L) 4.63 - 6.08 M/uL 08/19/2013 11:35 PM [facility] [employer] [facility] HEMOGLOBIN 13.7 13.7 - 17.5 g/dL 08/19/2013 11:35 PM [facility] [employer] [facility] HEMATOCRIT 39.9(L) 40.1 - 51.0 % 08/19/2013 11:35 PM [facility] [employer] [facility] MCV 88.3 79.0 - 92.2 fL 08/19/2013 11:35 PM [facility] [employer] [facility] MCH 30.3 25.7 - 32.2 pg 08/19/2013 11:35 PM [facility] [employer] [facility] MCHC 34.3 32.3 - 36.5 g/dL 08/19/2013 11:35 PM [facility] [employer] [facility] RDW 13.5 11.0 - 14.5 % 08/19/2013 11:35 PM CLINICAL ASSISTANT PROFESSOR [facility] [place] RDW-STDEV 43.1 37.0 - 54.0 fL 08/19/2013 11:35 PM CLINICAL ASSISTANT PROFESSOR [facility] [place] PLATELETS 266 130 - 400 K/uL 08/19/2013 11:35 PM CLINICAL ASSISTANT PROFESSOR [facility] [place] MPV 9.4(L) 10.0 - 14.8 fL 08/19/2013 11:35 PM CLINICAL ASSISTANT PROFESSOR [facility] [place] NEUTROPHILS 61 34 - 68 % 08/19/2013 11:35 PM CLINICAL ASSISTANT PROFESSOR [facility] [place] LYMPHOCYTES 25 22 - 53 % 08/19/2013 11:35 PM CLINICAL ASSISTANT PROFESSOR [facility] [place] MONOCYTES 10 5 - 12 % 08/19/2013 11:35 PM CLINICAL ASSISTANT PROFESSOR [facility] [place] EOSINOPHILS 4 1 - 7 % 08/19/2013 11:35 PM CLINICAL ASSISTANT PROFESSOR [facility] [place] BASOPHILS 0 0 - 1 % 08/19/2013 11:35 PM CLINICAL ASSISTANT PROFESSOR [facility] [place] NEUTROPHIL ABSOLUTE 4.90 1.78 - 5.38 K/uL 08/19/2013 11:35 PM CLINICAL ASSISTANT PROFESSOR [facility] [place] LYMPHOCYTE ABSOLUTE 2.01 1.20 - 3.40 K/uL 08/19/2013 11:35 PM CLINICAL ASSISTANT PROFESSOR [facility] [place] MONOCYTE ABSOLUTE 0.78 0.30 - 0.82 K/uL 08/19/2013 11:35 PM CLINICAL ASSISTANT PROFESSOR [facility] [place] EOSINOPHIL ABSOLUTE 0.29 0.04 - 0.54 K/uL 08/19/2013 11:35 PM CLINICAL ASSISTANT PROFESSOR [facility] [place] BASOPHILS ABSOLUTE 0.02 0.01 - 0.08 K/uL 08/19/2013 11:35 PM CLINICAL ASSISTANT PROFESSOR [facility] [place] Blood specimen (specimen) 08/19/2013 10:46 PM CLINICAL ASSISTANT PROFESSOR 08/19/2013 10:46 PM CLINICAL ASSISTANT PROFESSOR Tova Barone NP HEMATOLOGY ORDERABLES Final Result [facility] [place] CLIA # [id number] [address] [place] [address] [address] [place] [address] documented in this encounter Visit Diagnoses Diagnosis Sick Other unknown and unspecified cause of morbidity or mortality documented in this encounter Care Teams Hooker Up Relationship Specialty Start Date End Date Bharati Farley LAZARA Velasquez [address] [place] [address] PCP - General NURSE PRACTITIONER 05/13/15 documented as of this encounter
--- OUTSIDE RECORDS SUMMARY | 2025-07-19 19:25 | XMS_ITS | Encounter Summary ---
Author Organization [facility] Address [address] [place] [address] Care Team Providers Care Lunchroom Worker Name Role Phone Bharati Farley, LAZARA, Adonis Pan Primary Care Pro vider Encounter Details Date Type Department Care Team (Late st Contact Info) Description 08/04/2014 Ancillary Orders [facility] Laboratory Services [place] [address] [place] [address] Social History Tobacco Use Types Packs/Day Years Used Date Smoking Tobacco: Never Assessed Sex and Gender Information Value Date Recorded Sex Assigned at Not on file Legal Sex Male 4:34 AM TELEPHONE SERVICE REPRESENTATIVE Gender Identity Not on file Sexual Orientation Not on file documented as of this encounter Plan of Treatment Not on file documented as of this encounter Procedures Procedure Name Priority Date/Time Associated Diagnosis Comments ALT Routine 08/04/2014 11:03 PM TELEPHONE SERVICE REPRESENTATIVE GLUCOSE LEVEL Routine 08/04/2014 11:03 PM TELEPHONE SERVICE REPRESENTATIVE CK Routine 08/04/2014 11:03 PM TELEPHONE SERVICE REPRESENTATIVE LIPID PANEL Routine 08/04/2014 11:03 PM TELEPHONE SERVICE REPRESENTATIVE documented in this encounter Results * (ABNORMAL) LIPID PANEL (08/04/2014 11:03 PM TELEPHONE SERVICE REPRESENTATIVE) CHOLESTEROL 217(H) 130 - 200 mg/dL 08/04/2014 11:29 PM TELEPHONE SERVICE REPRESENTATIVE [facility] LABORATORY SERVICES - [place] TRIGLYCERIDE 83 30 - 200 mg/dL 08/04/2014 11:29 PM TELEPHONE SERVICE REPRESENTATIVE [facility] [place] HDL 47 35 - 80 mg/dL 08/04/2014 11:29 PM TELEPHONE SERVICE REPRESENTATIVE [facility] [employer] [facility] LDL CALCULATED 153(H) 0 - 100 mg/dL 08/04/2014 11:29 PM [facility] NON-HDL CHOLESTEROL 170 mg/dL 08/04/2014 11:29 PM [facility] Blood 08/04/2014 11:0 3 PM TELEPHONE SERVICE REPRESENTATIVE 08/04/2014 11:03 PM TELEPHONE SERVICE REPRESENTATIVE Narrative [facility] - 08/04/2014 11:29 PM TELEPHONE SERVICE REPRESENTATIVE TOTAL CHOLESTEROL mg/dL Desirable <200 Borderline high [...] ORDERABLES Final Resu lt Performing Organization Address City/[facility]/ZIP Co de Phone Number [facility] CLIA # [id number] [address] [place] [address] * GLUCOSE LEVEL (08/04/2014 11:03 PM TELEPHONE SERVICE REPRESENTATIVE) GLUCOSE 93 74 - 106 mg/dL 08/04/2014 11:29 PM [facility] Blood 08/04/2014 11:0 3 PM TELEPHONE SERVICE REPRESENTATIVE 08/04/2014 11:03 PM TELEPHONE SERVICE REPRESENTATIVE Guanakito Bland DO CHEMISTRY ORDERABLES Final Resu lt Performing Organization Address City/[facility]/ZIP Co de Phone Number [facility] CLIA # [id number] [address] [place] [address] * CK (08/04/2014 11:03 PM TELEPHONE SERVICE REPRESENTATIVE) CK 267 26 - 308 U/L 08/04/2014 11:29 PM TELEPHONE SERVICE REPRESENTATIVE [facility] [employer] [facility] [place] Blood 08/04/2014 11:0 3 PM TELEPHONE SERVICE REPRESENTATIVE 08/04/2014 11:03 PM TELEPHONE SERVICE REPRESENTATIVE Guanakito Bland DO CHEMISTRY ORDERABLES Final Resu lt Performing Organization Address [facility]/ZIP Co de Phone Number [facility]ORY [facility] - [place] CLIA # [id number] [address] [place] [address] * ALT (08/04/2014 11:03 PM TELEPHONE SERVICE REPRESENTATIVE) ALT 39 30 - 65 U/L 08/04/2014 11:29 PM TELEPHONE SERVICE REPRESENTATIVE [facility] [place] Blood 08/04/2014 11:0 3 PM TELEPHONE SERVICE REPRESENTATIVE 08/04/2014 11:03 PM TELEPHONE SERVICE REPRESENTATIVE Guanakito Bland DO CHEMISTRY ORDERABLES Final Resu Performing Organization Address City/[facility] Co de Phone Number [facility] [place] CLIA # [id number] [address] [place] [address] documented in this encounter Visit Diagnoses Not on filedocumented in this encounter Care Teams Lunchroom Worker Relationship Specialty Start Date End Date Bharati Farley, LAZARA Velasquez [address] [place] [address] PCP - General NURSE PRACTITIONER 05/13/15 documented as of this encounter
--- OUTSIDE RECORDS SUMMARY | 2025-07-19 19:25 | XMS_ITS | Encounter Summary ---
Author Organization [facility] Address [address] [place] [address] Care Team Providers Care Informatics Nurse Specialist Name Role Phone Bharati Farley, LAZARA, Adonis Pan Primary Care Pro vider Encounter Details Date Type Department Care Team (Late st Contact Info) Description 06/09/2014 Ancillary Orders [facility] Laboratory Services [place] [address] [place] [address] Social History Tobacco Use Types Packs/Day Years Used Date Smoking Tobacco: Never Assessed Sex and Gender Information Value Date Recorded Sex Assigned at Not on file Legal Sex Male 4:34 AM MOTOR AND GENERATOR BRUSH MAKER Gender Identity Not on file Sexual Orientation Not on file documented as of this encounter Plan of Treatment Not on file documented as of this encounter Procedures Procedure Name Priority Date/Time Associated Diagnosis Comments LIPID PANEL Routine 06/09/2014 11:42 PM MOTOR AND GENERATOR BRUSH MAKER documented in this encounter Results * (ABNORMAL) LIPID PANEL (06/09/2014 11:42 PM MOTOR AND GENERATOR BRUSH MAKER) CHOLESTEROL 222(H) 130 - 200 mg/dL 06/10/2014 2:06 AM MOTOR AND GENERATOR BRUSH MAKER [employer] [facility] [place] TRIGLYCERIDE 167 30 - 200 mg/dL 06/10/2014 2:06 AM MOTOR AND GENERATOR BRUSH MAKER [facility] [place] HDL 35 35 - 80 mg/dL 06/10/2014 2:06 AM MOTOR AND GENERATOR BRUSH MAKER [employer] [facility] [place] LDL CALCULATED 154(H) 0 - 100 mg/dL 06/10/2014 2:06 AM MOTOR AND GENERATOR BRUSH MAKER [employer] [facility] [place] NON-HDL CHOLESTEROL 187 mg/dL 06/10/2014 2:06 AM [facility] [place] [facility] Blood 06/09/2014 11:4 2 PM MOTOR AND GENERATOR BRUSH MAKER 06/09/2014 11:42 PM MOTOR AND GENERATOR BRUSH MAKER N[facility]ative [facility] [place] - 06/10/2014 2:06 AM MOTOR AND GENERATOR BRUSH MAKER TOTAL CHOLESTEROL mg/dL Desirable <200 Borderline high [...] Bland DO CHEMISTRY ORDERABLES Final Resu lt [facility] [place] CLIA # [id number] [address] [place] [address] documented in this encounter Visit Diagnoses Not on filedocumented in this encounter Care Teams Informatics Nurse Specialist Relationship Specialty Start Date End Date Bharati Farley, LAZARA Velasquez [address] [place] [address] PCP - General NURSE PRACTITIONER 05/13/15 documented as of this encounter
--- OUTSIDE RECORDS SUMMARY | 2025-07-19 19:25 | XMS_ITS | Encounter Summary ---
Author Organization [facility] Address [address] [place] [address] Care Team Providers Care Real Estate Leasing Manager Name Role Phone LAZARA Calabrese Sr., Michael Dave Primary Care Pro vider Encounter Details Date Type Department Care Team (Latest Contact Info) Description 03/15/2006 Outpatient Historical [facility] [place] [address] [facility] [address] [place] [phone] Kay Lucio MD NO ADDRESS ON FILE Impotence of Organic Origin (Primary Dx) Social History Tobacco Use Types Packs/Day Years Used Date Smoking Tobacco: Never Assessed Sex and Gender Information Value Date Recorded Sex Assigned at Not on file 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
--- OUTSIDE RECORDS SUMMARY | 2025-07-19 19:25 | XMS_ITS | Encounter Summary ---
Author Organization [facility] Address [address] [place] [address] Care Team Providers Care Rotary Cutter Name Role Phone Bharati Farley, LAZARA, Adonis Pan Primary Care Pro vider Encounter Details Date Type Department Care Team (Late st Contact Info) Description 11/26/2012 Ancillary Orders 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 Gender Identity Not on file Sexual Orientation Not on file documented as of this encounter Plan of Treatment Not on file documented as of this encounter Procedures Procedure Name Priority Date/Time Associated Diagnosis Comments LIPID PANEL Routine 11/26/2012 8:11 PM CDT Sick [ICD-9-CM] COMPREHENSIVE METABOLIC PANEL Routine 11/26/2012 8:11 PM CDT Sick [ICD-9-CM] documented in this encounter Results * (ABNORMAL) LIPID PANEL (11/26/2012 8:11 PM CDT) CHOLESTEROL 190 130 - 200 mg/dL 11/26/2012 10:00 PM CDT [facility] [place] TRIGLYCERIDE 81 30 - 200 mg/dL 11/26/2012 10:00 PM CDT [facility] [place] HDL 40 35 - 80 mg/dL 11/26/2012 10:00 PM CDT [facility] [place] LDL CALCULATED 134(H) 0 - 100 mg/dL 11/26/2012 10:00 PM T [facility] [employer] [facility] Blood specimen (specimen) 11/26/2012 8:11 PM CDT 11/26/2012 9:36 PM CDT Narrative [facility] LABORATORY [facility] - 11/26/2012 10:00 PM CDT TOTAL CHOLESTEROL mg/dL Desirable <200 Borderline high 200-239 High >=240 TRIGLYCERIDES mg/dL Normal <150 Borderline high 150-199 High 200-499 Very high >=500 HDL CHOLESTEROL mg/dL Low <40 Normal 40-60 Desirable >60 LDL CHOLESTEROL mg/dL Optimal <100 Low risk 100-129 Borderline high 130-159 High 160-189 Very high >=190 Based on AHA/NCEP Guidelines [facility] View CHEMISTRY ORDERABL ES Final Result [facility] [employer] [facility] CLIA # [id number] [address] [facility] [address] [place] [address] * (ABNORMAL) COMPREHENSIVE METABOLIC PANEL (11/26/2012 8:11 PM CDT) SODIUM 138 136 - 145 mmol/L 11/26/2012 10:00 PM [facility] [employer] [facility] POTASSIUM 3.7 3.5 - 5.1 mmol/L 11/26/2012 10:00 PM [facility] [employer] [facility] CHLORIDE 102 98 - 107 mmol/L 11/26/2012 10:00 PM [facility] [employer] [facility] CO2 27 21 - 32 mmol/L 11/26/2012 10:00 PM [facility] [employer] [facility] CALCIUM 8.9 8.5 - 10.1 mg/dL 11/26/2012 10:00 PM [facility] [employer] [facility] BUN 22(H) 7 - 18 mg/dL 11/26/2012 10:00 PM T [facility] [employer] [facility] CREATININE 1.00 0.60 - 1.30 mg/dL 11/26/2012 10:00 PM T [facility] [employer] [facility] GLUCOSE 93 74 - 106 mg/dL 11/26/2012 10:00 PM [facility] [employer] [facility] TOTAL PROTEIN 8.2 6.4 - 8.2 g/dL 11/26/2012 10:00 PM CDT [facility] ALBUMIN 4.0 3.4 - 5.0 g/dL 11/26/2012 10:00 PM CDT [facility] BILIRUBIN TOTAL 0.4 0.2 - 1.0 mg/dL 11/26/2012 10:00 PM T [facility] ALKALINE PHOSPHATASE 93 50 - 136 U/L 11/26/2012 10:00 PM CDT [facility] AST 24 15 - 37 U/L 11/26/2012 10:00 PM T [facility] ALT 44 30 - 65 U/L 11/26/2012 10:00 PM CDT [facility] GFR 76 >=60 mL/min/1.7 3 sq meter 11/26/2012 10:00 PM T [facility] GFR, 92 >=60 mL/min/1.7 3 sq meter 11/26/2012 10:00 PM T [facility] Blood specimen (specimen) 11/26/2012 8:11 PM CDT 11/26/2012 9:36 PM CDT Narrative [facility] LABORATORY [facility] - 11/26/2012 10:00 PM CDT eGFR has not been validated [...] Based on National Kidney Disease Education Program [facility] View CHEMISTRY ORDERABL ES Final Result [facility] [employer] [facility] CLIA # [id number] [address] [place] [address] [address] [place] [address] documented in this encounter Visit Diagnoses Diagnosis Sick Other unknown and unspecified cause of morbidity or mortality documented in this encounter Care Teams Rotary Cutter Relationship Specialty Start Date End Date Bharati Farley, LAZARA Velasquez [address] [place] [address] PCP - General NURSE PRACTITIONER 05/13/15 documented as of this encounter
--- OUTSIDE RECORDS SUMMARY | 2025-07-19 19:25 | XMS_ITS | Clinical Summary ---
Author Organization [facility] Address [address] [facility] [address] [place] [address] Phone Care Team Providers Care Director Volunteer Services Name Role Phone LAZARA Calabrese Sr., Adonis Pan Primary Care Pro vider Allergies Active Allergy Reactions Criticality Noted Date Comments Hydrocodone Hives High 11/16/2020 Medications ISOSORBIDE DINITRATE ORAL Take by mouth. Active METOPROLOL SUCCINATE ORAL Take by mouth. Active glipizide/metfor min HCl (GLIPIZIDE-METFO RMIN ORAL) Take by mouth. Active aspirin (ECOTRIN EC) 81 mg Tablet, Delayed Release (E.C.) Take 81 mg by mouth daily. Active metoprolol tartrate (LOPRESSOR) 25 mg tablet Take 25 mg by mouth daily. 11/16/2020 Active losartan (COZAAR) 50 mg tablet Take 50 mg by mouth daily. 11/16/2020 Active glipiZIDE (GLUCOTROL) 5 mg tablet Take 5 mg by mouth 2 times daily. 04/29/2016 Active Blood-Glucose Meter (OneTouch Ultra2 Meter) Kit 04/21/2016 Active blood sugar diagnostic (OneTouch Ultra Test) Strip 04/21/2016 Active amLODIPine (NORVASC) 10 mg tablet Take 10 mg by mouth daily. 04/21/2016 Active lancets (One Touch Delica) 33 gauge 04/21/2016 Active clopidogreL (PLAVIX) 75 mg Tablet Take 75 mg by mouth. Active atorvastatin (LIPITOR) 80 mg tablet Take 1 Tablet (80 mg) by mouth daily. 100 Tablet 3 04/11/2025 Active desmopressin (DDAVP) 0.1 mg tablet Take 1 Tablet (0.1 mg) by mouth daily. 30 Tablet 06/06/2025 Active Active Problems Problem Noted Date Diagnosed Date ASHD (arteriosclerotic heart disease) 03/27/2025 Aortic stenosis 03/27/2025 Type 2 diabetes mellitus without complication Encounters Date Type Department Care Team Description 06/24/2025 Telephone [facility] [address] [place] [address] Mina Del Rio MD Follow Up (Appt needed) 06/16/2025 Telephone [facility] [place] [address] Taran Desai MD Results 06/06/2025 10:30 AM CDT Office Visit [address] [place] [address] Taran Desai MD BPH with elevated PSA (Primary Dx); Benign prostatic hyperplasia with nocturia 05/28/2025 External Device Data STL ABSTRACTION Provider, Abstract from Last 3 Months Social History Tobacco Use Types Packs/Day Years [...] on file 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[employer] Gender Identity Not on file Sexual Orientation Not on file Last Filed Vital Signs Vital Sign Reading Time Taken Comments Blood Pressure 153/83 04/11/2025 1:00 PM CDT Pulse 64 04/11/2025 1:00 PM CDT Temperature 36.3 C (97.3 F) 04/11/2025 8:12 AM CDT Respiratory Rate 20 04/11/2025 1:00 PM CDT Oxygen Saturation 95% 04/11/2025 1:00 PM CDT Inhaled Oxygen Concentration - - Weight 126 kg (277 lb 12.5 oz) 04/11/2025 8:01 A M CDT Height 180.3 cm (5' 11 ) 04/11/2025 8:01 AM CDT Body Mass Index 38.74 04/11/2025 8:01 AM CDT Plan of Treatment Health Maintenance [...] Flex Sig/CT Colonography Q 5 years 1997 RSV VACCINE (60+ or ) (1 - Risk 50-74 years 1-dose series) 2002 ZOSTER VACCINE (1 of 2) 2002 LDL CHOLESTEROL ANNUAL 01/13/2016 01/12/2015, 2014 INFLUENZA VACCINE (#1) 2025 Procedures Procedure Name Priority Date/Time Associated Diagnosis Comments PSA Routine 06/06/2025 11:14 AM CDT BPH with elevated PSA Benign prostatic hyperplasia with nocturia POC URINALYSIS DIPSTICK AUTOMATED Routine 06/06/2025 10:51 AM CDT LIPID PANEL Routine 01/12/2015 10:24 PM CDT from Last 3 Months or Most Recently Relevant to Health Maintenance Results * (ABNORMAL) PSA (06/06/2025 11:14 AM CDT) PSA 5.42(H) < OR = 4.00 ng/mL [facility] Comment: The total PSA value from this assay system is standardized against the WHO standard. The test result will be approximately 20% lower when compared to the equimolar-standardized total PSA (Taylor Ayad). Comparison of serial PSA results should be interpreted with this fact in mind. This test was performed using the Siemens chemiluminescent method. Values obtained from different assay methods cannot be used interchangeably. PSA levels, regardless of value, should not be interpreted as absolute evidence of the presence or absence of disease. FASTING:NO FASTING: NO Test Performed at: [facility] RR [address] [place] [address] Uri Dawson Mikie Blood 06/06/2025 11:1 4 AM CDT 06/06/2025 11:15 AM CDT Taran Desai MD CHEMISTRY ORDERABLES Final R esult [facility] [phone] [facility] RR [address] [place] [address] * (ABNORMAL) POC URINALYSIS DIPSTICK AUTOMATED (06/06/2025 10:51 AM CDT) COLOR UA Yellow Pale to Dark Yellow 06/06/2025 10:51 AM CDT [facility] CLAR[facility] UA Clear Clear 06/06/2025 10:51 AM CDT [facility] GLUCOSE UA Negative Negative 06/06/2025 10:51 AM CDT [facility] BILIRUBIN UA Negative Negative 06/06/2025 10:51 AM CDT [facility] [place] KETONES UA Negative Negative 06/06/2025 10:51 AM CDT [facility] BLOOD UA Trace(A) Negative 06/06/2025 10:51 AM CDT [facility] [place] PH UA 5.5 5.0 - 8.0 06/06/2025 10:51 AM CDT [facility] PROTEIN UA 3+(A) Negative 06/06/2025 10:51 AM CDT [facility] [place] UROBILINOGEN UA 0.2 <2.0 mg/dL 10:51 AM CDT [facility] [place] NITRITE UA Negative Negative 06/06/2025 10:51 AM CDT [facility] LEUKOCYTE ESTERASE UA Negative Negative 06/06/2025 10:51 AM CDT [facility] [place] SPECIFIC GRAVITY UA POC >=1.030 1.000 - 1.030 06/06/2025 10:51 AM CDT [facility] Urine 06/06/2025 10:5 1 AM CDT 06/06/2025 10:54 AM CDT Narrative [facility] - 06/06/2025 10:51 AM CDT Recommend Urine Microcopic ([id number])and Urine Culture ([id number]) if indicated. us Taran Desai MD POINT OF CARE TESTING Final Result [facility] CLIA# [id number] [address] [place] [address], * (ABNORMAL) LIPID PANEL (01/12/2015 10:24 PM CDT) CHOLESTEROL 182 130 - 200 mg/dL 01/12/2015 11:54 PM CDT [facility] TRIGLYCERIDE 244(H) 30 - 200 mg/dL 01/12/2015 11:54 PM CDT [facility] HDL 31(L) 35 - 80 mg/dL 01/12/2015 11:54 PM CDT [facility] LDL CALCULATED 102(H) 0 - 100 mg/dL 01/12/2015 11:54 PM CDT [facility] NON-HDL CHOLESTEROL 151 mg/dL 01/12/2015 11:54 PM CDT [facility] Blood 01/12/2015 10:2 4 PM CDT 01/12/2015 10:24 PM CDT [facility] [place] - 01/12/2015 11:54 PM CDT TOTAL CHOLESTEROL [...] high >=190 Based on AHA/NCEP Guidelines us Guanakito Bland DO CHEMISTRY ORDERABLES Final Resu lt [facility] [place] CLIA # [id number] [address] [address] [facility] CLIA # [id number] [address] [address] from Last 3 Months or Most Recently Relevant to Health Maintenance Insurance [place] [address] [place] [place] [address] DUAL ADVANTAGE O [facility] Advance Directives For more information, please contact: [phone] * Full Code (Latest Code Status on File) Date Activated Date Inactivated Comments 04/11/2025 7:27 AM 04/11/2025 3:47 PM Care Teams Director Volunteer Services Relationship Specialty Start Date End Date Adonis Calabrese Sr., FNP [address] [place] [address] PCP - General 11/16/20
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
[2025-07-19 20:06] LABS: Glucose Urine UA 3+ (Normal); Nitrate Urine Negative (Negative); Specific Gravity, Urine 1.018 (1.005-1.030)
[2025-07-19] MEDS: iohexol 350 mg/mL 500 mL Btl (per mL) IV (20:31)
[2025-07-19 20:45] LABS: Hematocrit 49.9 % (37-53); Hemoglobin 17.00 g/dL (11.27-16.99); Mean Corpuscular HGB Conc 34.1 g/dL (30-55); Mean Corpuscular Hemoglobin 31.4 pg (27-33); Mean Corpuscular Volume 92.2 fl (82-101); Nucleated Red Blood Cells % 0 %; Platelet Count 216 10^3/cmm (157-399); Red Blood Count 5.41 10^6/uL (3.85-5.65); White Blood Count 6.67 10^3/uL (3.29-11.43)
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
[2025-07-19] MEDS: ondansetron 2 mg/ML SDV 2 mL 4 MG IVP (21:00)
[2025-07-19] MEDS: fentaNYL 50 mcg/mL INJ 2mL 100 MCG IVP (21:00)
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
[2025-07-19 21:14] LABS: Blood Urea Nitrogen 19 mg/dL (8-23); Calcium 9.9 mg/dL (8.5-10.5); Carbon Dioxide 24 mmol/L (22-29); Chloride 98 mmol/L (98-107); Glucose 198 mg/dL (65-115); Osmolality Calculated 288 mOsm/kg (285-295); Sodium 135 mmol/L (136-145)
[2025-07-19 21:19] LABS: Anion Gap 16.9 (5-19); Potassium 3.9 mmol/L (3.5-5.1)
[2025-07-19 23:01] LABS: NT Pro B Type Natriuretic Pept 1339 pg/mL (0-125)
[2025-07-19 23:15] LABS: Troponin(5th) Baseline 29 ng/L (0-15)
--- NOTE | 2025-07-19 23:40 | PC.NURSE ---
attempted to call next of kin to give patient a ride home with no answer. will continue to try. patient states that he does not have a ride rosi at this time but that they can come get him in the morning and he will wait in lobby.
[2025-07-19 23:52] LABS: Respiratory Syncytial Virus Ce NEGATIVE (Negative); SARS-CoV-2 PCR NEGATIVE (Negative)
[2025-07-20] MEDS: oxyCODONE-APAP 5-325 mg Tablet 2 TAB PO (00:14)
== END 2025-07-19 23:58 | disposition home or self-care (01) ==
PROVIDERS: Emergency Provider Physician Assistant
DX: S22.41XA Multiple fractures of ribs, right side, initial encounter for closed fracture (principal); V87.7XXA Person injured in collision between other specified motor vehicles (traffic), initial encounter; Z79.84 Long term (current) use of oral hypoglycemic drugs; Z79.02 Long term (current) use of antithrombotics/antiplatelets; Z79.82 Long term (current) use of aspirin; Z11.52 Encounter for screening for COVID-19; I25.10 Atherosclerotic heart disease of native coronary artery without angina pectoris; E11.22 Type 2 diabetes mellitus with diabetic chronic kidney disease; I12.9 Hypertensive chronic kidney disease with stage 1 through stage 4 chronic kidney disease, or unspecified chronic kidney disease; N18.31 Chronic kidney disease, stage 3a; E78.5 Hyperlipidemia, unspecified
CPT/HCPCS: 36415; 70450; 71260; 72125; 73110; 73130; 74177; 80048; 81001; 83880; 84484; 85025; 87637; 96374; 96375; 99285; J1885; J2405; J3010

== ENCOUNTER 2025-07-21 01:55 | Emergency (ER) | payer MEDICARE, MEDICAID, SELFPAY ==
--- OUTSIDE RECORDS SUMMARY | 2024-02-19 07:00 | XMS_ITS ---
Author Organization [employer], [employer] Address [address] [facility] [place] [address] Care Team Providers Care Adult Ministries Director Name Role Phone John Moncada MD Primary Care Provider Unavailab YANCY Glover Unavailable [phone] REASON FOR VISIT w/Beltran - IC inj consult Encounters Encounter Location Date Provider Diagnosis [facility], [facility] [employer] [address] [place] [address] 02/19/2024 YANCY YI Plan Of Treatment No Information Progress Notes * Elieser CHAVEZ HDOB: 3 (74 yo M)Acc No.[id number]:02/19/2024 Progress Note Patient: Elieser MCNALLY Provider: LUIZ Aguirre :1950 A ge:73 Y S ex:Male Date:02/19/2024 Address:[address] Pcp:John Moncada MD Subjective: * Chief Complaints: * 1 . w/Beltran - IC inj consult. * Medical History: Objective: * Vitals: Assessment: Plan: * Treatment: * Billing Information: * Visit Code: * Procedure Codes: * Electronic signature of YANCY YI APRN on 07/21/2025 at 02:03 AM MUSIC EDUCATION ADJUNCT PROFESSOR Sign off status: Pending * Provider: LUIZ Aguirre Date: 0 02/19/2024 Generated for Printi ng/Faxing/eTransmitting on: 1 09/21/2024 02:03 AM MUSIC EDUCATION ADJUNCT PROFESSOR
[2025-07-21 02:01] VITALS: BP 162/100; PULSE 72; RESP 22; TEMP 36.6; O2SAT 93; BMI 34.8
--- OUTSIDE RECORDS SUMMARY | 2025-07-21 02:03 | XMS_ITS | Encounter Summary ---
Author Organization [facility] Address [address] [place] [address] Care Team Providers Care Sole Blacker Name Role Phone LAZARA Calabrese Sr., Adonis Pan Primary Care Pro vider Encounter Details Date Type Department Care Team (Latest Contact Info) Description 12/19/2005 Outpatient Historical [facility] Orthopedics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
--- OUTSIDE RECORDS SUMMARY | 2025-07-21 02:03 | XMS_ITS | Encounter Summary ---
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
--- OUTSIDE RECORDS SUMMARY | 2025-07-21 02:03 | XMS_ITS | Encounter Summary ---
Author Organization [facility] Address [address] [place] [address] Care Team Providers Care Drawing Tender Name Role Phone LAZARA Calabrese Sr., Michael Dave Primary Care Pro vider Encounter Details Date Type Department Care Team (Latest Contact Info) Description 02/19/2002 Outpatient Historical [facility] Medicine [place] [address] [facility] [address] [place] [phone] Guanakito Bland DO NO ADDRESS ON FILE LOCAL SKIN INFECTION NOS (Primary Dx) Social History Tobacco Use Types Packs/Day Years Used Date Smoking Tobacco: Never Assessed Sex and Gender Information Value Date Recorded Sex Assigned at Not on file 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
--- OUTSIDE RECORDS SUMMARY | 2025-07-21 02:03 | XMS_ITS | Encounter Summary ---
Author Organization [facility] Address [address] [place] [address] Care Team Providers Care Grooming Assistant Name Role Phone Bharati Farley, LAZARA, Adonis Pan Primary Care Pro vider Encounter Details Date Type Department Care Team (Late st Contact Info) Description 08/19/[address] 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 Gender Identity Not on file Sexual Orientation Not on file documented as of this encounter Plan of Treatment Not on file documented as of this encounter Procedures Procedure Name Priority Date/Time Associated Diagnosis Comments CBC WITH DIFFERENTIAL Routine 08/19/2013 10:46 PM A/C TECHNICIAN Sick [ICD-9-CM] PSA Routine 08/19/2013 10:46 PM A/C TECHNICIAN Sick [ICD-9-CM] LIPID PANEL Routine 08/19/2013 10:46 PM A/C TECHNICIAN Sick [ICD-9-CM] COMPREHENSIVE METABOLIC PANEL Routine 08/19/2013 10:46 PM A/C TECHNICIAN Sick [ICD-9-CM] documented in this encounter Results * PSA (08/19/2013 10:46 PM A/C TECHNICIAN) PSA 1.5 0.0 - 4.0 ng/mL 08/20/2013 12:24 AM A/C TECHNICIAN [facility] LABORATORY SERVICES [facility] Blood specimen (specimen) 08/19/2013 10:46 PM A/C TECHNICIAN 08/19/2013 10:46 PM A/C TECHNICIAN us Tova Barone MACHINE SPLITTER CHEMISTRY ORDERABLES Final R esult [facility] CLIA # [id number] [address] [place] [address] * (ABNORMAL) LIPID PANEL (08/19/2013 10:46 PM A/C TECHNICIAN) CHOLESTEROL 179 130 - 200 mg/dL 08/20/2013 12:24 AM A/C TECHNICIAN [facility] TRIGLYCERIDE 165 30 - 200 mg/dL 08/20/2013 12:24 AM A/C TECHNICIAN [facility] HDL 26(L) 35 - 80 mg/dL 08/20/2013 12:24 AM A/C TECHNICIAN [facility] LDL CALCULATED 120(H) 0 - 100 mg/dL 08/20/2013 12:24 AM A/C TECHNICIAN [facility] Blood specimen (specimen) 08/19/2013 10:46 PM A/C TECHNICIAN 08/19/2013 10:46 PM A/C TECHNICIAN Narrative [employer] [facility] - 08/20/2013 12:24 AM A/C TECHNICIAN TOTAL CHOLESTEROL mg/dL Desirable <200 Borderline high 200-239 High >=240 TRIGLYCERIDES mg/dL Normal <150 Borderline high 150-199 High 200-499 Very high >=500 HDL CHOLESTEROL mg/dL Low <40 Normal 40-60 Desirable >60 LDL CHOLESTEROL mg/dL Optimal <100 Low risk 100-129 Borderline high 130-159 High 160-189 Very high >=190 Based on AHA/NCEP Guidelines us Tova Barone MACHINE SPLITTER CHEMISTRY ORDERABLES Final R esult [facility] CLIA # [id number] [address] [place] [address] * (ABNORMAL) COMPREHENSIVE METABOLIC PANEL (08/19/2013 10:46 PM A/C TECHNICIAN) SODIUM 139 136 - 145 mmol/L 08/20/2013 12:24 AM A/C TECHNICIAN [employer] [facility] [place] POTASSIUM 3.9 3.5 - 5.1 mmol/L 08/20/2013 12:24 AM [facility] [place] CHLORIDE 103 98 - 107 mmol/L 08/20/2013 12:24 AM [facility] [place] CO2 25 21 - 32 mmol/L 08/20/2013 12:24 AM [facility] CALCIUM 8.6 8.5 - 10.1 mg/dL 08/20/2013 12:24 AM [facility] BUN 21(H) 7 - 18 mg/dL 08/20/2013 12:24 AM [facility] [employer] [facility] CREATININE 1.00 0.60 - 1.30 mg/dL 08/20/2013 12:24 AM [facility] GLUCOSE 99 74 - 106 mg/dL 08/20/2013 12:24 AM [facility] TOTAL PROTEIN 7.9 6.4 - 8.2 g/dL 08/20/2013 12:24 AM [facility] ALBUMIN 3.8 3.4 - 5.0 g/dL 08/20/2013 12:24 AM [facility] BILIRUBIN TOTAL 0.2 0.2 - 1.0 mg/dL 08/20/2013 12:24 AM [facility] ALKALINE PHOSPHATASE 98 50 - 136 U/L 08/20/2013 12:24 AM [facility] AST 29 15 - 37 U/L 08/20/2013 12:24 AM [facility] ALT 65 30 - 65 U/L 08/20/2013 12:24 AM [facility] GFR 76 >=60 mL/min/1.7 3 sq meter 08/20/2013 12:24 AM [facility] Comment: eGFR has not been validated [...] mL/min/1.7 3 sq meter 08/20/2013 12:24 AM [facility] [employer] [facility] Comment: eGFR has not been validated [...] Program Blood specimen (specimen) 08/19/2013 10:46 PM A/C TECHNICIAN 08/19/2013 10:46 PM A/C TECHNICIAN us Tova Barone NP CHEMISTRY ORDERABLES Final R esult [facility] [employer] [facility] CLIA # [id number] [address] [place] [address] * (ABNORMAL) CBC WITH DIFFERENTIAL (08/19/2013 10:46 PM A/C TECHNICIAN) WBC 8.0 4.2 - 9.1 K/uL 08/19/2013 11:35 PM [facility] [employer] [facility] RBC 4.52(L) 4.63 - 6.08 M/uL 08/19/2013 11:35 PM [facility] [employer] [facility] HEMOGLOBIN 13.7 13.7 - 17.5 g/dL 08/19/2013 11:35 PM [facility] [employer] [facility] HEMATOCRIT 39.9(L) 40.1 - 51.0 % 08/19/2013 11:35 PM [facility] [employer] [facility] MCV 88.3 79.0 - 92.2 fL 08/19/2013 11:35 PM [facility] [employer] [facility] MCH 30.3 25.7 - 32.2 pg 08/19/2013 11:35 PM [facility] [employer] [facility] MCHC 34.3 32.3 - 36.5 g/dL 08/19/2013 11:35 PM [facility] [employer] [facility] RDW 13.5 11.0 - 14.5 % 08/19/2013 11:35 PM A/C TECHNICIAN [facility] [place] RDW-STDEV 43.1 37.0 - 54.0 fL 08/19/2013 11:35 PM A/C TECHNICIAN [facility] [place] PLATELETS 266 130 - 400 K/uL 08/19/2013 11:35 PM A/C TECHNICIAN [facility] [place] MPV 9.4(L) 10.0 - 14.8 fL 08/19/2013 11:35 PM A/C TECHNICIAN [facility]ATORY [facility] [place] NEUTROPHILS 61 34 - 68 % 08/19/2013 11:35 PM A/C TECHNICIAN [facility]ATORY [facility] [place] LYMPHOCYTES 25 22 - 53 % 08/19/2013 11:35 PM A/C TECHNICIAN [facility] [place] MONOCYTES 10 5 - 12 % 08/19/2013 11:35 PM A/C TECHNICIAN [facility] [place] EOSINOPHILS 4 1 - 7 % 08/19/2013 11:35 PM A/C TECHNICIAN [facility] [place] BASOPHILS 0 0 - 1 % 08/19/2013 11:35 PM A/C TECHNICIAN [facility] [place] NEUTROPHIL ABSOLUTE 4.90 1.78 - 5.38 K/uL 08/19/2013 11:35 PM A/C TECHNICIAN [facility]AT[facility] [place] LYMPHOCYTE ABSOLUTE 2.01 1.20 - 3.40 K/uL 08/19/2013 11:35 PM A/C TECHNICIAN [facility] [place] MONOCYTE ABSOLUTE 0.78 0.30 - 0.82 K/uL 08/19/2013 11:35 PM A/C TECHNICIAN [facility] [place] EOSINOPHIL ABSOLUTE 0.29 0.04 - 0.54 K/uL 08/19/2013 11:35 PM A/C TECHNICIAN [facility] [place] BASOPHILS ABSOLUTE 0.02 0.01 - 0.08 K/uL 08/19/2013 11:35 PM A/C TECHNICIAN [facility]ATORY [facility] [place] Blood specimen (specimen) 08/19/2013 10:46 PM A/C TECHNICIAN 08/19/2013 10:46 PM A/C TECHNICIAN Tova Barone NP HEMATOLOGY ORDERABLES Final Result [facility] [place] CLIA # [id number] [address] [place] [address] [address] [place] [address] documented in this encounter Visit Diagnoses Diagnosis Sick Other unknown and unspecified cause of morbidity or mortality documented in this encounter Care Teams Grooming Assistant Relationship Specialty Start Date End Date Bharati Farley LAZARA Velasquez [address] [place] [address] PCP - General NURSE PRACTITIONER 05/13/15 documented as of this encounter
--- OUTSIDE RECORDS SUMMARY | 2025-07-21 02:03 | XMS_ITS | Encounter Summary ---
Author Organization [facility] Address [address] [place] [address] Care Team Providers Care Rock Star Name Role Phone Bharati Farley, LAZARA, Adonis Pan Primary Care Pro vider Encounter Details Date Type Department Care Team (Late st Contact Info) Description 10/13/2014 Lab Requisition [facility] Laboratory Services [place] [address] [place] [address] Guanakito Bland, NO ADDRESS ON FILE Sick Social History Tobacco Use Types Packs/Day Years Used Date Smoking Tobacco: Never Assessed Sex and Gender Information Value Date Recorded Sex Assigned at Not on file 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 Guanakito Bland DO CHEMISTRY ORDERABLES Final Resu lt Performing Organization Address City/[facility] [place] [facility]/ZIP Co de Phone Number [facility] [employer] [facility] CLIA # [id number] [address] [place] [address] * CK (10/13/2014 9:17 PM CDT) CK 196 26 - 308 U/L 10/13/2014 9:44 PM CDT [facility] [employer] [facility] Blood Collection / Unknown 10/13/2014 9:17 PM CDT 10/13/2014 9:17 PM CDT Guanakito Bland DO CHEMISTRY ORDERABLES Final Resu lt Performing Organization Address [facility] [place] [facility] Co de Phone Number [facility] [employer] [facility] CLIA # [id number] [address] [place] [phone] * ALT (10/13/2014 9:17 PM CDT) ALT 46 30 - 65 U/L 10/13/2014 9:44 PM CDT [facility] [employer] [facility] Blood Collection / Unknown 10/13/2014 9:17 PM CDT 10/13/2014 9:17 PM CDT us Guanakito Bland DO CHEMISTRY ORDERABLES Final Resu lt Performing Organization Address [facility] [place] [facility] Co de Phone Number [facility] [employer] [facility] CLIA # [id number] [address] [place] [phone] documented in this encounter Visit Diagnoses Diagnosis Sick Other unknown and unspecified cause of morbidity or mortality documented in this encounter Care Teams Rock Star Relationship Specialty Start Date End Date Bharati Farley, LAZARA Velasquez [address] [place] [address] PCP - General NURSE PRACTITIONER 05/13/15 documented as of this encounter
--- OUTSIDE RECORDS SUMMARY | 2025-07-21 02:03 | XMS_ITS | Clinical Summary ---
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 Gender Identity Not on file Sexual [...] - 200 mg/dL 01/12/2015 11:54 PM T [facility] LABORATORY [facility] TRIGLYCERIDE 244(H) 30 - 200 mg/dL 01/12/2015 11:54 PM CDT [facility] HDL 31(L) 35 - 80 mg/dL 01/12/2015 11:54 PM T [facility] LDL CALCULATED 102(H) 0 - 100 mg/dL 01/12/2015 11:54 PM T [facility] [employer] [facility] NON-HDL CHOLESTEROL 151 mg/dL 01/12/2015 11:54 PM T [facility] Blood 01/12/2015 10:2 4 PM CDT 01/12/2015 10:24 PM CDT [facility] [employer] [facility] - 01/12/2015 11:54 PM CDT TOTAL CHOLESTEROL [...] Bland DO CHEMISTRY ORDERABLES Final Resu lt [facility] [employer] [facility] CLIA # [id number] [address] [place] [address] [address] [place] [address] from Last 3 Months or Most Recently Relevant to Health Maintenance Insurance MEDICARE PART A HOSPITAL ONLY BS Care Teams Cascade Operator Relationship Specialty Start Date End Date Bharati Farley, LAZARA Velasquez [address] [place] [address] PCP - General NURSE PRACTITIONER 05/13/15
--- OUTSIDE RECORDS SUMMARY | 2025-07-21 02:03 | XMS_ITS | Clinical Summary ---
Author Organization [facility] Address [address] [facility] [address] [place] [address] Phone Care Team Providers Care Highway Commissioner Name Role Phone LAZARA Calabrese Sr., Adonis [...] Department Care Team Description 06/24/2025 Telephone [facility] [address] [place] [address] Mina Del Rio MD Follow Up (Appt needed) 06/16/[address] 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 FASTING:NO FASTING: NO Test Performed at: [facility] RR [address] [place] [address] Uri Dawson Mikie Blood 06/06/2025 11:1 4 AM CDT 06/06/2025 11:15 AM CDT Taran Desai MD CHEMISTRY ORDERABLES Final R esult [facility] [phone] [facility] RR [address] [place] [address] * (ABNORMAL) POC URINALYSIS DIPSTICK AUTOMATED (06/06/2025 10:51 AM CDT) COLOR UA Yellow Pale to Dark Yellow 06/06/2025 10:51 AM CDT [facility] UA Clear Clear 06/06/2025 10:51 AM CDT [facility] GLUCOSE UA Negative Negative 06/06/2025 10:51 AM CDT [facility] BILIRUBIN UA Negative Negative 06/06/2025 10:51 AM CDT [facility] [place] KETONES UA Negative Negative 06/06/2025 10:51 AM CDT [facility] BLOOD UA Trace(A) Negative 06/06/2025 10:51 AM CDT [facility] [place] PH UA 5.5 5.0 - 8.0 06/06/2025 10:51 AM CDT [facility] PROTEIN UA 3+(A) Negative 06/06/2025 10:51 AM CDT [facility] [place] UROBILINOGEN UA 0.2 <2.0 mg/dL 10:51 AM CDT [facility] UROLOGY [place] NITRITE UA Negative Negative 06/06/2025 10:51 AM CDT [facility] LEUKOCYTE ESTERASE UA Negative Negative 06/06/2025 10:51 AM CDT [facility] [place] SPECIFIC GRAVITY UA POC >=1.030 1.000 - 1.030 06/06/2025 10:51 AM CDT [facility] Urine 06/06/2025 10:5 1 AM CDT 06/06/2025 10:54 AM CDT Narrative [facility] - 06/06/2025 10:51 AM CDT Recommend Urine Microcopic ([id number])and Urine Culture ([id number]) if indicated. us Taran Desai MD POINT OF CARE TESTING Final Result [facility] CLIA# [id number] [address] [place] [address], * (ABNORMAL) LIPID PANEL (01/12/2015 10:24 PM CDT) CHOLESTEROL 182 130 - 200 mg/dL 01/12/2015 11:54 PM CDT [facility] TRIGLYCERIDE 244(H) 30 - 200 mg/dL 01/12/2015 11:54 PM CDT [facility] HDL 31(L) 35 - 80 mg/dL 01/12/2015 11:54 PM CDT [facility] LDL CALCULATED 102(H) 0 - 100 mg/dL 01/12/2015 11:54 PM CDT [facility] NON-HDL CHOLESTEROL 151 mg/dL 01/12/2015 11:54 PM CDT [facility] Blood 01/12/2015 10:2 4 PM CDT 01/12/2015 10:24 PM CDT [facility]AT[facility] [place] - 01/12/2015 [...] Final Resu lt [facility] [place] CLIA # [id number] [address] [address] [facility] CLIA # [id number] [address] [address] from Last 3 Months or Most Recently Relevant to Health Maintenance Insurance MEDICAID [address] [place] [address] DUAL ADVANTAGE O [facility] Advance Directives For more information, please contact: [phone] * Full Code (Latest Code Status on File) Date Activated Date Inactivated Comments 04/11/2025 7:27 AM 04/11/2025 3:[address] Commissioner Relationship Specialty Start Date End Date Adonis Calabrese Sr., FNP [address] [place] [address] PCP - General 11/16/20
--- OUTSIDE RECORDS SUMMARY | 2025-07-21 02:03 | XMS_ITS | Encounter Summary ---
Author Organization [facility] Address [address] [place] [address] Care Team Providers Care Landman Name Role Phone LAZARA Calabrese Sr., Michael Dave Primary Care Pro vider Encounter Details Date Type Department Care Team (Latest Contact Info) Description 03/15/2006 Outpatient Historical [facility] Medicine [place] [address] [facility] [address] [place] [phone] Kay Lucio MD NO ADDRESS ON FILE Impotence of Organic Origin (Primary Dx) Social History Tobacco Use Types Packs/Day Years Used Date Smoking Tobacco: Never Assessed Sex and Gender Information Value Date Recorded Sex Assigned at Not on file 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
--- OUTSIDE RECORDS SUMMARY | 2025-07-21 02:03 | XMS_ITS | Encounter Summary ---
Author Organization [facility] Address [address] [place] [address] Care Team Providers Care Proofreader Name Role Phone LAZARA Calabrese Sr., Adonis Pan Primary Care Pro vider Encounter Details Date Type Department Care Team (Latest Contact Info) Description 11/21/2005 Outpatient Historical [facility] Orthopedics- 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
--- OUTSIDE RECORDS SUMMARY | 2025-07-21 02:03 | XMS_ITS | Encounter Summary ---
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 Gender Identity Not on file Sexual Orientation Not on file documented as of this encounter Plan of Treatment Not on file documented as of this encounter Procedures Procedure Name Priority Date/Time Associated Diagnosis Comments LIPID PANEL Routine 06/09/2014 11:42 PM BLANKET CUTTING MACHINE OPERATOR documented in this encounter Results * (ABNORMAL) LIPID PANEL (06/09/2014 11:42 PM BLANKET CUTTING MACHINE OPERATOR) CHOLESTEROL 222(H) 130 - 200 mg/dL 06/10/2014 2:06 AM BLANKET CUTTING MACHINE OPERATOR [employer] [facility] [place] TRIGLYCERIDE 167 30 - 200 mg/dL 06/10/2014 2:06 AM BLANKET CUTTING MACHINE OPERATOR [employer] [facility] [place] HDL 35 35 - 80 mg/dL 06/10/2014 2:06 AM BLANKET CUTTING MACHINE OPERATOR [employer] [facility] [place] LDL CALCULATED 154(H) 0 - 100 mg/dL 06/10/2014 2:06 AM BLANKET CUTTING MACHINE OPERATOR [employer] [facility] [place] NON-HDL CHOLESTEROL 187 mg/dL 06/10/2014 2:06 AM [facility] [place] [employer] Blood 06/09/2014 11:4 2 PM BLANKET CUTTING MACHINE OPERATOR 06/09/2014 11:42 PM BLANKET CUTTING MACHINE OPERATOR Narrative [facility] [place] - 06/10/2014 2:06 AM BLANKET CUTTING MACHINE OPERATOR TOTAL CHOLESTEROL mg/dL Desirable <200 Borderline [...] Bland DO CHEMISTRY ORDERABLES Final Resu lt [facility] [place] CLIA # [id number] [address] [facility] [address] [place] [address] documented in this encounter Visit Diagnoses Not on filedocumented in this encounter Care Teams Purchasing Intern Relationship Specialty Start Date End Date Bharati Farley, LAZARA Velasquez [address] [place] [address] PCP - General NURSE PRACTITIONER 05/13/15 documented as of this encounter
--- OUTSIDE RECORDS SUMMARY | 2025-07-21 02:03 | XMS_ITS | Encounter Summary ---
Author Organization [facility] Address [address] [place] [address] Care Team Providers Care Oral Surgery Physician Name Role Phone LAZARA Calabrese Sr., Michael Dave Primary Care Pro vider Encounter Details Date Type Department Care Team (Latest Contact Info) Description 10/20/2004 Outpatient Historical [facility] Medicine [place] [address] [facility] [address] [place] [phone] Kay Lucio MD NO ADDRESS ON FILE IMPOTENCE, ORGANIC ORIGN (Primary Dx); HYPERTENSION NOS Social History Tobacco Use Types Packs/Day Years Used Date Smoking Tobacco: Never Assessed Sex and Gender Information Value Date Recorded Sex Assigned at Not on file 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
--- OUTSIDE RECORDS SUMMARY | 2025-07-21 02:03 | XMS_ITS | Patient Health Record ---
Author Organization [facility] Address [address] [place] [address] Care Team Providers Care Rehabilitation Therapist Name Role Phone John Moncada MD Primary Care Provider Unavailab YANCY Glover Unavailable [phone] Allergies No Known Allergies Reason For Referral [...] W/U Status Risk Notes Problem Chronic prostatitis (62088654) Chronic prostatitis (N41.1) Active confirmed Plan Of Treatment Pending Test Test Name Order Date PSA, TOTAL (5363) 02/14/2024 Future Test Test Name Order Date PSA, TOTAL (5363) 03/04/2024 Insurance Providers Payer Name Payer Address Payer Phone Subscriber Number Group Number Insured Name Patient Relationship to Insured Coverage Start Date Coverage End Date [place] Replacement [address] ANYA BENITEZ [id number] Elieser Chavez Self - patient is the insured [place] Medicaid [address] [place], [place] [id number] Elieser Chavez Self - patient is the insured Medical (General) History Medical History History ICD Code Diabetes Hypertension Osteoarthritis CAD Hyperlipidemia Hematuria Prostatitis UTIs Testicular pain Weak stream Erectile dysfunction Elevated PSA Surgical History Surgery Date(Month/Year) Bilateral knee replacements Hernia repair Hospitalization History Reason Date(Month/Year) see prior sx hx
--- OUTSIDE RECORDS SUMMARY | 2025-07-21 02:03 | XMS_ITS | Encounter Summary ---
Author Organization [facility] Address [address] [place] [address] Care Team Providers Care Food Product Inspector Name Role Phone Bharati Farley, LAZARA, Adonis Pan Primary Care Pro vider Encounter Details Date Type Department Care Team (Late st Contact Info) Description 01/12/2015 Lab Requisition [facility] General Laboratory Services [place] [address] [place] [address] Guanakito Bland, NO ADDRESS ON FILE Sick Social History Tobacco Use Types Packs/Day Years Used Date Smoking Tobacco: Never Assessed Sex and Gender Information Value Date Recorded Sex Assigned at Not on file 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 Blood 01/12/2015 10:2 4 PM CDT 01/12/2015 10:24 PM CDT Guanakito Bland DO CHEMISTRY ORDERABLES Final Resu lt Performing Organization Address City/[facility]/ZIP Co de Phone Number [facility] [place] Social [facility] CLIA # [id number] [address] [place] [address] * (ABNORMAL) LIPID PANEL (01/12/2015 10:24 PM CDT) Pathologist [facility] CHOLESTEROL 182 130 - 200 mg/dL 01/12/2015 11:54 PM CDT [facility] TRIGLYCERIDE 244(H) 30 - 200 mg/dL 01/12/2015 11:54 PM CDT [facility] HDL 31(L) 35 - 80 mg/dL 01/12/2015 11:54 PM CDT [facility] LDL CALCULATED 102(H) 0 - 100 mg/dL 01/12/2015 11:54 PM CDT [facility] Spect[facility] NON-HDL CHOLESTEROL 151 mg/dL 01/12/2015 11:54 PM CDT [facility] Blood 01/12/2015 10:2 4 PM CDT 01/12/2015 10:24 PM CDT Narrative [facility] Arg[place] Social - MEQUON - 01/12/2015 11:54 PM CDT TOTAL CHOLESTEROL [...] CHEMISTRY ORDERABLES Final Resu lt [facility] CLIA # [id number] [address] [address] * CK (01/12/2015 10:24 PM CDT) Pathologist [facility] CK 184 26 - 308 U/L 01/12/2015 11:54 PM CDT [facility] Blood 01/12/2015 10:2 4 PM CDT 01/12/2015 10:24 PM CDT Guanakito Bland DO CHEMISTRY ORDERABLES Final Resu lt [facility] CLIA # [id number] [address] [place] [address] * (ABNORMAL) COMPREHENSIVE METABOLIC PANEL (01/12/2015 10:24 PM CDT) Pathologist [facility] SODIUM 135(L) 136 - 145 mmol/L 01/12/2015 11:54 PM CDT [facility] POTASSIUM 3.8 3.5 - 5.1 mmol/L 01/12/2015 11:54 PM T [facility] CHLORIDE 99 98 - 107 mmol/L 01/12/2015 11:54 PM T [facility] CO2 28 21 - 32 mmol/L 01/12/2015 11:54 PM T [facility] CALCIUM 8.8 8.5 - 10.1 mg/dL 01/12/2015 11:54 PM CDT [facility] BUN 22(H) 7 - 18 mg/dL 01/12/2015 11:54 PM CDT [facility] CREATININE 1.08 0.60 - 1.30 mg/dL 01/12/2015 11:54 PM T [facility] GLUCOSE 130(H) 74 - 106 mg/dL 01/12/2015 11:54 PM T [facility] TOTAL PROTEIN 8.5(H) 6.4 - 8.2 g/dL 01/12/2015 11:54 PM T [facility] ALBUMIN 4.0 3.4 - 5.0 g/dL 01/12/2015 11:54 PM CDT [facility] BILIRUBIN TOTAL 0.5 0.2 - 1.0 mg/dL 01/12/2015 11:54 PM T [facility] ALKALINE PHOSPHATASE 82 46 - 116 U/L 01/12/2015 11:54 PM CDT [facility] AST 20 15 - 37 U/L 01/12/2015 11:54 PM T [facility] ALT 43 30 - 65 U/L 01/12/2015 11:54 PM CDT [facility] GFR >60 >=60 mL/min/1.7 3 sq meter 01/12/2015 11:54 PM [facility] Comment: eGFR has not been validated [...] 3 sq meter 01/12/2015 11:54 PM T [facility] Spect[facility]ath [facility] ANION GAP 8(L) 12 - 20 mmol/L 01/12/2015 11:54 PM [facility] Blood 01/12/2015 10:2 4 PM CDT 01/12/2015 10:24 PM CDT Narrative [facility] - 01/12/2015 11:54 PM CDT Effective 04/10/2014, the Alkaline Phosphatase test method and reference range have changed. Please take this into consideration when interpreting results prior to or after this date. us Guanakito Bland DO CHEMISTRY ORDERABLES Final Resu lt [facility]ath [facility] CLIA # [id number] 100 [facility] [address] [place], [place] [id number] documented in this encounter Visit Diagnoses Diagnosis Sick Other unknown and unspecified cause of morbidity or mortality documented in this encounter Care Teams Food Product Inspector Relationship Specialty Start Date End Date Bharati Farley, LAZARA Velasquez [address] [place], [place] [address] PCP - General NURSE PRACTITIONER 05/13/15 documented as of this encounter
--- OUTSIDE RECORDS SUMMARY | 2025-07-21 02:03 | XMS_ITS | Encounter Summary ---
Author Organization [facility] Address [address] [place] [address] Care Team Providers Care Edger Saw Operator Name Role Phone LAZARA Calabrese Sr., Adonis Pan Primary Care Pro vider Encounter Details Date Type Department Care Team (Latest Contact Info) Description 11/08/2005 Outpatient Historical [facility] [address] [address] [place] [address] Mateo Greer MD [address] 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
--- OUTSIDE RECORDS SUMMARY | 2025-07-21 02:03 | XMS_ITS | Encounter Summary ---
Author Organization 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 Gender Identity Not on file Sexual Orientation [...] - 4.80 uIU/mL 12/24/2012 10:45 PM CDT [facility] LABORATORY SERVICES [place] Blood specimen (specimen) 12/24/2012 9:01 PM CDT 12/24/2012 10:01 PM CDT Nela Mata [facility] CHEMISTRY ORDERABLES Final Result Performing Organization Address [facility] Co de Phone Number [facility] LABORATORY SERVICES - [place] CLIA # [id number] [address] [place] [address] * SEDIMENTATION RATE (12/24/2012 9:01 PM CDT) ESR (SEDIMENTATION RATE) 9 0 - 20 mm/Hr 12/24/2012 10:22 PM CDT [facility] LABORATORY [facility] [place] Blood specimen (specimen) 12/24/2012 9:01 PM CDT 12/24/2012 10:01 PM CDT Nela Mata [facility] HEMATOLOGY ORDERABLES Final Result Performing Organization Address City/[facility] Co de Phone Number [facility] LABORATORY SERVICES - [place] CLIA # [id number] [address] [place] [address] * (ABNORMAL) COMPREHENSIVE METABOLIC PANEL (12/24/2012 9:01 PM CDT) SODIUM 139 136 - 145 mmol/L 12/24/2012 10:45 PM CDT [facility] LABORATORY SERVICES - [place] POTASSIUM 3.8 3.5 - 5.1 mmol/L 12/24/2012 10:45 PM CDT [facility] LABORATORY SERVICES - [place] CHLORIDE 103 98 - 107 mmol/L 12/24/2012 10:45 PM CDT [facility] [place] CO2 26 21 - 32 mmol/L 12/24/2012 10:45 PM CDT [facility] [place] CALCIUM 9.0 8.5 - 10.1 mg/dL 12/24/2012 10:45 PM CDT [facility] LABORATORY SERVICES - [place] BUN 20(H) 7 - 18 mg/dL 12/24/2012 10:45 PM CDT [facility] LABORATORY SERVICES - [place] CREATININE 1.10 0.60 - 1.30 mg/dL 12/24/2012 10:45 PM CDT [facility] LABORATORY [facility] [place] GLUCOSE 104 74 - 106 mg/dL 12/24/2012 10:45 PM CDT [facility] TOTAL PROTEIN 8.5(H) 6.4 - 8.2 g/dL 12/24/2012 10:45 PM CDT [facility] ALBUMIN 4.1 3.4 - 5.0 g/dL 12/24/2012 10:45 PM CDT [facility] BILIRUBIN TOTAL 0.3 0.2 - 1.0 mg/dL 12/24/2012 10:45 PM CDT [facility] ALKALINE PHOSPHATASE 113 50 - 136 U/L 12/24/2012 10:45 PM CDT [facility] AST 23 15 - 37 U/L 12/24/2012 10:45 PM CDT [facility] ALT 46 30 - 65 U/L 12/24/2012 10:45 PM CDT [facility] GFR 68 >=60 mL/min/1.7 3 sq meter 12/24/2012 10:45 PM CDT [facility] GFR, 83 >=60 mL/min/1.7 3 sq meter 12/24/2012 10:45 PM T [facility] Blood specimen (specimen) 12/24/2012 9:01 PM CDT 12/24/2012 10:01 PM CDT Narrative [facility] - 12/24/2012 10:45 PM CDT eGFR has [...] National Kidney Disease Education Program Nela Mata WELDING PANTOGRAPH OPERATOR CHEMISTRY ORDERABLES Final Result [facility] Spontacts [facility] CLIA # [id number] [address] [facility] [address] [place] [address] * CK (12/24/2012 9:01 PM CDT) CK 222 26 - 308 U/L 12/24/2012 10:45 PM CDT [facility] LABORATORY SERVICES - [place] Blood specimen (specimen) 12/24/2012 9:01 PM CDT 12/24/2012 10:01 PM CDT Nela Mata WELDING PANTOGRAPH OPERATOR CHEMISTRY ORDERABLES Final Result [facility] LABORATORY SERVICES - [place] CLIA # [id number] 100 [facility] 60 [place] [address] * (ABNORMAL) CBC WITH DIFFERENTIAL (12/24/2012 9:01 PM CDT) Pathologist [facility] WBC 8.1 4.2 - 9.1 K/uL 12/24/2012 10:16 PM CDT [facility] LABORATORY [facility] [place] RBC 4.96 4.63 - 6.08 M/uL 12/24/2012 10:16 PM CDT [facility] LABORATORY SERVICES - [place] HEMOGLOBIN 14.9 13.7 - 17.5 g/dL 12/24/2012 10:16 PM CDT [facility] LABORATORY SERVICES - [place] HEMATOCRIT 42.9 40.1 - 51.0 % 12/24/2012 10:16 PM CDT [facility] LAB[facility]ATORY SERVICES - [place] MCV 86.5 79.0 - 92.2 fL 12/24/2012 10:16 PM CDT [facility] LABORATORY SERVICES - [place] MCH 30.0 25.7 - 32.2 pg 12/24/2012 10:16 PM CDT [facility] LABORATORY SERVICES - [place] MCHC 34.7 32.3 - 36.5 g/dL 12/24/2012 10:16 PM CDT [facility] LAB[facility]ATORY SERVICES - [place] RDW 14.2 11.0 - 14.5 % 12/24/2012 10:16 PM CDT [facility] LABORATORY SERVICES - [place] RDW-STDEV 43.9 37.0 - 54.0 fL 12/24/2012 10:16 PM CDT [facility] LABORATORY SERVICES - [place] PLATELETS 234 130 - 400 K/uL 12/24/2012 10:16 PM CDT [facility] LABORATORY SERVICES - [place] MPV 9.6(L) 10.0 - 14.8 fL [...] - 0.08 K/uL 12/24/2012 10:16 PM CDT [facility]ATORY SERVICES - [place] Blood specimen (specimen) 12/24/2012 9:01 PM CDT 12/24/2012 10:01 PM CDT Nela Mata WELDING PANTOGRAPH OPERATOR HEMATOLOGY ORDERABLES Final Result [facility] [place] CLIA # [id number] 100 [facility] 60 [place] [address] documented in this encounter Visit Diagnoses Not on filedocumented in this encounter Care Teams Kiln Car Unloader Relationship Specialty Start Date End Date Bharati Farley, LAZARA Velasquez [address] [place] [address] PCP - General NURSE PRACTITIONER 05/13/15 documented as of this encounter
--- OUTSIDE RECORDS SUMMARY | 2025-07-21 02:03 | XMS_ITS | Encounter Summary ---
Author Organization [facility] Address [address] [place] [address] Care Team Providers Care Lens Edger Name Role Phone LAZARA Calabrese Sr., Michael Dave Primary Care Pro vider Encounter Details Date Type Department Care Team (Latest Contact Info) Description 06/12/2001 Outpatient Historical [facility] Medicine [place] [address] [facility] [address] [place] [phone] Guanakito Bland DO NO ADDRESS ON FILE JOINT PAIN-L/LEG (Primary Dx); Pain in limb Social History Tobacco Use Types Packs/Day Years Used Date Smoking Tobacco: Never Assessed Sex and Gender Information Value Date Recorded Sex Assigned at Not on file 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
--- OUTSIDE RECORDS SUMMARY | 2025-07-21 02:03 | XMS_ITS | Encounter Summary ---
Author Organization [facility] Address [address] [place] [address] Care Team Providers Care Otr Flatbed Driver Name Role Phone Bharati Farley, LAZARA, Adonis Pan Primary Care Pro vider Encounter Details Date Type Department Care Team (Late st Contact Info) Description 06/18/2012 Ancillary Orders [facility] Laboratory Services [place] [address] [place] [address] Sick Social History Tobacco Use Types Packs/Day Years Used Date Smoking Tobacco: Never Assessed Sex and Gender Information Value Date Recorded Sex Assigned at Not on file Legal Sex Male 4:34 AM ZONING ENGINEER Gender Identity Not on file Sexual Orientation Not on file documented as of this encounter Plan of Treatment Not on file documented as of this encounter Procedures Procedure Name Priority Date/Time Associated Diagnosis Comments LIPID PANEL Routine 06/18/2012 8:44 PM ZONING ENGINEER Sick [ICD-9-CM] BASIC METABOLIC PANEL Routine 06/18/2012 8:44 PM ZONING ENGINEER Sick [ICD-9-CM] documented in this encounter Results * (ABNORMAL) LIPID PANEL (06/18/2012 8:44 PM ZONING ENGINEER) CHOLESTEROL 210(H) 130 - 200 mg/dL 06/18/2012 9:45 PM ZONING ENGINEER [facility]AT[facility] [place] TRIGLYCERIDE 279(H) 30 - 200 mg/dL 06/18/2012 9:45 PM ZONING ENGINEER [facility] [place] HDL 31(L) 35 - 80 mg/dL 06/18/2012 9:45 PM ZONING ENGINEER [facility] LABORATORY [facility] LDL CALCULATED 123(H) 0 - 100 mg/dL 06/18/2012 9:45 PM [facility] [employer] [facility] Blood specimen (specimen) 06/18/2012 8:44 PM ZONING ENGINEER 06/18/2012 9:16 PM ZONING ENGINEER [facility] [employer] LABORATORY [facility] [place] - 06/18/2012 9:45 PM ZONING ENGINEER TOTAL CHOLESTEROL mg/dL Desirable <200 Borderline high 200-239 High >=240 TRIGLYCERIDES mg/dL Normal <150 Borderline high 150-199 High 200-499 Very high >=500 HDL CHOLESTEROL mg/dL Low <40 Normal 40-60 Desirable >60 LDL CHOLESTEROL mg/dL Optimal <100 Low risk 100-129 Borderline high 130-159 High 160-189 Very high >=190 Based on AHA/NCEP Guidelines Nela Mata WHARF HELPER CHEMISTRY ORDERABLES Final Result [facility] Geron [facility] CLIA # [id number] 100 [facility] 60 [place] [address] * BASIC METABOLIC PANEL (06/18/2012 8:44 PM ZONING ENGINEER) SODIUM 137 136 - 145 mmol/L 06/18/2012 9:45 PM [facility] [place] POTASSIUM 3.8 3.5 - 5.1 mmol/L 06/18/2012 9:45 PM [facility] [place] CHLORIDE 100 98 - 107 mmol/L 06/18/2012 9:45 PM [facility] CO2 25 21 - 32 mmol/L 06/18/2012 9:45 PM [facility] [place] [place] CALCIUM 9.0 8.5 - 10.1 mg/dL 06/18/2012 9:45 PM [facility] Geron [facility] [place] BUN 16 7 - 18 mg/dL 06/18/2012 9:45 PM [facility] Geron [facility] [place] CREATININE 1.00 0.60 - 1.30 mg/dL 06/18/2012 9:45 PM [facility] GLUCOSE 106 74 - 106 mg/dL 06/18/2012 9:45 PM [facility] [employer] [facility] GFR 76 >=60 mL/min/1.7 3 sq meter 06/18/2012 9:45 PM [facility] Geron [facility] GFR, 93 >=60 mL/min/1.7 3 sq meter 06/18/2012 9:45 PM [facility] Geron [facility] Blood specimen (specimen) 06/18/2012 8:44 PM ZONING ENGINEER 06/18/2012 9:16 PM ZONING ENGINEER Narrative [facility] Geron [facility] - 06/18/2012 9:45 PM ZONING ENGINEER eGFR has not been validated for use [...] Program Nela HAILE CHEMISTRY ORDERABLES Final Result [facility] Geron [facility] CLIA # [id number] [address] [place] [address] 60 [place] [address] documented in this encounter Visit Diagnoses Diagnosis Sick Other unknown and unspecified cause of morbidity or mortality documented in this encounter Care Teams Otr Flatbed Driver Relationship Specialty Start Date End Date Bharati Farley, LAZARA Velasquez [address] [place] [address] PCP - General NURSE PRACTITIONER 05/13/15 documented as of this encounter
--- OUTSIDE RECORDS SUMMARY | 2025-07-21 02:03 | XMS_ITS | Encounter Summary ---
Author Organization [facility] Address [address] [place] [address] Care Team Providers Care Salesperson Fashion Accessories Name Role Phone LAZARA Calabrese Sr., Adonis Pan Primary Care Pro vider Encounter Details Date Type Department Care Team (Latest Contact Info) Description 11/03/2005 Outpatient Historical [facility] Orthopedics- [address] [place] [address] Mateo Greer MD [address] [place] [address] Tear of Medial Cartilage or Meniscus of Knee, Current (Primary Dx); Loc Osteoarth NOS-L/Leg; Pain in Joint, Lower Leg Social History Tobacco Use Types Packs/Day Years Used Date Smoking Tobacco: Never Assessed Sex and Gender Information Value Date Recorded Sex Assigned at Not on file Legal Sex Male 4:34 AM AV[employer]ATION [employer]TELL[employer] Gender Identity Not on file Sexual Orientation Not on file documented as of this encounter Plan of Treatment Not on file documented as of this encounter Visit Diagnoses Diagnosis Tear of medial cartilage or meniscus of knee, current- Primary Localized osteoarthrosis not specified whether primary or secondary, lower leg Pain in joint, lower leg documented in this encounter Care Teams Salesperson Fashion Accessories Relationship Specialty Start Date End Date Adonis Calabrese Sr., FNP [address] [place] [address] PCP - General NURSE PRACTITIONER 05/13/15 documented as of this encounter
--- OUTSIDE RECORDS SUMMARY | 2025-07-21 02:03 | XMS_ITS | Encounter Summary ---
Author Organization [facility] Address [address] [place] [address] Care Team Providers Care Sql Developer Name Role Phone LAZARA Calabrese Sr., Michael Dave Primary Care Pro vider Encounter Details Date Type Department Care Team (Latest Contact Info) Description 01/29/2002 Outpatient Historical [facility] Medicine [place] [address] [facility] [address] [place] [phone] Guanakito Bland DO NO ADDRESS ON FILE LOCAL SKIN INFECTION NOS (Primary Dx) Social History Tobacco Use Types Packs/Day Years Used Date Smoking Tobacco: Never Assessed Sex and Gender Information Value Date Recorded Sex Assigned at Not on file 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
--- OUTSIDE RECORDS SUMMARY | 2025-07-21 02:03 | XMS_ITS | Encounter Summary ---
Author Organization [facility] Address [address] [place] [address] Care Team Providers Care Distributor Cleaner Name Role Phone Bharati Farley, LAZARA, Adonis Pan Primary Care Pro vider Encounter Details Date Type Department Care Team (Late st Contact Info) Description 11/26/[address] 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 Gender Identity Not on file Sexual Orientation [...] - 200 mg/dL 11/26/2012 10:00 PM CDT [facility] [place] TRIGLYCERIDE 81 30 - 200 mg/dL 11/26/2012 10:00 PM CDT [facility] [place] HDL 40 35 - 80 mg/dL 11/26/2012 10:00 PM CDT [facility] [place] LDL CALCULATED 134(H) 0 - 100 mg/dL 11/26/2012 10:00 PM T [facility] [employer] [facility] Blood specimen (specimen) 11/26/2012 8:11 PM CDT 11/26/2012 9:36 PM CDT Narrative [facility] - 11/26/2012 10:00 PM CDT TOTAL CHOLESTEROL mg/dL Desirable <200 Borderline high 200-239 High >=240 TRIGLYCERIDES mg/dL Normal <150 Borderline high 150-199 High 200-499 Very high >=500 HDL CHOLESTEROL mg/dL Low <40 Normal 40-60 Desirable >60 LDL CHOLESTEROL mg/dL Optimal <100 Low risk 100-129 Borderline high 130-159 High 160-189 Very high >=190 Based on AHA/NCEP Guidelines [facility] View CHEMISTRY ORDERABL ES Final Result [facility] [employer] [facility] CLIA # [id number] [address] [facility] [address] [place] [address] * (ABNORMAL) COMPREHENSIVE METABOLIC PANEL (11/26/2012 8:11 PM CDT) SODIUM 138 136 - 145 mmol/L 11/26/2012 10:00 PM [facility] [employer] [facility] POTASSIUM 3.7 3.5 - 5.1 mmol/L 11/26/2012 10:00 PM [facility] [employer] [facility] CHLORIDE 102 98 - 107 mmol/L 11/26/2012 10:00 PM [facility] [employer] [facility] CO2 27 21 - 32 mmol/L 11/26/2012 10:00 PM [facility] [employer] [facility] CALCIUM 8.9 8.5 - 10.1 mg/dL 11/26/2012 10:[address] [facility] [employer] [facility] BUN 22(H) 7 - 18 mg/dL 11/26/2012 10:00 PM T [facility] [employer] [facility] CREATININE 1.00 0.60 - 1.30 mg/dL 11/26/2012 10:00 PM T [facility] [employer] [facility] GLUCOSE 93 74 - 106 mg/dL 11/26/2012 10:00 PM [facility] [employer] [facility] TOTAL PROTEIN 8.2 6.4 - 8.2 g/dL 11/26/2012 10:00 PM CDT [facility] ALBUMIN 4.0 3.4 - 5.0 g/dL 11/26/2012 10:00 PM CDT [facility] BILIRUBIN TOTAL 0.4 0.2 - 1.0 mg/dL 11/26/2012 10:00 PM T [facility] ALKALINE PHOSPHATASE 93 50 - 136 U/L 11/26/2012 10:00 PM CDT [facility] AST 24 15 - 37 U/L 11/26/2012 10:00 PM T [facility] ALT 44 30 - 65 U/L 11/26/2012 10:00 PM CDT [facility] GFR 76 >=60 mL/min/1.7 3 sq meter 11/26/2012 10:00 PM T [facility] GFR, 92 >=60 mL/min/1.7 3 sq meter 11/26/2012 10:00 PM T [facility] Blood specimen (specimen) 11/26/2012 8:11 PM CDT 11/26/2012 9:36 PM CDT Narrative [facility] - 11/26/2012 10:00 PM CDT eGFR has [...] Based on National Kidney Disease Education Program [facility] View CHEMISTRY ORDERABL ES Final Result [facility] [employer] [facility] CLIA # [id number] [address] [place] [address] [address] [place] [address] documented in this encounter Visit Diagnoses Diagnosis Sick Other unknown and unspecified cause of morbidity or mortality documented in this encounter Care Teams Distributor Cleaner Relationship Specialty Start Date End Date Bharati Farley, LAZARA Velasquez [address] [place] [address] PCP - General NURSE PRACTITIONER 05/13/15 documented as of this encounter
--- OUTSIDE RECORDS SUMMARY | 2025-07-21 02:03 | XMS_ITS | Encounter Summary ---
Author Organization [facility] Address [address] [place] [address] Care Team Providers Care Retirement Administrator Name Role Phone Bharati Farley, LAZARA, Adonis Pan Primary Care Pro vider Reason for Visit * Reason Onset Date Comments Follow Up 06/24/2025 Appt needed Encounter Details Date Type Department Care Team (Late st Contact Info) Description 06/24/2025 Telephone [facility] [address] [facility] [address] [place] [phone] Mina Del Rio MD [address] [facility] [address] [place] [phone] Follow Up (Appt needed) Social History [...] on file Legal Sex Male 8:49 AM SYSTEMS ANALYST Gender Identity Not on file Sexual Orientation Not on file documented as of this encounter Miscellaneous Notes * Telephone Encounter - Svetlana Nava RN - 06/27/2025 4:23 PM CST I called and spoke to Elieser he is unable to make appointment on Monday with Dr. Del Rio Routed message to see how to follow up. EMS ANALYST * Telephone Encounter - Svetlana Nava, RN [...] AM Alina Treadwell routed this conversation to [facility] Nurses Invasive 4 EMS ANALYST * Telephone Encounter - Alina Treadwell - 06/24/2025 10:29 AM CST Provider: Eliane , call pt MESSAGE [facility] and [facility] on 04/11/25 Pt inquires when he can expect a f/u appt. He also inquires when he is needing to schedule his next echo. Alina Treadwell, [facility], [facility] EMS ANALYST documented in this encounter Plan of Treatment Not on file documented as of this encounter Visit Diagnoses Not on filedocumented in this encounter Care Teams Retirement Administrator Relationship Specialty Start Date End Date Bharati Farley, LAZARA Velasquez [address] [place] [address] PCP - General 11/16/20 documented as of this encounter
--- OUTSIDE RECORDS SUMMARY | 2025-07-21 02:03 | XMS_ITS | Encounter Summary ---
Author Organization [facility] Address [address] [place] [address] Care Team Providers Care Jointer Machine Operator Name Role Phone Bharati Farley, LAZARA, Adonis Pan Primary Care Pro vider Encounter Details Date Type Department Care Team (Late st Contact Info) Description 08/04/2014 Ancillary Orders [facility] Laboratory Services [place] [address] [place] [address] Social History Tobacco Use Types Packs/Day Years Used Date Smoking Tobacco: Never Assessed Sex and Gender Information Value Date Recorded Sex Assigned at Not on file Legal Sex Male 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 Gender Identity Not on file Sexual Orientation Not on file documented as of this encounter Plan of Treatment Not on file documented as of this encounter Procedures Procedure Name Priority Date/Time Associated Diagnosis Comments ALT Routine 08/04/2014 11:03 PM ENVIRONMENTAL FIELD TECHNICIAN GLUCOSE LEVEL Routine 08/04/2014 11:03 PM ENVIRONMENTAL FIELD TECHNICIAN CK Routine 08/04/2014 11:03 PM ENVIRONMENTAL FIELD TECHNICIAN LIPID PANEL Routine 08/04/2014 11:03 PM ENVIRONMENTAL FIELD TECHNICIAN documented in this encounter Results * (ABNORMAL) LIPID PANEL (08/04/2014 11:03 PM ENVIRONMENTAL FIELD TECHNICIAN) CHOLESTEROL 217(H) 130 - 200 mg/dL 08/04/2014 11:29 PM ENVIRONMENTAL FIELD TECHNICIAN [facility] [place] TRIGLYCERIDE 83 30 - 200 mg/dL 08/04/2014 11:29 PM ENVIRONMENTAL FIELD TECHNICIAN [facility] [place] HDL 47 35 - 80 mg/dL 08/04/2014 11:29 PM ENVIRONMENTAL FIELD TECHNICIAN [facility] 3D Data [facility] LDL CALCULATED 153(H) 0 - 100 mg/dL 08/04/2014 11:29 PM [facility] NON-HDL CHOLESTEROL 170 mg/dL 08/04/2014 11:29 PM [facility] Blood 08/04/2014 11:0 3 PM ENVIRONMENTAL FIELD TECHNICIAN 08/04/2014 11:03 PM ENVIRONMENTAL FIELD TECHNICIAN Narrative [facility] - 08/04/2014 11:29 PM ENVIRONMENTAL FIELD TECHNICIAN TOTAL CHOLESTEROL mg/dL Desirable <200 Borderline [...] Resu lt Performing Organization Address City/[facility]/ZIP Co de Phone Number [facility] CLIA # [id number] [address] [place] [address] * GLUCOSE LEVEL (08/04/2014 11:03 PM ENVIRONMENTAL FIELD TECHNICIAN) GLUCOSE 93 74 - 106 mg/dL 08/04/2014 11:29 PM [facility] Blood 08/04/2014 11:0 3 PM ENVIRONMENTAL FIELD TECHNICIAN 08/04/2014 11:03 PM ENVIRONMENTAL FIELD TECHNICIAN Guanakito Bland DO CHEMISTRY ORDERABLES Final Resu lt Performing Organization Address City/[facility]/ZIP Co de Phone Number [facility] CLIA # [id number] [address] [place] [address] * CK (08/04/2014 11:03 PM ENVIRONMENTAL FIELD TECHNICIAN) CK 267 26 - 308 U/L 08/04/2014 11:29 PM ENVIRONMENTAL FIELD TECHNICIAN [facility] 3D Data [facility] - [place] Blood 08/04/2014 11:0 3 PM ENVIRONMENTAL FIELD TECHNICIAN 08/04/2014 11:03 PM ENVIRONMENTAL FIELD TECHNICIAN Guanakito Bland DO CHEMISTRY ORDERABLES Final Resu lt Performing Organization Address [facility]/ZIP Co de Phone Number [facility] [place] CLIA # [id number] [address] [place] [address] * ALT (08/04/2014 11:03 PM ENVIRONMENTAL FIELD TECHNICIAN) ALT 39 30 - 65 U/L 08/04/2014 11:29 PM ENVIRONMENTAL FIELD TECHNICIAN [facility] [place] Blood 08/04/2014 11:0 3 PM ENVIRONMENTAL FIELD TECHNICIAN 08/04/2014 11:03 PM ENVIRONMENTAL FIELD TECHNICIAN Guanakito Bland DO CHEMISTRY ORDERABLES Final Resu Performing Organization Address City/[facility] Co de Phone Number [facility] [place] CLIA # [id number] [address] [place] [address] documented in this encounter Visit Diagnoses Not on filedocumented in this encounter Care Teams Jointer Machine Operator Relationship Specialty Start Date End Date Bharati Farley, LAZARA Velasquez [address] [place] [address] PCP - General NURSE PRACTITIONER 05/13/15 documented as of this encounter
--- OUTSIDE RECORDS SUMMARY | 2025-07-21 02:03 | XMS_ITS | Encounter Summary ---
Author Organization [facility] Address [address] [place] [address] Care Team Providers Care Conciliation Court Judge Name Role Phone Bharati Farley, LAAZRA, Adonis Pan Primary Care Pro vider Encounter Details Date Type Department Care Team (Late st Contact Info) Description 11/21/2011 Ancillary Orders [facility] Laboratory Services [place] [address] [place] [address] Hyperlipidemia Social History Tobacco Use Types Packs/Day Years Used Date Smoking Tobacco: Never Assessed Sex and Gender Information Value Date Recorded Sex Assigned at Not on file 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 Gender Identity Not on file Sexual Orientation [...] - 200 mg/dL 11/21/2011 11:37 PM CDT [facility] [place] TRIGLYCERIDE 131 30 - 200 mg/dL 11/21/2011 11:37 PM CDT [facility] [place] HDL 34(L) 35 - 80 mg/dL 11/21/2011 11:37 PM CDT [facility] [place] LDL CALCULATED 142(H) 0 - 100 mg/dL 11/21/2011 11:37 PM CDT [facility] Blood specimen (specimen) 11/21/2011 8:45 PM CDT 11/21/2011 10:44 PM CDT Narrative [facility] LABORATORY [facility] - 11/21/2011 11:37 PM CDT TOTAL CHOLESTEROL [...] ORDERABLES Final Resu lt Performing Organization Address [facility]/ZIP Co de Phone Number [facility] CLIA # [id number] [address] [place] [address] * ALT (11/21/2011 8:45 PM CDT) ALT 51 30 - 65 U/L 11/21/2011 11:37 PM CDT [facility] Blood specimen (specimen) 11/21/2011 8:45 PM CDT 11/21/2011 10:44 PM CDT Guanakito Bland DO CHEMISTRY ORDERABLES Final Resu lt Performing Organization Address City/[facility]/ZIP Co de Phone Number [facility] CLIA # [id number] [address] [place] [address] documented in this encounter Visit Diagnoses Diagnosis Hyperlipidemia Other and unspecified hyperlipidemia documented in this encounter Care Teams Conciliation Court Judge Relationship Specialty Start Date End Date Bharati Farley, LAZARA Velasquez [address] [place] [address] PCP - General NURSE PRACTITIONER 05/13/15 documented as of this encounter
[2025-07-21 02:11] VITALS: BP 162/100; PULSE 92; RESP 18; O2SAT 95
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
--- NOTE | 2025-07-21 03:56 | PC.NURSE ---
patient was ready for dc when his blood pressure became low 81/52 he was asleep in bed. switched arms and same low reading. sat patient up in bed as well with no improvement. dr. savage notified instructed rn to walk patient we walked in hallway around 150feet then took pressure again it remained low. notified dr. savage he said to give him glass of water to drink and take again in 10 minutes if map is above 65 them proceed with discharge.
[2025-07-21 04:11] VITALS: BP 75/51; PULSE 86; RESP 18; O2SAT 94
--- NOTE | 2025-07-21 04:22 | PC.NURSE ---
dr houston said to start IV and do CBC and CMP and run 1 liter of fluid bolus. IV placed in left AC labs drawn and sent to lab and fluids started for low blood pressure. Dr. Santizo notified
[2025-07-21 04:31] LABS: Hematocrit 40.6 % (37-53); Hemoglobin 13.70 g/dL (11.27-16.99); Mean Corpuscular HGB Conc 33.7 g/dL (30-55); Mean Corpuscular Hemoglobin 31.9 pg (27-33); Mean Corpuscular Volume 94.4 fl (82-101); Nucleated Red Blood Cells % 0 %; Platelet Count 190 10^3/cmm (157-399); Red Blood Count 4.30 10^6/uL (3.85-5.65); White Blood Count 11.82 10^3/uL (3.29-11.43)
[2025-07-21 04:48] VITALS: BP 82/54; PULSE 73; O2SAT 96
[2025-07-21 04:48] LABS: Alanine Aminotransferase 35 U/L (0-41); Albumin Level 3.5 g/dL (3.5-5.2); Alkaline Phosphatase 54 U/L (40-130); Anion Gap 14.4 (5-19); Aspartate Amino Transferase 18 U/L (0-40); Blood Urea Nitrogen 22 mg/dL (8-23); Calcium 8.7 mg/dL (8.5-10.5); Carbon Dioxide 24 mmol/L (22-29); Chloride 101 mmol/L (98-107); Globulin 3.2 g/dL (1.3-4.6); Glucose 233 mg/dL (65-115); Osmolality Calculated 291 mOsm/kg (285-295); Potassium 4.4 mmol/L (3.5-5.1); Sodium 135 mmol/L (136-145); Total Protein 6.7 g/dL (6.6-8.7)
[2025-07-21 05:09] VITALS: BP 99/59; PULSE 17; RESP 61; TEMP 36.3; O2SAT 97
== END 2025-07-21 05:11 | disposition home or self-care (01) ==
PROVIDERS: Emergency Provider Emergency Medicine
DX: S22.41XA Multiple fractures of ribs, right side, initial encounter for closed fracture (principal); J90 Pleural effusion, not elsewhere classified; Z79.84 Long term (current) use of oral hypoglycemic drugs; Z79.02 Long term (current) use of antithrombotics/antiplatelets; Z79.82 Long term (current) use of aspirin; E78.5 Hyperlipidemia, unspecified; E11.22 Type 2 diabetes mellitus with diabetic chronic kidney disease; I12.9 Hypertensive chronic kidney disease with stage 1 through stage 4 chronic kidney disease, or unspecified chronic kidney disease; N18.31 Chronic kidney disease, stage 3a; V89.2XXA Person injured in unspecified motor-vehicle accident, traffic, initial encounter
CPT/HCPCS: 71045; 73030; 80053; 85025; 96360; 96372; 99284; J1885; J7030; J9999

== ENCOUNTER 2025-07-23 10:31 | Outpatient (CLI) | payer MEDICARE, MEDICAID, SELFPAY | END 2025-07-23 10:32 | disposition home or self-care (01) | DX: E11.8 Type 2 diabetes mellitus with unspecified complications (principal); J90 Pleural effusion, not elsewhere classified; I25.10 Atherosclerotic heart disease of native coronary artery without angina pectoris | CPT/HCPCS: 80053; 82550; 83880 ==

== ENCOUNTER 2025-07-25 11:03 | Outpatient (CLI) | payer MEDICARE, MEDICAID, SELFPAY ==
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
== END 2025-07-25 11:04 | disposition home or self-care (01) ==
LOC: RAD 11:07
DX: S22.41XA Multiple fractures of ribs, right side, initial encounter for closed fracture (principal); V87.7XXA Person injured in collision between other specified motor vehicles (traffic), initial encounter; J90 Pleural effusion, not elsewhere classified; I77.89 Other specified disorders of arteries and arterioles
CPT/HCPCS: 71046

== ENCOUNTER 2025-07-28 15:49 | Outpatient (CLI) | payer MEDICARE, MEDICAID, SELFPAY ==
[2025-07-28] MEDS: iohexol 350 mg/mL 500 mL Btl (per mL) IV (16:14)
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
== END 2025-07-28 15:50 | disposition home or self-care (01) ==
LOC: RAD 15:52
DX: S39.91XA Unspecified injury of abdomen, initial encounter (principal); V87.7XXA Person injured in collision between other specified motor vehicles (traffic), initial encounter; S22.43XD Multiple fractures of ribs, bilateral, subsequent encounter for fracture with routine healing; X58.XXXD Exposure to other specified factors, subsequent encounter; J90 Pleural effusion, not elsewhere classified; J98.11 Atelectasis; N32.89 Other specified disorders of bladder
CPT/HCPCS: 74177